=== PATIENT | female | born 1965 | race Caucasian/White ===

== ENCOUNTER → 2020-03-11 09:30 | Outpatient (BNVA) | payer OTHER, SELFPAY | PROVIDERS: PCP Physician Assistant; Visit Provider Urology | DX: N30.10 Interstitial cystitis (chronic) without hematuria (principal); R39.15 Urgency of urination | CPT/HCPCS: 51798; 99213 ==

== ENCOUNTER 2020-03-20 22:02 | Emergency (ER) | payer OTHER, SELFPAY ==
--- NOTE | 2020-03-20 22:08 | ED_ITS ---
HPI - Abdominal Pain General Chief Complaint: Upper Respiratory Symptoms Stated Complaint: ABD PAIN Time Seen by Provider: 03/20/20 22:07 Source: patient and EMS Mode of arrival: EMS Limitations: no limitations History of Present Illness MD elicited complaint: flank pain Pertinent past history: other (hx of interstitial cystitis) Onset (ago): day(s) (yesterday but worse since 4pm) Pain Consistency: constant Location: L flank and suprapubic Severity: moderate Quality: aching Radiation: none Migration to: no migration Exacerbating factors: nothing Relieving factors: nothing Context: history of similar episodes Associated symptoms: nausea and dysuria Related Data Previous Rx's Medication Instructions Recorded loperamide 2 mg capsule 2 mg PO QID PRN #40 cap 03/09/20 meloxicam 15 mg tablet 15 mg PO DAILY #30 tab 03/09/20 nicotine 21 mg/24 hr daily 1 patch TRANSDERMAL DAILY 28 Days 03/09/20 transdermal patch #28 ea sennosides 8.6 mg tablet 17.2 mg PO BEDTIME PRN #60 tab 03/09/20 ipratropium 0.5 mg-albuterol 3 mg 3 ml INHALATION Q4H PRN 30 Days 03/18/20 (2.5 mg base)/3 mL nebulization #180 ml soln metronidazole [Flagyl] 500 mg PO BID 7 Days #14 tab 03/21/20 nitrofurantoin monohyd/m-cryst 100 mg PO BID 7 Days #14 cap 03/21/20 [Macrobid] ondansetron 4 mg PO Q8H PRN #20 tab 03/21/20 Allergies Allergy/AdvReac Type Severity Reaction Status Date / Time ciprofloxacin [From CIPRO] Allergy Intermediate ANXIOUS/STOMACH Verified 03/20/20 23:14 PAINS sulfamethoxazole Allergy Intermediate RASH Verified 03/20/20 23:14 [From Bactrim] trimethoprim [From Bactrim] Allergy Intermediate RASH Verified 03/20/20 23:14 amoxicillin [AMOXICILLIN] Allergy Mild STOMACH Verified 03/20/20 23:14 UPSET, yeast, gentamicin [GENTAMICIN] Allergy Unknown RASH Verified 03/20/20 23:14 ibuprofen [IBUPROFEN] Allergy Unknown IRRITATION Verified 03/20/20 23:14 OF STOMACH Sulfa (Sulfonamide Allergy Unknown hives Verified 03/20/20 23:14 Antibiotics) ANXIETY MED ENDING WITH Allergy Unknown CYSTITIS Uncoded 02/12/20 15:33 PRAM anxiety meds ending in pram Allergy Unknown cystitis Uncoded 01/19/20 00:00 Review of Systems Review of Systems Constitutional : No Fever, No Chills ENT/Mouth : No sore throat Eyes: No Eye Pain, No Swelling, No Redness Cardiovascular : No Chest Pain, No SOB Respiratory : No Cough, No Sputum, No Wheezing Gastrointestinal : positive Nausea, no Vomiting, No Diarrhea, positive abdominal pain Genitourinary : positive Dysuria, positive urinary frequency, noHematuria, positive Flank Pain, no hesitancy Musculoskeletal : No joint pain, No Myalgias Skin : No Skin Lesions, No rash Neuro : No Weakness, No Numbness, No Headache Psych : No Anxiety/Panic, No Depression Heme/Lymph: No Bruising, No Lymphadenopathy Endocrine : No Polyuria, No Polydipsia All other systems reviewed and are negative Physical Exam Vital Signs: Vital Signs: Vital Signs Temp Pulse Resp BP Pulse Ox 03/20/20 22:14 98 F 80 18 130/65 97 Body Mass Index 34.0 Appearance: Alert. Oriented X3. No acute distress. Eyes: Pupils equal, round and reactive to light. ENT: Pharynx normal. Neck: Normal inspection. Neck supple. CVS: Normal heart rate and rhythm. Pulses normal. Respiratory: No respiratory distress. Breath sounds normal. Abdomen: Soft and mild suprapubic ttp and mild L CVA ttp Skin: Skin warm and dry. Normal skin color. Normal skin turgor. Extremities: No lower extremity edema. No calf ttp Neuro: Oriented X 3. No motor deficit. No sensory deficit. Course Course Course Narrative: prior urine cultures susceptible to levofloxacin and macrobid - colitis seems unusual given lack of diarrhea will treat with macrobid and flagyl - anticipate DC home MDM - Abdominal Pain MDM Narrative Medical decision making narrative: 54 yo female with hx of interstitial cystitis here with L flank pain and mild CVA ttp at this time will need labs, CT scan for renal colic, UA, IV morphine for pain, dispo per results and findings. Differential Diagnosis Differential diagnosis: Likely diverticulitis and renal colic Lab Data Result diagrams: 03/20/20 02:41 03/21/20 00:42 Labs: Lab Results 03/20/20 03/20/20 03/20/20 Range/Units 02:41 22:48 22:54 WBC 5.8 (4.8-10.8) X10*3/uL RBC 4.79 (4.20-5.50) X10*6/uL Hgb 14.9 (12.0-16.0) g/dl Hct 44.0 (37-47) % MCV 91.9 (80-98) fL MCH 31.1 (27.0-33.0) pg MCHC 33.9 (31.0-35.0) g/dl RDW 12.1 (11.0-16.0) % Plt Count 138 L (160-400) X10*3/uL MPV 12.0 (9.4-12.3) fL Immature Gran % (Auto) 0.2 (0.0-0.4) % Neut % (Auto) 31.4 L (45-73) % Lymph % (Auto) 58.3 H (20-40) % Chase % (Auto) 8.2 (2-11) % Eos % (Auto) 1.6 (0-4) % Baso % (Auto) 0.3 (0-2) % Lymph # (Auto) 3.4 (1.2-4.9) X10*3/uL Chase # (Auto) 0.5 (0.1-1.2) X10*3/uL Eos # (Auto) 0.1 (0.0-0.4) X10*3/uL Baso # (Auto) 0.0 (0.0-0.2) X10*3/uL Abs Immat Gran (auto) 0.01 (0.00-0.03) X10*3/uL Absolute Neuts (auto) 1.8 L (2.0-8.3) X10*3/uL Absolute Nucleated RBC 0.000 (0.0-0.012) X10*3/uL Nucleated RBC % (auto) 0.0 (0.0-0.2) /100WBC Hold Blue Top SEE NOTE Sodium Potassium Chloride Carbon Dioxide Anion Gap BUN Creatinine Estim Creat Clear Calc Estimated GFR Random Glucose Lactic Acid (0.5-2.0) mmol/L Calcium Magnesium Total Bilirubin Direct Bilirubin AST ALT Alkaline Phosphatase Total Protein Albumin Lipase Urine Color YELLOW Urine Appearance CLEAR Urine pH 6.5 (5.0-8.0) Ur Specific [place] 1.025 (1.005-1.025) Urine Protein NEG (NEG-TRACE) MG/DL Urine Glucose (UA) NEG (NEG) MG/DL Urine Ketones NEG (NEG) MG/DL Urine Blood NEG (NEG) Urine Nitrite NEG (NEG) Ur Leukocyte Esterase NEG (NEG) Urine RBC 1-4 (0) /HPF Urine WBC 1-4 (0-4) /HPF Ur Squamous Epith Cells 1+ /LPF Urine Bacteria 1+ /LPF 03/20/20 03/20/20 Range/Units 22:54 22:54 WBC (4.8-10.8) X10*3/uL RBC (4.20-5.50) X10*6/uL Hgb (12.0-16.0) g/dl Hct (37-47) % MCV (80-98) fL MCH (27.0-33.0) pg MCHC (31.0-35.0) g/dl RDW (11.0-16.0) % Plt Count (160-400) X10*3/uL MPV (9.4-12.3) fL Immature Gran % (Auto) (0.0-0.4) % Neut % (Auto) (45-73) % Lymph % (Auto) (20-40) % Chase % (Auto) (2-11) % Eos % (Auto) (0-4) % Baso % (Auto) (0-2) % Lymph # (Auto) (1.2-4.9) X10*3/uL Chase # (Auto) (0.1-1.2) X10*3/uL Eos # (Auto) (0.0-0.4) X10*3/uL Baso # (Auto) (0.0-0.2) X10*3/uL Abs Immat Gran (auto) (0.00-0.03) X10*3/uL Absolute Neuts (auto) (2.0-8.3) X10*3/uL Absolute Nucleated RBC (0.0-0.012) X10*3/uL Nucleated RBC % (auto) (0.0-0.2) /100WBC Hold Blue Top Sodium Cancelled Potassium Cancelled Chloride Cancelled Carbon Dioxide Cancelled Anion Gap Cancelled BUN Cancelled Creatinine Cancelled Estim Creat Clear Calc Cancelled Estimated GFR Cancelled Random Glucose Cancelled Lactic Acid 2.0 (0.5-2.0) mmol/L Calcium Cancelled Magnesium Cancelled Total Bilirubin Cancelled Direct Bilirubin Cancelled AST Cancelled ALT Cancelled Alkaline Phosphatase Cancelled Total Protein Cancelled Albumin Cancelled Lipase Cancelled Urine Color Urine Appearance Urine pH (5.0-8.0) Ur Specific [place] (1.005-1.025) Urine Protein (NEG-TRACE) MG/DL Urine Glucose (UA) (NEG) MG/DL Urine Ketones (NEG) MG/DL Urine Blood (NEG) Urine Nitrite (NEG) Ur Leukocyte Esterase (NEG) Urine RBC (0) /HPF Urine WBC (0-4) /HPF Ur Squamous Epith Cells /LPF Urine Bacteria /LPF Discharge Plan Discharge Clinical Impression: Acute left flank pain, Cystitis, Colitis Patient Disposition: Home, Self-Care Instructions: Colitis (ED), Interstitial Cystitis (ED) Prescriptions: New ondansetron 4 mg tablet,disintegrating 4 mg PO Q8H PRN (Reason: nausea and vomiting) Qty: 20 RF: 0 nitrofurantoin monohyd/m-cryst [Macrobid] 100 mg capsule 100 mg PO BID 7 Days Qty: 14 RF: 0 metronidazole [Flagyl] 500 mg tablet 500 mg PO BID 7 Days Qty: 14 RF: 0 No Action nicotine 21 mg/24 hr patch 24 hour 1 patch transdermal DAILY 28 Days Qty: 28 RF: 0 loperamide 2 mg capsule 2 mg PO QID PRN (Reason: loose stool) Qty: 40 RF: 3 meloxicam 15 mg tablet 15 mg PO DAILY Qty: 30 RF: 3 sennosides [senna] 8.6 mg tablet 17.2 mg PO BEDTIME PRN (Reason: constipation) Qty: 60 RF: 3 ipratropium-albuterol 0.5 mg-3 mg(2.5 mg base)/3 mL solution for nebulization 3 ml inhalation Q4H PRN (Reason: shortness of breath or wheezing) 30 Days Qty: 180 RF: 5 Referrals: Physician,Unknown [Primary Care Provider] - 2 days (primary care if not better 2 days) Stand Alone Forms: Work/School Release FOR[facility]LY [facility], [facility] Past Medical History Medical History (Updated 03/21/20 @ 01:02 by Josie Almanzar DO) High cholesterol Smoker Thyroid activity decreased Urinary retention Surgical History History of cystoscopy History of neck surgery Social History Social History (Updated 03/20/20 @ 22:14 by Josie Almanzar DO) Alcohol intake: never Smoking Status: Light tobacco smoker Use of substances other than those prescribed or required for medical reasons: No Advance Directives: No Advance Directives Information Provided: Yes
--- NOTE | 2020-03-20 22:09 | CT_ITS ---
EXAMINATION: CT abdomen pelvis wo con CLINICAL INFORMATION: Reason for Exam L flank pain COMPARISON: No prior CT available for comparison. TECHNIQUE: Multidetector volumetric imaging was performed from the superior aspect of the liver through the pubic symphysis , noncontrasted study. Sagittal and coronal reformatted images were obtained on the technologist's workstation. This CT examination was performed using dose optimization techniques as appropriate, variously including the following: *Automated exposure control *Adjustment of mA and/or kV according to patient size (this includes techniques or standardized protocols for targeted exams where dose is matched to indication/reason for exam; i.e. extremities or head) *Use of iterative reconstruction technique DLP: 655 mGy-cm FINDINGS: LOWER THORAX: Included lung bases are clear. HEPATOBILIARY: Liver diffusely hypodense suggesting hepatic steatosis. Hypodense area in the liver adjacent to the gallbladder likely focal fat sparing. GALLBLADDER: There are small gallstones. SPLEEN: Spleen is normal in size. PANCREAS: No focal mass or ductal dilatation. STOMACH AND GASTROINTESTINAL TRACT: Stomach is grossly unremarkable. There is no bowel distention or thickening. There is circumferential wall thickening of the entire colon which is also hypodense concerning for edema, this is nonspecific CT finding however can be seen in patient with colitis including C. Difficile colitis. ADRENALS: No adrenal nodules. KIDNEYS/URETERS: There is no hydronephrosis. Perinephric fat are clear. The left ureter is not dilated. There are multiple calcific densities found along the course of the left ureter however felt to be more vascular, difficult to visualize the ureter due to its very small size nondilated. URINARY BLADDER: Urinary bladder is decompressed, the wall of which is thickened, this is probably due to its decompression, also has been described in patient with cystitis. PELVIC VISCERA: Unremarkable PERITONEUM: No free air or fluid. LYMPH NODES: No lymphadenopathy. VASCULAR:Abdominal aorta normal in size, no aneurysm found. BONES, ABDOMINAL WALL AND SOFT TISSUES: Age-appropriate changes of the spine and skeletal system, no destructive osteolytic or osteosclerotic bone lesion found CT/CT abdomen pelvis wo IV con IMPRESSION: 1. There is a mild circumferential wall thickening of the colon along with low attenuation concerning for edema, although nonspecific, this CT finding has been described in patient with colitis including C. Difficile colitis among other infection or inflammatory processes. Please correlate clinically. 2. Liver is diffusely hypodense suggesting hepatic steatosis. 3. Multiple tiny calcific densities found along the course of the left ureter which does not seem to be dilated suggesting probably vascular rather than ureteric stones. 4. Urinary bladder is decompressed the wall of which is thickened, probably due to its nondistention, cannot rule out underlying bladder disease including cystitis. 5. Gallstone.
[2020-03-20 22:14] VITALS: BP 130/65; PULSE 80; RESP 18; TEMP 36.6; O2SAT 97; BMI 34.0
[2020-03-20 23:03] LABS: MANUAL DIFF FLAG NO
[2020-03-20 23:05] LABS: Basophils Percent Auto 0.3 % (0-2); Eosinophils Absolute Auto 0.1 X10*3/uL (0.0-0.4); Eosinophils Percent Auto 1.6 % (0-4); Hemoglobin 14.9 g/dl (12.0-16.0); Imm Gran Abs Auto 0.01 X10*3/uL (0.00-0.03); Imm Gran Pct Auto 0.2 % (0.0-0.4); Lymphocytes Absolute Auto 3.4 X10*3/uL (1.2-4.9); Lymphocytes Percent Auto 58.3 % (20-40); Mean Corpuscular HGB Conc 33.9 g/dl (31.0-35.0); Mean Corpuscular Hemoglobin 31.1 pg (27.0-33.0); Mean Corpuscular Volume 91.9 fL (80-98); Monocytes Absolute Auto 0.5 X10*3/uL (0.1-1.2); Monocytes Percent Auto 8.2 % (2-11); Neutrophils Absolute Auto 1.8 X10*3/uL (2.0-8.3); Neutrophils Percent Auto 31.4 % (45-73); Platelet Count 138 X10*3/uL (160-400); Red Blood Count 4.79 X10*6/uL (4.20-5.50); Red Cell Distribution Width 12.1 % (11.0-16.0); White Blood Count 5.8 X10*3/uL (4.8-10.8)
[2020-03-20] MEDS: Morphine Sulfate 4 MG/ML CARTRIDGE IVPUSH (23:14)
[2020-03-20] MEDS: ondansetron HCL 4 MG/2 ML VIAL IVPUSH (23:14)
[2020-03-20 23:16] LABS: Glucose Urine UA NEG (NEG); Leukocyte Esterase Urine NEG (NEG); Nitrite Urine NEG (NEG); PH 6.5 (5.0-8.0); Specific Gravity - Urine 1.025 (1.005-1.025); Urine Blood NEG (NEG); Urine Ketones NEG (NEG); Urine Protein NEG (NEG-TRACE)
[2020-03-20] MEDS: 0.9 % Sodium Chloride 1,000 ML 999 ML IVCONT (23:17)
[2020-03-20 23:19] LABS: Appearance Urine CLEAR; Color Urine YELLOW
[2020-03-20 23:33] LABS: Bacteria Urine 1+ /LPF; Squamous Epithelial Cell Urine 1+ /LPF
[2020-03-21 01:15] LABS: Alanine Aminotransferase 67 U/L (0-31); Albumin Level 3.7 g/dL (3.5-5.0); Alkaline Phosphatase 68 U/L (39-117); Anion Gap 12 (12-20); Aspartate Amino Transferase 34 U/L (5-31); Bilirubin Direct 0.2 mg/dL (0.0-0.5); Bilirubin Total 0.4 mg/dL (0.0-1.0); Blood Urea Nitrogen 11 mg/dL (9-16); Calcium 8.2 mg/dL (8.4-10.2); Carbon Dioxide 25 mmol/L (22-29); Chloride 109 mmol/L (96-108); Creatinine Clr Calc Pharmacy 80.8; Estimated Glomerular Filt Rate > 60; Glucose Random 110 mg/dL (60-115); Lipase 29 U/L (8-78); Magnesium 1.8 mg/dL (1.6-2.6); Potassium 4.1 mmol/l (3.3-5.1); Sodium 142 mmol/L (135-145); Total Protein 5.8 g/dL (6.5-8.0)
== END 2020-03-21 01:57 | disposition home or self-care (01) ==
PROVIDERS: Emergency Provider Emergency Medicine
DX: K52.9 Noninfective gastroenteritis and colitis, unspecified (principal); N30.10 Interstitial cystitis (chronic) without hematuria; F17.200 Nicotine dependence, unspecified, uncomplicated; Z71.6 Tobacco abuse counseling; Z79.899 Other long term (current) drug therapy
CPT/HCPCS: 36415; 74176; 80048; 80076; 81001; 83605; 83690; 83735; 85025; 96361; 96374; 96375; 99284; J2270; J2405

== ENCOUNTER → 2020-03-22 13:57 | Outpatient (BNVA) | payer OTHER, SELFPAY | PROVIDERS: Visit Provider Urology | DX: N30.10 Interstitial cystitis (chronic) without hematuria (principal) | CPT/HCPCS: 99213 ==

== ENCOUNTER → 2020-05-19 09:47 | Outpatient (BNVA) | payer OTHER, SELFPAY | PROVIDERS: PCP Physician Assistant; Visit Provider Urology | DX: Z76.89 Persons encountering health services in other specified circumstances (principal) ==

== ENCOUNTER → 2020-06-02 13:14 | Outpatient (BNVA) | payer OTHER, SELFPAY | PROVIDERS: PCP Physician Assistant; Visit Provider Physician Assistant | DX: Z76.89 Persons encountering health services in other specified circumstances (principal) ==

== ENCOUNTER 2020-07-30 02:26 | Emergency (ER) | payer OTHER, SELFPAY ==
--- NOTE | ~2020-07-30 | XR_ITS ---
EXAMINATION: XR CHEST CLINICAL INFORMATION: Chest pain, shortness of breath COMPARISON: 09/04/2019 TECHNIQUE: Frontal view of the chest was obtained. FINDINGS: Lung volumes are symmetric. Slight haziness at the lung bases is suspected to be due to overlying soft tissue shadow. No focal consolidation is seen. No evidence of pneumothorax, pleural effusion, or pulmonary edema. The cardiomediastinal contour is unremarkable. No acute osseous findings are seen. XR/XR chest 1V IMPRESSION: No acute cardiopulmonary findings.
[2020-07-30 02:33] VITALS: BP 124/53; PULSE 78; PULSE 80; RESP 18; TEMP 37.1; O2SAT 96; O2SAT 97; BMI 33.3
--- NOTE | 2020-07-30 03:03 | ECG_ITS ---
Test Reason : SOB Blood Pressure : / mmHG Vent. Rate : 078 BPM Atrial Rate : 078 BPM P-R Int : 150 ms QRS Dur : 086 ms QT Int : 394 ms P-R-T Axes : 051 045 024 degrees QTc Int : 449 ms Normal sinus rhythm Normal ECG When compared with ECG of 04-SEP-2019 20:32, No significant change was found Referred By: Grupo Newsome Electronically Signed By:WILLIE KING
--- NOTE | 2020-07-30 03:09 | ED_ITS ---
HPI - General Adult General Chief complaint: Dyspnea Stated complaint: SHORTNESS OF BREATH/COUGH Time Seen by Provider: 07/30/20 02:41 Source: patient Mode of arrival: EMS Limitations: no limitations History of Present Illness HPI narrative: 54-year-old female who presents emergency department for evaluation of shortness of breath, cough and chest pain. Patient states that her symptoms started yesterday morning. She states that when she was walking around she felt short of breath. She states that her shortness of breath that is gotten progressively worse. She states that this morning she woke up with a cough which is nonproductive and tightness in her chest. She points to her mid sternum when asked to localize the pain she describes the pain as a tightness which is worse with breathing and with movement. She also states that the area of her chest is tender to palpation. She states the pain is 6/10 at its worst. She states that she also had nasal congestion. She used her inhaler and nebulized without any relief of her shortness of breath. She states that she has also been feeling hot and diaphoretic this morning which is unusual for her. Related Data Previous Rx's Medication Instructions Recorded meloxicam 15 mg tablet 15 mg PO DAILY #30 tab 03/09/20 nitrofurantoin monohyd/m-cryst 100 mg PO BID 7 Days #14 cap 03/21/20 [Macrobid] naproxen sodium 550 mg tablet 550 mg PO Q12H PRN 20 Days #40 cap 03/25/20 nicotine 21 mg/24 hr daily 1 patch TRANSDERMAL DAILY #28 cap 04/05/20 transdermal patch albuterol sulfate 90 mcg/actuation 2 puff INHALATION Q4H PRN 30 Days 04/06/20 aerosol inhaler #8.5 g fluticasone 250 mcg-salmeterol 50 1 ea INHALATION BID #60 cap 05/12/20 mcg/dose blistr powdr for inhalation fluticasone propionate 50 1 spray INTRANASAL BID 30 Days 05/12/20 mcg/actuation nasal #9.9 ml spray,suspension ipratropium 0.5 mg-albuterol 3 mg 3 ml INHALATION Q4H PRN 30 Days 05/12/20 (2.5 mg base)/3 mL nebulization #180 ml soln metronidazole 500 mg tablet 500 mg PO BID 7 Days #14 tab 05/12/20 trazodone 100 mg tablet 100 mg PO BEDTIME #30 cap 05/24/20 montelukast 10 mg tablet 10 mg PO DAILY #30 cap 05/29/20 methylcellulose (laxative) 500 mg 500 mg PO BID #60 tab 06/02/20 tablet sertraline 50 mg tablet 50 mg PO DAILY 30 Days #30 tab 06/09/20 cholecalciferol (vitamin D3) 25 25 mcg PO DAILY #30 cap 07/05/20 mcg (1,000 unit) tablet clotrimazole 1 % vaginal cream 1 appful VAGINAL BEDTIME 15 Days 07/05/20 #45 cap loperamide 2 mg capsule 2 mg PO QID PRN #40 cap 07/05/20 sennosides 8.6 mg tablet 17.2 mg PO BEDTIME PRN #60 cap 07/05/20 buspirone 10 mg tablet 10 mg PO BID 30 Days #60 tab 07/07/20 levothyroxine 125 mcg tablet 125 mcg PO QAM #30 cap 07/28/20 omeprazole 20 mg capsule,delayed 20 mg PO DAILY #30 cap 07/28/20 release simvastatin 40 mg tablet 40 mg PO BEDTIME #90 cap 07/28/20 prednisone 60 mg PO DAILY 5 Days #15 tab 07/30/20 Allergies Allergy/AdvReac Type Severity Reaction Status Date / Time ciprofloxacin [From CIPRO] Allergy Intermediate ANXIOUS/STOMACH Verified 07/30/20 02:38 PAINS sulfamethoxazole Allergy Intermediate RASH Verified 07/30/20 02:38 [From Bactrim] trimethoprim [From Bactrim] Allergy Intermediate RASH Verified 07/30/20 02:38 amoxicillin [AMOXICILLIN] Allergy Mild STOMACH Verified 07/30/20 02:38 UPSET, yeast, gentamicin [GENTAMICIN] Allergy Unknown RASH Verified 07/30/20 02:38 ibuprofen [IBUPROFEN] Allergy Unknown IRRITATION Verified 07/30/20 02:38 OF STOMACH Sulfa (Sulfonamide Allergy Unknown hives Verified 07/30/20 02:38 Antibiotics) sertraline [From Zoloft] AdvReac Mild Urinary Verified 07/30/20 02:38 frequency ANXIETY MED ENDING WITH Allergy Unknown CYSTITIS Uncoded 07/30/20 02:38 PRAM anxiety meds ending in pram Allergy Unknown cystitis Uncoded 07/30/20 02:38 Review of Systems Review of Systems: Yes all other systems are reviewed and are negative Neurologic: Denies Abnormal speech present [facility] Past Medical History [facility] Narrative: Past medical history significant for asthma, COPD, as well as conditions noted below. She smokes 1/2 pack of cigarettes per day times 35 years, she denies alcohol and drug use. Medical History High cholesterol Smoker Thyroid activity decreased Urge incontinence Urinary retention Surgical History H/O LEEP History of bladder surgery History of cystoscopy History of neck surgery Family History Family History Father COPD (chronic obstructive pulmonary disease) Lung cancer Mother Breast cancer Cardiac pacemaker Son Hyperthyroidism Maternal Grandmother Depression Son Depression Social History Social History Alcohol intake: never Smoking Status: Light tobacco smoker Advance Directives: No Current occupational status: disabled Physical Exam Vital Signs: Vital Signs: Last Vital Signs Temp 98.7 F 07/30/20 02:33 Pulse 70 07/30/20 05:45 Resp 16 07/30/20 05:45 BP 115/58 L 07/30/20 05:45 Pulse Ox 92 07/30/20 05:45 Body Mass Index 33.3 Const: General: cooperative Orientation/consciousness: oriented to person and oriented to place Limitations: no limitations HENMT: Head: Yes normal to inspection, Yes normocephalic and Yes atraumatic Ears: external ears normal General nose exam: Normal external nose present Face and sinus: Yes normal facial exam Mouth: Normal oral and palatal mucosa present Throat: Yes posterior oropharynx normal Eyes: Periorbital: periorbital findings normal Eyelids: Yes eyelids normal Conjunctivae: conjunctivae normal Sclerae: sclerae normal Corneas: corneas normal Pupils: Equal, round and reactive pupils present Direct Ophthalmoscopy: normal light reflex Neck: Neck: Yes full ROM, Yes no lymphadenopathy, Yes no meningeal signs, Yes trachea midline and Yes supple Chest: Chest palpation & inspection: normal inspection of the chest and tenderness (Mid sternum, [id number]) Resp: Effort & Inspection: normal respiratory effort and able to speak in complete sentences Auscultation: rales diffuse, rhonchi throughout and wheezes throughout Cardio: Rate: regular rate Rhythm: regular rhythm Heart sounds: S1 normal heart sound present, S2 normal heart sound present and no murmurs GI: Inspection: Yes normal to inspection Palpation (GI): Soft to palpation, nontender, no guarding, not rigid and No hepatosplenomegaly present : General: Yes no CVA tenderness Back/Spine/Pelvis: Back: no CVA tenderness Cervical Spine: normal cervical lordosis Thoracic/Lumbar Spine: thoracic and lumbar spine normal to inspection Skin: Lesions: no lesions Rashes: no rashes Wounds: no wounds Neuro: General: oriented to person, oriented to place and no meningeal signs Cranial nerves: Yes CN's II-XII intact bilaterally and Yes Equal, round and reactive pupils present Cognition (Neuro): normal cognition Speech: No Abnormal speech present Motor exam (neuro): 5/5 motor strength present throughout Extrem: General: Yes normal to inspection and Yes full ROM Psych: Appearance: well kempt Mental Status: mental status grossly normal Speech and movement: Normal speech and movement present Affect: normal affect Attitude: cooperative Thought process: Normal thought process present Thought content: Normal thought content present Course Course Course Narrative: 54-year-old female with a history of COPD who continues to smoke cigarettes who presents emergency department for evaluation of chest pain shortness of breath, subjective fever and diaphoresis. Physical examination did reveal anterior chest wall tenderness, abnormal lung exam with diffuse wheezing, rhonchi and rales. The patient's vital sign reveal that she was afebrile and her O2 saturation was 96% on room air suggests as I have significant hypoxia. I did do a pneumonia/sepsis workup on this patient, chest x-ray, EKG, troponin and COVID-19 test. Patient was ordered to get an albuterol nebulizer x1 and Solu- Medrol 125 mg IV. 0438: The patient is feeling better after the above treatment. The patient's laboratory evaluation revealed a slightly low platelet count a [id number], elevated glucose at 166, elevated ALT at 66. The patient's COVID-19 test was negative. Chest x-ray revealed no evidence of pneumonia. I suspect that the patient's sy mptoms are most likely secondary to COPD exacerbation. The patient's initial high sensitivity troponin was detectable but not elevated at 4.0. Given her chest pain and normal EKG, the patient will need a 3 hour troponin at 6:30 a.m. and I did discuss this with the patient. 0721: The patient's repeat 3 hour troponin was 4.5 which was not significant elevated suggesting the patient did not have myocardial injury. The patient's repeat lactic acid improved to 1.8. Patient does not have any evidence for sepsis or an infectious process. I did discuss this with the patient. The patient will be treated with prednisone 60 mg once a day for 5 days for a COPD exacerbation. Medical Decision Making Lab Data Result diagrams: 07/30/20 03:31 07/30/20 03:31 Labs: Lab Results 07/30/20 07/30/20 07/30/20 Range/Units 03: 03: 03:31 WBC 8.2 (4.8-10.8) X10*3/uL RBC 4.49 (4.20-5.50) X10*6/uL Hgb 13.9 (12.0-16.0) g/dl Hct 40.6 (37-47) % MCV 90.4 (80-98) fL MCH 31.0 (27.0-33.0) pg MCHC 34.2 (31.0-35.0) g/dl RDW 11.9 (11.0-16.0) % Plt Count 144 L (160-400) X10*3/uL MPV 11.7 (9.4-12.3) fL Immature Gran % (Auto) 0.2 (0.0-0.4) % Neut % (Auto) 35.2 L (45-73) % Lymph % (Auto) 56.2 H (20-40) % Overton % (Auto) 7.3 (2-11) % Eos % (Auto) 1.0 (0-4) % Baso % (Auto) 0.1 (0-2) % Lymph # (Auto) 4.6 (1.2-4.9) X10*3/uL Overton # (Auto) 0.6 (0.1-1.2) X10*3/uL Eos # (Auto) 0.1 (0.0-0.4) X10*3/uL Baso # (Auto) 0.0 (0.0-0.2) X10*3/uL Abs Immat Gran (auto) 0.02 (0.00-0.03) X10*3/uL Absolute Neuts (auto) 2.9 (2.0-8.3) X10*3/uL Absolute Nucleated RBC 0.000 (0.0-0.012) X10*3/uL Nucleated RBC % (auto) 0.0 (0.0-0.2) /100WBC Sodium 139 (135-145) mmol/L Potassium 3.7 (3.3-5.1) mmol/L Chloride 107 (96-108) mmol/L Carbon Dioxide 20 L (22-29) mmol/L Anion Gap 16 (12-20) BUN 15 (9-16) mg/dL Creatinine 0.92 (0.5-1.4) mg/dL Estim Creat Clear Calc 70.4 Estimated GFR > 60 Random Glucose 166 H D (60-115) mg/dL Lactic Acid (0.5-2.0) mmol/L Lactic Acid Fup @ 2Hr (0.5-2.0) mmol/L Calcium 8.8 D (8.4-10.2) mg/dL Total Bilirubin 0.5 (0.0-1.0) mg/dL AST 29 (5-31) U/L ALT 66 H (0-31) U/L Alkaline Phosphatase 73 (39-117) U/L Troponin I High Sens (<3.5-17.0) ng/L Total Protein 6.3 L (6.5-8.0) g/dL Albumin 3.8 (3.5-5.0) g/dL Lipase (8-78) U/L COVID-19 ([facility]AR[facility]) Negative (Negative) COVID-19 Clin Com See Note 07/30/20 07/30/20 07/30/20 Range/Units 03:31 03:31 03:31 WBC (4.8-10.8) X10*3/uL RBC (4.20-5.50) X10*6/uL Hgb (12.0-16.0) g/dl Hct (37-47) % MCV (80-98) fL MCH (27.0-33.0) pg MCHC (31.0-35.0) g/dl RDW (11.0-16.0) % Plt Count (160-400) X10*3/uL MPV (9.4-12.3) fL Immature Gran % (Auto) (0.0-0.4) % Neut % (Auto) (45-73) % Lymph % (Auto) (20-40) % Overton % (Auto) (2-11) % Eos % (Auto) (0-4) % Baso % (Auto) (0-2) % Lymph # (Auto) (1.2-4.9) X10*3/uL Overton # (Auto) (0.1-1.2) X10*3/uL Eos # (Auto) (0.0-0.4) X10*3/uL Baso # (Auto) (0.0-0.2) X10*3/uL Abs Immat Gran (auto) (0.00-0.03) X10*3/uL Absolute Neuts (auto) (2.0-8.3) X10*3/uL Absolute Nucleated RBC (0.0-0.012) X10*3/uL Nucleated RBC % (auto) (0.0-0.2) /100WBC Sodium (135-145) mmol/L Potassium (3.3-5.1) mmol/L Chloride (96-108) mmol/L Carbon Dioxide (22-29) mmol/L Anion Gap (12-20) BUN (9-16) mg/dL Creatinine (0.5-1.4) mg/dL Estim Creat Clear Calc Estimated GFR Random Glucose (60-115) mg/dL Lactic Acid 2.1 H* (0.5-2.0) mmol/L Lactic Acid Fup @ 2Hr (0.5-2.0) mmol/L Calcium (8.4-10.2) mg/dL Total Bilirubin (0.0-1.0) mg/dL AST (5-31) U/L ALT (0-31) U/L Alkaline Phosphatase (39-117) U/L Troponin I High Sens 4.4 (<3.5-17.0) ng/L Total Protein (6.5-8.0) g/dL Albumin (3.5-5.0) g/dL Lipase 23 (8-78) U/L COVID-19 ([facility]) (Negative) COVID-19 Clin Com 07/30/20 07/30/20 Range/Units 06:22 06:22 WBC (4.8-10.8) X10*3/uL RBC (4.20-5.50) X10*6/uL Hgb (12.0-16.0) g/dl Hct (37-47) % MCV (80-98) fL MCH (27.0-33.0) pg MCHC (31.0-35.0) g/dl RDW (11.0-16.0) % Plt Count (160-400) X10*3/uL MPV (9.4-12.3) fL Immature Gran % (Auto) (0.0-0.4) % Neut % (Auto) (45-73) % Lymph % (Auto) (20-40) % Overton % (Auto) (2-11) % Eos % (Auto) (0-4) % Baso % (Auto) (0-2) % Lymph # (Auto) (1.2-4.9) X10*3/uL Overton # (Auto) (0.1-1.2) X10*3/uL Eos # (Auto) (0.0-0.4) X10*3/uL Baso # (Auto) (0.0-0.2) X10*3/uL Abs Immat Gran (auto) (0.00-0.03) X10*3/uL Absolute Neuts (auto) (2.0-8.3) X10*3/uL Absolute Nucleated RBC (0.0-0.012) X10*3/uL Nucleated RBC % (auto) (0.0-0.2) /100WBC Sodium (135-145) mmol/L Potassium (3.3-5.1) mmol/L Chloride (96-108) mmol/L Carbon Dioxide (22-29) mmol/L Anion Gap (12-20) BUN (9-16) mg/dL Creatinine (0.5-1.4) mg/dL Estim Creat Clear Calc Estimated GFR Random Glucose (60-115) mg/dL Lactic Acid (0.5-2.0) mmol/L Lactic Acid Fup @ 2Hr 1.8 (0.5-2.0) mmol/L Calcium (8.4-10.2) mg/dL Total Bilirubin (0.0-1.0) mg/dL AST (5-31) U/L ALT (0-31) U/L Alkaline Phosphatase (39-117) U/L Troponin I High Sens 4.5 (<3.5-17.0) ng/L Total Protein (6.5-8.0) g/dL Albumin (3.5-5.0) g/dL Lipase (8-78) U/L COVID-19 ([facility]) (Negative) COVID-19 Clin Com ECG Data Interpretation: 0324: Normal sinus rhythm with a rate of 78, normal CT, QRS and QTC intervals, inverted T-wave in V1, no ST segment elevation, no ST segment depression, this is a normal EKG. Discharge Plan Discharge Clinical Impression: Acute exacerbation of chronic obstructive pulmonary disease Chest pain Qualifiers: Chest pain type: unspecified Qualified Code(s): R07.9 - Chest pain, unspecified Patient Disposition: Home, Self-Care Instructions: Chronic Bronchitis (ED) Additional Instructions: Your chest x-ray was normal with no evidence of pneumonia. Your EKG was normal. You had a detectable troponin but this was not elevated and your repeat troponin is unchanged. This is encouraging in in suggest that she did not have a heart attack as the cause of your chest pain. Your chest pain is most likely related to a flare up of your COPD. Take prednisone 20 mg pills, 3 pills once a day for 5 days, this is a strong anti-inflammatory medication and should help improve your breathing. Continue to use your albuterol inhaler and your albuterol nebulizer as prescribed by your doctor Follow-up with your doctor in 2 days. Please return to the emergency department if your symptoms get worse or if you develop any symptoms that are concerning to you. Prescriptions: New prednisone 20 mg tablet 60 mg PO DAILY 5 Days Qty: 15 RF: 0 No Action meloxicam 15 mg tablet 15 mg PO DAILY Qty: 30 RF: 3 naproxen sodium 550 mg tablet 550 mg PO Q12H PRN (Reason: pain) 20 Days Qty: 40 RF: 1 nicotine 21 mg/24 hr patch 24 hour 1 patch transdermal DAILY Qty: 28 RF: 1 albuterol sulfate 90 mcg/actuation HFA aerosol inhaler 2 puff inhalation Q4H PRN (Reason: shortness of breath or wheezing) 30 Days Qty: 8.5 RF: 3 trazodone 100 mg tablet 100 mg PO BEDTIME Qty: 30 RF: 4 montelukast 10 mg tablet 10 mg PO DAILY Qty: 30 RF: 3 cholecalciferol (vitamin D3) 25 mcg (1,000 unit) tablet 25 mcg PO DAILY Qty: 30 RF: 4 sennosides [Christiane-aguila] 8.6 mg tablet 17.2 mg PO BEDTIME PRN (Reason: for constipation) Qty: 60 RF: 3 clotrimazole 1 % cream 1 appful vaginal BEDTIME 15 Days Qty: 45 RF: 3 loperamide 2 mg capsule 2 mg PO QID PRN (Reason: for diarrhea) Qty: 40 RF: 3 simvastatin 40 mg tablet 40 mg PO BEDTIME Qty: 90 RF: 2 levothyroxine 125 mcg tablet 125 mcg PO QAM Qty: 30 RF: 5 omeprazole 20 mg capsule,delayed release(DR/EC) 20 mg PO DAILY Qty: 30 RF: 6 nitrofurantoin monohyd/m-cryst [Macrobid] 100 mg capsule 100 mg PO BID 7 Days Qty: 14 RF: 0 sertraline 50 mg tablet 50 mg PO DAILY 30 Days Qty: 30 RF: 3 buspirone 10 mg tablet 10 mg PO BID 30 Days Qty: 60 RF: 1 ipratropium-albuterol 0.5 mg-3 mg(2.5 mg base)/3 mL solution for nebulization 3 ml inhalation Q4H PRN (Reason: shortness of breath or wheezing) 30 Days Qty: 180 RF: 5 fluticasone propion-salmeterol [Wixela Inhub] 250-50 mcg/dose blister with device 1 ea inhalation BID Qty: 60 RF: 5 metronidazole 500 mg tablet 500 mg PO BID 7 Days Qty: 14 RF: 0 fluticasone propionate [Flonase Allergy Relief] 50 mcg/actuation spray,suspension 1 spray intranasal BID 30 Days Qty: 9.9 RF: 5 Citrucel 500 mg tablet 500 mg PO BID Qty: 60 RF: 5
[2020-07-30] MEDS: Albuterol Sulfate (0.083%) 2.5 MG/3 ML VIAL.NEB INHALE (03:14)
[2020-07-30 03:15] VITALS: PULSE 75; O2SAT 97
[2020-07-30 03:39] LABS: MANUAL DIFF FLAG NO
[2020-07-30] MEDS: methylPREDNISolone Sod Succ/PF 125 MG/2 ML VIAL IVPUSH (03:39)
[2020-07-30 03:41] LABS: Basophils Percent Auto 0.1 % (0-2); Eosinophils Absolute Auto 0.1 X10*3/uL (0.0-0.4); Hematocrit 40.6 % (37-47); Hemoglobin 13.9 g/dl (12.0-16.0); Imm Gran Abs Auto 0.02 X10*3/uL (0.00-0.03); Imm Gran Pct Auto 0.2 % (0.0-0.4); Lymphocytes Absolute Auto 4.6 X10*3/uL (1.2-4.9); Lymphocytes Percent Auto 56.2 % (20-40); Mean Corpuscular HGB Conc 34.2 g/dl (31.0-35.0); Mean Corpuscular Volume 90.4 fL (80-98); Mean Platelet Volume 11.7 fL (9.4-12.3); Monocytes Absolute Auto 0.6 X10*3/uL (0.1-1.2); Monocytes Percent Auto 7.3 % (2-11); Neutrophils Absolute Auto 2.9 X10*3/uL (2.0-8.3); Neutrophils Percent Auto 35.2 % (45-73); Platelet Count 144 X10*3/uL (160-400); Red Blood Count 4.49 X10*6/uL (4.20-5.50); Red Cell Distribution Width 11.9 % (11.0-16.0); White Blood Count 8.2 X10*3/uL (4.8-10.8)
[2020-07-30 03:57] LABS: COVID-19 Test Negative (Negative)
[2020-07-30 04:06] LABS: Alanine Aminotransferase 66 U/L (0-31); Albumin Level 3.8 g/dL (3.5-5.0); Alkaline Phosphatase 73 U/L (39-117); Anion Gap 16 (12-20); Aspartate Amino Transferase 29 U/L (5-31); Bilirubin Total 0.5 mg/dL (0.0-1.0); Blood Urea Nitrogen 15 mg/dL (9-16); Calcium 8.8 mg/dL (8.4-10.2); Carbon Dioxide 20 mmol/L (22-29); Chloride 107 mmol/L (96-108); Creatinine Clr Calc Pharmacy 70.4; Estimated Glomerular Filt Rate > 60; Glucose Random 166 mg/dL (60-115); Potassium 3.7 mmol/L (3.3-5.1); Sodium 139 mmol/L (135-145); Total Protein 6.3 g/dL (6.5-8.0)
[2020-07-30 04:10] LABS: Lactic Acid 2.1 mmol/L (0.5-2.0)
[2020-07-30 04:11] LABS: Troponin-I High Sensitivity 4.4 ng/L (<3.5-17.0)
[2020-07-30 04:24] LABS: Lipase 23 U/L (8-78)
[2020-07-30 05:36] LABS: Reflex Lactate? Lactic Acid Added
[2020-07-30 05:45] VITALS: BP 115/58; PULSE 70; RESP 16; O2SAT 92
[2020-07-30 06:46] LABS: ~Lactic Acid-LAB USE ONLY 1.8 mmol/L (0.5-2.0)
[2020-07-30 06:56] LABS: Troponin-I High Sensitivity 4.5 ng/L (<3.5-17.0)
[2020-07-30 07:51] VITALS: PULSE 88; RESP 17; O2SAT 98
== END 2020-07-30 07:53 | disposition home or self-care (01) ==
PROVIDERS: Emergency Provider Emergency Medicine Emergency Medical Services; PCP Internal Medicine
DX: J44.1 Chronic obstructive pulmonary disease with (acute) exacerbation (principal); R07.9 Chest pain, unspecified; Z20.822 Contact with and (suspected) exposure to COVID-19; F17.210 Nicotine dependence, cigarettes, uncomplicated
CPT/HCPCS: 36415; 71045; 80053; 83605; 83690; 84484; 85025; 87040; 87635; 93005; 94640; 96374; 99284; J2930

== ENCOUNTER 2020-10-29 22:45 | Emergency (ER) | payer OTHER, SELFPAY ==
--- NOTE | ~2020-10-29 | CT_ITS ---
EXAMINATION: CT ABDOMEN AND PELVIS WITH CONTRAST CLINICAL INFORMATION: Abdominal pain and diarrhea COMPARISON: CT abdomen pelvis 03/20/2020 TECHNIQUE: Multidetector volumetric images were obtained from the superior aspect of the liver through the pubic symphysis following administration 85 mL of Omnipaque 350 intravenous contrast. Sagittal and coronal reformatted images were obtained on the technologist's workstation. Oral contrast: No This CT examination was performed using dose optimization techniques as appropriate, variously including the following: *Automated exposure control *Adjustment of mA and/or kV according to patient size (this includes techniques or standardized protocols for targeted exams where dose is matched to indication/reason for exam; i.e. extremities or head) *Use of iterative reconstruction technique DLP: 710 mGy-cm FINDINGS: LUNG BASES: The visualized lung bases are unremarkable. LIVER, GALLBLADDER, AND BILIARY TREE: The liver is enlarged measuring 19 cm in greatest cephalocaudad dimension and demonstrates decreased attenuation consistent with hepatic steatosis. There are areas of focal fatty sparing present around the gallbladder. No worrisome focal mass is seen. No bile duct dilatation is present. The gallbladder contains a single gallstone but is otherwise unremarkable with no evidence of radiopaque wall thickening, or obvious pericholecystic inflammatory changes. PANCREAS: Unremarkable. SPLEEN: Unremarkable. ADRENAL GLANDS: Unremarkable. KIDNEYS AND URETERS: The kidneys are normal in size, shape, and attenuation. No hydronephrosis, hydroureter, or calculi seen. No perinephric stranding. BLADDER: Unremarkable. GASTROINTESTINAL TRACT: The small and large bowel are unremarkable. The previously noted colonic wall thickening has resolved. The appendix is not seen but there is no evidence of appendicitis. ABDOMINAL WALL: No significant hernia is appreciated. LYMPH NODES: No retroperitoneal lymphadenopathy seen VASCULAR: Minimal calcific plaque present PELVIC VISCERA: There is an anteverted uterus present. There is some mild bulge on the superior surface of the uterus which may represent a small subserosal fibroid. OSSEOUS STRUCTURES: Unremarkable. CT/CT abdomen pelvis w IV con IMPRESSION: 1. Enlarged fatty liver and cholelithiasis without cholecystitis. 2. A cause for the patient's abdominal pain and diarrhea has not been found.
[2020-10-29 22:50] VITALS: BP 178/86; PULSE 86; RESP 20; TEMP 37.3; O2SAT 98; BMI 34.4
[2020-10-29 23:14] LABS: MANUAL DIFF FLAG NO
[2020-10-29 23:18] LABS: Basophils Percent Auto 0.2 % (0-2); Eosinophils Absolute Auto 0.1 X10*3/uL (0.0-0.4); Eosinophils Percent Auto 1.7 % (0-4); Hematocrit 42.9 % (37-47); Hemoglobin 14.6 g/dl (12.0-16.0); Imm Gran Abs Auto 0.02 X10*3/uL (0.00-0.03); Imm Gran Pct Auto 0.3 % (0.0-0.4); Lymphocytes Absolute Auto 3.6 X10*3/uL (1.2-4.9); Lymphocytes Percent Auto 54.6 % (20-40); Mean Corpuscular Hemoglobin 31.3 pg (27.0-33.0); Mean Corpuscular Volume 92.1 fL (80-98); Monocytes Absolute Auto 0.5 X10*3/uL (0.1-1.2); Monocytes Percent Auto 7.6 % (2-11); Neutrophils Absolute Auto 2.3 X10*3/uL (2.0-8.3); Neutrophils Percent Auto 35.6 % (45-73); Platelet Count 159 X10*3/uL (160-400); Red Blood Count 4.66 X10*6/uL (4.20-5.50); Red Cell Distribution Width 12.3 % (11.0-16.0); White Blood Count 6.5 X10*3/uL (4.8-10.8)
[2020-10-29 23:22] LABS: Glucose Urine UA NEG (NEG); Leukocyte Esterase Urine TRACE (NEG); Nitrite Urine NEG (NEG); UACC Culture Trigger YES; Urine Blood NEG (NEG); Urine Ketones 5 MG/DL (NEG); Urine Protein TRACE MG/DL (NEG-TRACE)
[2020-10-29 23:24] LABS: Appearance Urine HAZY; Color Urine DARK YELLOW
--- NOTE | 2020-10-29 23:29 | PC.NURSE ---
IV established, labs and UA obtained. Awaiting primary MD eval.
--- NOTE | 2020-10-29 23:32 | ED_ITS ---
HPI - Abdominal Pain General Chief Complaint: Abdominal Pain Stated Complaint: abd pain Time Seen by Provider: 10/29/20 23:32 Source: patient, RN notes reviewed and old records reviewed Mode of arrival: ambulatory Limitations: no limitations History of Present Illness HPI narrative: 54-year-old female with past medical history of asthma, COPD, history of bladder surgery and cystoscopy, diverticulosis, interstitial cystitis is here today complaining of urinary frequency and diarrhea since Sunday. Patient reports that she feels the same way as she did when she was here back in February. Patient denies any fever or chills. Denies any blood in her urine or in her stools. Denies any other symptoms patient reports that she had both of the COVID vaccines. No exposure to COVID Related Data Previous Rx's Medication Instructions Recorded nicotine 21 mg/24 hr daily 1 patch TRANSDERMAL DAILY #28 cap 04/05/20 transdermal patch albuterol sulfate 90 mcg/actuation 2 puff INHALATION Q4H PRN 30 Days 04/06/20 aerosol inhaler #8.5 g fluticasone 250 mcg-salmeterol 50 1 ea INHALATION BID #60 cap 05/12/20 mcg/dose blistr powdr for inhalation ipratropium 0.5 mg-albuterol 3 mg 3 ml INHALATION Q4H PRN 30 Days 05/12/20 (2.5 mg base)/3 mL nebulization #180 ml soln methylcellulose (laxative) 500 mg 500 mg PO BID #60 tab 06/02/20 tablet clotrimazole 1 % vaginal cream 1 appful VAGINAL BEDTIME 15 Days 07/05/20 #45 cap omeprazole 20 mg capsule,delayed 20 mg PO DAILY #30 cap 07/28/20 release prednisone 60 mg PO DAILY 5 Days #15 tab 07/30/20 azithromycin 250 mg tablet See Rx Instructions PO .COMPLEX 5 08/01/20 Days #6 tab albuterol sulfate 90 mcg/actuation 1 inh INHALATION QID 30 Days #8.5 g 08/04/20 aerosol inhaler cholecalciferol (vitamin D3) 25 25 mcg PO DAILY #30 cap 08/04/20 mcg (1,000 unit) tablet fexofenadine 180 mg tablet 180 mg PO DAILY 90 Days #90 tab 08/04/20 fluoxetine 10 mg capsule 10 mg PO DAILY 30 Days #30 cap 08/04/20 fluticasone propionate 50 1 spray INTRANASAL BID 30 Days 08/04/20 mcg/actuation nasal #9.9 ml spray,suspension levothyroxine 125 mcg tablet 125 mcg PO QAM #30 cap 08/04/20 loperamide 2 mg capsule 2 mg PO QID PRN #40 cap 08/04/20 meloxicam 15 mg tablet 15 mg PO DAILY #30 tab 08/04/20 sennosides 8.6 mg tablet 17.2 mg PO BEDTIME PRN #60 cap 08/04/20 simvastatin 40 mg tablet 40 mg PO BEDTIME #90 cap 08/04/20 pentosan polysulfate sodium 100 mg 200 mg PO BID 90 Days #360 cap 08/16/20 capsule naproxen sodium 550 mg tablet 550 mg PO Q12H PRN 20 Days #40 cap 08/30/20 tolterodine 4 mg capsule,extended 4 mg PO DAILY 90 Days #90 cap 09/14/20 release 24 hr Symbicort 160 mcg-4.5 2 puff INHALATION BID 30 Days 09/30/20 mcg/actuation HFA aerosol inhaler #10.2 g NS lidocaine 5 % topical patch 1 patch TOPICAL DAILY PRN 30 Days 10/10/20 #30 ea montelukast 10 mg tablet 10 mg PO DAILY 90 Days #90 tab 10/27/20 polyethylene glycol 3350 [Miralax] 17 g PO DAILY #238 g 10/30/20 Allergies Allergy/AdvReac Type Severity Reaction Status Date / Time ciprofloxacin [From CIPRO] Allergy Intermediate ANXIOUS/STOMACH Verified 10/29/20 22:55 PAINS sulfamethoxazole Allergy Intermediate RASH Verified 10/29/20 22:55 [From Bactrim] trimethoprim [From Bactrim] Allergy Intermediate RASH Verified 10/29/20 22:55 amoxicillin [AMOXICILLIN] Allergy Mild STOMACH Verified 10/29/20 22:55 UPSET, yeast, gentamicin [GENTAMICIN] Allergy Unknown RASH Verified 10/29/20 22:55 ibuprofen [IBUPROFEN] Allergy Unknown IRRITATION Verified 10/29/20 22:55 OF STOMACH Sulfa (Sulfonamide Allergy Unknown hives Verified 10/29/20 22:55 Antibiotics) sertraline [From Zoloft] AdvReac Mild Urinary Verified 10/29/20 22:55 frequency ANXIETY MED ENDING WITH Allergy Unknown CYSTITIS Uncoded 10/29/20 22:55 PRAM anxiety meds ending in pram Allergy Unknown cystitis Uncoded 10/29/20 22:55 Review of Systems Review of Systems Constitutional : No Weight loss, No Fever, No Chills, No Night Sweats, No Fatigue, No Malaise ENT/Mouth : No Hearing loss, No Ear Pain, No Nasal Congestion, No Sinus Pain, No Hoarseness, No sore throat, No Rhinorrhea, No Swallowing Difficulty Eyes: No Eye Pain, No Swelling, No Redness, No Foreign Body, No Discharge, No Vision Changes Cardiovascular : No Chest Pain, No SOB, No Dyspnea on Exertion, No Orthopnea, No Edema, No Palpitations Respiratory : No Cough, No Sputum, No Wheezing, No Smoke Exposure, No Dyspnea Gastrointestinal : No Nausea, No Vomiting, Diarrhea, No Constipation,abdominal Pain, No Hematochezia, No Melena Genitourinary : no irregular bleeding, No Dysuria, Urinary Frequency, No Hematuria, No Urinary Incontinence, Urgency, No Flank Pain, No Urinary Flow Changes, No Hesitancy Musculoskeletal : No joint pain, No Myalgias, No Joint Swelling Skin : No Skin Lesions, No rash Neuro : No Weakness, No Numbness, No Paresthesias, No Loss of Consciousness, No Dizziness, No Headache Psych : No Anxiety/Panic, No Depression, No SI/HI/AH/VH, No Social Issues, Heme/Lymph: No Bruising, No Bleeding,No Lymphadenopathy Endocrine : No Polyuria, No Polydipsia, No Temperature Intolerance Yes all other systems are reviewed and are negative Physical Exam Vital Signs: Vital Signs: Last Vital Signs Temp 99.2 F 10/29/20 22:50 Pulse 61 10/30/20 02:04 Resp 16 10/30/20 02:04 BP 153/71 H 10/30/20 02:04 Pulse Ox 96 10/30/20 02:04 Body Mass Index 34.4 Const: General: healthy appearing, no acute distress and well developed Nutritional Appearance: well nourished Orientation/consciousness: patient oriented x3 Neck: Neck: Yes normal visual inspection, Yes full ROM and Yes trachea midline Thyroid: Thyroid normal Resp: Auscultation: clear to auscultation bilaterally Cardio: Rate: regular rate Rhythm: regular rhythm GI: Inspection: Yes normal to inspection and No distended Palpation (GI): No hepatosplenomegaly present Skin: General skin exam: elasticity normal, turgor normal and dry skin Neuro: General: patient oriented x3 Course Course Course Narrative: 54-year-old female here today with abdominal pain the, pelvic pain, urinary frequency and diarrhea. Will do some lab work and will send her for CT scan to rule out interstitial cystitis and diverticulitis, colitis Reevaluation(s) Reevaluation #1: Patient's lab work negative for leukocytosis or anemia. Her liver enzymes are mildly elevated AST 47, ALT 74, lipase 24. Patient has a history of IBS. She reports to be feeling better now. Patient received 1 L of fluid. Urine negative for leukocytosis or nitrates. Spoke with patient and we will refer her back to her senior product engineer. Patient was instructed to follow a FODMAP diet for her IBS and use fiber. I will order MiraLax for her as her insurance does not cover Citrucel. MDM - Abdominal Pain Lab Data Result diagrams: 10/29/20 23:09 10/29/20 23:09 Labs: Lab Results 10/29/20 10/29/20 10/29/20 Range/Units 23:09 23:09 23:09 WBC 6.5 (4.8-10.8) X10*3/uL RBC 4.66 (4.20-5.50) X10*6/uL Hgb 14.6 (12.0-16.0) g/dl Hct 42.9 (37-47) % MCV 92.1 (80-98) fL MCH 31.3 (27.0-33.0) pg MCHC 34.0 (31.0-35.0) g/dl RDW 12.3 (11.0-16.0) % Plt Count 159 L (160-400) X10*3/uL MPV 12.0 (9.4-12.3) fL Immature Gran % (Auto) 0.3 (0.0-0.4) % Neut % (Auto) 35.6 L (45-73) % Lymph % (Auto) 54.6 H (20-40) % [place] % (Auto) 7.6 (2-11) % Eos % (Auto) 1.7 (0-4) % Baso % (Auto) 0.2 (0-2) % Lymph # (Auto) 3.6 (1.2-4.9) X10*3/uL [place] # (Auto) 0.5 (0.1-1.2) X10*3/uL Eos # (Auto) 0.1 (0.0-0.4) X10*3/uL Baso # (Auto) 0.0 (0.0-0.2) X10*3/uL Abs Immat Gran (auto) 0.02 (0.00-0.03) X10*3/uL Absolute Neuts (auto) 2.3 (2.0-8.3) X10*3/uL Absolute Nucleated RBC 0.000 (0.0-0.012) X10*3/uL Nucleated RBC % (auto) 0.0 (0.0-0.2) /100WBC Hold Blue Top SEE NOTE Sodium 141 (135-145) mmol/L Potassium 4.0 (3.3-5.1) mmol/L Chloride 109 H (96-108) mmol/L Carbon Dioxide 22 (22-29) mmol/L Anion Gap 14 (12-20) BUN 11 (9-16) mg/dL Creatinine 0.85 (0.5-1.4) mg/dL Estim Creat Clear Calc 77.5 Estimated GFR > 60 Random Glucose 111 (60-115) mg/dL Calcium 9.1 (8.4-10.2) mg/dL Total Bilirubin 0.5 (0.0-1.0) mg/dL AST 47 H D (5-31) U/L ALT 74 H (0-31) U/L Alkaline Phosphatase 77 (39-117) U/L Total Protein 6.5 (6.5-8.0) g/dL Albumin 4.0 (3.5-5.0) g/dL Lipase 24 (8-78) U/L Urine Color Urine Appearance Urine pH (5.0-8.0) Ur Specific [place] (1.005-1.025) Urine Protein (NEG-TRACE) MG/DL Urine Glucose (UA) (NEG) MG/DL Urine Ketones (NEG) MG/DL Urine Blood (NEG) Urine Nitrite (NEG) Ur Leukocyte Esterase (NEG) Urine RBC (0) /HPF Urine WBC (0-4) /HPF Ur Squamous Epith Cells /LPF Urine Bacteria /LPF Urine Mucus /LPF Urine Yeast /HPF 10/29/20 Range/Units 23:09 WBC (4.8-10.8) X10*3/uL RBC (4.20-5.50) X10*6/uL Hgb (12.0-16.0) g/dl Hct (37-47) % MCV (80-98) fL MCH (27.0-33.0) pg MCHC (31.0-35.0) g/dl RDW (11.0-16.0) % Plt Count (160-400) X10*3/uL MPV (9.4-12.3) fL Immature Gran % (Auto) (0.0-0.4) % Neut % (Auto) (45-73) % Lymph % (Auto) (20-40) % [place] % (Auto) (2-11) % Eos % (Auto) (0-4) % Baso % (Auto) (0-2) % Lymph # (Auto) (1.2-4.9) X10*3/uL [place] # (Auto) (0.1-1.2) X10*3/uL Eos # (Auto) (0.0-0.4) X10*3/uL Baso # (Auto) (0.0-0.2) X10*3/uL Abs Immat Gran (auto) (0.00-0.03) X10*3/uL Absolute Neuts (auto) (2.0-8.3) X10*3/uL Absolute Nucleated RBC (0.0-0.012) X10*3/uL Nucleated RBC % (auto) (0.0-0.2) /100WBC Hold Blue Top Sodium (135-145) mmol/L Potassium (3.3-5.1) mmol/L Chloride (96-108) mmol/L Carbon Dioxide (22-29) mmol/L Anion Gap (12-20) BUN (9-16) mg/dL Creatinine (0.5-1.4) mg/dL Estim Creat Clear Calc Estimated GFR Random Glucose (60-115) mg/dL Calcium (8.4-10.2) mg/dL Total Bilirubin (0.0-1.0) mg/dL AST (5-31) U/L ALT (0-31) U/L Alkaline Phosphatase (39-117) U/L Total Protein (6.5-8.0) g/dL Albumin (3.5-5.0) g/dL Lipase (8-78) U/L Urine Color DARK YELLOW Urine Appearance HAZY Urine pH 6.0 (5.0-8.0) Ur Specific [place] 1.020 (1.005-1.025) Urine Protein TRACE (NEG-TRACE) MG/DL Urine Glucose (UA) NEG (NEG) MG/DL Urine Ketones 5 (NEG) MG/DL Urine Blood NEG (NEG) Urine Nitrite NEG (NEG) Ur Leukocyte Esterase TRACE H (NEG) Urine RBC 0-2 (0) /HPF Urine WBC 1-4 (0-4) /HPF Ur Squamous Epith Cells 3+ /LPF Urine Bacteria 1+ /LPF Urine Mucus 3+ /LPF Urine Yeast TRACE /HPF Imaging Data CT scan - abdomen: Radiologist's impression: FINDINGS: LUNG BASES: The visualized lung bases are unremarkable. LIVER, GALLBLADDER, AND BILIARY TREE: The liver is enlarged measuring 19 cm in greatest cephalocaudad dimension and demonstrates decreased attenuation consistent with hepatic steatosis. There are areas of focal fatty sparing present around the gallbladder. No worrisome focal mass is seen. No bile duct dilatation is present. The gallbladder contains a single gallstone but is otherwise unremarkable with no evidence of radiopaque wall thickening, or obvious pericholecystic inflammatory changes. PANCREAS: Unremarkable. SPLEEN: Unremarkable. ADRENAL GLANDS: Unremarkable. KIDNEYS AND URETERS: The kidneys are normal in size, shape, and attenuation. No hydronephrosis, hydroureter, or calculi seen. No perinephric stranding. BLADDER: Unremarkable. GASTROINTESTINAL TRACT: The small and large bowel are unremarkable. The previously noted colonic wall thickening has resolved. The appendix is not seen but there is no evidence of appendicitis. ABDOMINAL WALL: No significant hernia is appreciated. LYMPH NODES: No retroperitoneal lymphadenopathy seen VASCULAR: Minimal calcific plaque present PELVIC VISCERA: There is an anteverted uterus present. There is some mild bulge on the superior surface of the uterus which may represent a small subserosal fibroid. OSSEOUS STRUCTURES: Unremarkable. CT/CT abdomen pelvis w con IMPRESSION: 1. Enlarged fatty liver and cholelithiasis without cholecystitis. 2. A cause for the patient's abdominal pain and diarrhea has not been found. Discharge Plan Discharge Clinical Impression: Diarrhea Qualifiers: Diarrhea type: unspecified type Qualified Code(s): R19.7 - Diarrhea, unspecified Constipation Qualifiers: Constipation type: chronic idiopathic constipation Qualified Code(s): K59.04 - Chronic idiopathic constipation Patient Disposition: Home, Self-Care Instructions: Irritable Bowel Syndrome (ED), Abdominal Pain (ED) Additional Instructions: You were seen here today for symptoms of abdominal discomfort, urinary frequency and diarrhea. Your symptoms might be viral however you have history of IBS any must increase fiber in you diet as well as fluids. Your CT scan showed no active disease. I will be giving you a script for fiber. Please follow-up with your senior product engineer on Sunday as well as with your urologist. You may return to emergency department if your symptoms get worse or if you experience any other concerning symptoms Prescriptions: New polyethylene glycol 3350 [Miralax] 17 gram/dose powder 17 g PO DAILY Qty: 238 RF: 0 No Action nicotine 21 mg/24 hr patch 24 hour 1 patch transdermal DAILY Qty: 28 RF: 1 albuterol sulfate 90 mcg/actuation HFA aerosol inhaler 2 puff inhalation Q4H PRN (Reason: shortness of breath or wheezing) 30 Days Qty: 8.5 RF: 3 clotrimazole 1 % cream 1 appful vaginal BEDTIME 15 Days Qty: 45 RF: 3 omeprazole 20 mg capsule,delayed release(DR/EC) 20 mg PO DAILY Qty: 30 RF: 6 azithromycin [Zithromax Z-Ronnie] 250 mg tablet See Rx Instructions PO .COMPLEX 5 Days Qty: 6 RF: 0 Elmiron 100 mg capsule 200 mg PO BID 90 Days Qty: 360 RF: 2 naproxen sodium 550 mg tablet 550 mg PO Q12H PRN (Reason: pain) 20 Days Qty: 40 RF: 1 tolterodine 4 mg capsule,extended release 24hr 4 mg PO DAILY 90 Days Qty: 90 RF: 2 budesonide-formoterol [Symbicort] 160-4.5 mcg/actuation HFA aerosol inhaler 2 puff inhalation BID 30 Days Qty: 10.2 RF: 3 lidocaine 5 % adhesive patch,medicated 1 patch topical DAILY PRN (Reason: pain) 30 Days Qty: 30 RF: 1 montelukast [Singulair] 10 mg tablet 10 mg PO DAILY 90 Days Qty: 90 RF: 1 prednisone 20 mg tablet 60 mg PO DAILY 5 Days Qty: 15 RF: 0 albuterol sulfate [ProAir HFA] 90 mcg/actuation HFA aerosol inhaler 1 inh inhalation QID 30 Days Qty: 8.5 RF: 3 fluoxetine 10 mg capsule 10 mg PO DAILY 30 Days Qty: 30 RF: 3 cholecalciferol (vitamin D3) 25 mcg (1,000 unit) tablet 25 mcg PO DAILY Qty: 30 RF: 4 levothyroxine 125 mcg tablet 125 mcg PO QAM Qty: 30 RF: 5 loperamide 2 mg capsule 2 mg PO QID PRN (Reason: for diarrhea) Qty: 40 RF: 3 meloxicam 15 mg tablet 15 mg PO DAILY Qty: 30 RF: 3 fexofenadine [Yesenia Allergy] 180 mg tablet 180 mg PO DAILY 90 Days Qty: 90 RF: 1 sennosides [Christiane-aguila] 8.6 mg tablet 17.2 mg PO BEDTIME PRN (Reason: for constipation) Qty: 60 RF: 3 simvastatin 40 mg tablet 40 mg PO BEDTIME Qty: 90 RF: 2 fluticasone propionate [Flonase Allergy Relief] 50 mcg/actuation spray,suspension 1 spray intranasal BID 30 Days Qty: 9.9 RF: 5 ipratropium-albuterol 0.5 mg-3 mg(2.5 mg base)/3 mL solution for nebulization 3 ml inhalation Q4H PRN (Reason: shortness of breath or wheezing) 30 Days Qty: 180 RF: 5 fluticasone propion-salmeterol [Wixela Inhub] 250-50 mcg/dose blister with device 1 ea inhalation BID Qty: 60 RF: 5 Hold Instructions: Doctor's Order Citrucel 500 mg tablet 500 mg PO BID Qty: 60 RF: 5 Interventions: ED Discharge Assessment Last Done: 10/30/20 02:26 Discharge Date/Time: 10/30/20 02:27 ON LICENSE OF [facility] Past Medical History Medical History High cholesterol Smoker Thyroid activity decreased Urge incontinence Urinary retention Surgical History H/O LEEP History of bladder surgery History of cystoscopy History of neck surgery Family History Family History Father COPD (chronic obstructive pulmonary disease) Lung cancer Mother Breast cancer Cardiac pacemaker Son Hyperthyroidism Maternal Grandmother Depression Son Depression Social History Social History Household Members Other:: Elderly mother lives with her Alcohol intake: never Advance Directives: No Advance Directives Information Provided: No Patient : No Current occupational status: disabled
[2020-10-29 23:36] LABS: Bacteria Urine 1+ /LPF; Mucus Urine 3+ /LPF; RBC Urine 0-2 /HPF (0); Squamous Epithelial Cell Urine 3+ /LPF
[2020-10-29 23:46] LABS: Alanine Aminotransferase 74 U/L (0-31); Alkaline Phosphatase 77 U/L (39-117); Anion Gap 14 (12-20); Aspartate Amino Transferase 47 U/L (5-31); Bilirubin Total 0.5 mg/dL (0.0-1.0); Blood Urea Nitrogen 11 mg/dL (9-16); Calcium 9.1 mg/dL (8.4-10.2); Carbon Dioxide 22 mmol/L (22-29); Chloride 109 mmol/L (96-108); Creatinine Clr Calc Pharmacy 77.5; Estimated Glomerular Filt Rate > 60; Glucose Random 111 mg/dL (60-115); Lipase 24 U/L (8-78); Sodium 141 mmol/L (135-145); Total Protein 6.5 g/dL (6.5-8.0)
--- NOTE | 2020-10-30 00:23 | PC.NURSE ---
Pt off to CT on hospital bed.
[2020-10-30] MEDS: iohexoL 350 MG/ML 100 ML INFUS..BTL 85 ML IV (00:27)
[2020-10-30] MEDS: 0.9 % Sodium Chloride 1,000 ML 999 ML IV (00:34)
[2020-10-30 02:04] VITALS: BP 153/71; PULSE 61; RESP 16; O2SAT 96
== END 2020-10-30 02:27 | disposition home or self-care (01) ==
PROVIDERS: Emergency Provider Emergency Medicine
DX: R19.7 Diarrhea, unspecified (principal); K59.04 Chronic idiopathic constipation; F17.210 Nicotine dependence, cigarettes, uncomplicated; J44.9 Chronic obstructive pulmonary disease, unspecified
CPT/HCPCS: 36415; 74177; 80053; 81001; 81003; 83690; 85025; 87086; 96360; 99284; Q9967

== ENCOUNTER 2021-01-27 09:48 | Outpatient (REF) | payer OTHER, SELFPAY ==
[2021-01-27 14:21] LABS: Glucose Urine UA NEG (NEG); Leukocyte Esterase Urine NEG (NEG); Nitrite Urine NEG (NEG); Specific Gravity - Urine >= 1.030 (1.005-1.025); Urine Blood NEG (NEG); Urine Ketones NEG (NEG); Urine Protein TRACE MG/DL (NEG-TRACE)
[2021-01-27 14:23] LABS: Appearance Urine TURBID; Color Urine YELLOW
== END 2021-01-27 09:49 | disposition home or self-care (01) ==
LOC: HO.10HDL 09:48
PROVIDERS: Visit Provider Physician Assistant
DX: N39.41 Urge incontinence (principal); R30.0 Dysuria
CPT/HCPCS: 81003

== ENCOUNTER 2021-04-06 08:27 | Outpatient (REF) | payer OTHER, SELFPAY ==
[2021-04-06 10:31] LABS: Hematocrit 44.8 % (37.0-47.0); Hemoglobin 15.2 g/dl (12.0-16.0); Mean Corpuscular HGB Conc 33.9 g/dl (31.0-35.0); Mean Corpuscular Hemoglobin 30.9 pg (27.0-33.0); Mean Corpuscular Volume 91.1 fL (80.0-98.0); Mean Platelet Volume 12.2 fL (9.4-12.3); Platelet Count 185 X10*3/uL (160-400); Red Blood Count 4.92 X10*6/uL (4.20-5.50); Red Cell Distribution Width 12.6 % (11.0-16.0); White Blood Count 5.8 X10*3/uL (4.8-10.8)
[2021-04-06 10:47] LABS: Estimated Average Glucose 114 mg/dL; Hemoglobin A1c % 5.6 %
[2021-04-06 10:51] LABS: Alanine Aminotransferase 90 U/L (0-31); Albumin Level 4.2 g/dL (3.5-5.0); Alkaline Phosphatase 93 U/L (39-117); Anion Gap 12 (12-20); Aspartate Amino Transferase 51 U/L (5-31); Bilirubin Total 0.6 mg/dL (0.0-1.0); Blood Urea Nitrogen 8 mg/dL (9-16); Calcium 9.4 mg/dL (8.4-10.2); Carbon Dioxide 23 mmol/L (22-29); Chloride 107 mmol/L (96-108); Cholesterol 155 mg/dL; Estimated Glomerular Filt Rate > 60; Glucose Fasting 128 mg/dL (60-99); HDL Cholesterol 49 mg/dL; LDL Cholesterol Calculated 91 mg/dl; Potassium 4.4 mmol/L (3.3-5.1); Sodium 138 mmol/L (135-145); Total Protein 6.9 g/dL (6.5-8.0); Triglycerides 79 mg/dL
[2021-04-06 11:04] LABS: TSH reflex Free T4 0.31 uIU/mL (0.32-4.0)
[2021-04-07 10:42] LABS: Immunoglobulin E 145 kU/L (<OR=114)
== END 2021-04-06 08:28 | disposition home or self-care (01) ==
LOC: HO.10HDL 08:27
PROVIDERS: Visit Provider Physician Assistant
DX: Z13.220 Encounter for screening for lipoid disorders (principal); Z13.29 Encounter for screening for other suspected endocrine disorder; N32.89 Other specified disorders of bladder; N30.10 Interstitial cystitis (chronic) without hematuria; J45.909 Unspecified asthma, uncomplicated; E03.9 Hypothyroidism, unspecified
CPT/HCPCS: 36415; 51798; 80053; 80061; 82785; 83036; 84439; 84443; 85027; 99212

== ENCOUNTER → 2021-04-27 11:35 | Outpatient (BNVA) | payer OTHER, SELFPAY | PROVIDERS: PCP Physician Assistant ==

== ENCOUNTER 2021-05-09 08:35 | Outpatient (REF) | payer OTHER, SELFPAY ==
[2021-05-09 10:09] LABS: Hematocrit 40.9 % (37.0-47.0); Hemoglobin 14.1 g/dl (12.0-16.0); Mean Corpuscular HGB Conc 34.5 g/dl (31.0-35.0); Mean Corpuscular Hemoglobin 31.3 pg (27.0-33.0); Mean Corpuscular Volume 90.7 fL (80.0-98.0); Mean Platelet Volume 11.7 fL (9.4-12.3); Platelet Count 180 X10*3/uL (160-400); Red Blood Count 4.51 X10*6/uL (4.20-5.50); Red Cell Distribution Width 12.9 % (11.0-16.0); White Blood Count 5.7 X10*3/uL (4.8-10.8)
[2021-05-09 10:29] LABS: Alanine Aminotransferase 99 U/L (0-31); Aspartate Amino Transferase 49 U/L (5-31); Cholesterol 149 mg/dL; HDL Cholesterol 43 mg/dL
[2021-05-09 10:51] LABS: TSH reflex Free T4 1.41 uIU/mL (0.32-4.0)
[2021-05-09 11:18] LABS: Albumin Level 3.9 g/dL (3.5-5.0); Alkaline Phosphatase 83 U/L (39-117); Anion Gap 13 (12-20); Bilirubin Total 0.7 mg/dL (0.0-1.0); Blood Urea Nitrogen 11 mg/dL (9-16); Calcium 9.4 mg/dL (8.4-10.2); Carbon Dioxide 23 mmol/L (22-29); Chloride 109 mmol/L (96-108); Estimated Glomerular Filt Rate > 60; Glucose Fasting 117 mg/dL (60-99); LDL Cholesterol Calculated 91 mg/dl; Potassium 3.8 mmol/L (3.3-5.1); Sodium 141 mmol/L (135-145); Total Protein 6.4 g/dL (6.5-8.0); Triglycerides 76 mg/dL
[2021-05-12 02:51] LABS: Immunoglobulin E 164 kU/L (<OR=114)
== END 2021-05-09 08:36 | disposition home or self-care (01) ==
LOC: HO.10HDL 08:35
PROVIDERS: Visit Provider Physician Assistant
DX: Z13.220 Encounter for screening for lipoid disorders (principal); Z13.29 Encounter for screening for other suspected endocrine disorder; I10 Essential (primary) hypertension; J44.9 Chronic obstructive pulmonary disease, unspecified; E03.9 Hypothyroidism, unspecified; J45.909 Unspecified asthma, uncomplicated
CPT/HCPCS: 36415; 80053; 80061; 82785; 84443; 85027

== ENCOUNTER → 2021-06-21 12:01 | Outpatient (BNVA) | payer OTHER, SELFPAY | PROVIDERS: PCP Physician Assistant; Visit Provider Urology ==

== ENCOUNTER 2021-08-18 08:27 | Outpatient (REF) | payer OTHER, SELFPAY | END 2021-08-18 08:28 | disposition home or self-care (01) | LOC: HO.LAB 08:27 | PROVIDERS: PCP Physician Assistant; Visit Provider Urology | DX: N30.10 Interstitial cystitis (chronic) without hematuria (principal); N32.81 Overactive bladder; R39.15 Urgency of urination; Z79.899 Other long term (current) drug therapy | CPT/HCPCS: 52000; 87086; 99212 ==

== ENCOUNTER 2021-08-25 20:54 | Emergency (ER) | payer OTHER, SELFPAY ==
--- NOTE | ~2021-08-25 | CT_ITS ---
EXAMINATION: CT ABDOMEN AND PELVIS WITHOUT CONTRAST CLINICAL INFORMATION: Right flank pain COMPARISON: 10/30/2020 TECHNIQUE: Multidetector volumetric imaging was performed from the superior aspect of the liver through the pubic symphysis. Sagittal and coronal reformatted images were obtained on the technologist's workstation. This CT examination was performed using dose optimization techniques as appropriate, variously including the following: *Automated exposure control *Adjustment of mA and/or kV according to patient size (this includes techniques or standardized protocols for targeted exams where dose is matched to indication/reason for exam; i.e. extremities or head) *Use of iterative reconstruction technique DLP: 658 mGy-cm FINDINGS: LUNG BASES: The visualized lung bases are unremarkable. LIVER, GALLBLADDER, AND BILIARY TREE: Mild hepatomegaly. Diffuse hepatic steatosis. Focal sparing adjacent to the gallbladder. No focal liver lesions. No intra or extrahepatic biliary dilatation. Subcentimeter stone present within the gallbladder neck as was present previously. PANCREAS: Unremarkable. SPLEEN: Unremarkable. ADRENAL GLANDS: Unremarkable. KIDNEYS AND URETERS: The kidneys are normal in size, shape, and attenuation. No hydronephrosis, hydroureter, or calculi seen. No perinephric stranding. BLADDER: Unremarkable. GASTROINTESTINAL TRACT: No intestinal obstruction or inflammation. Appendix not seen, however there is no evidence of appendicitis. ABDOMINAL WALL: No significant hernia is appreciated. LYMPH NODES: Normal. VASCULAR: Aorta mildly atherosclerotic but normal caliber. PELVIC VISCERA: Uterus and ovaries unremarkable. OSSEOUS STRUCTURES: No acute or suspicious osseous abnormalities. CT/CT abdomen pelvis wo IV con IMPRESSION: * No acute findings within the abdomen or pelvis. * Mild hepatomegaly and hepatic steatosis. * Cholelithiasis. If there is concern for cholecystitis, recommend right upper quadrant ultrasound.
[2021-08-25 21:35] VITALS: BP 00/00; BP 151/82; PULSE 0; PULSE 84; RESP 16; TEMP 36.8; O2SAT 0; O2SAT 98; BMI 34.4
[2021-08-25 22:03] LABS: Appearance Urine CLOUDY; Color Urine YELLOW; Glucose Urine UA NEG (NEG); Leukocyte Esterase Urine TRACE (NEG); Nitrite Urine NEG (NEG); Specific Gravity - Urine >= 1.030 (1.005-1.025); UACC Culture Trigger YES; Urine Blood NEG (NEG); Urine Ketones NEG (NEG); Urine Protein NEG (NEG-TRACE)
[2021-08-25 22:06] LABS: MANUAL DIFF FLAG NO
[2021-08-25 22:07] LABS: Basophils Percent Auto 0.3 % (0-2); Eosinophils Absolute Auto 0.1 X10*3/uL (0.0-0.4); Eosinophils Percent Auto 1.8 % (0-4); Hematocrit 41.2 % (37.0-47.0); Hemoglobin 14.2 g/dl (12.0-16.0); Imm Gran Abs Auto 0.01 X10*3/uL (0.00-0.03); Imm Gran Pct Auto 0.2 % (0.0-0.4); Lymphocytes Absolute Auto 3.6 X10*3/uL (1.2-4.9); Lymphocytes Percent Auto 58.5 % (20-40); Mean Corpuscular HGB Conc 34.5 g/dl (31.0-35.0); Mean Corpuscular Hemoglobin 31.3 pg (27.0-33.0); Mean Corpuscular Volume 90.7 fL (80.0-98.0); Monocytes Absolute Auto 0.4 X10*3/uL (0.1-1.2); Monocytes Percent Auto 6.5 % (2-11); Neutrophils Percent Auto 32.7 % (45-73); Platelet Count 159 X10*3/uL (160-400); Red Blood Count 4.54 X10*6/uL (4.20-5.50); Red Cell Distribution Width 12.2 % (11.0-16.0); White Blood Count 6.2 X10*3/uL (4.8-10.8)
[2021-08-25 22:15] LABS: Bacteria Urine 1+ /LPF; RBC Urine 0 /HPF (0); Squamous Epithelial Cell Urine 1+ /LPF; WBC Urine 0-2 /HPF (0-4)
[2021-08-25 22:20] LABS: Alanine Aminotransferase 74 U/L (0-31); Albumin Level 4.1 g/dL (3.5-5.0); Alkaline Phosphatase 92 U/L (39-117); Anion Gap 10 (12-20); Aspartate Amino Transferase 45 U/L (5-31); Bilirubin Total 0.5 mg/dL (0.0-1.0); Blood Urea Nitrogen 9 mg/dL (9-16); Calcium 9.1 mg/dL (8.4-10.2); Carbon Dioxide 27 mmol/L (22-29); Chloride 106 mmol/L (96-108); Creatinine Clr Calc Pharmacy 71.6; Estimated Glomerular Filt Rate > 60; Glucose Random 129 mg/dL (60-115); Potassium 3.4 mmol/L (3.3-5.1); Sodium 140 mmol/L (135-145); Total Protein 6.6 g/dL (6.5-8.0)
[2021-08-25 23:39] VITALS: BP 137/79; PULSE 68; RESP 16; TEMP 37.1; O2SAT 95
[2021-08-26] MEDS: oxyCODONE HCl Immed Release 5 MG TABLET 10 MG PO (00:43)
--- NOTE | 2021-08-26 00:56 | ED.BACK ---
HPI - Back Pain/Injury General Chief Complaint: Urogenital-Female Stated Complaint: Chronic UTI VSS Time Seen by Provider: 08/26/21 00:12 Source: patient Mode of arrival: ambulatory Limitations: no limitations History of Present Illness HPI Narrative: patient history of recurrent UTI already taking Cipro for last few days 2 more days left denies any dysuria complaining of pain in right flank area. Pain is going on for last few weeks getting worse now also she has history of gallstones. No nausea no vomiting no fever no chills patient seen the urologist been followed by him Related Data Home Medications Medication Instructions Recorded Confirmed pentosan polysulfate sodium 100 mg 200 mg PO BID 04/06/21 06/30/21 capsule (Elmiron) oxybutynin chloride 15 mg 15 mg PO DAILY 04/27/21 06/30/21 tablet,extended release 24 hr Previous Rx's Medication Instructions Recorded nicotine 21 mg/24 hr daily 1 patch TRANSDERMAL DAILY #28 cap 04/05/20 transdermal patch albuterol sulfate 90 mcg/actuation 2 puff INHALATION Q4H PRN 30 Days 04/06/20 aerosol inhaler #8.5 g fluticasone 250 mcg-salmeterol 50 1 ea INHALATION BID #60 cap 05/12/20 mcg/dose blistr powdr for inhalation (Wixela Inhub) fluticasone propionate 50 1 spray INTRANASAL BID 30 Days 08/04/20 mcg/actuation nasal #9.9 ml spray,suspension (Flonase Allergy Relief) simvastatin 40 mg tablet 40 mg PO BEDTIME #90 cap 08/04/20 lidocaine 5 % topical patch 1 patch TOPICAL DAILY PRN 30 Days 10/10/20 #30 ea sennosides 8.6 mg tablet (senna) 17.2 mg PO BEDTIME PRN #60 cap 10/30/20 varicella-zoster glycoE [id number] 50 mcg IM ONCE #1 ea 11/18/20 adj(PF) 50 mcg/0.5 mL IM susp, kit (Shingrix (PF)) naproxen sodium 550 mg tablet 550 mg PO Q12H PRN 20 Days #40 cap 12/27/20 loperamide 2 mg capsule 2 mg PO QID PRN #40 cap 12/28/20 omeprazole 20 mg capsule,delayed 20 mg PO DAILY #30 cap 02/23/21 release bupropion HCl 150 mg tablet,12 hr 150 mg PO BID 30 Days #60 tab 03/07/21 sustained-release nystatin 100,000 unit/gram topical 1 appl TOPICAL BID 15 Days #60 g 03/07/21 powder dicyclomine 20 mg tablet 20 mg PO TID 30 Days #90 tab 04/07/21 famotidine 20 mg tablet (Acid 20 mg PO BEDTIME #30 tab 04/07/21 Child Welfare Assistant (famotidine)) fluoxetine 10 mg capsule 10 mg PO DAILY #30 cap 04/25/21 montelukast 10 mg tablet 10 mg PO DAILY #90 tab 04/25/21 pentosan polysulfate sodium 100 mg 200 mg PO BID 90 Days #360 cap 04/25/21 capsule ipratropium 0.5 mg-albuterol 3 mg 3 ml INHALATION Q4H PRN #180 ml 05/01/21 (2.5 mg base)/3 mL nebulization soln Symbicort 160 mcg-4.5 2 puff INHALATION BID 90 Days #3 05/25/21 mcg/actuation HFA aerosol inhaler inhaler NS (budesonide-formoterol) cholecalciferol (vitamin D3) 25 25 mcg PO DAILY #30 cap 05/25/21 mcg (1,000 unit) tablet guaifenesin 200 mg tablet 200 - 400 mg PO Q4H PRN #30 tab 06/09/21 metronidazole 500 mg tablet 500 mg PO BID 7 Days #14 tab 06/10/21 estradiol See Rx Instructions .ROUTE 3XW 30 06/21/21 Days #42.5 g albuterol sulfate 90 mcg/actuation 1 inh INHALATION QID 30 Days #8.5 g 06/28/21 aerosol inhaler (ProAir HFA) azithromycin 250 mg tablet See Rx Instructions PO .COMPLEX #6 06/30/21 tab ciprofloxacin HCl 0.3 % eye drops 2 drp OPHTHALMIC-RIGHT .every 8 07/18/21 hours 10 Days #5 ml fexofenadine 180 mg tablet 180 mg PO DAILY 90 Days #90 tab 08/02/21 (Yesenia Allergy) levothyroxine 125 mcg tablet 125 mcg PO QAM #30 cap 08/02/21 tamsulosin 0.4 mg capsule 0.4 mg PO BID 90 Days #180 cap 08/18/21 ciprofloxacin HCl 500 mg tablet 500 mg PO BID 4 Days #8 tab 08/22/21 fluconazole 150 mg tablet 150 mg PO Q3D #2 tab 08/25/21 fluconazole 150 mg tablet 150 mg PO DAILY #1 tab 08/25/21 (Diflucan) tramadol 50 mg tablet 50 mg PO Q6H PRN #20 tab 08/26/21 Allergies Allergy/AdvReac Type Severity Reaction Status Date / Time ciprofloxacin [From CIPRO] Allergy Intermediate ANXIOUS/STOMACH Verified 08/18/21 09:03 PAINS sulfamethoxazole Allergy Intermediate RASH Verified 08/18/21 09:03 [From Bactrim] trimethoprim [From Bactrim] Allergy Intermediate RASH Verified 08/18/21 09:03 amoxicillin [AMOXICILLIN] Allergy Mild STOMACH Verified 08/18/21 09:03 UPSET, yeast, gentamicin [GENTAMICIN] Allergy Unknown RASH Verified 08/18/21 09:03 ibuprofen [IBUPROFEN] Allergy Unknown IRRITATION Verified 08/18/21 09:03 OF STOMACH Sulfa (Sulfonamide Allergy Unknown hives Verified 08/18/21 09:03 Antibiotics) sertraline [From Zoloft] AdvReac Mild Urinary Verified 08/18/21 09:03 frequency ANXIETY MED ENDING WITH Allergy Unknown CYSTITIS Uncoded 08/18/21 09:03 PRAM anxiety meds ending in pram Allergy Unknown cystitis Uncoded 08/18/21 09:03 Review of Systems Review of Systems: Yes all other systems are reviewed and are negative [facility] Past Medical History Medical History Dysuria High cholesterol Smoker Thyroid activity decreased Urge incontinence Urinary retention Surgical History H/O LEEP History of bladder surgery History of cystoscopy History of neck surgery Family History Family History Father COPD (chronic obstructive pulmonary disease) Lung cancer Mother Breast cancer Cardiac pacemaker Son Hyperthyroidism Mental health disorder Maternal Grandmother Depression Mental health disorder Son Depression Social History Social History Household Members Other:: Elderly mother lives with her Housing: House Alcohol intake: never Patient Tobacco Use Status: Current everyday Tobacco user Tobacco use type: Cigarette Cigarettes Per Day: 10 Second Hand Smoke Exposure: Yes Advance Directives: No Advance Directives Information Provided: Yes Patient : No Current occupational status: disabled Physical Exam Vital Signs: Vital Signs: Last Vital Signs Temp 98.8 F 08/25/21 23:39 Pulse 68 08/25/21 23:39 Resp 16 08/25/21 23:39 BP 137/79 08/25/21 23:39 Pulse Ox 95 08/25/21 23:39 BMI result Body Mass Index 34.4 Appearance: Alert. Oriented X3. No acute distress. ENT: Pharynx normal. Oral Mucosa moist Neck: Normal inspection. Neck supple. CVS: Normal heart rate and rhythm. Pulses normal. Respiratory: No respiratory distress. Equal air entry bilateral, no wheezing/rales/rhonchi Abdomen: Soft and nontender. Bowel sounds are present, no mass palpable,R CVA tenderness Skin: Skin warm and dry. Normal skin color. Normal skin turgor. Extremities: No lower extremity edema. No calf tenderness Neuro: Oriented X 3. MDM - Back Pain/Injury MDM Narrative Medical decision making narrative: patient with chronic back pain getting worse lately CT scan negative for kidney stone patient does have a gallstone without any cholecystitis with discharge patient home on pain management Lab Data Attestation: I reviewed the patient's lab results. Result diagrams: 08/25/21 21:55 08/25/21 21:55 Labs: Lab Results 08/25/21 08/25/21 08/25/21 Range/Units 21:46 21:55 21:55 WBC 6.2 (4.8-10.8) X10*3/uL RBC 4.54 (4.20-5.50) X10*6/uL Hgb 14.2 (12.0-16.0) g/dl Hct 41.2 (37.0-47.0) % MCV 90.7 (80.0-98.0) fL MCH 31.3 (27.0-33.0) pg MCHC 34.5 (31.0-35.0) g/dl RDW 12.2 (11.0-16.0) % Plt Count 159 L (160-400) X10*3/uL MPV 12.0 (9.4-12.3) fL Immature Gran % (Auto) 0.2 (0.0-0.4) % Neut % (Auto) 32.7 L (45-73) % Lymph % (Auto) 58.5 H (20-40) % [place] % (Auto) 6.5 (2-11) % Eos % (Auto) 1.8 (0-4) % Baso % (Auto) 0.3 (0-2) % Lymph # (Auto) 3.6 (1.2-4.9) X10*3/uL [place] # (Auto) 0.4 (0.1-1.2) X10*3/uL Eos # (Auto) 0.1 (0.0-0.4) X10*3/uL Baso # (Auto) 0.0 (0.0-0.2) X10*3/uL Abs Immat Gran (auto) 0.01 (0.00-0.03) X10*3/uL Absolute Neuts (auto) 2.0 (2.0-8.3) x10*3/uL Absolute Nucleated RBC 0.000 (0.0-0.012) X10*3/uL Nucleated RBC % (auto) 0.0 (0.0-0.2) /100WBC Sodium 140 (135-145) mmol/L Potassium 3.4 (3.3-5.1) mmol/L Chloride 106 (96-108) mmol/L Carbon Dioxide 27 (22-29) mmol/L Anion Gap 10 L (12-20) BUN 9 (9-16) mg/dL Creatinine 0.91 (0.5-1.4) mg/dL Estim Creat Clear Calc 71.6 Estimated GFR > 60 Random Glucose 129 H (60-115) mg/dL Calcium 9.1 (8.4-10.2) mg/dL Total Bilirubin 0.5 (0.0-1.0) mg/dL AST 45 H (5-31) U/L ALT 74 H (0-31) U/L Alkaline Phosphatase 92 (39-117) U/L Total Protein 6.6 (6.5-8.0) g/dL Albumin 4.1 (3.5-5.0) g/dL Urine Color YELLOW Urine Appearance CLOUDY Urine pH 7.0 (5.0-8.0) Ur Specific [place] >= 1.030 H (1.005-1.025) Urine Protein NEG (NEG-TRACE) MG/DL Urine Glucose (UA) NEG (NEG) MG/DL Urine Ketones NEG (NEG) MG/DL Urine Blood NEG (NEG) Urine Nitrite NEG (NEG) Ur Leukocyte Esterase TRACE H (NEG) Urine RBC 0 (0) /HPF Urine WBC 0-2 (0-4) /HPF Ur Squamous Epith Cells 1+ /LPF Urine Bacteria 1+ /LPF Urine Yeast 1+ /HPF Discharge Plan Discharge Clinical Impression: Back pain Patient Disposition: Home, Self-Care Instructions: Chronic Back Pain (DC) Additional Instructions: drink plenty of fluids CT scan is negative for kidney stones showed gallstones which are not causing a problem your pain is likely muscular take pain medication as prescribed and follow-up with your urologist Prescriptions: New tramadol 50 mg tablet 50 mg PO Q6H PRN (Reason: pain) Qty: 20 0RF No Action nicotine 21 mg/24 hr patch 24 hour 1 patch transdermal DAILY Qty: 28 1RF albuterol sulfate 90 mcg/actuation HFA aerosol inhaler 2 puff inhalation Q4H PRN (Reason: shortness of breath or wheezing) 30 Days Qty: 8.5 3RF lidocaine 5 % adhesive patch,medicated 1 patch topical DAILY PRN (Reason: pain) 30 Days Qty: 30 1RF sennosides [senna] 8.6 mg tablet 17.2 mg PO BEDTIME PRN (Reason: for constipation) Qty: 60 3RF Shingrix (PF) 50 mcg/0.5 mL suspension for reconstitution 50 mcg IM ONCE Qty: 1 0RF naproxen sodium 550 mg tablet 550 mg PO Q12H PRN (Reason: pain) 20 Days Qty: 40 1RF loperamide 2 mg capsule 2 mg PO QID PRN (Reason: for diarrhea) Qty: 40 3RF omeprazole 20 mg capsule,delayed release(DR/EC) 20 mg PO DAILY Qty: 30 6RF famotidine [Acid Child Welfare Assistant (famotidine)] 20 mg tablet 20 mg PO BEDTIME Qty: 30 3RF dicyclomine 20 mg tablet 20 mg PO TID 30 Days Qty: 90 1RF pentosan polysulfate sodium 100 mg capsule 200 mg PO BID 90 Days Qty: 360 3RF montelukast 10 mg tablet 10 mg PO DAILY Qty: 90 1RF fluoxetine 10 mg capsule 10 mg PO DAILY Qty: 30 4RF ipratropium-albuterol 0.5 mg-3 mg(2.5 mg base)/3 mL solution for nebulization 3 ml inhalation Q4H PRN (Reason: for wheezing) Qty: 180 5RF budesonide-formoterol [Symbicort] 160-4.5 mcg/actuation HFA aerosol inhaler 2 puff inhalation BID 90 Days Qty: 3 2RF cholecalciferol (vitamin D3) 25 mcg (1,000 unit) tablet 25 mcg PO DAILY Qty: 30 4RF metronidazole 500 mg tablet 500 mg PO BID 7 Days Qty: 14 0RF albuterol sulfate [ProAir HFA] 90 mcg/actuation HFA aerosol inhaler 1 inh inhalation QID 30 Days Qty: 8.5 3RF ciprofloxacin HCl 0.3 % drops 2 drp ophthalmic-Right .every 8 hours 10 Days Qty: 5 0RF fexofenadine [Yesenia Allergy] 180 mg tablet 180 mg PO DAILY 90 Days Qty: 90 2RF levothyroxine 125 mcg tablet 125 mcg PO QAM Qty: 30 4RF ciprofloxacin HCl 500 mg tablet 500 mg PO BID 4 Days Qty: 8 0RF fluconazole [Diflucan] 150 mg tablet 150 mg PO DAILY Qty: 1 0RF fluconazole 150 mg tablet 150 mg PO Q3D Qty: 2 0RF simvastatin 40 mg tablet 40 mg PO BEDTIME Qty: 90 2RF fluticasone propionate [Flonase Allergy Relief] 50 mcg/actuation spray,suspension 1 spray intranasal BID 30 Days Qty: 9.9 5RF Rx Instructions: administer into each nostril nystatin 100,000 unit/gram powder 1 appl topical BID 15 Days Qty: 60 0RF bupropion HCl 150 mg tablet sustained-release 12 hr 150 mg PO BID 30 Days Qty: 60 2RF fluticasone propion-salmeterol [Wixela Inhub] 250-50 mcg/dose blister with device 1 ea inhalation BID Qty: 60 5RF Hold Instructions: Doctor's Order azithromycin 250 mg tablet See Rx Instructions PO .COMPLEX Qty: 6 1RF Rx Instructions: For 250 mg dose pack: take 500 mg today (day 1), then 250 mg for 4 days (days 2-5) PO guaifenesin 200 mg tablet 200 - 400 mg PO Q4H PRN (Reason: cough) Qty: 30 0RF Elmiron 100 mg capsule 200 mg PO BID 0RF tamsulosin 0.4 mg capsule 0.4 mg PO BID 90 Days Qty: 180 1RF oxybutynin chloride 15 mg tablet extended release 24hr 15 mg PO DAILY 0RF estradiol 0.01 % (0.1 mg/gram) cream See Rx Instructions .Route 3XW 30 Days Qty: 42.5 2RF Rx Instructions: pea-sized to urethra 3 times a week
== END 2021-08-26 01:10 | disposition home or self-care (01) ==
PROVIDERS: Emergency Provider Internal Medicine; PCP Physician Assistant
DX: R10.9 Unspecified abdominal pain (principal)
CPT/HCPCS: 36415; 74176; 80053; 81001; 85025; 87086; 99284

== ENCOUNTER 2021-09-07 08:39 | Outpatient (REF) | payer OTHER, SELFPAY ==
[2021-09-07 10:55] LABS: Hemoglobin 14.9 g/dl (12.0-16.0); Mean Corpuscular HGB Conc 33.9 g/dl (31.0-35.0); Mean Corpuscular Hemoglobin 31.4 pg (27.0-33.0); Mean Corpuscular Volume 92.6 fL (80.0-98.0); Mean Platelet Volume 12.9 fL (9.4-12.3); Platelet Count 169 X10*3/uL (160-400); Red Blood Count 4.75 X10*6/uL (4.20-5.50); Red Cell Distribution Width 12.3 % (11.0-16.0); White Blood Count 5.6 X10*3/uL (4.8-10.8)
[2021-09-07 11:06] LABS: Alanine Aminotransferase 63 U/L (0-31); Alkaline Phosphatase 94 U/L (39-117); Anion Gap 11 (12-20); Aspartate Amino Transferase 40 U/L (5-31); Bilirubin Total 0.9 mg/dL (0.0-1.0); Blood Urea Nitrogen 11 mg/dL (9-16); Calcium 9.4 mg/dL (8.4-10.2); Carbon Dioxide 27 mmol/L (22-29); Chloride 107 mmol/L (96-108); Cholesterol 147 mg/dL; Estimated Glomerular Filt Rate > 60; Glucose Fasting 140 mg/dL (60-99); HDL Cholesterol 42 mg/dL; LDL Cholesterol Calculated 90 mg/dl; Potassium 4.2 mmol/L (3.3-5.1); Sodium 141 mmol/L (135-145); Total Protein 6.8 g/dL (6.5-8.0); Triglycerides 79 mg/dL
[2021-09-07 11:30] LABS: TSH reflex Free T4 6.61 uIU/mL (0.32-4.0)
[2021-09-07 12:11] LABS: Estimated Average Glucose 117 mg/dL; Hemoglobin A1C 152.5545 umol/L; Hemoglobin A1c % 5.7 %
[2021-09-07 12:13] LABS: Free T4 (Free Thyroxine) 1.43 ng/dL (0.71-1.85)
== END 2021-09-07 08:40 | disposition home or self-care (01) ==
LOC: HO.10HDL 08:39
PROVIDERS: Visit Provider Physician Assistant
DX: Z13.220 Encounter for screening for lipoid disorders (principal); Z13.29 Encounter for screening for other suspected endocrine disorder; J44.9 Chronic obstructive pulmonary disease, unspecified
CPT/HCPCS: 36415; 80053; 80061; 83036; 84439; 84443; 85027

== ENCOUNTER 2021-09-20 09:30 | Outpatient (REF) | payer OTHER, SELFPAY ==
[2021-09-20 14:55] LABS: CT PCR NOT DETECTED (Not Detect.); NG PCR NOT DETECTED (Not Detect.)
[2021-09-21 10:51] LABS: BV Int Neg Control Negative (Negative); BV Int Pos Control Positive (Positive)
[2021-09-23 09:16] LABS: HPV mRNA E6/E7 rflx Not Detected (Not Detected)
== END 2021-09-20 09:31 | disposition home or self-care (01) ==
LOC: HO.LAB 09:30
PROVIDERS: PCP Physician Assistant; Visit Provider Obstetrics & Gynecology
DX: Z01.419 Encounter for gynecological examination (general) (routine) without abnormal findings (principal); N89.8 Other specified noninflammatory disorders of vagina; F17.210 Nicotine dependence, cigarettes, uncomplicated
CPT/HCPCS: 87480; 87491; 87510; 87591; 87624; 87660; 88142

== ENCOUNTER → 2021-10-11 13:16 | Outpatient (BNVA) | payer OTHER, SELFPAY | PROVIDERS: PCP Physician Assistant; Visit Provider Urology | DX: Z13.89 Encounter for screening for other disorder (principal) ==

== ENCOUNTER 2021-10-17 09:29 | Day surgery (SDC) | payer OTHER, SELFPAY ==
--- NOTE | 2021-10-14 12:20 | HO.ANESPROP2 ---
Documented by User: Nel Yoon NP 10/14/21 12:22 HPI - Anesthesia Eval Consult details Narrative: 55yo F for Cystoscopy with botox *Mult Med Allergies* PMFSH Active Problems Active Problems: All Active Problems (Updated 10/11/21 @ 15:04 by Kassy Ortiz, JOANN) Moderate asthma (Acute) Diarrhea (Acute) Constipation (Acute) Urgency of urination (Acute) Interstitial cystitis (Acute) Insomnia (Acute) Vaginitis (Acute) Allergic rhinitis (Acute) Screening for diabetes mellitus (DM) (Acute) Screening for hypercholesterolemia (Acute) Screening for hypothyroidism (Acute) Encounter for screening colonoscopy (Acute) MDD (major depressive disorder) (Acute) ADORE (generalized anxiety disorder) (Acute) Near sighted (Acute) Vitamin deficiency (Acute) COPD (chronic obstructive pulmonary disease) (Acute) Smoker (Acute) Acute cystitis (Acute) Bladder spasm (Acute) Allergic conjunctivitis (Acute) Tinea unguium (Acute) Hypothyroid (Acute) Dyspnea on exertion (Acute) Productive cough (Acute) Weak urinary stream (Acute) Conjunctivitis (Acute) Overactive bladder (Acute) Well woman exam (Acute) Vaginal discharge (Acute) Thyroid activity decreased (Acute) Dysuria (Acute) Urge incontinence (Acute) Past Medical History Medical History Anxiety and depression Arthritis Asthma Bipolar disorder Dysplasia of cervix, low grade (KELLIE 1) Dysuria GERD (gastroesophageal reflux disease) High cholesterol Interstitial cystitis Smoker Thyroid activity decreased Urge incontinence Urinary retention Vitamin D deficiency Family History Family History Father COPD (chronic obstructive pulmonary disease) Lung cancer Mother Breast cancer Cardiac pacemaker Son Hyperthyroidism Mental health disorder Maternal Grandmother Depression Mental health disorder Son Depression Surgical History Surgical History H/O LEEP History of cystoscopy History of neck surgery Social History Social History Household Members Other:: Elderly mother lives with her Housing: House Alcohol intake: never Patient Tobacco Use Status: Current everyday Tobacco user Tobacco use type: Cigarette Cigarette Packs Per Day: 1 Cigarettes Per Day: 20.0 Years Smoked: 20 Smoked in Last 30 Days: Yes Patient Interested in Nicotine Replacement: No Patient Given Instructions on How to Stop Smoking: Yes Date Education Initiated: 10/17/21 Second Hand Smoke Exposure: Yes Use of substances other than those prescribed or required for medical reasons: No Are you DNR?: No Advance Directives: No Advance Directives Information Provided: Yes Advance Directives on File: No Current occupational status: disabled Meds Allergies Allergy/AdvReac Type Severity Reaction Status Date / Time ciprofloxacin [From CIPRO] Allergy Intermediate ANXIOUS/STOMACH Verified 10/11/21 15:06 PAINS sulfamethoxazole Allergy Intermediate RASH Verified 10/11/21 15:06 [From Bactrim] trimethoprim [From Bactrim] Allergy Intermediate RASH Verified 10/11/21 15:06 amoxicillin [AMOXICILLIN] Allergy Mild STOMACH Verified 10/11/21 15:06 UPSET, yeast, gentamicin [GENTAMICIN] Allergy Unknown RASH Verified 10/11/21 15:06 ibuprofen [IBUPROFEN] Allergy Unknown IRRITATION Verified 10/11/21 15:06 OF STOMACH Sulfa (Sulfonamide Allergy Unknown hives Verified 10/11/21 15:06 Antibiotics) sertraline [From Zoloft] AdvReac Mild Urinary Verified 10/11/21 15:06 frequency anxiety meds ending in pram Allergy Unknown cystitis Uncoded 10/11/21 15:06 Home Medications Medication Instructions Recorded Confirmed Last Taken Type oxybutynin chloride 15 mg 15 mg PO DAILY 04/27/21 10/17/21 Unknown History tablet,extended release 24 hr albuterol sulfate 90 mcg/actuation 1 inh INHALATION QID PRN 10/11/21 10/11/21 Unknown History aerosol inhaler (ProAir HFA) Exam Exam Date and Time: October 14, 2021 1220 Pertinent Lab Results Pertinent Lab Results: Laboratory Tests 09/07/21 09/07/21 08:40 08:40 WBC 5.6 Hgb 14.9 Hct 44.0 Plt Count 169 Sodium 141 Potassium 4.2 D Chloride 107 Carbon Dioxide 27 BUN 11 Creatinine 0.93 Narrative Narrative: EKG 07/2020 Vent. Rate : 078 BPM ? ? Atrial Rate : 078 BPM ?? P-R Int : 150 ms? QRS Dur : 086 ms ? ? QT Int : 394 ms ? ? ? P-R-T Axes : 051 045 024 degrees ?? QTc Int : 449 ms ? Normal sinus rhythm Normal ECG When compared with ECG of 04-SEP-2019 20:32, No significant change was found Assessment and Plan Assessment Anesthesia Assessment: Chart Reviewed Documented by User: Tammie Martínez MD 10/17/21 11:13 [facility] Past Medical History Medical History Anxiety and depression Arthritis Asthma Bipolar disorder Dysplasia of cervix, low grade (KELLIE 1) Dysuria GERD (gastroesophageal reflux disease) High cholesterol Interstitial cystitis Smoker Thyroid activity decreased Urge incontinence Urinary retention Vitamin D deficiency Family History Family History Father COPD (chronic obstructive pulmonary disease) Lung cancer Mother Breast cancer Cardiac pacemaker Son Hyperthyroidism Mental health disorder Maternal Grandmother Depression Mental health disorder Son Depression Surgical History Surgical History H/O LEEP History of cystoscopy History of neck surgery History of Problems with Anesthesia: No Social History Social History Household Members Other:: Elderly mother lives with her Housing: House Alcohol intake: never Patient Tobacco Use Status: Current everyday Tobacco user Tobacco use type: Cigarette Cigarette Packs Per Day: 1 Cigarettes Per Day: 20.0 Years Smoked: 20 Smoked in Last 30 Days: Yes Patient Interested in Nicotine Replacement: No Patient Given Instructions on How to Stop Smoking: Yes Date Education Initiated: 10/17/21 Second Hand Smoke Exposure: Yes Use of substances other than those prescribed or required for medical reasons: No Are you DNR?: No Advance Directives: No Advance Directives Information Provided: Yes Advance Directives on File: No Current occupational status: disabled Meds Allergies Allergy/AdvReac Type Severity Reaction Status Date / Time ciprofloxacin [From CIPRO] Allergy Intermediate ANXIOUS/STOMACH Verified 10/11/21 15:06 PAINS sulfamethoxazole Allergy Intermediate RASH Verified 10/11/21 15:06 [From Bactrim] trimethoprim [From Bactrim] Allergy Intermediate RASH Verified 10/11/21 15:06 amoxicillin [AMOXICILLIN] Allergy Mild STOMACH Verified 10/11/21 15:06 UPSET, yeast, gentamicin [GENTAMICIN] Allergy Unknown RASH Verified 10/11/21 15:06 ibuprofen [IBUPROFEN] Allergy Unknown IRRITATION Verified 10/11/21 15:06 OF STOMACH Sulfa (Sulfonamide Allergy Unknown hives Verified 10/11/21 15:06 Antibiotics) sertraline [From Zoloft] AdvReac Mild Urinary Verified 10/11/21 15:06 frequency anxiety meds ending in pram Allergy Unknown cystitis Uncoded 10/11/21 15:06 Home Medications Medication Instructions Recorded Confirmed Last Taken Type oxybutynin chloride 15 mg 15 mg PO DAILY 04/27/21 10/17/21 Unknown History tablet,extended release 24 hr albuterol sulfate 90 mcg/actuation 1 inh INHALATION QID PRN 10/11/21 10/11/21 Unknown History aerosol inhaler (ProAir HFA) Exam Airway Mallampati Class: III TM Dist: >3cm Neck ROM: Full Loose/Missing/Broken Teeth: No Heart: RRR Lungs: CTA Assessment and Plan Assessment Anesthesia Assessment: Anesthesia Plan Discussed Final Anesthetic Review History of Problems with Anesthesia: No NPO: Yes ASA Class: III Final Preanesthetic Review: Meds/Allgs Chart Reviewed, Consent Obtained/Reviewed and Anes Risks/Benef Reviewed Patient Risk: Intermediate Procedure Risk: Low Anesthetic Plan Anesthetic Plan: GA Disposition: Standard PACU
[2021-10-17] VITALS (8 sets, daily range): BP systolic 91–130; BP diastolic 44–67; PULSE 62–82; RESP 16–20; TEMP 36.3–36.6; O2SAT 95–99; BMI 33.8
[2021-10-17] MEDS: Albuterol Sulfate (0.083%) 2.5 MG/3 ML VIAL.NEB INHALE (10:19)
[2021-10-17] MEDS: Lactated Ringers 1,000 ML 100 ML IVCONT (10:41)
[2021-10-17] MEDS: Acetaminophen 325 MG TABLET 650 MG PO (10:57)
--- NOTE | 2021-10-17 11:17 | MHC.SHP ---
Pre-Procedural Eval Section A Date of Service: 10/17/21 The patient is an INPATIENT: No Changes since office visit: No Cold of Flu in the past 2 weeks, No New Medical Problems, No Changes in Medication and No Patient answered all questions The History & Physical has been completed within 30 days and I have reviewed it.: Yes Section B Chief Complaint: cystitis Allergies: Allergies Allergy/AdvReac Type Severity Reaction Status Date / Time ciprofloxacin [From CIPRO] Allergy Intermediate ANXIOUS/STOMACH Verified 10/11/21 15:06 PAINS sulfamethoxazole Allergy Intermediate RASH Verified 10/11/21 15:06 [From Bactrim] trimethoprim [From Bactrim] Allergy Intermediate RASH Verified 10/11/21 15:06 amoxicillin [AMOXICILLIN] Allergy Mild STOMACH Verified 10/11/21 15:06 UPSET, yeast, gentamicin [GENTAMICIN] Allergy Unknown RASH Verified 10/11/21 15:06 ibuprofen [IBUPROFEN] Allergy Unknown IRRITATION Verified 10/11/21 15:06 OF STOMACH Sulfa (Sulfonamide Allergy Unknown hives Verified 10/11/21 15:06 Antibiotics) sertraline [From Zoloft] AdvReac Mild Urinary Verified 10/11/21 15:06 frequency anxiety meds ending in pram Allergy Unknown cystitis Uncoded 10/11/21 15:06 Review of Systems Sugical H&P ROS: Negative: Constitution, Cardiovascular, Respiratory, Neurological, Psychiatric, Hem-Onc, Allergic/Immunologic, Gastrointestinal, Genitourinary, Musculoskeletal, Integumentary, Endocrine and Eyes/Ears/Nose/Throat Exam Surgical H&P Exam: Normal: HEENT, Normal: Heart, Normal: Lungs, Normal: Extremities, Normal: Abdomen, Normal: Skin and Normal: Neurological Plan Diagnosis/Plan: Unchanged (cystoscopy botox injection) I have reviewed the history and physical and performed a pertinent physical examination on my patient. No changes have occurred unless specified.
--- NOTE | 2021-10-17 11:55 | W.PM.OPN ---
Operative Note Operative Note Date of Service: 10/17/21 Narrative: PreOperative Diagnosis: Overactive bladder with failure of medications Post Operative Diagnosis: Overactive bladder with failure of medications Procedure: Cystoscopy with injection 100 units Botox intra detrusor muscle Surgeon: Dr Rock Linton Anesthesia: Sedation Indications for procedure: Is a very pleasant Fifty 5-year-old female. Has persistent urgency and frequency. Has failed oral medications. At office cystoscopy has effective emptying with minimal urethral rotation on cough. For cystoscopy and Botox injection. Is aware of the risks and benefits particularly related to urinary retention and possible infection. Procedure: After informed consent was verified the patient was brought to the operating room and placed in a supine position. Anesthesia was administered per protocol. Cystoscopy performed with 22 Romansh cystoscope. Bladder was emptied of urine. Bladder was refilled. Using 100 units of Botox mixed in 10 cc of normal saline injections were placed at the back wall of the bladder. 0.5cc placed at each injection site. Injections were placed in a grid 5 across and for high. Injections were placed from the inferior to superior position. Trabeculations on the bladder wall with targeted for each injection site. she had a relatively small volume bladder consistent with some degree of IC or collagen deposition in bladder watson Procedure was tolerated well. Patient was extubated and transferred in stable condition to the recovery area. Pathology: None Drains: None
[2021-10-17] MEDS: Phenazopyridine HCL 100 MG TABLET PO (13:04)
== END 2021-10-17 13:37 | disposition home or self-care (01) ==
PROVIDERS: PCP Physician Assistant; Visit Provider Urology
PROC: 0TJB8ZZ Inspection of Bladder, Via Natural or Artificial Opening Endoscopic (ICD-10-PCS; CPT 52000; principal; 2021-10-17 13:00)
DX: N30.10 Interstitial cystitis (chronic) without hematuria (principal); N32.89 Other specified disorders of bladder; N32.81 Overactive bladder; R39.15 Urgency of urination; R35.0 Frequency of micturition; F31.9 Bipolar disorder, unspecified; F41.8 Other specified anxiety disorders; J45.909 Unspecified asthma, uncomplicated; Z88.1 Allergy status to other antibiotic agents; Z88.2 Allergy status to sulfonamides; Z88.8 Allergy status to other drugs, medicaments and biological substances; F17.210 Nicotine dependence, cigarettes, uncomplicated
CPT/HCPCS: 52287; 94640; J0585; J0690; J1100; J2405; J3010

== ENCOUNTER 2022-01-06 08:21 | Outpatient (REF) | payer OTHER, SELFPAY ==
[2022-01-06 08:49] LABS: Appearance Urine CLOUDY; Color Urine YELLOW; Glucose Urine UA NEG (NEG); Leukocyte Esterase Urine NEG (NEG); Nitrite Urine NEG (NEG); Specific Gravity - Urine >= 1.030 (1.005-1.025); Urine Blood NEG (NEG); Urine Ketones NEG (NEG); Urine Protein NEG (NEG-TRACE)
[2022-01-06 09:33] LABS: TSH reflex Free T4 2.05 uIU/mL (0.32-4.0)
== END 2022-01-06 08:22 | disposition home or self-care (01) ==
LOC: HO.LAB 08:21
PROVIDERS: PCP Physician Assistant; Visit Provider Physician Assistant
DX: Z13.29 Encounter for screening for other suspected endocrine disorder (principal); R30.0 Dysuria
CPT/HCPCS: 36415; 81003; 84443

== ENCOUNTER 2022-02-08 10:38 | Outpatient (REF) | payer OTHER, SELFPAY ==
[2022-02-08 13:59] LABS: Appearance Urine Cloudy; Color Urine Yellow; Glucose Urine UA Negative (Negative); Leukocyte Esterase Urine Moderate (2+) (Negative); Nitrite Urine Negative (Negative); UMIC TRIGGER UACC YES; Urine Blood Negative (Negative); Urine Ketones Negative (Negative); Urine Protein Negative (Neg-Trace)
[2022-02-08 14:05] LABS: Bacteria Urine 1+ (None Seen); Hyaline Casts Urine 0-2 /LPF (0-2); RBC Urine 0-2 /HPF (0-2); Squamous Epithelial Cell Urine >20 /HPF (0-2); UACC Culture Trigger YES; WBC Urine 21-50 /HPF (0-5)
== END 2022-02-08 10:39 | disposition home or self-care (01) ==
LOC: HO.10HDL 10:38
PROVIDERS: Visit Provider Physician Assistant
DX: N30.10 Interstitial cystitis (chronic) without hematuria (principal); R30.0 Dysuria
CPT/HCPCS: 81001; 81003; 87086

== ENCOUNTER 2022-06-07 08:29 | Outpatient (REF) | payer OTHER, SELFPAY | END 2022-06-07 08:30 | disposition home or self-care (01) | LOC: HO.LAB 08:29 | PROVIDERS: PCP Physician Assistant; Visit Provider Urology | DX: N30.10 Interstitial cystitis (chronic) without hematuria (principal); R39.15 Urgency of urination | CPT/HCPCS: 52287; 87086; J0585 ==

== ENCOUNTER 2022-08-12 20:11 | Emergency (ER) | payer OTHER, SELFPAY ==
--- NOTE | ~2022-08-12 | CT_ITS ---
EXAMINATION: CT ABDOMEN AND PELVIS WITHOUT CONTRAST CLINICAL INFORMATION: Right flank pain COMPARISON: CT scan abdomen pelvis 08/26/2021 TECHNIQUE: Multidetector volumetric imaging was performed from the superior aspect of the liver through the pubic symphysis. Sagittal and coronal reformatted images were obtained on the technologist's workstation. This CT examination was performed using dose optimization techniques as appropriate, variously including the following: *Automated exposure control *Adjustment of mA and/or kV according to patient size (this includes techniques or standardized protocols for targeted exams where dose is matched to indication/reason for exam; i.e. extremities or head) *Use of iterative reconstruction technique DLP: 551 mGy-cm FINDINGS: LUNG BASES: The visualized lung bases are unremarkable. LIVER, GALLBLADDER, AND BILIARY TREE: The liver is normal in size, shape, and attenuation. Right lobe of liver measures 19 cm superior-inferior. No focal hepatic lesion or biliary ductal dilatation is present. Small calcified gallstone at the neck of the gallbladder. No gallbladder wall thickening or edema. No bile duct dilatation. PANCREAS: Unremarkable. SPLEEN: Spleen is normal. ADRENAL GLANDS: Unremarkable. KIDNEYS AND URETERS: The kidneys are normal in size, shape, and attenuation. No hydronephrosis, hydroureter, or calculi seen. No perinephric stranding. BLADDER: Unremarkable. GASTROINTESTINAL TRACT: There is no acute abnormality of the bowel. There is no bowel wall thickening /edema. There is no bowel obstruction. There is a moderate to large volume of stool in the colon. The appendix is nonvisualized . There is no inflammation the mesentery. There is no free air or free fluid. The small bowel loops are unremarkable. The stomach is normal. There is no hiatal hernia. ABDOMINAL WALL: No significant hernia is appreciated. LYMPH NODES: Normal. VASCULAR: Unremarkable. PELVIC VISCERA: Unremarkable. OSSEOUS STRUCTURES: Unremarkable. CT/CT abdomen pelvis wo IV con IMPRESSION: No acute abnormality CT scan abdomen pelvis. Cholelithiasis. Fleischner guidelines were followed.
[2022-08-12 20:15] VITALS: BP 142/71; BP 160/110; PULSE 71; PULSE 80; RESP 20; TEMP 36.8; O2SAT 100; O2SAT 96; BMI 33.0
[2022-08-12 20:49] LABS: MANUAL DIFF FLAG NO
[2022-08-12 20:51] LABS: Basophils Percent Auto 0.2 % (0-2); Eosinophils Absolute Auto 0.1 X10*3/uL (0.0-0.4); Eosinophils Percent Auto 1.3 % (0-4); Hematocrit 43.8 % (37.0-47.0); Hemoglobin 15.1 g/dl (12.0-16.0); Imm Gran Abs Auto 0.03 X10*3/uL (0.00-0.03); Imm Gran Pct Auto 0.6 % (0.0-0.4); Lymphocytes Absolute Auto 2.9 X10*3/uL (1.2-4.9); Lymphocytes Percent Auto 54.3 % (20-40); Mean Corpuscular HGB Conc 34.5 g/dl (31.0-35.0); Mean Corpuscular Hemoglobin 30.7 pg (27.0-33.0); Mean Platelet Volume 11.8 fL (9.4-12.3); Monocytes Absolute Auto 0.5 X10*3/uL (0.1-1.2); Monocytes Percent Auto 8.6 % (2-11); Neutrophils Absolute Auto 1.9 x10*3/uL (2.0-8.3); Platelet Count 130 X10*3/uL (160-400); Red Blood Count 4.92 X10*6/uL (4.20-5.50); Red Cell Distribution Width 12.7 % (11.0-16.0); White Blood Count 5.3 X10*3/uL (4.8-10.8)
[2022-08-12 20:52] LABS: Appearance Urine Clear; Color Urine Yellow; Glucose Urine UA Negative (Negative); Leukocyte Esterase Urine Small (1+) (Negative); Nitrite Urine Negative (Negative); Specific Gravity - Urine 1.015 (1.005-1.025); UMIC TRIGGER UACC YES; Urine Blood Negative (Negative); Urine Ketones Negative (Negative); Urine Protein Negative (Neg-Trace)
[2022-08-12 21:01] LABS: Bacteria Urine None Seen (None Seen); Hyaline Casts Urine 0-2 /LPF (0-2); UACC Culture Trigger YES; WBC Urine 0-5 /HPF (0-5)
[2022-08-12 21:08] LABS: Alanine Aminotransferase 80 U/L (0-31); Albumin Level 3.8 g/dL (3.5-5.0); Alkaline Phosphatase 98 U/L (39-117); Anion Gap 15 (12-20); Aspartate Amino Transferase 58 U/L (5-31); Bilirubin Total 0.9 mg/dL (0.0-1.0); Blood Urea Nitrogen 6 mg/dL (9-16); Calcium 8.9 mg/dL (8.4-10.2); Carbon Dioxide 18 mmol/L (22-29); Chloride 110 mmol/L (96-108); Creatinine Clr Calc Pharmacy 74.2; Estimated Glomerular Filt Rate > 60; Glucose Random 97 mg/dL (60-115); Potassium 4.8 mmol/L (3.3-5.1); Sodium 138 mmol/L (135-145); Total Protein 6.9 g/dL (6.5-8.0)
[2022-08-12 21:45] LABS: Lipase 14 U/L (8-78)
--- NOTE | 2022-08-12 22:03 | ED.GENADULT ---
HPI - General Adult General Chief complaint: Abdominal Pain Stated complaint: ABDOMINAL PAIN X3DAYS Time Seen by Provider: 08/12/22 21:51 Source: patient, RN notes reviewed and old records reviewed Mode of arrival: ambulatory Limitations: no limitations History of Present Illness HPI narrative: 56-year-old female past medical history significant for ?interstitial cystitis, ?asthma, constipation, hypothyroidism presents for evaluation of right lower abdominal pain. Patient reports that her pain started 4 days ago. She had some urinary frequency and burning with urination as well. Therefore she asked her PCP to call in the prescription and she was given a prescription for ciprofloxacin which she has been taking for 4 days She states that she has had no improvement in her symptoms. She denies any fevers, chills. The pain radiates to her right flank Her pain right now is described as 10, stabbing Related Data Home Medications Medication Instructions Recorded Confirmed oxybutynin chloride 15 mg 15 mg PO DAILY 04/27/21 06/07/22 tablet,extended release 24 hr Previous Rx's Medication Instructions Recorded nicotine 21 mg/24 hr daily 1 patch transdermal DAILY #28 caps 04/05/20 transdermal patch fluticasone 250 mcg-salmeterol 50 1 ea inhalation BID #60 caps 05/12/20 mcg/dose blistr powdr for inhalation (Palomo Lee) lidocaine 5 % topical patch 1 patch topical DAILY PRN pain 30 10/10/20 days #30 ea naproxen sodium 550 mg tablet 550 mg PO Q12H PRN pain 20 days 12/27/20 #40 caps nystatin 100,000 unit/gram topical 1 appl topical BID 15 days #60 03/07/21 powder grams dicyclomine 20 mg tablet 20 mg PO TID 30 days #90 tabs 04/07/21 guaifenesin 200 mg tablet 200 - 400 mg PO Q4H PRN cough #30 06/09/21 tabs metronidazole 500 mg tablet 500 mg PO BID 7 days #14 tabs 06/10/21 estradiol 0.01% (0.1 mg/gram) See Rx Instructions .Route 3XW 30 06/21/21 vaginal cream days #42.5 grams ciprofloxacin HCl 0.3 % eye drops 2 drp ophthalmic-Right .every 8 07/18/21 hours 10 days #5 mL tramadol 50 mg tablet 50 mg PO Q6H PRN pain #20 tabs 08/26/21 metronidazole 0.75 % (37.5 mg/5 1 appful vaginal BEDTIME 5 days 09/11/21 gram) vaginal gel #37.5 grams penicillin V potassium 500 mg 500 mg PO Q12H 7 days #14 tabs 09/20/21 tablet nitrofurantoin 100 mg PO Q12H 5 days #10 caps 01/12/22 monohydrate/macrocrystals 100 mg capsule (Macrobid) tamsulosin 0.4 mg capsule 0.4 mg PO BID 90 days #180 caps 02/16/22 phenylephrine 0.25 %-cocoa butter 1 supp [place] BEDTIME 12 days #12 ea 02/21/22 88.44 % rectal suppository (Preparation H(phenyleph,cocoa buttr)) Symbicort 160 mcg-4.5 2 puff inhalation BID 90 days #3 02/22/22 mcg/actuation HFA aerosol inhaler inhalers (budesonide-formoterol) cholecalciferol (vitamin D3) 25 25 mcg PO DAILY #30 caps 03/22/22 mcg (1,000 unit) tablet fluoxetine 10 mg capsule 10 mg PO DAILY #30 caps 03/22/22 cetirizine 10 mg tablet 10 mg PO DAILY #90 tabs 04/17/22 fluticasone propionate 50 1 spray intranasal BID 30 days 04/25/22 mcg/actuation nasal #9.9 mL spray,suspension (Flonase Allergy Relief) nitrofurantoin 100 mg PO Q12H 10 days #20 caps 04/27/22 monohydrate/macrocrystals 100 mg capsule (Macrobid) sennosides 8.6 mg tablet (senna) 17.2 mg PO BEDTIME PRN for 05/11/22 constipation #60 caps levothyroxine 125 mcg tablet 125 mcg PO QAM #30 caps 05/20/22 pentosan polysulfate sodium 100 mg 200 mg PO BID 90 days #360 caps 05/23/22 capsule loperamide 2 mg capsule 2 mg PO QID PRN for diarrhea #40 05/26/22 caps ipratropium 0.5 mg-albuterol 3 mg 3 ml inhalation Q4H PRN for 05/27/22 (2.5 mg base)/3 mL nebulization wheezing #180 mL soln nitrofurantoin 100 mg PO BID 5 days #10 caps 06/02/22 monohydrate/macrocrystals 100 mg capsule (Macrobid) famotidine 40 mg tablet 40 mg PO BEDTIME 90 days #90 tabs 06/07/22 omeprazole 20 mg capsule,delayed 20 mg PO DAILY #30 caps 06/15/22 release montelukast 10 mg tablet 10 mg PO DAILY #90 tabs 06/21/22 diphenhydramine HCl 25 mg capsule 25 mg PO BEDTIME PRN sleep #30 caps 06/26/22 (Benadryl) simvastatin 40 mg tablet 40 mg PO BEDTIME #90 caps 07/21/22 albuterol sulfate 90 mcg/actuation 2 puff inhalation Q6H PRN 07/27/22 aerosol inhaler shortness of breath or wheezing 30 days #8.5 grams ciprofloxacin HCl 500 mg tablet 500 mg PO BID #14 tabs 08/08/22 miconazole nitrate 2 % vaginal 1 appful vaginal BEDTIME 7 days 08/08/22 cream (Monistat 7) #45 grams magnesium citrate 300 ml PO DAILY PRN constipation 08/12/22 #296 mL phenazopyridine 200 mg tablet 200 mg PO TID PRN dysuria 6 doses 08/12/22 (Pyridium) #6 tabs polyethylene glycol 3350 17 gram 17 g PO DAILY PRN constipation #14 08/12/22 oral powder packet (Miralax) ea Allergies Allergy/AdvReac Type Severity Reaction Status Date / Time sulfamethoxazole Allergy Intermediate RASH Verified 08/12/22 20:26 [From Bactrim] trimethoprim [From Bactrim] Allergy Intermediate RASH Verified 08/12/22 20:26 amoxicillin [AMOXICILLIN] Allergy Mild STOMACH Verified 08/12/22 20:26 UPSET, yeast, gentamicin [GENTAMICIN] Allergy Unknown RASH Verified 08/12/22 20:26 ibuprofen [IBUPROFEN] Allergy Unknown IRRITATION Verified 08/12/22 20:26 OF STOMACH Sulfa (Sulfonamide Allergy Unknown hives Verified 08/12/22 20:26 Antibiotics) sertraline [From Zoloft] AdvReac Mild Urinary Verified 08/12/22 20:26 frequency anxiety meds ending in pram Allergy Unknown cystitis Uncoded 06/07/22 08:51 Review of Systems Constitutional: Constitutional: Reports as per HPI, Denies chills, Denies fatigue, Denies fever(s) and Denies headache(s) ENT: Denies headache(s) Cardiovascular: Cardiovascular: Denies chest pain and Denies dyspnea Respiratory: Respiratory: Denies cough and Denies dyspnea Gastrointestinal: Gastrointestinal: Reports abdominal pain, Denies constipation, Reports nausea and Denies vomiting Genitourinary: Genitourinary: Reports dysuria, Reports pelvic pain, Reports flank pain and Reports urinary urgency Neurologic: Denies headache(s) and Denies focal weakness Endocrine: Endocrine: Denies fatigue [facility] Past Medical History Medical History Anxiety and depression Arthritis Asthma Bipolar disorder Dysplasia of cervix, low grade (KELLIE 1) Dysuria GERD (gastroesophageal reflux disease) High cholesterol Interstitial cystitis Smoker Thyroid activity decreased Urge incontinence Urinary retention Vitamin D deficiency Surgical History H/O LEEP History of cystoscopy History of neck surgery Family History Family History Father COPD (chronic obstructive pulmonary disease) Lung cancer Mother Breast cancer Cardiac pacemaker Son Hyperthyroidism Mental health disorder Maternal Grandmother Depression Mental health disorder Son Depression Social History Social History Household Members Other:: Elderly mother lives with her Housing: House Alcohol intake: former Patient Tobacco Use Status: Current everyday Tobacco user Tobacco use type: Cigarette Cigarette Packs Per Day: 1 Cigarettes Per Day: 20.0 Years Smoked: 20 Smoked in Last 30 Days: Yes Second Hand Smoke Exposure: Yes Use of substances other than those prescribed or required for medical reasons: No Advance Directives: No Advance Directives Information Provided: Yes Patient : No Current occupational status: disabled Physical Exam ED Vital Signs: Vital Signs - 24 hr 08/12/22 20:15 08/12/22 22:23 08/12/22 22:53 Temperature 98.3 F 97.8 F Pulse Rate 71 57 Respiratory Rate 20 18 16 Blood Pressure 142/71 H 113/58 L Pulse Oximetry 96 Oxygen Delivery Method Room Air 08/12/22 23:10 Temperature Pulse Rate Respiratory Rate Blood Pressure Pulse Oximetry 97 Oxygen Delivery Method Room Air BMI result Body Mass Index 33.0 Const General: healthy appearing, comfortable, no acute distress, alert and awake Nutritional Appearance: well nourished Orientation/consciousness: patient oriented x3 HENMT Head: Yes normocephalic and Yes atraumatic Throat: Yes posterior oropharynx normal Eyes Eyelids: Yes eyelids normal Conjunctivae: conjunctivae normal Sclerae: sclerae normal Corneas: corneas normal Pupils: Equal, round and reactive pupils present EOM: EOMs intact bilaterally Neck Neck: Yes full ROM Resp Effort & Inspection: normal respiratory effort, able to speak in complete sentences, no audible wheezes and not labored Auscultation: clear to auscultation bilaterally Cardio Rate: regular rate Rhythm: regular rhythm GI Inspection: No distended Palpation (GI): Soft to palpation, not firm, Tenderness to palpation present (GI) in the RLQ and suprapubicly; not in the LLQ, not in the LUQ, not in the RUQ and Selby's sign negative, no guarding and not rigid Auscultation: normoactive bowel sounds General: Yes CVA tenderness (on right) Back/Spine/Pelvis Back: CVA tenderness (on right) Skin General skin exam: no rashes or lesions noted and elasticity normal Neuro General: patient oriented x3 Cranial nerves: Yes CN's II-XII intact bilaterally, Yes Equal, round and reactive pupils present and Yes Bilaterally intact EOM present Cognition (Neuro): normal cognition Extrem Other: Moving all extremities well without any obvious deformities Course Reevaluation(s) Reevaluation #1: Patient re-evaluated, her symptoms improved with treatment. Her CT scan showed moderate to large constipation which was discussed with her. She will be put on a bowel regimen Time: 23:35 Medications Administered Discontinued Medications Generic Name Dose Route Start Last Admin Trade Name Freq PRN Reason Stop Dose Admin Sodium Chloride 1,000 mls @ 999 mls/hr 08/12/22 22:00 08/12/22 22:25 Ns IV 08/12/22 23:00 999 mls/hr .Q1H1M VALERIANO Administration Morphine Sulfate 4 mg 08/12/22 21:58 08/12/22 22:23 Morphine Sulfate 4 Mg/Ml Cartridge IVPUSH 08/12/22 21:59 4 mg ONCE ONE Administration Protocol Ondansetron HCl 4 mg 08/12/22 21:58 08/12/22 22:21 Ondansetron Hcl 4 Mg/2 Ml Vial IVPUSH 08/12/22 21:59 4 mg ONCE ONE Administration Medical Decision Making Medical Decision Making [facility] [place] Narrative: As patient has a longstanding history of interstitial cystitis. She follows closely with her urologist, Dr. Linton and her PCP. She reports that she has been on ciprofloxacin for last 4 days without improvement in her symptoms. She has hematuria on urinalysis but no evidence of infection. This raises suspicion for obstructive uropathy. Noticed CT scan to better evaluate. Also with differential is sinusitis given the area of discomfort but patient has no GI symptoms. Differential Diagnosis Obstructive uropathy Pyelonephritis Cystitis Interstitial cystitis Flank pain Muscle strain Constipation Acute appendicitis Lab Data 08/12/22 20:43 08/12/22 20:43 Labs: Lab Results 08/12/22 08/12/22 08/12/22 Range/Units 20:43 20:43 20:43 WBC 5.3 (4.8-10.8) X10*3/uL RBC 4.92 (4.20-5.50) X10*6/uL Hgb 15.1 (12.0-16.0) g/dl Hct 43.8 (37.0-47.0) % MCV 89.0 (80.0-98.0) fL MCH 30.7 (27.0-33.0) pg MCHC 34.5 (31.0-35.0) g/dl RDW 12.7 (11.0-16.0) % Plt Count 130 L (160-400) X10*3/uL MPV 11.8 (9.4-12.3) fL Immature Gran % (Auto) 0.6 H (0.0-0.4) % Neut % (Auto) 35.0 L (45-73) % Lymph % (Auto) 54.3 H (20-40) % [place] % (Auto) 8.6 (2-11) % Eos % (Auto) 1.3 (0-4) % Baso % (Auto) 0.2 (0-2) % Lymph # (Auto) 2.9 (1.2-4.9) X10*3/uL [place] # (Auto) 0.5 (0.1-1.2) X10*3/uL Eos # (Auto) 0.1 (0.0-0.4) X10*3/uL Baso # (Auto) 0.0 (0.0-0.2) X10*3/uL Abs Immat Gran (auto) 0.03 (0.00-0.03) X10*3/uL Absolute Neuts (auto) 1.9 L (2.0-8.3) x10*3/uL Absolute Nucleated RBC 0.000 (0.0-0.012) X10*3/uL Nucleated RBC % (auto) 0.0 (0.0-0.2) /100WBC Sodium 138 (135-145) mmol/L Potassium 4.8 (3.3-5.1) mmol/L Chloride 110 H (96-108) mmol/L Carbon Dioxide 18 L (22-29) mmol/L Anion Gap 15 (12-20) BUN 6 L (9-16) mg/dL Creatinine 0.85 (0.5-1.4) mg/dL Estim Creat Clear Calc 74.2 Estimated GFR > 60 Random Glucose 97 (60-115) mg/dL Calcium 8.9 (8.4-10.2) mg/dL Total Bilirubin 0.9 (0.0-1.0) mg/dL AST 58 H (5-31) U/L ALT 80 H (0-31) U/L Alkaline Phosphatase 98 (39-117) U/L Total Protein 6.9 (6.5-8.0) g/dL Albumin 3.8 (3.5-5.0) g/dL Lipase 14 (8-78) U/L Urine Color Yellow Urine Appearance Clear Urine pH 6.0 (5.0-9.0) Ur Specific [place] 1.015 (1.005-1.025) Urine Protein Negative (Neg-Trace) mg/dL Urine Glucose (UA) Negative (Negative) mg/dL Urine Ketones Negative (Negative) mg/dL Urine Blood Negative (Negative) Urine Nitrite Negative (Negative) Ur Leukocyte Esterase Small (1+) H (Negative) Urine RBC 11-20 H (0-2) /HPF Urine WBC 0-5 (0-5) /HPF Ur Squamous Epith Cells 6-10 (0-2) /HPF Urine Bacteria None Seen (None Seen) Hyaline Casts 0-2 (0-2) /LPF Discharge Plan Discharge Clinical Impression: Constipation Patient Disposition: Home, Self-Care Instructions: Constipation (ED) Additional Instructions: your blood tests and urine sample were reassuring Your CT scan shows a large amount of constipation Increase fluid intake. Continue taking fiber daily Take magnesium citrate, drinking entire bottle Take MiraLax daily for the next 2 weeks Follow-up with your primary doctor Prescriptions: New magnesium citrate Solution 300 ml PO DAILY PRN (Reason: constipation) Qty: 296 0RF polyethylene glycol 3350 [Miralax] 17 gram powder in packet 17 g PO DAILY PRN (Reason: constipation) Qty: 14 0RF phenazopyridine [Pyridium] 200 mg tablet 200 mg PO TID PRN (Reason: dysuria) Qty: 6 0RF No Action nicotine 21 mg/24 hr patch 24 hour 1 patch transdermal DAILY Qty: 28 1RF lidocaine 5 % adhesive patch,medicated 1 patch topical DAILY PRN (Reason: pain) 30 Days Qty: 30 1RF naproxen sodium 550 mg tablet 550 mg PO Q12H PRN (Reason: pain) 20 Days Qty: 40 1RF dicyclomine 20 mg tablet 20 mg PO TID 30 Days Qty: 90 1RF metronidazole 500 mg tablet 500 mg PO BID 7 Days Qty: 14 0RF ciprofloxacin HCl 0.3 % drops 2 drp ophthalmic-Right .every 8 hours 10 Days Qty: 5 0RF metronidazole 0.75 % gel 1 appful vaginal BEDTIME 5 Days Qty: 37.5 0RF penicillin V potassium 500 mg tablet 500 mg PO Q12H 7 Days Qty: 14 0RF nitrofurantoin monohyd/m-cryst [Macrobid] 100 mg capsule 100 mg PO Q12H 5 Days Qty: 10 0RF Rx Instructions: must administer with a meal/food tamsulosin 0.4 mg capsule 0.4 mg PO BID 90 Days Qty: 180 1RF Preparation H(pe,cb) 0.25-88.44 % suppository 1 supp [place] BEDTIME 12 Days Qty: 12 0RF budesonide-formoterol [Symbicort] 160-4.5 mcg/actuation HFA aerosol inhaler 2 puff inhalation BID 90 Days Qty: 3 3RF fluoxetine 10 mg capsule 10 mg PO DAILY Qty: 30 6RF cholecalciferol (vitamin D3) 25 mcg (1,000 unit) tablet 25 mcg PO DAILY Qty: 30 6RF cetirizine 10 mg tablet 10 mg PO DAILY Qty: 90 2RF fluticasone propionate [Flonase Allergy Relief] 50 mcg/actuation spray,suspension 1 spray intranasal BID 30 Days Qty: 9.9 5RF Rx Instructions: administer into each nostril sennosides [senna] 8.6 mg tablet 17.2 mg PO BEDTIME PRN (Reason: for constipation) Qty: 60 3RF levothyroxine 125 mcg tablet 125 mcg PO QAM Qty: 30 4RF pentosan polysulfate sodium 100 mg capsule 200 mg PO BID 90 Days Qty: 360 3RF loperamide 2 mg capsule 2 mg PO QID PRN (Reason: for diarrhea) Qty: 40 3RF ipratropium-albuterol 0.5 mg-3 mg(2.5 mg base)/3 mL solution for nebulization 3 ml inhalation Q4H PRN (Reason: for wheezing) Qty: 180 5RF nitrofurantoin monohyd/m-cryst [Macrobid] 100 mg capsule 100 mg PO BID 5 Days Qty: 10 0RF Rx Instructions: begin 2 days prior to procedure omeprazole 20 mg capsule,delayed release(DR/EC) 20 mg PO DAILY Qty: 30 6RF montelukast 10 mg tablet 10 mg PO DAILY Qty: 90 1RF diphenhydramine HCl [Benadryl] 25 mg capsule 25 mg PO BEDTIME PRN (Reason: sleep) Qty: 30 1RF simvastatin 40 mg tablet 40 mg PO BEDTIME Qty: 90 1RF albuterol sulfate 90 mcg/actuation HFA aerosol inhaler 2 puff inhalation Q6H PRN (Reason: shortness of breath or wheezing) 30 Days Qty: 8.5 6RF ciprofloxacin HCl 500 mg tablet 500 mg PO BID Qty: 14 0RF miconazole nitrate [Monistat 7] 2 % cream 1 appful vaginal BEDTIME 7 Days Qty: 45 0RF tramadol 50 mg tablet 50 mg PO Q6H PRN (Reason: pain) Qty: 20 0RF nystatin 100,000 unit/gram powder 1 appl topical BID 15 Days Qty: 60 0RF fluticasone propion-salmeterol [Wixela Inhub] 250-50 mcg/dose blister with device 1 ea inhalation BID Qty: 60 5RF Hold Instructions: Doctor's Order guaifenesin 200 mg tablet 200 - 400 mg PO Q4H PRN (Reason: cough) Qty: 30 0RF onabotulinumtoxinA 100 unit recon soln 100 unit transurethral ONCE Qty: 1 0RF famotidine 40 mg tablet 40 mg PO BEDTIME 90 Days Qty: 90 1RF oxybutynin chloride 15 mg tablet extended release 24hr 15 mg PO DAILY estradiol 0.01 % (0.1 mg/gram) cream See Rx Instructions .Route 3XW 30 Days Qty: 42.5 2RF Rx Instructions: pea-sized to urethra 3 times a week nitrofurantoin monohyd/m-cryst [Macrobid] 100 mg capsule 100 mg PO Q12H 10 Days Qty: 20 0RF Rx Instructions: must administer with a meal/food
[2022-08-12] MEDS: ondansetron HCL 4 MG/2 ML VIAL IVPUSH (22:21)
[2022-08-12 22:23] VITALS: RESP 18
[2022-08-12] MEDS: Morphine Sulfate 4 MG/ML CARTRIDGE IVPUSH (22:23)
[2022-08-12] MEDS: 0.9 % Sodium Chloride 1,000 ML 999 ML IV (22:25)
[2022-08-12 22:53] VITALS: BP 113/58; PULSE 57; RESP 16; TEMP 36.6
[2022-08-12 23:10] VITALS: O2SAT 97
--- NOTE | 2022-08-12 23:56 | PC.NURSE ---
Pt A&Ox4, reports 12/04 constant RLQ pain x 3 days, worsen with movement, Pt reports last BM was today weird soft stool . Pt states R flank pain with few days of pain/burning with urination. Pt RLQ tender to touch, + bowel sounds x 4. Pt ambulated independently to . IV line placed, meds given as documented.
[2022-08-13 00:06] VITALS: BP 111/53; PULSE 58; RESP 18; O2SAT 96
== END 2022-08-13 00:07 | disposition home or self-care (01) ==
PROVIDERS: Emergency Provider Emergency Medicine Emergency Medical Services
DX: K59.00 Constipation, unspecified (principal); E78.5 Hyperlipidemia, unspecified; F17.210 Nicotine dependence, cigarettes, uncomplicated; Z79.899 Other long term (current) drug therapy; Z79.02 Long term (current) use of antithrombotics/antiplatelets
CPT/HCPCS: 36415; 74176; 80053; 81001; 83690; 85025; 87086; 96361; 96374; 96375; 99284; 99285; J2270; J2405

== ENCOUNTER 2022-08-17 08:53 | Outpatient (REF) | payer OTHER, SELFPAY ==
[2022-08-17 11:22] LABS: TSH reflex Free T4 1.39 uIU/mL (0.32-4.0)
== END 2022-08-17 08:54 | disposition home or self-care (01) ==
LOC: HO.10HDL 08:53
PROVIDERS: Visit Provider Physician Assistant
DX: E03.9 Hypothyroidism, unspecified (principal); K59.04 Chronic idiopathic constipation; K64.9 Unspecified hemorrhoids; R74.8 Abnormal levels of other serum enzymes; N30.10 Interstitial cystitis (chronic) without hematuria; Z78.9 Other specified health status
CPT/HCPCS: 36415; 84443; 99212

== ENCOUNTER 2022-09-25 08:30 | Outpatient (REF) | payer OTHER, SELFPAY ==
[2022-09-25 11:53] LABS: HBc Num1 0.06 S/CO (0.00-0.79); HBsAGNum1 0.34 S/CO (0.00-0.99); Hepatitis A Antibody IgM 0.12 Index (0-0.79); Hepatitis B Core Antibody Nonreactive (Nonreactive); Hepatitis B Surface Antigen Negative (Negative); ~HepC Num1 0.11 S/CO (0.00-0.79); ~Hepatitis A Antibody IgM Nonreactive (Nonreactive); ~Hepatitis B Surface Antibody NONREACTIVE (Nonreactive); ~Hepatitis C Antibody Nonreactive (Nonreactive)
[2022-09-29 11:39] LABS: Mitochondrial Antibodies NEGATIVE (NEGATIVE)
[2022-09-30 16:23] LABS: Smooth Muscle Antibody <20 U (<20)
[2022-10-04 12:54] LABS: Anti Nuclear Antibody Pattern Nuclear, Homogeneous; Anti Nuclear Antibody Screen POSITIVE (NEGATIVE)
== END 2022-09-25 08:31 | disposition home or self-care (01) ==
LOC: HO.10HDL 08:30
PROVIDERS: Visit Provider Physician Assistant
DX: R74.01 Elevation of levels of liver transaminase levels (principal); R79.89 Other specified abnormal findings of blood chemistry; R74.8 Abnormal levels of other serum enzymes
CPT/HCPCS: 36415; 86015; 86038; 86039; 86255; 86256; 86704; 86706; 86709; 86803; 87340

== ENCOUNTER → 2022-09-28 08:28 | Outpatient (BNVA) | payer OTHER, SELFPAY | PROVIDERS: PCP Physician Assistant; Visit Provider Physician Assistant | DX: K59.04 Chronic idiopathic constipation (principal); K21.9 Gastro-esophageal reflux disease without esophagitis | CPT/HCPCS: 99212 ==

== ENCOUNTER 2023-03-15 08:26 | Outpatient (REF) | payer OTHER, SELFPAY ==
[2023-03-15 11:06] LABS: Appearance Urine Cloudy; Color Urine Yellow; Glucose Urine UA Negative (Negative); Leukocyte Esterase Urine Small (1+) (Negative); Nitrite Urine Negative (Negative); PH 5.5 (5.0-9.0); UMIC TRIGGER UA YES; Urine Blood Negative (Negative); Urine Ketones Negative (Negative); Urine Protein Negative (Neg-Trace)
[2023-03-15 11:21] LABS: Bacteria Urine 1+ (None Seen); Hyaline Casts Urine 0-2 /LPF (0-2); RBC Urine 0-2 /HPF (0-2); Squamous Epithelial Cell Urine >20 /HPF (0-2); WBC Urine 0-5 /HPF (0-5)
== END 2023-03-15 08:27 | disposition home or self-care (01) ==
LOC: HO.10HDL 08:26
PROVIDERS: Visit Provider Urology
DX: R39.15 Urgency of urination (principal)
CPT/HCPCS: 81001; 87086

== ENCOUNTER 2023-03-20 09:26 | Outpatient (AMB) | payer OTHER, SELFPAY ==
--- NOTE | 2023-03-20 09:48 | A.OFFVIS_ITS ---
Intake Intake Visit Reasons: ? IC flare Intake Note: Patient is Present for IC Flare up ? Urology Medication: Estradiol, Tamsulosin Antibiotic Allergies: Sulfa, Trimethroprim, Amoxicillin, Gentamicin Blood Thinners: None Pharmacy: [facility] PVR:36 Patient states that her IC Flare up is causing discomfort, foul smelling urine and burning when urinating. Patient went to bathroom prior of coming to office today. States Estradiol is not working. Allergies sulfamethoxazole [From Bactrim] Allergy (Intermediate, Verified 03/20/23 10:00) RASH trimethoprim [From Bactrim] Allergy (Intermediate, Verified 03/20/23 10:00) RASH amoxicillin [AMOXICILLIN] Allergy (Mild, Verified 03/20/23 10:00) STOMACH UPSET, yeast, gentamicin [GENTAMICIN] Allergy (Unknown, Verified 03/20/23 10:00) RASH ibuprofen [IBUPROFEN] Allergy (Unknown, Verified 03/20/23 10:00) IRRITATION OF STOMACH Sulfa (Sulfonamide Antibiotics) Allergy (Unknown, Verified 03/20/23 10:00) hives sertraline [From Zoloft] Adverse Reaction (Mild, Verified 03/20/23 10:00) Urinary frequency anxiety meds ending in pram Allergy (Unknown, Uncoded 03/20/23 10:00) cystitis Medication List - Last Reconciled 03/20/23 by Rock Linton MD albuterol sulfate 90 mcg/actuation 2 puffs inhalation Q6H PRN 30 days amitriptyline 50 mg PO BEDTIME 30 days bisacodyl (Dulcolax (bisacodyl)) 10 mg rectally prn PRN; cefuroxime axetil 250 mg PO BID 5 days cholecalciferol (vitamin D3) 25 mcg PO DAILY ciprofloxacin HCl (Cipro) 500 mg PO BID 5 days dicyclomine 20 mg PO TID 30 days diphenhydramine HCl (Benadryl) 25 mg PO BEDTIME PRN docusate sodium (Colace) 200 mg (2 x 100 mg) PO BEDTIME estradiol 0.01%(0.1mg/gram) pea-sized to urethra 3 times a week 30 days fluticasone propion-salmeterol 250-50 mcg/dose (Wixela Inhub) 1 ea inhalation BID fluticasone propionate 50 mcg/actuation (Flonase Allergy Relief) 1 spray intranasal BID 30 days gabapentin 300 mg PO BEDTIME 30 days guaifenesin 200 - 400 mg (1 - 2 x 200 mg) PO Q4H PRN hydrocortisone 2.5% (Proctozone-HC) 1 appl OR BID PRN ibuprofen 600 mg PO BEDTIME 30 days ipratropium-albuterol 0.5 mg-3 mg(2.5 mg base)/3 mL 3 mL inhalation Q4H PRN levothyroxine 125 mcg PO QAM loperamide 2 mg PO Q8H PRN 30 days methylcellulose (laxative) (Citrucel) 500 mg PO TID metronidazole 0.75%(37.5mg/5gram) 1 appful vaginal BEDTIME 5 days metronidazole 0.75%(37.5mg/5gram) 1 appful vaginal BEDTIME 5 days miconazole nitrate 2% (Monistat 7) 1 appful vaginal BEDTIME 7 days naproxen sodium 550 mg PO Q12H PRN 20 days nicotine 1 patch transdermal DAILY nystatin 1 appl topical BID 15 days ofloxacin 0.3% 2 drps ophthalmic (eye) QID 5 days pentosan polysulfate sodium 200 mg (2 x 100 mg) PO BID 90 days phenylephrine-cocoa butter 0.25-88.44 % (Preparation H(phenyleph,cocoa buttr)) 1 supp OR BEDTIME 12 days polyethylene glycol 3350 (Miralax) 17 grams PO DAILY PRN polyethylene glycol 3350 (Miralax) 17 grams PO DAILY sennosides (senna) 17.2 mg (2 x 8.6 mg) PO BEDTIME PRN simvastatin 40 mg PO BEDTIME Symbicort 160-4.5 mcg/actuation (budesonide-formoterol) 2 puffs inhalation BID 90 days NS tamsulosin 0.4 mg PO BID 90 days HPI HPI Comments History of Present Illness Details She will is a pleasant female. She is a patient of Dr. Miller. She is seen for the following urologic conditions - urinary urgency and frequency - possible interstitial cystitis Flare for interstitial cystitis - waking 5 times at night, urgency and frequency during day Unsure of trigger Offered rescue solution She will call office to let us know results Refill for moderate Damian At 1 month of combination ibuprofen, gabapentin and amitriptyline to assist with sleep Overactive bladder Previously managed with a number of medications Current medications Elmiron Failed Ditropan XL 15 mg b.i.d., Myrbetriq, tolterodine 4 mg Persistent urinary urgency with urge incontinence despite medications Prior hydrodistention for possible investigation of interstitial cystitis - Exacerbating factors smoking Botox - 10/16, 06/19 Interstitial cystitis Multiple prior hydro distentions last 02/14 Had terminal hematuria with diffuse glomerulations volume 300 PFSH Medical History Interstitial cystitis Arthritis Vitamin D deficiency Bipolar disorder Anxiety and depression GERD (gastroesophageal reflux disease) Asthma Dysplasia of cervix, low grade (KELLIE 1) Dysuria Urge incontinence High cholesterol Thyroid activity decreased Urinary retention Smoker Surgical History H/O LEEP History of cystoscopy History of neck surgery Family History Father COPD (chronic obstructive pulmonary disease) Lung cancer Mother Breast cancer Cardiac pacemaker Son Hyperthyroidism Mental health disorder Maternal Grandmother Depression Mental health disorder Son Depression Social History Household Members Other:: Elderly mother lives with her Housing: House Alcohol intake: former Patient Tobacco Use Status: Current everyday Tobacco user Tobacco use type: Cigarette Cigarette Packs Per Day: 1 Cigarettes Per Day: 20.0 Years Smoked: 20 Second Hand Smoke Exposure: Yes Current occupational status: disabled Review of Systems Const Denies chills and Denies fever(s) Card Reports no additional complaints and Denies syncope Resp Denies cough GI Denies abdominal pain and Denies heartburn Reports as per HPI and Denies change in libido Neuro Denies syncope Psych Denies change in libido Endo Denies change in libido Physical Exam Const General: cooperative, healthy appearing, comfortable and no acute distress Orientation/consciousness: patient oriented x3 HEENT Face and sinus: Yes normal facial exam Mouth: moist mucous membranes Neck Neck: Yes normal visual inspection, Yes full ROM and Yes trachea midline Chest Chest palpation & inspection: normal inspection of the chest Resp Effort & Inspection: normal respiratory effort, able to speak in complete sentences and no respiratory distress GI Inspection: Yes normal to inspection Back/Spine/Pelvis Cervical Spine: normal cervical lordosis Thoracic/Lumbar Spine: thoracic and lumbar spine normal to inspection Skin General skin exam: no rashes or lesions noted Neuro General: patient oriented x3, gait normal, tone normal and moves all extremities Extrem General: Yes normal to inspection and Yes capillary refill normal Office Procedures Post Void Residual Post Residual Void Post Void Residual (PVR): 36 79698-Frib Void Residual by ultrasound Bladder/Catheter Procedure Details: IC instillation per Dr June, pt to call if successful to be set up for 5 dailys and 5 weeklys 14 fr straight cath used to drain bladder and instill: 10 mls lidocaine 2% 10 mls bupivicaine 10 mls lidocaine urojet 10,000 units (2 mls) heparin 1 ml (40 mgs) solumedrol 09324-Jwdvrdxyne of Bladder 30076-Rneamd Bladder Catheter Procedure code (CPT) selection complete Assessment & Plan Assessment & Plan (1) Overactive bladder: Code(s): N32.81 - Overactive bladder (2) Interstitial cystitis: Comment: Persistent urge frequency with strength urea following hydrodistention Code(s): N30.10 - Interstitial cystitis (chronic) without hematuria Plan Trial rescue solution Orders: Orders AMB Post Void Residual by ultrasound Today R39.15 - Urgency of urination Medications: New ibuprofen 600 mg PO BEDTIME 30 days 30 tabs 0RF pain N30.10 - Interstitial cystitis (chronic) without hematuria famotidine 40 mg PO BEDTIME 30 days 30 tabs 1RF N30.10 - Interstitial cystitis (chronic) without hematuria, R39.15 - Urgency of urination amitriptyline 50 mg PO BEDTIME 30 days 30 tabs 0RF N30.10 - Interstitial cystitis (chronic) without hematuria gabapentin 300 mg PO BEDTIME 30 days 30 caps 0RF N30.10 - Interstitial cystitis (chronic) without hematuria, R23.2 - Flushing, T50.905A - Adverse effect of unspecified drugs, medicaments and biological substances, initial encounter Refilled estradiol 0.01%(0.1mg/gram) pea-sized to urethra 3 times a week 30 days 42.5 grams 2RF N95.2 - Postmenopausal atrophic vaginitis, R30.0 - Dysuria Patient Instructions: Imaging studies, laboratory and physical exam results were discussed and reviewed in detail. No major barriers to patient understanding were identified. An opportunity to ask questions regarding the treatment plan was provided. All questions were answered. The patient expressed understanding and agreement with the above treatment plan. The patient is aware they should contact our office by phone for worsening of their current condition or the appearance of new urologic symptoms. Compliance is encouraged with any medications and followup testing that is ordered. It is a privilege to participate in the urologic care of your patient. If you have any questions or concerns regarding treatment for the above conditions, or other urologic issues, please do not hesitate to contact me. The office telephone contact is [phone]. This note is constructed using voice recognition software. While every effort has been made to ensure accuracy environmental issues instructor errors may have been included. Yours sincerely, Dr Rock Linton MD, [facility] - Urology Providers of Expert, Compassionate Care for the Genitourinary System Coding Level of Care Code Est Pt Level 4 (08240) Diagnoses Overactive bladder N32.81 Interstitial cystitis N30.10 CPT Codes Post Residual Void - PVR CPT Code: 79960-Nosl Void Residual by ultrasound ([id number]) Bladder/Catheter Procedure - CPT: 51843-Cgbjaxbzdk of Bladder ([id number]) Bladder/Catheter Procedure - CPT: 63228-Yojvmw Bladder Catheter ([id number])
== END 2023-03-20 12:16 | disposition home or self-care (01) ==
PROVIDERS: PCP Physician Assistant; Visit Provider Urology
DX: N32.81 Overactive bladder (principal); N30.10 Interstitial cystitis (chronic) without hematuria
CPT/HCPCS: 51700; 99214

== ENCOUNTER → 2023-03-20 09:26 | Outpatient (BNVA) | payer OTHER, SELFPAY | PROVIDERS: PCP Physician Assistant; Visit Provider Urology | DX: N32.81 Overactive bladder (principal); N30.10 Interstitial cystitis (chronic) without hematuria | CPT/HCPCS: 51700; 51798; 99212 ==

== ENCOUNTER → 2023-03-21 09:26 | Outpatient (BNVA) | payer OTHER, SELFPAY | PROVIDERS: PCP Physician Assistant; Visit Provider Urology | DX: N30.10 Interstitial cystitis (chronic) without hematuria (principal) | CPT/HCPCS: 51700; 51701 ==

== ENCOUNTER → 2023-03-22 09:52 | Outpatient (BNVA) | payer OTHER, SELFPAY | PROVIDERS: PCP Physician Assistant; Visit Provider Urology | DX: N30.10 Interstitial cystitis (chronic) without hematuria (principal) | CPT/HCPCS: 51700; 51701 ==

== ENCOUNTER → 2023-03-23 09:28 | Outpatient (BNVA) | payer OTHER, SELFPAY | PROVIDERS: PCP Physician Assistant; Visit Provider Urology | DX: N30.10 Interstitial cystitis (chronic) without hematuria (principal) | CPT/HCPCS: 51700; 51701 ==

== ENCOUNTER → 2023-03-26 09:27 | Outpatient (BNVA) | payer OTHER, SELFPAY | PROVIDERS: PCP Physician Assistant; Visit Provider Urology | DX: N30.10 Interstitial cystitis (chronic) without hematuria (principal) | CPT/HCPCS: 51700; 51701 ==

== ENCOUNTER 2023-04-02 08:25 | Outpatient (AMB) | payer OTHER, SELFPAY ==
--- NOTE | 2023-04-02 08:37 | AM.OFFVISNUR ---
Intake Intake Visit Reasons: IC instillation week #1 Allergies sulfamethoxazole [From Bactrim] Allergy (Intermediate, Verified 03/20/23 10:00) RASH trimethoprim [From Bactrim] Allergy (Intermediate, Verified 03/20/23 10:00) RASH amoxicillin [AMOXICILLIN] Allergy (Mild, Verified 03/20/23 10:00) STOMACH UPSET, yeast, gentamicin [GENTAMICIN] Allergy (Unknown, Verified 03/20/23 10:00) RASH ibuprofen [IBUPROFEN] Allergy (Unknown, Verified 03/20/23 10:00) IRRITATION OF STOMACH Sulfa (Sulfonamide Antibiotics) Allergy (Unknown, Verified 03/20/23 10:00) hives sertraline [From Zoloft] Adverse Reaction (Mild, Verified 03/20/23 10:00) Urinary frequency anxiety meds ending in pram Allergy (Unknown, Uncoded 03/20/23 10:00) cystitis Office Procedures Bladder/Catheter Procedure Details: pt presents to office for weekly IC instillation #1, pt continues to report improvement in symptoms, although states has been having some burning with urination the last few days- UA done, negative. 14 fr straight cath used to drain bladder and instill: 10 mls lidocaine 2% 10 mls bupivicaine 10 mls lidocaine urojet 10,000 units (2 mls) heparin 1 ml (40 mgs) solumedrol 83328-Lfjlnxtsjk of Bladder 44199-Tmzfur Bladder Catheter Procedure code (CPT) selection complete Results AMB Urinalysis, Automated UA Leukoctes 0 Ricardo/uL Last Edit by Brigitte Lopes RN on 04/02/23 08:57 UA Nitrite Negative Last Edit by Brigitte Lopes RN on 04/02/23 08:57 UA Urobilinogen 0 mg/dL Last Edit by Brigitte Lopes RN on 04/02/23 08:57 UA Protein 0 mg/dL Last Edit by Brigitte Lopes RN on 04/02/23 08:57 UA pH 6.0 Last Edit by Brigitte Lopes RN on 04/02/23 08:57 UA Blood 0 Guru/uL Last Edit by Brigitte Lopes RN on 04/02/23 08:57 UA Specific [place] 1.005 Last Edit by Brigitte Lopes RN on 04/02/23 08:57 UA Ketone Negative Last Edit by Brigitte Lopes RN on 04/02/23 08:57 UA Bilirubin 0 mg/dL Last Edit by Brigitte Lopes RN on 04/02/23 08:57 UA Glucose 0 mg/dL Last Edit by Brigitte Lopes RN on 04/02/23 08:57 Coding CPT Codes Bladder/Catheter Procedure - CPT: 62395-Qvlgjsseny of Bladder ([id number]) Bladder/Catheter Procedure - CPT: 33676-Qccejv Bladder Catheter ([id number]) Assessment & Plan Assessment & Plan Orders: Orders AMB Bladder/Catheter Procedure Today N30.10 - Interstitial cystitis (chronic) without hematuria AMB Urinalysis Automated Today N30.10 - Interstitial cystitis (chronic) without hematuria
== END 2023-04-02 09:02 | disposition home or self-care (01) ==
PROVIDERS: PCP Physician Assistant; Visit Provider Urology
DX: N30.10 Interstitial cystitis (chronic) without hematuria (principal)

== ENCOUNTER → 2023-04-02 08:25 | Outpatient (BNVA) | payer OTHER, SELFPAY | PROVIDERS: PCP Physician Assistant; Visit Provider Urology | DX: N30.10 Interstitial cystitis (chronic) without hematuria (principal) | CPT/HCPCS: 51700; 51701; 81003 ==

== ENCOUNTER 2023-04-04 20:52 | Emergency (ER) | payer OTHER, SELFPAY ==
--- NOTE | ~2023-04-04 | XR_ITS ---
EXAMINATION: XR CHEST CLINICAL INFORMATION: Pneumonia COMPARISON: None available. TECHNIQUE: 2 views of the chest were obtained. FINDINGS: No significant abnormality is noted involving the heart, lungs, mediastinum, bony thorax or soft tissues. XR/XR chest 2V IMPRESSION: Unremarkable examination.
[2023-04-04 20:55] VITALS: BP 126/80; BP 148/84; PULSE 91; PULSE 95; RESP 20; TEMP 36.8; O2SAT 100; O2SAT 97; BMI 34.7
[2023-04-04 21:41] LABS: IDNOW Serial# 08D9AD1C; Strep A Nucleic Acid Negative (Negative)
[2023-04-04 22:05] LABS: Influenza A PCR NEGATIVE (Negative); Influenza B PCR NEGATIVE (Negative); Resp Syncy Virus RNA Qual PCR NEGATIVE (Negative); SARS COV2 PCR INHOUSE NEGATIVE (Negative)
--- NOTE | 2023-04-04 22:55 | ED.ASTHMA ---
HPI - Asthma General Chief Complaint: Asthma Stated Complaint: chest pain, diff breathing Time Seen by Provider: 04/04/23 22:35 Source: patient, RN notes reviewed and old records reviewed Mode of arrival: EMS Limitations: no limitations History of Present Illness HPI Narrative: A 57-year-old female with past medical history significant for asthma, COPD, interstitial cystitis presents for evaluation of cough, shortness of breath and chest tightness. She reports her symptoms started 2 days ago on Sunday She reports facial congestion, shortness of breath, increased cough. She states that she has been wheezing that is worse when she is lying down Denies any fevers or chills Patient states that she has similar symptoms approximately this time of year every year She also states that her mother had similar symptoms last week Patient is a smoker Related Data Previous Rx's Medication Instructions Recorded azithromycin 250 mg tablet See Rx Instructions PO .COMPLEX #6 04/04/23 tabs prednisone 20 mg tablet 40 mg (2 x 20 mg) PO DAILY #10 tabs 04/04/23 Allergies Allergy/AdvReac Type Severity Reaction Status Date / Time amoxicillin Allergy Gastrointestinal Verified 04/04/23 21:02 Upset sulfamethoxazole Allergy Rash Verified 04/04/23 21:02 [From Bactrim] trimethoprim [From Bactrim] Allergy Rash Verified 04/04/23 21:02 Review of Systems Constitutional: Constitutional: Denies chills and Denies fever(s) Cardiovascular: Cardiovascular: Reports chest pain and Reports dyspnea Respiratory: Respiratory: Reports cough, Reports dyspnea and Reports wheezing Gastrointestinal: Gastrointestinal: Denies abdominal pain, Denies nausea and Denies vomiting Musculoskeletal: Musculoskeletal: Denies back pain Integumentary/Breasts: Skin/Breast: Denies rash Allergic/Immunologic: Allergic/Immunologic: Reports wheezing PMFSH Social History Social History Advance Directives: No Advance Directives Information Provided: Yes Physical Exam Vital Signs: Vital Signs: Last Vital Signs Temp 98.2 F 04/04/23 20:55 Pulse 91 04/04/23 20:55 Resp 20 04/04/23 20:55 BP 148/84 H 04/04/23 20:55 Pulse Ox 97 04/04/23 20:55 O2 Del Method Room Air 04/04/23 20:55 BMI result Body Mass Index 34.7 Const: General: healthy appearing, comfortable, no acute distress, alert and awake Nutritional Appearance: well nourished Orientation/consciousness: patient oriented x3 HEENT: Head: Yes normocephalic and Yes atraumatic Eyes: Eyelids: Yes eyelids normal Conjunctivae: conjunctivae normal Sclerae: sclerae normal Corneas: corneas normal Pupils: Equal, round and reactive pupils present EOM: EOMs intact bilaterally Neck: Neck: Yes full ROM Resp: Effort & Inspection: normal respiratory effort, able to speak in complete sentences and not labored Auscultation: wheezes (Faint expiratory wheezing throughout) GI: Palpation (GI): Soft to palpation, not firm, nontender, no guarding and not rigid Auscultation: normoactive bowel sounds Skin: General skin exam: elasticity normal Neuro: General: patient oriented x3 Cranial nerves: Yes Equal, round and reactive pupils present and Yes Bilaterally intact EOM present Cognition (Neuro): normal cognition Medical Decision Making Medical Decision Making MDM Narrative: 57-year-old female presents for evaluation of upper respiratory symptoms with cough, congestion, wheezing, shortness of breath. Her vital signs within normal limits, her chest x-ray was without infiltrates, viral swab was negative. Patient will be treated with Z-Ronnie and prednisone. Differential Diagnosis Differential Diagnoses: The differential diagnosis associated with the presentation includes Upper respiratory infection Pneumonia Bronchitis Viral syndrome Sinusitis Lab Data Labs: Lab Results 04/04/23 Range/Units 21:10 Influenza Type A (PCR) NEGATIVE (Negative) Influenza Type B (PCR) NEGATIVE (Negative) RSV RNA Qual (PCR) NEGATIVE (Negative) SARS-CoV-2 RNA (RT-PCR) NEGATIVE (Negative) S. pyogenes GrpA JEANETTE Negative (Negative) Independent Interpretation I performed an independent interpretation of an: Plain X-Ray (No infiltrates) Radiology Impression Discussion of test interpretation with radiology: I have reviewed the radiologist's reading. Radiologist Impression: Unremarkable examination Discharge Plan Discharge Clinical Impression: Upper respiratory infection Patient Disposition: Home, Self-Care Instructions: Upper Respiratory Infection (ED) Additional Instructions: Take azithromycin and prednisone as directed. Use your inhalers as prescribed Follow-up with your primary doctor Return for new or worsening symptoms Prescriptions: New azithromycin 250 mg tablet See Rx Instructions .ROUTE .COMPLEX Qty: 6 0RF Rx Instructions: For 250 mg dose pack: take 500 mg today (day 1), then 250 mg for 4 days (days 2-5) prednisone 20 mg tablet 40 mg PO DAILY Qty: 10 0RF
== END 2023-04-04 23:10 | disposition home or self-care (01) ==
PROVIDERS: Emergency Provider Internal Medicine; PCP Physician Assistant
DX: J06.9 Acute upper respiratory infection, unspecified (principal); J45.909 Unspecified asthma, uncomplicated; R07.89 Other chest pain; R06.02 Shortness of breath; Z20.822 Contact with and (suspected) exposure to COVID-19; Z20.828 Contact with and (suspected) exposure to other viral communicable diseases
CPT/HCPCS: 0241U; 71046; 87651; 99283

== ENCOUNTER → 2023-04-09 08:26 | Outpatient (BNVA) | payer OTHER, SELFPAY | PROVIDERS: PCP Physician Assistant; Visit Provider Urology | DX: N30.00 Acute cystitis without hematuria (principal) | CPT/HCPCS: 51700; 51701 ==

== ENCOUNTER 2023-04-13 07:19 | Outpatient (AMB) | payer OTHER, SELFPAY ==
--- NOTE | 2023-04-13 07:20 | A.OFFPC_ITS ---
Intake Visit Reasons: cough with SOB Allergies gentamicin [GENTAMICIN] Allergy (Unknown, Verified 04/13/23 07:20) RASH ibuprofen [IBUPROFEN] Allergy (Unknown, Verified 04/13/23 07:20) IRRITATION OF STOMACH Sulfa (Sulfonamide Antibiotics) Allergy (Unknown, Verified 04/13/23 07:20) hives amoxicillin Allergy (Verified 04/13/23 07:20) Gastrointestinal Upset sulfamethoxazole [From Bactrim] Allergy (Verified 04/13/23 07:20) Rash trimethoprim [From Bactrim] Allergy (Verified 04/13/23 07:20) Rash sertraline [From Zoloft] Adverse Reaction (Mild, Verified 04/13/23 07:20) Urinary frequency anxiety meds ending in pram Allergy (Unknown, Uncoded 04/13/23 07:20) cystitis Tobacco use date assessed: 04/13/23 Dental Screening Dental Screen Date: 04/13/23 Did you have a dental visit in the last 12 months?: No Did you have a dental problem in the last 6 months where you did not have access to dental care?: No Was dental information given to patient?: No HPI HPI Comments History of Present Illness Details 57-year-old female past medical history significant for water asthma, urge incontinence, depression, generalized anxiety disorder, COPD, GERD. Patient of Santiago Garciaon last seen June 2021, patient presents today for a telehealth appointment for cough and shortness of breath. Review of the notes patient was seen in the emergency room on 04/04/2023 for this chest x-ray unremarkable. Patient was discharged home on azithromycin and prednisone x5 days. This is my 1st time speaking with this patient however she does have a noted history of being poor historian. Patient reports using her albuterol inhaler more frequently than usual since her upper respiratory infection states has ongoing wheezing and shortness of breath. Denies fever, chills, cough. Offered refills on her inhalers. Patient declined states she has plenty of medication. Patient reports she does get relief from prednisone. Will send prednisone 40 mg daily x5 days. Patient states she previously used to follow with Dr. Puga pulmonology however she has not followed up recently. Patient advised to call pulmonology office to schedule an appointment. PFSH Medical History Interstitial cystitis Arthritis Vitamin D deficiency Bipolar disorder Anxiety and depression GERD (gastroesophageal reflux disease) Asthma Dysplasia of cervix, low grade (KELLIE 1) Dysuria Urge incontinence High cholesterol Thyroid activity decreased Urinary retention Smoker Surgical History (Updated 04/05/23 @ 07:40 by Yoko Evans) H/O LEEP History of cystoscopy History of neck surgery Family History (System 04/05/23 @ 07:40 by Yoko Evans) Father COPD (chronic obstructive pulmonary disease) Lung cancer Mother Breast cancer Cardiac pacemaker Son Hyperthyroidism Mental health disorder Maternal Grandmother Depression Mental health disorder Son Depression Social History (System 04/05/23 @ 07:40 by Yoko Evans) Household Members Other:: Elderly mother lives with her Housing: House Alcohol intake: former Patient Tobacco Use Status: Current everyday Tobacco user Tobacco use type: Cigarette Cigarette Packs Per Day: 1 Cigarettes Per Day: 20.0 Years Smoked: 20 e-Cigarette/Vaping Use: Never Used Second Hand Smoke Exposure: Yes Current occupational status: disabled Cognitive needs: No Hearing needs: No Vision needs: No Questionnaire PHQ-9 Over the last 2 weeks, how often have you been bothered by any of the following problems? 1. Little interest or pleasure in doing things: not at all 2. Feeling down, depressed, or hopeless: not at all 3. Trouble falling or staying asleep, or sleeping too much: not at all 4. Feeling tired or having little energy: not at all 5. Poor appetite or overeating: not at all 6. Feeling bad about yourself - or that you are a failure or have let yourself or your family down: not at all 7. Trouble concentrating on things, such as reading the newspaper or watching television: not at all 8. Moving or speaking so slowly that other people could have noticed. Or the opposite - being so fidgety or restless that you have been moving around a lot more than usual: not at all 9. Thoughts that you would be better off or of hurting yourself in some way: not at all Total score: 0 Source: Developed by Drs. Mina Haas, Maria Luisa Felix, Paco Vasques and colleagues, with an educational erin from [employer]. Thrive Questionnaire Date Thrive assessed: 04/13/23 I am a: Patient What is your living situation today?: I have a steady place to live Within the past 12 months, did the food you bought not last and you didn't have the money to get more?: Never true Within the past 12 months, did you worry whether your food would run out before you got money to buy more?: Never true Do you have trouble paying for medicines?: No Do you have trouble getting transportation to medical appointments?: No Do you have trouble paying your heating and electricity bill?: No Do you have trouble taking care of your child, family member or friend?: No Do you have trouble with day-to-day activities such as bathing, preparing meals, shopping, managing finances, etc.?: No Are you currently unemployed and looking for a job?: No Are you interested in more education?: No Currently or been in a relationship where the following occur: no concerns reported AUDIT C Alcohol Use Questionnaire (AUDIT-C) 1. How often do you have a drink containing alcohol?: Never 3. How often do you have six or more drinks on one occasion?: Never Total Score: 0 ADORE-7 AMB Questionnaire ADORE-7 Date ADORE - 7 assessed: 04/13/23 Feeling nervous, anxious, or on edge: 0 = Not at all Not being able to stop or control worryin = Not at all Worrying too much about different things: 0 = Not at all Trouble relaxin = Not at all Being so restless that it is hard to sit still: 0 = Not at all Becoming easily annoyed or irritable: 0 = Not at all Feeling afraid as if something awful might happen: 0 = Not at all Total ADORE-7 score (0-4 normal; 5-9 mild; 10-14 moderate; 15-21 severe): 0 Source: Developed by Drs. Mina Haas, Maria Luisa Felix, Paco Vasques and colleagues, with an educational erin from [employer]. Review of Systems Card Denies chest pain, Denies rapid heart rate and Reports dyspnea Resp Reports dyspnea and Reports wheezing Aller/Immun Reports wheezing Physical exam (Primary Care) Vital Signs: unable to complete, telehealth appointment Tobacco/Smoking Status: Tobacco use Status Tobacco use date assessed 04/13/23 04/13/23 07:22 Patient Tobacco Use Status Current everyday Tobacco 04/13/23 07:22 Tobacco use type Cigarette 04/13/23 07:22 e-Cigarette/Vaping Use Never Used 04/13/23 07:22 PHQ-9: PHQ-9 Score PHQ-9: Total score 0 04/13/23 08:34 Thrive Assessment: Date of Thrive Assessment Date Thrive assessed 04/13/23 04/13/23 07:22 Currently or been in a relationship where the following occur: no concerns reported Telehealth Telehealth Location of provider rendering services: practice address Location of patient: address on file Patient Identification confirmed using: Name, : Yes Telehealth method: voice only Patient verbally consented to treatment: Yes Patient verbally consented to billing insurance company: Yes Patient informed of any privacy concerns related to visit: Yes Minutes spent on Phone/Video with Pt.: 8 Assessment and Plan Assessment & Plan (1) Poor historian: Comment: Limited details Code(s): Z78.9 - Other specified health status (2) Dyspnea on exertion: Code(s): R06.00 - Dyspnea, unspecified (3) COPD (chronic obstructive pulmonary disease): Code(s): J44.9 - Chronic obstructive pulmonary disease, unspecified Qualifiers: COPD type: unspecified COPD Qualified Code(s): J44.9 - Chronic obstructive pulmonary disease, unspecified Plan: Continue on current inhalers. Patient advised to call pulmonology office to follow-up. (4) Moderate asthma: Code(s): J45.909 - Unspecified asthma, uncomplicated Plan: Will send prednisone 40 mg daily x5 days for asthma exacerbation likely related to recent upper respiratory infection. Patient advised if she develops new or worsening symptoms to please schedule appointment to follow up in office for further evaluation and treatment. Plan Keep scheduled physical exam with PCP or follow-up sooner needed. Medications: Refilled prednisone 40 mg (2 x 20 mg) PO DAILY 10 tabs 0RF Coding Level of Care Code Tele Est Pt Level 3 (61343) Diagnoses Poor historian Z78.9 Dyspnea on exertion R06.00 Chronic obstructive pulmonary disease, unspecified COPD type J44.9 COPD type: unspecified COPD Moderate asthma J45.909
== END 2023-04-13 09:17 | disposition home or self-care (01) ==
LOC: HO.HMGH 07:19
PROVIDERS: PCP Physician Assistant; Visit Provider Nurse Practitioner Family
DX: Z78.9 Other specified health status (principal); R06.00 Dyspnea, unspecified; J44.9 Chronic obstructive pulmonary disease, unspecified; J45.909 Unspecified asthma, uncomplicated
CPT/HCPCS: 99213

== ENCOUNTER 2023-04-13 11:24 | Outpatient (REF) | payer OTHER, SELFPAY ==
[2023-04-13 13:21] LABS: Appearance Urine Clear; Color Urine Yellow; Glucose Urine UA Negative (Negative); Leukocyte Esterase Urine Negative (Negative); Nitrite Urine Negative (Negative); Specific Gravity - Urine <= 1.005 (1.005-1.025); Urine Blood Negative (Negative); Urine Ketones Negative (Negative); Urine Protein Negative (Neg-Trace)
[2023-04-13 13:24] LABS: Bacteria Urine None Seen (None Seen); Hyaline Casts Urine 0-2 /LPF (0-2); RBC Urine 0-2 /HPF (0-2); WBC Urine 0-5 /HPF (0-5)
== END 2023-04-13 11:25 | disposition home or self-care (01) ==
LOC: HO.10HDLNP 11:24
PROVIDERS: Visit Provider Urology
DX: R30.0 Dysuria (principal)
CPT/HCPCS: 81001; 87086

== ENCOUNTER 2023-04-15 20:30 | Emergency (ER) | payer OTHER, SELFPAY ==
--- NOTE | ~2023-04-15 | CT_ITS ---
EXAMINATION: CT ABDOMEN AND PELVIS WITHOUT CONTRAST CLINICAL INFORMATION: R flank pain. COMPARISON: 08/12/2022. TECHNIQUE: Multidetector volumetric imaging was performed from the superior aspect of the liver through the pubic symphysis without contrast per renal stone protocol. Sagittal and coronal reformatted images were obtained on the technologist workstation. This CT examination was performed using dose optimization techniques as appropriate, variously including the following: *Automated exposure control *Adjustment of mA and/or kV according to patient size (this includes techniques or standardized protocols for targeted exams where dose is matched to indication/reason for exam; i.e. extremities or head) *Use of iterative reconstruction technique DLP: 642 mGy-cm. FINDINGS: LUNG BASES: The visualized lung bases are unremarkable. LIVER, GALLBLADDER, BILIARY TREE: The non-contrast liver is normal in size, shape, and attenuation. No focal hepatic lesion or biliary ductal dilatation is present. Gallstones in the dependent portion of the otherwise unremarkable gallbladder. PANCREAS: Unremarkable. SPLEEN: Unremarkable. ADRENAL GLANDS: Unremarkable. KIDNEYS AND URETERS: The kidneys are normal in size, shape, and attenuation. No hydronephrosis, hydroureter, or calculi seen. No perinephric stranding. BLADDER: Decompressed but otherwise unremarkable GASTROINTESTINAL TRACT: No colonic wall thickening or pericolonic inflammatory change. Hepatic flexure of colon is decompressed likely due to focal peristaltic wave when compared to the recent prior CT scan. Visualized small bowel unremarkable ABDOMINAL WALL: No significant hernia is appreciated. LYMPHOVASCULAR STRUCTURES: Minimal vascular calcification within the aorta iliac system. Scattered phleboliths in the pelvis. PELVIC VISCERA: Unremarkable. OSSEUS STRUCTURES: Degenerative changes in the hips CT/CT abdomen pelvis wo IV con IMPRESSION: No acute intra-abdominal process seen. No renal or ureteric calculi. No obstructive changes to the kidneys. Chronic appearing changes as described above.
[2023-04-15 20:35] VITALS: BP 150/98; PULSE 108; O2SAT 98
[2023-04-15 20:39] VITALS: BMI 35.8
[2023-04-15 20:44] VITALS: BP 188/80; PULSE 85; RESP 16; TEMP 36.7; O2SAT 98
[2023-04-15 21:11] LABS: MANUAL DIFF FLAG NO
[2023-04-15 21:13] LABS: Appearance Urine Clear; Color Urine Yellow; Glucose Urine UA Negative (Negative); Leukocyte Esterase Urine Trace (Negative); Nitrite Urine Negative (Negative); Specific Gravity - Urine 1.015 (1.005-1.025); UMIC TRIGGER UACC YES; Urine Blood Negative (Negative); Urine Ketones Negative (Negative); Urine Protein Negative (Neg-Trace)
[2023-04-15 21:18] LABS: Bacteria Urine Trace (None Seen); Hyaline Casts Urine 0-2 /LPF (0-2); RBC Urine 0-2 /HPF (0-2); UACC Culture Trigger YES
[2023-04-15 21:20] LABS: Basophils Percent Auto 0.3 % (0-2); Eosinophils Absolute Auto 0.1 X10*3/uL (0.0-0.4); Eosinophils Percent Auto 1.3 % (0-4); Hematocrit 42.8 % (37.0-47.0); Hemoglobin 14.7 g/dl (12.0-16.0); Imm Gran Abs Auto 0.02 X10*3/uL (0.00-0.03); Imm Gran Pct Auto 0.3 % (0.0-0.4); Lymphocytes Absolute Auto 3.1 X10*3/uL (1.2-4.9); Lymphocytes Percent Auto 49.6 % (20-40); Mean Corpuscular HGB Conc 34.3 g/dl (31.0-35.0); Mean Corpuscular Hemoglobin 31.5 pg (27.0-33.0); Mean Corpuscular Volume 91.6 fL (80.0-98.0); Mean Platelet Volume 11.1 fL (9.4-12.3); Monocytes Absolute Auto 0.4 X10*3/uL (0.1-1.2); Neutrophils Absolute Auto 2.6 x10*3/uL (2.0-8.3); Neutrophils Percent Auto 41.5 % (45-73); Platelet Count 134 X10*3/uL (160-400); Red Blood Count 4.67 X10*6/uL (4.20-5.50); Red Cell Distribution Width 12.7 % (11.0-16.0); White Blood Count 6.3 X10*3/uL (4.8-10.8)
[2023-04-15 21:36] LABS: Alanine Aminotransferase 41 U/L (0-31); Albumin Level 3.8 g/dL (3.5-5.0); Alkaline Phosphatase 90 U/L (39-117); Anion Gap 13 (12-20); Aspartate Amino Transferase 31 U/L (5-31); Bilirubin Total 0.3 mg/dL (0.0-1.0); Blood Urea Nitrogen 10 mg/dL (9-16); Calcium 9.6 mg/dL (8.4-10.2); Carbon Dioxide 25 mmol/L (22-29); Chloride 107 mmol/L (96-108); Creatinine Clr Calc Pharmacy 74.7; Estimated Glomerular Filt Rate > 60; Glucose Random 145 mg/dL (60-115); Lipase 20 U/L (8-78); Potassium 3.7 mmol/L (3.3-5.1); Sodium 141 mmol/L (135-145); Total Protein 6.8 g/dL (6.5-8.0)
--- NOTE | 2023-04-15 22:07 | ED_ITS ---
HPI - Abdominal Pain General Chief Complaint: Abdominal Pain Stated Complaint: Pelvic Pain with Dark Urine Time Seen by Provider: 04/15/23 21:58 Source: patient Mode of arrival: EMS Limitations: no limitations History of Present Illness HPI narrative: patient comes to the emergency room complaining of right-sided flank pain that started earlier today. Patient denies nausea vomiting or diarrhea. Patient reporting dysuria for 5 days. Patient states she called Dr. Linton from urology early today, patient was instructed to come to the emergency room. According to the patient, patient has frequent episodes of dysuria without growing any bacteria. Related Data Previous Rx's Medication Instructions Recorded fluticasone 250 mcg-salmeterol 50 1 ea inhalation BID #60 caps 05/12/ mcg/dose blistr powdr for inhalation (Wixela Inhub) naproxen sodium 550 mg tablet 550 mg PO Q12H PRN pain 20 days 12/27/20 #40 caps nystatin 100,000 unit/gram topical 1 appl topical BID 15 days #60 03/07/21 powder grams guaifenesin 200 mg tablet 200 - 400 mg (1 - 2 x 200 mg) PO 06/09/21 Q4H PRN cough #30 tabs metronidazole 0.75 % (37.5 mg/5 1 appful vaginal BEDTIME 5 days 09/11/21 gram) vaginal gel #37.5 grams phenylephrine 0.25 %-cocoa butter 1 supp MO BEDTIME 12 days #12 ea 02/21/22 88.44 % rectal suppository (Preparation H(phenyleph,cocoa buttr)) ipratropium 0.5 mg-albuterol 3 mg 3 ml inhalation Q4H PRN for 05/27/22 (2.5 mg base)/3 mL nebulization wheezing #180 mL soln diphenhydramine HCl 25 mg capsule 25 mg PO BEDTIME PRN sleep #30 caps 06/26/22 (Benadryl) albuterol sulfate 90 mcg/actuation 2 puff inhalation Q6H PRN 07/27/22 aerosol inhaler shortness of breath or wheezing 30 days #8.5 grams polyethylene glycol 3350 17 gram 17 g PO DAILY PRN constipation #14 08/12/22 oral powder packet (Miralax) ea bisacodyl 10 mg rectal suppository 10 mg MO .COMPLEX PRN constipation 08/17/22 (Dulcolax (bisacodyl)) #20 ea hydrocortisone 2.5 % topical cream 1 appl MO BID PRN hemorrhoids #30 08/17/22 with perineal applicator grams (Proctozone-HC) methylcellulose (laxative) 500 mg 500 mg PO TID #90 tabs 08/17/22 tablet (Citrucel) pentosan polysulfate sodium 100 mg 200 mg (2 x 100 mg) PO BID 90 days 08/23/22 capsule #360 caps miconazole nitrate 2 % vaginal 1 appful vaginal BEDTIME 7 days 09/12/22 cream (Monistat 7) #45 grams metronidazole 0.75 % (37.5 mg/5 1 appful vaginal BEDTIME 5 days 10/16/22 gram) vaginal gel #37.5 grams nicotine 21 mg/24 hr daily 1 patch transdermal DAILY #28 caps 10/18/22 transdermal patch docusate sodium 100 mg capsule 200 mg (2 x 100 mg) PO BEDTIME #60 01/01/23 (Colace) caps polyethylene glycol 3350 17 17 g PO DAILY #510 grams 01/01/23 gram/dose oral powder (Miralax) ofloxacin 0.3 % eye drops 2 drp ophthalmic (eye) QID 5 days 01/08/23 #5 mL levothyroxine 125 mcg tablet 125 mcg PO QAM #30 caps 01/13/23 simvastatin 40 mg tablet 40 mg PO BEDTIME #90 caps 01/18/23 dicyclomine 20 mg tablet 20 mg PO TID 30 days #90 tabs 02/01/23 loperamide 2 mg capsule 2 mg PO Q8H PRN loose stool 30 02/01/23 days #90 caps tamsulosin 0.4 mg capsule 0.4 mg PO BID 90 days #180 caps 02/13/23 Symbicort 160 mcg-4.5 2 puff inhalation BID 90 days #3 03/15/23 mcg/actuation HFA aerosol inhaler inhalers (budesonide-formoterol) amitriptyline 50 mg tablet 50 mg PO BEDTIME 30 days #30 tabs 03/20/23 estradiol 0.01% (0.1 mg/gram) See Rx Instructions .Route 3XW 30 03/20/23 vaginal cream days #42.5 grams famotidine 40 mg tablet 40 mg PO BEDTIME 30 days #30 tabs 03/20/23 gabapentin 300 mg capsule 300 mg PO BEDTIME 30 days #30 caps 03/20/23 ibuprofen 600 mg tablet 600 mg PO BEDTIME pain 30 days #30 03/20/23 tabs sennosides 8.6 mg tablet (senna) 17.2 mg (2 x 8.6 mg) PO BEDTIME 04/04/23 PRN for constipation #60 caps cholecalciferol (vitamin D3) 25 25 mcg PO DAILY #30 caps 04/13/23 mcg (1,000 unit) tablet fluticasone propionate 50 1 spray intranasal BID 30 days 04/13/23 mcg/actuation nasal #9.9 mL spray,suspension (Flonase Allergy Relief) prednisone 20 mg tablet 40 mg (2 x 20 mg) PO DAILY #10 tabs 04/13/23 phenazopyridine 100 mg tablet 100 mg PO TID PRN pain 6 doses #6 04/15/23 tabs Allergies Allergy/AdvReac Type Severity Reaction Status Date / Time gentamicin [GENTAMICIN] Allergy Unknown RASH Verified 04/13/23 07:20 ibuprofen [IBUPROFEN] Allergy Unknown IRRITATION Verified 04/13/23 07:20 OF STOMACH Sulfa (Sulfonamide Allergy Unknown hives Verified 04/13/23 07:20 Antibiotics) amoxicillin Allergy Gastrointestinal Verified 04/13/23 07:20 Upset sulfamethoxazole Allergy Rash Verified 04/13/23 07:20 [From Bactrim] trimethoprim [From Bactrim] Allergy Rash Verified 04/13/23 07:20 sertraline [From Zoloft] AdvReac Mild Urinary Verified 04/13/23 07:20 frequency anxiety meds ending in pram Allergy Unknown cystitis Uncoded 04/13/23 07:20 Review of Systems Review of Systems Constitutional : No Weight loss, No Fever, No Chills, No Night Sweats, No Fatigue, No Malaise ENT/Mouth : No Hearing loss, No Ear Pain, No Nasal Congestion, No Sinus Pain, No Hoarseness, No sore throat, No Rhinorrhea, No Swallowing Difficulty Eyes: No Eye Pain, No Swelling, No Redness, No Foreign Body, No Discharge, No Vision Changes Cardiovascular : No Chest Pain, No SOB, No Dyspnea on Exertion, No Orthopnea, No Edema, No Palpitations Respiratory : No Cough, No Sputum, No Wheezing, No Smoke Exposure, No Dyspnea Gastrointestinal : No Nausea, No Vomiting, No Diarrhea, No Constipation, No abdominal Pain, No Hematochezia, No Melena Genitourinary : no irregular bleeding, Complaining of intermittent Dysuria, No Urinary Frequency, No Hematuria, No Urinary Incontinence, No Urgency, complaining of right-sided Flank Pain, No Urinary Flow Changes, No Hesitancy Musculoskeletal : No joint pain, No Myalgias, No Joint Swelling Skin : No Skin Lesions, No rash Neuro : No Weakness, No Numbness, No Paresthesias, No Loss of Consciousness, No Dizziness, No Headache Psych : No Anxiety/Panic, No Depression, No SI/HI/AH/VH, No Social Issues, Heme/Lymph: No Bruising, No Bleeding,No Lymphadenopathy Endocrine : No Polyuria, No Polydipsia, No Temperature Intolerance [facility] Past Medical History Medical History Interstitial cystitis Arthritis Vitamin D deficiency Bipolar disorder Anxiety and depression GERD (gastroesophageal reflux disease) Asthma Dysplasia of cervix, low grade (KELLIE 1) Dysuria Urge incontinence High cholesterol Thyroid activity decreased Urinary retention Smoker Surgical History H/O LEEP History of cystoscopy History of neck surgery Family History Family History (System 04/05/23 @ 07:40 by Yoko Evans) Father COPD (chronic obstructive pulmonary disease) Lung cancer Mother Breast cancer Cardiac pacemaker Son Hyperthyroidism Mental health disorder Maternal Grandmother Depression Mental health disorder Son Depression Social History Social History (System 04/05/23 @ 07:40 by Yoko Evans) Household Members Other:: Elderly mother lives with her Housing: House Alcohol intake: former Patient Tobacco Use Status: Current everyday Tobacco user Tobacco use type: Cigarette Cigarette Packs Per Day: 1 Cigarettes Per Day: 20.0 Years Smoked: 20 e-Cigarette/Vaping Use: Never Used Second Hand Smoke Exposure: Yes Advance Directives: No Advance Directives Information Provided: No Current occupational status: disabled Cognitive needs: No Hearing needs: No Vision needs: No Physical Exam ED Vital Signs: Vital Signs - 24 hr 04/15/23 20:44 04/15/23 22:30 Temperature 98.0 F 98.0 F Pulse Rate 85 68 Respiratory Rate 16 18 Blood Pressure 188/80 H 135/48 L Pulse Oximetry 98 98 Oxygen Delivery Method Room Air Room Air BMI result Body Mass Index 35.8 Const Other: Appearance: Alert. Oriented X3. No acute distress. well-appearing Eyes: Pupils equal, round and reactive to light. ENT: Pharynx normal. Neck: Normal inspection. Neck supple. No lymph nodes noted. No crepitus CVS: Normal heart rate and rhythm. Pulses normal. Normal S1 and S2 Respiratory: No respiratory distress. Breath sounds normal. No Wheezing. No rales Abdomen: Soft and nontender. No rigidity. No distention. no flank pain Skin: Skin warm and dry. Normal skin color. Normal skin turgor. Extremities: No lower extremity edema. No Lacerations. No Rash Neuro: Oriented X 3. No motor deficit. No sensory deficit. Moving all extremities. No slurred speech. CN 2 through 12 grossly intact Psych: calm, cooperative, normal affect Medical Decision Making Medical Decision Making [facility] Narrative: - my interpretation of labs: Normal hematology, normal chemistry, urinalysis shows a small amount of leukocyte esterase, small amount of urine white blood cells and a large amount of squamous epithelial cells, likely a contaminant. Reviewing patient's previous microbiology reports, patient has had similar urinalysis reports, but no growth in the cultures. - I reviewed patient's medical chart, patient has already been diagnosed with interstitial cystitis without hematuria. Patient was seen by Dr. Linton less than a month ago, patient has tried estradiol in the past which did not work. Patient currently undergoing a combination treatment of ibuprofen, famotidine, amitriptyline and gabapentin - my interpretation of CT scan, no kidney stones. - Discussed with the patient that she needs to follow up with Urology. Source of pain, could be musculoskeletal and chronic interstitial cystitis Differential Diagnosis Differential Diagnoses: The differential diagnosis associated with the presentation includes ( interstitial cystitis, UTI, pyelonephritis, kidney stone) Admission/Observation Consideration of admission/observation: Escalation of care including admission/observation considered ( given patient's initial set of complaints on presentation, admission was considered on admission.) Lab Data [facility] Lab Attestation statement: I reviewed the patient's lab results. 04/15/23 21:07 04/15/23 21:07 Labs: Lab Results 04/15/23 Range/Units 21:07 WBC 6.3 (4.8-10.8) X10*3/uL RBC 4.67 (4.20-5.50) X10*6/uL Hgb 14.7 (12.0-16.0) g/dl Hct 42.8 (37.0-47.0) % MCV 91.6 (80.0-98.0) fL MCH 31.5 (27.0-33.0) pg MCHC 34.3 (31.0-35.0) g/dl RDW 12.7 (11.0-16.0) % Plt Count 134 L (160-400) X10*3/uL MPV 11.1 (9.4-12.3) fL Immature Gran % (Auto) 0.3 (0.0-0.4) % Neut % (Auto) 41.5 L (45-73) % Lymph % (Auto) 49.6 H (20-40) % [place] % (Auto) 7.0 (2-11) % Eos % (Auto) 1.3 (0-4) % Baso % (Auto) 0.3 (0-2) % Lymph # (Auto) 3.1 (1.2-4.9) X10*3/uL [place] # (Auto) 0.4 (0.1-1.2) X10*3/uL Eos # (Auto) 0.1 (0.0-0.4) X10*3/uL Baso # (Auto) 0.0 (0.0-0.2) X10*3/uL Abs Immat Gran (auto) 0.02 (0.00-0.03) X10*3/uL Absolute Neuts (auto) 2.6 (2.0-8.3) x10*3/uL Absolute Nucleated RBC 0.000 (0.0-0.012) X10*3/uL Nucleated RBC % (auto) 0.0 (0.0-0.2) /100WBC Sodium 141 (135-145) mmol/L Potassium 3.7 D (3.3-5.1) mmol/L Chloride 107 (96-108) mmol/L Carbon Dioxide 25 (22-29) mmol/L Anion Gap 13 (12-20) BUN 10 (9-16) mg/dL Creatinine 0.87 (0.5-1.4) mg/dL Estim Creat Clear Calc 74.7 Estimated GFR > 60 Random Glucose 145 H (60-115) mg/dL Calcium 9.6 D (8.4-10.2) mg/dL Total Bilirubin 0.3 (0.0-1.0) mg/dL AST 31 (5-31) U/L ALT 41 H (0-31) U/L Alkaline Phosphatase 90 (39-117) U/L Total Protein 6.8 (6.5-8.0) g/dL Albumin 3.8 (3.5-5.0) g/dL Lipase 20 (8-78) U/L Urine Color Yellow Urine Appearance Clear Urine pH 6.0 (5.0-9.0) Ur Specific [place] [employer] 1.015 (1.005-1.025) Urine Protein Negative (Neg-Trace) mg/dL Urine Glucose (UA) Negative (Negative) mg/dL Urine Ketones Negative (Negative) mg/dL Urine Blood Negative (Negative) Urine Nitrite Negative (Negative) Ur Leukocyte Esterase Trace H (Negative) Urine RBC 0-2 (0-2) /HPF Urine WBC 6-10 H (0-5) /HPF Ur Squamous Epith Cells 11-20 (0-2) /HPF Urine Bacteria Trace (None Seen) Hyaline Casts 0-2 (0-2) /LPF Independent Interpretation I performed an independent interpretation of an: CT Scan Radiology Impression Discussion of test interpretation with radiology: I have reviewed the radiologist's reading. Radiologist Impression: FINDINGS: LUNG BASES: The visualized lung bases are unremarkable. LIVER, GALLBLADDER, BILIARY TREE: The non-contrast liver is normal in size, shape, and attenuation. No focal hepatic lesion or biliary ductal dilatation is present. Gallstones in the dependent portion of the otherwise unremarkable gallbladder. PANCREAS: Unremarkable. SPLEEN: Unremarkable. ADRENAL GLANDS: Unremarkable. KIDNEYS AND URETERS: The kidneys are normal in size, shape, and attenuation. No hydronephrosis, hydroureter, or calculi seen. No perinephric stranding. BLADDER: Decompressed but otherwise unremarkable GASTROINTESTINAL TRACT: No colonic wall thickening or pericolonic inflammatory change. Hepatic flexure of colon is decompressed likely due to focal peristaltic wave when compared to the recent prior CT scan. Visualized small bowel unremarkable ABDOMINAL WALL: No significant hernia is appreciated. LYMPHOVASCULAR STRUCTURES: Minimal vascular calcification within the aorta iliac system. Scattered phleboliths in the pelvis. PELVIC VISCERA: Unremarkable. OSSEUS STRUCTURES: Degenerative changes in the hips CT/CT abdomen pelvis wo IV con IMPRESSION: No acute intra-abdominal process seen. No renal or ureteric calculi. No obstructive changes to the kidneys. Chronic appearing changes as described above. Critical Care Time Critical Care Time Critical Care Time: Yes Total Critical Care Time: 45 Attestation: I have personally provided critical care time. Time includes review of lab data, radiology results, discussion with consultants, and monitoring for potential decompensation. Intervention performed as documented. Discharge Plan Discharge Clinical Impression: Chronic interstitial cystitis Patient Disposition: Home, Self-Care Instructions: Interstitial Cystitis (ED) Additional Instructions: Please follow-up with your primary care physician tomorrow. If you have any worsening or new symptoms, please return to the emergency room or call 911 Prescriptions: New phenazopyridine 100 mg tablet 100 mg PO TID PRN (Reason: pain) Qty: 6 0RF No Action naproxen sodium 550 mg tablet 550 mg PO Q12H PRN (Reason: pain) 20 Days Qty: 40 1RF metronidazole 0.75 % gel 1 appful vaginal BEDTIME 5 Days Qty: 37.5 0RF Preparation H(pe,cb) 0.25-88.44 % suppository 1 supp MO BEDTIME 12 Days Qty: 12 0RF ipratropium-albuterol 0.5 mg-3 mg(2.5 mg base)/3 mL solution for nebulization 3 ml inhalation Q4H PRN (Reason: for wheezing) Qty: 180 5RF diphenhydramine HCl [Benadryl] 25 mg capsule 25 mg PO BEDTIME PRN (Reason: sleep) Qty: 30 1RF albuterol sulfate 90 mcg/actuation HFA aerosol inhaler 2 puff inhalation Q6H PRN (Reason: shortness of breath or wheezing) 30 Days Qty: 8.5 6RF pentosan polysulfate sodium 100 mg capsule 200 mg PO BID 90 Days Qty: 360 0RF miconazole nitrate [Monistat 7] 2 % cream 1 appful vaginal BEDTIME 7 Days Qty: 45 0RF metronidazole 0.75 % (37.5mg/5 gram) gel 1 appful vaginal BEDTIME 5 Days Qty: 37.5 0RF nicotine 21 mg/24 hr patch 24 hour 1 patch transdermal DAILY Qty: 28 1RF docusate sodium [Colace] 100 mg capsule 200 mg PO BEDTIME Qty: 60 5RF polyethylene glycol 3350 [Miralax] 17 gram/dose powder 17 g PO DAILY Qty: 510 6RF ofloxacin 0.3 % drops 2 drp ophthalmic (eye) QID 5 Days Qty: 5 0RF levothyroxine 125 mcg tablet 125 mcg PO QAM Qty: 30 4RF simvastatin 40 mg tablet 40 mg PO BEDTIME Qty: 90 2RF dicyclomine 20 mg tablet 20 mg PO TID 30 Days Qty: 90 2RF loperamide 2 mg capsule 2 mg PO Q8H PRN (Reason: loose stool) 30 Days Qty: 90 2RF tamsulosin 0.4 mg capsule 0.4 mg PO BID 90 Days Qty: 180 1RF budesonide-formoterol [Symbicort] 160-4.5 mcg/actuation HFA aerosol inhaler 2 puff inhalation BID 90 Days Qty: 3 3RF sennosides [senna] 8.6 mg tablet 17.2 mg PO BEDTIME PRN (Reason: for constipation) Qty: 60 3RF fluticasone propionate [Flonase Allergy Relief] 50 mcg/actuation spray,suspension 1 spray intranasal BID 30 Days Qty: 9.9 5RF Rx Instructions: administer into each nostril cholecalciferol (vitamin D3) 25 mcg (1,000 unit) tablet 25 mcg PO DAILY Qty: 30 6RF polyethylene glycol 3350 [Miralax] 17 gram powder in packet 17 g PO DAILY PRN (Reason: constipation) Qty: 14 0RF nystatin 100,000 unit/gram powder 1 appl topical BID 15 Days Qty: 60 0RF fluticasone propion-salmeterol [Wixela Inhub] 250-50 mcg/dose blister with device 1 ea inhalation BID Qty: 60 5RF Hold Instructions: Doctor's Order guaifenesin 200 mg tablet 200 - 400 mg PO Q4H PRN (Reason: cough) Qty: 30 0RF prednisone 20 mg tablet 40 mg PO DAILY Qty: 10 0RF onabotulinumtoxinA 100 unit recon soln 100 unit transurethral ONCE Qty: 1 0RF Citrucel 500 mg tablet 500 mg PO TID Qty: 90 5RF bisacodyl [Dulcolax (bisacodyl)] 10 mg suppository 10 mg MO .COMPLEX PRN (Reason: constipation) Qty: 20 0RF Rx Instructions: 10 mg rectally prn PRN; hydrocortisone [Proctozone-HC] 2.5 % cream with perineal applicator 1 appl MO BID PRN (Reason: hemorrhoids) Qty: 30 3RF Rx Instructions: apply MO BID prn amitriptyline 50 mg tablet 50 mg PO BEDTIME 30 Days Qty: 30 0RF gabapentin 300 mg capsule 300 mg PO BEDTIME 30 Days Qty: 30 0RF ibuprofen 600 mg tablet 600 mg PO BEDTIME 30 Days Qty: 30 0RF famotidine 40 mg tablet 40 mg PO BEDTIME 30 Days Qty: 30 1RF estradiol 0.01 % (0.1 mg/gram) cream See Rx Instructions .Route 3XW 30 Days Qty: 42.5 2RF Rx Instructions: pea-sized to urethra 3 times a week
[2023-04-15 22:30] VITALS: BP 135/48; PULSE 68; RESP 18; TEMP 36.7; O2SAT 98
== END 2023-04-15 22:59 | disposition home or self-care (01) ==
PROVIDERS: Emergency Provider Emergency Medicine; PCP Physician Assistant
DX: N30.10 Interstitial cystitis (chronic) without hematuria (principal); R30.0 Dysuria; F17.210 Nicotine dependence, cigarettes, uncomplicated; Z71.6 Tobacco abuse counseling; Z79.899 Other long term (current) drug therapy
CPT/HCPCS: 36415; 74176; 80053; 81001; 83690; 85025; 87086; 99284

== ENCOUNTER 2023-05-02 08:30 | Outpatient (REF) | payer OTHER, SELFPAY ==
[2023-05-02 17:17] LABS: CT PCR NOT DETECTED (Not Detect.); NG PCR NOT DETECTED (Not Detect.)
[2023-05-03 13:07] LABS: BV Int Neg Control Negative (Negative); BV Int Pos Control Positive (Positive)
== END 2023-05-02 08:31 | disposition home or self-care (01) ==
LOC: HO.LNP 08:30
PROVIDERS: PCP Physician Assistant; Visit Provider Obstetrics & Gynecology
DX: Z01.419 Encounter for gynecological examination (general) (routine) without abnormal findings (principal); N76.0 Acute vaginitis
CPT/HCPCS: 0353U; 87480; 87510; 87660

== ENCOUNTER 2023-05-02 08:30 | Outpatient (AMB) | payer OTHER, SELFPAY ==
[2023-05-02 09:11] VITALS: BP 122/82; BMI 35.5
--- NOTE | 2023-05-02 09:11 | MHC.OFFVIS ---
Intake Vital Signs 05/02/23 09:11 Height 5 ft 2 in Weight 194 lb 0.108 oz BMI 35.5 BP 122/82 Intake Visit Reasons: Annual/do not david Chief Pharmacist Required: No Information Interpreted: non-clinical & clinical Electronics Computer Mechanic: Electronics Computer Mechanic Present (Rose Sosa ELPIDIO) Accompanied by: Self / Same As Patient Allergies gentamicin [GENTAMICIN] Allergy (Unknown, Verified 05/02/23 09:12) RASH ibuprofen [IBUPROFEN] Allergy (Unknown, Verified 05/02/23 09:12) IRRITATION OF STOMACH Sulfa (Sulfonamide Antibiotics) Allergy (Unknown, Verified 05/02/23 09:12) hives amoxicillin Allergy (Verified 05/02/23 09:12) Gastrointestinal Upset sulfamethoxazole [From Bactrim] Allergy (Verified 05/02/23 09:12) Rash trimethoprim [From Bactrim] Allergy (Verified 05/02/23 09:12) Rash sertraline [From Zoloft] Adverse Reaction (Mild, Verified 05/02/23 09:12) Urinary frequency anxiety meds ending in pram Allergy (Unknown, Uncoded 05/02/23 09:12) cystitis Post menopausal: Yes HPI HPI Comments History of Present Illness Details Presenting for annual exam. Complaining of vulvovaginal burning/irritation/itching no associated vaginal foul odor Last Pap/HPV in 09/16 Last Mammogram was more than 2 years ago No previous screening Colonoscopy PFSH Medical History Interstitial cystitis Arthritis Vitamin D deficiency Bipolar disorder Anxiety and depression GERD (gastroesophageal reflux disease) Asthma Dysplasia of cervix, low grade (KELLIE 1) Dysuria Urge incontinence High cholesterol Thyroid activity decreased Urinary retention Smoker Surgical History H/O LEEP History of cystoscopy History of neck surgery Family History Father COPD (chronic obstructive pulmonary disease) Lung cancer Mother Breast cancer Cardiac pacemaker Son Hyperthyroidism Mental health disorder Maternal Grandmother Depression Mental health disorder Son Depression Social History Household Members Other:: Elderly mother lives with her Housing: House Alcohol intake: former Patient Tobacco Use Status: Current everyday Tobacco user Tobacco use type: Cigarette Cigarette Packs Per Day: 1 Cigarettes Per Day: 20.0 Years Smoked: 20 e-Cigarette/Vaping Use: Never Used Second Hand Smoke Exposure: Yes Current occupational status: disabled Cognitive needs: No Hearing needs: No Vision needs: No Female Reproductive History Menstrual Date of last pap smear: 09/21/21 Review of Systems Const All systems reviewed & are unremarkable except as noted in HPI and below Card Reports as per HPI Resp Reports as per HPI GI Reports as per HPI and Reports no additional complaints Reports as per HPI Physical Exam Vital Signs: Last Vital Signs BP 122/82 05/02/23 09:11 BMI result Body Mass Index 35.5 Const General: cooperative, healthy appearing and comfortable Chest Chest palpation & inspection: normal inspection of the chest and normal palpation of entire chest wall Breast/axilla inspection: normal inspection of the breasts and normal inspection of the axillae Breast/axilla palpation: normal palpation of the breasts, normal palpation of the axillae and no axillary lymphadenopathy Resp Effort & Inspection: normal respiratory effort Auscultation: clear to auscultation bilaterally Percussion: percussion normal Cardio Palpation: normal PMI Rate: regular rate Rhythm: regular rhythm Heart sounds: no murmurs and no rubs Peripheral pulses: Peripheral pulses 2+ throughout GI Inspection: Yes normal to inspection Palpation (GI): Soft to palpation, nontender, no guarding, not rigid and No hepatosplenomegaly present Percussion: Yes normal to percussion Auscultation: normal bowel sounds Rectal Exam - Female: deferred General: Yes bladder normal to palpation External Female Exam: No lesion Speculum Exam - Vagina: normal appearance of the vagina, normal palpation, normal vaginal discharge and not erythematous Speculum Exam - Cervix: normal appearance of the cervix and normal palpation Bimanual exam- vagina & uterus: normal bimanual exam, normal palpation, uterine size normal, bladder normal to palpation, consistency normal and normal palpation Bimanual Exam- Adnexa, other: normal adnexae, no masses and no tenderness Assessment & Plan Assessment & Plan (1) Well woman exam: Code(s): Z01.419 - Encounter for gynecological examination (general) (routine) without abnormal findings Plan: Co testing not indicated this year Counseled the patient about the recommended dietary allowance of 1200 mg of Calcium & 600 IU of vitamin D. Mammogram ordered. The patient was referred to GI for screening colonoscopy . The patient was instructed to perform monthly self-breast exams and schedule annual exam in a year. All questions answered and the patient verbalized understanding. (2) Vaginitis: Code(s): N76.0 - Acute vaginitis Qualifiers: Chronicity: acute Qualified Code(s): N76.0 - Acute vaginitis Plan: GC/CT, Bacterial Vaginosis panel taken, Terazol 0.8% q.h.s. for 3 days was sent to the patient's pharmacy. The patient was instructed to call if symptoms don't improve in 48 hours and schedule a 2 week reinspection follow-up appointment. Orders: Orders MM screening mammo BI Today Z12.31 - Encounter for screening mammogram for malignant neoplasm of breast Referrals Gastroenterology Referral Z12.11 - Encounter for screening for malignant neoplasm of colon Medications: New clotrimazole-betamethasone 1-0.05 % 1 appl topical BID 5 days 45 grams 0RF terconazole 0.8% 1 appful vaginal BEDTIME 3 days 20 grams 0RF Coding Level of Care Code Est Pt Prev Care 40-64y(55934) Diagnoses Well woman exam Z01.419 Acute vaginitis N76.0 Chronicity: acute
== END 2023-05-02 09:30 | disposition home or self-care (01) ==
LOC: HO.HWS 08:30
PROVIDERS: PCP Physician Assistant; Visit Provider Obstetrics & Gynecology
DX: Z01.419 Encounter for gynecological examination (general) (routine) without abnormal findings (principal); N76.0 Acute vaginitis
CPT/HCPCS: 99396

== ENCOUNTER 2023-07-01 12:46 | Inpatient (IN) | payer OTHER, SELFPAY ==
[2023-07-01] VITALS (8 sets, daily range): BP systolic 121–180; BP diastolic 56–78; PULSE 72–88; RESP 17–22; TEMP 37.2; O2SAT 89–94; BMI 35.8
--- NOTE | ~2023-07-01 | XR_ITS ---
EXAMINATION: XR CHEST CLINICAL INFORMATION: Cough. Chest pain. Pneumonia. COMPARISON: Previous chest x-ray March 2023 TECHNIQUE: Frontal view of the chest was obtained. FINDINGS: The cardiac and mediastinal contours are normal. Atelectasis or small infiltrate at the right lung base. Lungs are otherwise clear. No pleural effusion or pneumothorax. Normal bony structures. XR/XR chest 1V IMPRESSION: Atelectasis or small infiltrate at the right lung base.
--- NOTE | 2023-07-01 13:19 | ED_ITS ---
HPI - General Adult General Chief complaint: Upper Respiratory Symptoms Stated complaint: COUGH COVID + Time Seen by Provider: 07/01/23 13:24 Source: patient and EMS Mode of arrival: EMS Limitations: no limitations History of Present Illness HPI narrative: 57 year old female with pmhx significant for mild intermittent asthma, COPD presents to the ED today via EMS for evaluation of persistent shortness of breath and chest tightness x3 days. Admits to testing positive for COVID via home test on 06/21/23 after being exposed to COVID via her son. She endorses shortness of breath, cough productive of white sputum, and yellow nasal discharge. She has been using OTC cough syrups, albuterol inhaler and nasal sprays without relief.?She is not dependant on O2 at home and notes that her baseline O2 on room air is around 95%. Denies fever, chills, sore throat, chest pain, nausea vomiting, lower extremity pain or swelling. Denies recent travel or long car rides. Related Data Home Medications Medication Instructions Recorded Confirmed budesonide-formoterol HFA 160 2 puff inhalation BID 07/01/23 07/03/23 mcg-4.5 mcg/actuation aerosol inhaler (Symbicort) Previous Rx's Medication Instructions Recorded albuterol sulfate 90 mcg/actuation 2 puff inhalation Q6H PRN 07/27/22 aerosol inhaler shortness of breath or wheezing 30 days #8.5 grams polyethylene glycol 3350 17 17 g PO DAILY #510 grams 01/01/23 gram/dose oral powder (Miralax) simvastatin 40 mg tablet 40 mg PO BEDTIME #90 caps 01/18/23 tamsulosin 0.4 mg capsule 0.4 mg PO BID 90 days #180 caps 02/13/23 estradiol 0.01% (0.1 mg/gram) See Rx Instructions .Route 3XW 30 03/20/23 vaginal cream days #42.5 grams sennosides 8.6 mg tablet (senna) 17.2 mg (2 x 8.6 mg) PO BEDTIME 04/04/23 PRN for constipation #60 caps fluticasone propionate 50 1 spray intranasal BID 30 days 04/13/23 mcg/actuation nasal #9.9 mL spray,suspension (Flonase Allergy Relief) famotidine 40 mg tablet 40 mg PO BEDTIME 90 days #90 tabs 04/24/23 gabapentin 300 mg capsule 300 mg PO BEDTIME 90 days #90 caps 04/24/23 calcium carbonate 500 mg calcium 500 mg PO DAILY 30 days #30 tabs 05/23/23 (1,250 mg) chewable tablet (Calcium 500) cholecalciferol (vitamin D3) 25 25 mcg PO DAILY #30 caps 05/23/23 mcg (1,000 unit) tablet docusate sodium 100 mg capsule 200 mg (2 x 100 mg) PO BEDTIME #60 06/13/23 caps ascorbic acid (vitamin C) 500 mg 500 mg PO DAILY #30 tabs 07/02/23 tablet (Vitamin C) dextromethorphan-guaifenesin 10 10 ml PO TID #237 mL 07/02/23 mg-100 mg/5 mL oral syrup dicyclomine 20 mg tablet 20 mg PO TID 30 days #90 tabs 07/02/23 doxycycline hyclate 100 mg tablet 100 mg PO BID #10 tabs 07/02/23 loperamide 2 mg capsule 2 mg PO Q8H PRN loose stool 30 07/02/23 days #90 caps nicotine 21 mg/24 hr daily 21 mg transdermal DAILY #28 ea 07/02/23 transdermal patch prednisone 20 mg tablet 20 mg PO DAILY #5 tabs 07/02/23 levothyroxine 150 mcg tablet 150 mcg PO DAILY 30 days #30 tabs 07/03/23 Allergies Allergy/AdvReac Type Severity Reaction Status Date / Time gentamicin [GENTAMICIN] Allergy Unknown RASH Verified 07/03/23 13:17 ibuprofen [IBUPROFEN] Allergy Unknown IRRITATION Verified 07/03/23 13:17 OF STOMACH Sulfa (Sulfonamide Allergy Unknown hives Verified 07/03/23 13:17 Antibiotics) amoxicillin Allergy Gastrointestinal Verified 07/03/23 13:17 Upset sulfamethoxazole Allergy Rash Verified 07/03/23 13:17 [From Bactrim] trimethoprim [From Bactrim] Allergy Rash Verified 07/03/23 13:17 sertraline [From Zoloft] AdvReac Mild Urinary Verified 07/03/23 13:17 frequency anxiety meds ending in pram Allergy Unknown cystitis Uncoded 07/03/23 13:06 Review of Systems 2 Review of Systems: Constitutional: No fever, chills, fatigue, night sweats, weight changes ENT/Mouth: No ear pain, hearing loss, nasal congestion, sinus pain, rhinorrhea, sore throat Eyes: No eye pain, swelling, redness, vision changes, discharge Cardio: No chest pain, palpitations, HERNANDEZ, orthopnea, peripheral edema Pulm: +SOB, +cough, +sputum, No wheezing, +dyspnea, hemoptysis GI: No nausea, vomiting, hematemesis, abdominal pain, diarrhea, constipation, hematochezia, melena : No irregular bleeding, dysuria, frequency, urgency, hesitancy, hematuria, flank pain, urinary flow changes, urinary incontinence or retention MSK: No back pain, neck pain, joint pain, myalgias Skin: No lesions, rashes Neuro: No weakness, numbness, paresthesias, LOC, dizziness, headache All other systems reviewed and are negative. [facility] Past Medical History Attestation statement: The following information was validated with the patient. Source: old records reviewed and nursing notes reviewed Medical History Interstitial cystitis Arthritis Vitamin D deficiency Bipolar disorder Anxiety and depression GERD (gastroesophageal reflux disease) Asthma Dysplasia of cervix, low grade (KELLIE 1) Dysuria Urge incontinence High cholesterol Thyroid activity decreased Urinary retention Smoker Surgical History H/O LEEP History of cystoscopy History of neck surgery Family History Family History Father COPD (chronic obstructive pulmonary disease) Lung cancer Mother Breast cancer Cardiac pacemaker Son Hyperthyroidism Mental health disorder Maternal Grandmother Depression Mental health disorder Son Depression Social History Social History Household Members: Family, Children and Other Household Members Other:: son, mother Housing: Apartment Do you presently have visiting nurse or other home services: No Alcohol intake: former Patient Tobacco Use Status: Current everyday Tobacco user Tobacco use type: Cigarette Cigarette Packs Per Day: 1 Cigarettes Per Day: 20.0 Years Smoked: 40 Packs Per Year: 40 Packs per year/per ci.00 e-Cigarette/Vaping Use: Never Used Second Hand Smoke Exposure: Yes Current occupational status: disabled Cognitive needs: No Hearing needs: No Vision needs: No Physical Exam ED Vital Signs: Vital Signs - 24 hr 07/01/23 16:45 07/01/23 17:14 Pulse Rate 72 Respiratory Rate 22 H Blood Pressure 122/56 L Pulse Oximetry 91 L 90 L Oxygen Delivery Method Nasal Cannula Nasal Cannula Oxygen Flow Rate 1 BMI result Body Mass Index 35.8 Hypertensive and hypoxic to 89% on RA, vitals otherwise wnl. Const General: cooperative, comfortable and no acute distress Nutritional Appearance: obese Orientation/consciousness: patient oriented x3 Limitations: no limitations HENMT Head: Yes normal to inspection Eyes General: appearance normal, both eyes and all related structures Conjunctivae: conjunctivae normal Sclerae: sclerae normal Pupils: Equal, round and reactive pupils present Neck Neck: Yes normal visual inspection, Yes full ROM, Yes no lymphadenopathy and Yes no JVD Chest Chest palpation & inspection: normal inspection of the chest Resp Other: + bilateral rhonchi. No rales. No respiratory distress. Normal effort of breathing. Actively coughing. Cardio Other: + 2+ radial and dp/pt pulses Jugular venous distension: no JVD Rate: regular rate Rhythm: regular rhythm GI Inspection: Yes normal to inspection Palpation (GI): Soft to palpation and nontender Skin General skin exam: no rashes or lesions noted Neuro General: patient oriented x3 and gait normal Cranial nerves: Yes Equal, round and reactive pupils present Course Course Course Narrative: RME: 57-year-old female history of asthma COPD was presently COVID positive since the 21 of June presents ED for continuous cough with yellow phlegm and shortness of breath. On triage O2 saturation 89%. Patient states baseline 95% and it has not oxygen dependent. EKG labs albuterol and dexamethasone ordered. Patient going to [facility] 3 Reevaluation(s) Reevaluation #1: 1434-- CBC without leukocytosis or anemia. No left shift. Coags WNL. Chemistry without acute electrolyte abnormality requiring intervention. AST and ALT chronically elevated when compared to priors. CXR shows right base infiltrate vs atelectasis. 1630-- Ambulatory O2 on RA dropped to 89%. Patient complaining of feeling SOB while ambulating. She has received 2 albuterol treatments, dexamethasone and mag sulfate in ED with continued shortness of breath and bilateral rhonchi. She is also requiring 2L O2 nasal cannula, sating 89%. will present for admission for acute covid hypoxia with suspected pneumonia. > Dr. Galicia has accepted for admission and Dr. Petty will place admission orders. Medications Administered Discontinued Medications Generic Name Dose Route Start Last Admin Trade Name Saray PRN Reason Stop Dose Admin Acetaminophen 650 mg 07/01/23 17:34 07/02/23 06:47 Acetaminophen 325 Mg Tablet PO 650 mg Q6H PRN Administration Pain, Mild (Pain Scale 1-3) Albuterol Sulfate 8 puff 07/01/23 13:25 07/01/23 13:29 Albuterol Sulfate 90 Mcg 8 Gm Inhaler INHALE 07/01/23 13:26 8 puff ONCE ONE Administration Albuterol Sulfate 8 puff 07/01/23 15:44 07/01/23 15:46 Albuterol Sulfate 90 Mcg 8 Gm Inhaler INHALE 07/01/23 15:45 8 puff ONCE ONE Administration Albuterol/Ipratropium 3 ml 07/01/23 20:00 07/02/23 15:52 Albuterol/Iprat 2.5/0.5mg 3 Ml Ampul.Neb INHALE Not Given RQ4H WHILE AWAKE VALERIANO Ascorbic Acid 500 mg 07/02/23 09:00 07/02/23 10:26 Ascorbic Acid 500 Mg Tablet PO Not Given DAILY VALERIANO Atorvastatin Calcium 20 mg 07/02/23 09:00 07/02/23 10:13 Atorvastatin Calcium 20 Mg Tablet PO 20 mg DAILY VALERIANO Administration Dexamethasone Sodium Phosphate 6 mg 07/01/23 13:16 07/01/23 13:56 Dexamethasone Sod Phosphate 4 Mg/Ml Vial IVPUSH 07/01/23 13:17 6 mg ONCE ONE Administration Dicyclomine HCl 20 mg 07/01/23 21:00 07/02/23 15:27 Dicyclomine Hcl 10 Mg Capsule PO 20 mg TID VALERIANO Administration Docusate Sodium 200 mg 07/01/23 21:00 07/01/23 20:40 Docusate Sodium 100 Mg Capsule PO 200 mg BEDTIME VALERIANO Administration Enoxaparin Sodium 40 mg 07/01/23 17:45 07/01/23 18:02 Enoxaparin Sodium 40 Mg/0.4 Ml Syringe SUBCUT 40 mg Q24H VALERIANO Administration Famotidine 40 mg 07/01/23 21:00 07/01/23 20:41 Famotidine 20 Mg Tablet PO Not Given BEDTIME VALERIANO Fluticasone Propionate 1 spray 07/01/23 21:00 07/02/23 10:26 Fluticasone Propionate Nasal 16 Gm [place] NOSTRIL-B 1 spray BID VALERIANO Administration Gabapentin 300 mg 07/01/23 21:00 07/01/23 20:41 Gabapentin 300 Mg Capsule PO 300 mg BEDTIME VALERIANO Administration Guaifenesin/Dextromethorphan 10 ml 07/01/23 21:00 07/02/23 15:27 Guaifenesin Dm 100/10/5 Ml 5 Ml Syrup PO 10 ml TID VALERIANO Administration Magnesium Sulfate 2 gm in 50 mls @ 25 mls/hr 07/01/23 14:50 07/02/23 02:39 Magnesium Sulfate/H2o IV 07/01/23 16:49 Infused ONCE ONE Infusion Doxycycline Hyclate 100 mg/ 250 mls @ 166.67 mls/hr 07/01/23 18:00 07/02/23 08:48 Sodium Chloride IV Infused Q12H VALERIANO Infusion Levothyroxine Sodium 125 mcg 07/02/23 06:00 07/02/23 06:47 Levothyroxine Sodium 125 Mcg Tablet PO 125 mcg DAILY@0600 VALERIANO Administration Methylprednisolone Sodium Succinate 60 mg 07/01/23 17:45 07/02/23 06:40 Methylprednisolone Sod Succ 125 Mg/2 Ml Vial IVPUSH 60 mg Q12H VALERIANO Administration Nicotine 21 mg 07/01/23 17:45 07/02/23 10:26 Nicotine 21 Mg Patch.Td24 TRANSDERMA 21 mg DAILY VALERIANO Administration Sodium Chloride 3 ml 07/02/23 00:00 07/02/23 10:26 0.9 % Sodium Chloride Flush 3 Ml Syringe IVFLUSH 3 ml QSHIFT VALERIANO Administration Tamsulosin HCl 0.4 mg 07/01/23 21:00 07/02/23 10:14 Tamsulosin Hcl 0.4 Mg Capsule PO 0.4 mg BID VALERIANO Administration Vitamin D 25 mcg 07/02/23 09:00 07/02/23 10:14 Cholecalciferol (Vitamin D3) 25 Mcg Tablet PO 25 mcg DAILY VALERIANO Administration Medical Decision Making Medical Decision Making MDM Narrative: 57 year old female with pmhx significant for mild intermittent asthma, COPD presents to the ED today via EMS for evaluation of persistent shortness of breath and chest tightness x3 days. Hypertensive and hypoxic to 89% on RA, vitals otherwise wnl. Nontoxic appearing and in NAD. There are bilateral rhonchi. No rales. No respiratory distress. Normal effort of breathing. Actively coughing. No JVD. No calf tenderness. No peripheral edema. Clinical concern for covid, acute asthma exacerbation, COPD exacerbation, viral syndrome, pneumonia, hypoxia. Lower suspicion for ACS, arrhythmia, pulmonary embolism. Unlikely pleural effusion, ARDS. Labs, chest x-ray, breathing treatments ordered in triage. Differential Diagnosis Differential Diagnoses: The differential diagnosis associated with the presentation includes As above. Admission/Observation Consideration of admission/observation: Escalation of care including admission/observation considered This patient with acute COVID hypoxia and pneumonia will be admitted. Consult Healthcare Provider Management of the patient was discussed with: Hospitalist (Dr. Jay Galicia, Dr. Petty) Lab Data MDM Lab Attestation statement: I reviewed the patient's lab results. As above. 07/01/23 13:55 07/01/23 13:55 Labs: Lab Results 07/01/23 Range/Units 13:55 WBC 8.0 (4.8-10.8) X10*3/uL RBC 4.32 (4.20-5.50) X10*6/uL Hgb 13.7 (12.0-16.0) g/dl Hct 39.6 (37.0-47.0) % MCV 91.7 (80.0-98.0) fL MCH 31.7 (27.0-33.0) pg MCHC 34.6 (31.0-35.0) g/dl RDW 13.1 (11.0-16.0) % Plt Count 124 L (160-400) X10*3/uL MPV 11.2 (9.4-12.3) fL Immature Gran % (Auto) 0.9 H (0.0-0.4) % Neut % (Auto) 37.9 L (45-73) % Lymph % (Auto) 55.2 H (20-40) % Glascock % (Auto) 4.6 (2-11) % Eos % (Auto) 1.2 (0-4) % Baso % (Auto) 0.2 (0-2) % Lymph # (Auto) 4.4 (1.2-4.9) X10*3/uL Glascock # (Auto) 0.4 (0.1-1.2) X10*3/uL Eos # (Auto) 0.1 (0.0-0.4) X10*3/uL Baso # (Auto) 0.0 (0.0-0.2) X10*3/uL Abs Immat Gran (auto) 0.07 H (0.00-0.03) X10*3/uL Absolute Neuts (auto) 3.0 (2.0-8.3) x10*3/uL Absolute Nucleated RBC 0.000 (0.0-0.012) X10*3/uL Nucleated RBC % (auto) 0.0 (0.0-0.2) /100WBC PT 12.3 (11.1-13.3) SEC INR 1.0 (0.9-1.1) APTT 31.4 (26.0-36.8) SEC Sodium 140 (135-145) mmol/L Potassium 3.5 (3.3-5.1) mmol/L Chloride 107 (96-108) mmol/L Carbon Dioxide 22 (22-29) mmol/L Anion Gap 15 (12-20) BUN 11 (9-16) mg/dL Creatinine 0.97 (0.5-1.4) mg/dL Estim Creat Clear Calc 67.0 Estimated GFR 59 Random Glucose 131 H (60-115) mg/dL Calcium 9.6 (8.4-10.2) mg/dL Total Bilirubin 1.0 (0.0-1.0) mg/dL AST 34 H (5-31) U/L ALT 42 H (0-31) U/L Alkaline Phosphatase 99 (39-117) U/L Troponin I High Sens 7.0 (<3.5-17.0) ng/L B-Natriuretic Peptide 34 (<100) pg/mL Total Protein 7.3 (6.5-8.0) g/dL Albumin 3.8 (3.5-5.0) g/dL Procalcitonin 0.13 ng/mL TSH 38.03 H (0.32-4.0) uIU/mL Independent Interpretation I performed an independent interpretation of an: Plain X-Ray Interpretation: I personally reviewed patient's chest x-ray and agree with radiologist's interpretation. Radiology Impression Discussion of test interpretation with radiology: I have reviewed the radiologist's reading. Radiologist Impression: XR chest 1V IMPRESSION: Atelectasis or small infiltrate at the right lung base. Independent Historian Clinical information obtained from an independent historian. History obtained from or confirmed by: EMS External Record Review External record reviewed: Inpatient record, Office record, Outpatient record, Prior outpatient labs, Prior outpatient radiology, Primary care record and Outside ED record Prescription Management I considered prescription management with: Antibiotic and Other (decadron, mag sulfate) Chronic Conditions Patient?s care impacted by: Other (asthma, COPD) Social Determinants Patient?s care significantly limited by Social Determinants of Health including: Other Social Determinant of Health Critical Care Time Critical Care Time Critical Care Time: Yes Total Critical Care Time: 60 Attestation: Critical care time in the amount of 60 minutes has been provided to the patient in terms of direct patient care, frequent reevaluation, consultation with hospitalist, review and interpretation of medical data and results, and management of potentially life-threatening conditions. This is all outside of any medical procedures. Discharge Plan Discharge Clinical Impression: COVID-19, Hypoxia, COPD with asthma Pneumonia Qualifiers: Pneumonia type: due to unspecified organism Laterality: bilateral Lung location: lower lobe of lung Qualified Code(s): J18.9 - Pneumonia, unspecified organism Patient Disposition: Admitted As Inpatient Interventions: Admission Worksheet (ED) Last Done: 07/02/23 01:13 Discharge Date/Time: 07/02/23 02:20
[2023-07-01] MEDS: Albuterol Sulfate 90 MCG 8 GM INHALER 8 PUFF INHALE ×2 (13:29→15:46)
[2023-07-01] MEDS: dexAMETHasone sod phosphate 4 MG/ML VIAL 6 MG IVPUSH (13:56)
[2023-07-01 14:01] LABS: MANUAL DIFF FLAG NO
[2023-07-01 14:03] LABS: Basophils Percent Auto 0.2 % (0-2); Hemoglobin 13.7 g/dl (12.0-16.0); Lymphocytes Absolute Auto 4.4 X10*3/uL (1.2-4.9); Mean Corpuscular Hemoglobin 31.7 pg (27.0-33.0); PLT CLUMP 1; Red Blood Count 4.32 X10*6/uL (4.20-5.50); Red Cell Distribution Width 13.1 % (11.0-16.0); SCAN SMEAR FLAG 1
[2023-07-01 14:05] LABS: Eosinophils Absolute Auto 0.1 X10*3/uL (0.0-0.4); Eosinophils Percent Auto 1.2 % (0-4); Hematocrit 39.6 % (37.0-47.0); Imm Gran Abs Auto 0.07 X10*3/uL (0.00-0.03); Imm Gran Pct Auto 0.9 % (0.0-0.4); Lymphocytes Percent Auto 55.2 % (20-40); Mean Corpuscular HGB Conc 34.6 g/dl (31.0-35.0); Mean Corpuscular Volume 91.7 fL (80.0-98.0); Mean Platelet Volume 11.2 fL (9.4-12.3); Monocytes Absolute Auto 0.4 X10*3/uL (0.1-1.2); Monocytes Percent Auto 4.6 % (2-11); Neutrophils Percent Auto 37.9 % (45-73); Platelet Count 124 X10*3/uL (160-400)
[2023-07-01 14:08] LABS: Prothrombin Time 12.3 SEC (11.1-13.3)
[2023-07-01 14:11] LABS: Partial Thromboplastin Time 31.4 SEC (26.0-36.8)
[2023-07-01 14:19] LABS: Alanine Aminotransferase 42 U/L (0-31); Albumin Level 3.8 g/dL (3.5-5.0); Alkaline Phosphatase 99 U/L (39-117); Anion Gap 15 (12-20); Aspartate Amino Transferase 34 U/L (5-31); Blood Urea Nitrogen 11 mg/dL (9-16); Calcium 9.6 mg/dL (8.4-10.2); Carbon Dioxide 22 mmol/L (22-29); Chloride 107 mmol/L (96-108); Estimated Glomerular Filt Rate 59; Glucose Random 131 mg/dL (60-115); Potassium 3.5 mmol/L (3.3-5.1); Sodium 140 mmol/L (135-145); Total Protein 7.3 g/dL (6.5-8.0)
[2023-07-01 14:23] LABS: B Type Natriuretic Peptide 34 pg/mL (<100)
[2023-07-01] MEDS: Magnesium Sulfate/H2O 2 GM/50 ML PIGGYBACK IV (15:05)
--- NOTE | 2023-07-01 17:09 | PHA.MEDREC ---
Pharmacy Consult ? Medication Reconciliation Pharmacy has completed the medication reconciliation.
--- NOTE | 2023-07-01 17:42 | P.HPHOSP_ITS ---
History of Present Illness Date of Service: 07/01/23 Chief Complaint: Shortness of breath 57-year-old female with past medical history significant mild intermittent asthma, COPD presented to today via EMS for symptoms of persistent shortness of breath, chest tightness of several days duration patient's son was diagnosed to have COVID on June 20, mother is also in the hospital for COVID infection, she tested positive on 21 June for COVID infection patient was using cough syrup, inhalers, nasal spray but since her symptoms of shortness of breath, cough productive of white phlegm, yellow nasal secretion persisted she came to emergency room she denies associated symptoms of fevers, no chills, no headache, no dizziness or lightheadedness, in the emergency room patient was noted to be hypoxic with finger oximetry 89% on room air, chest x-ray showed right base infiltrate/or atelectasis, noted to have normal WBC count, normal chemistries, AST and ALT chronically elevated Patient treated in the emergency room with oxygen, albuterol sulfate and IV Decadron patient is now being admitted for acute hypoxic respiratory failure due to COVID infection. Review of Systems 2 Review of Systems: General no headache no dizziness no fever chills. CVS no chest pain, no palpitation. Respiratory shortness of breath, productive cough with clear phlegm Gastrointestinal no nausea no vomiting, no abdominal pain Skin no rash no urgency, no frequency Musculoskeletal no pain PMFSH Medical History Interstitial cystitis Arthritis Vitamin D deficiency Bipolar disorder Anxiety and depression GERD (gastroesophageal reflux disease) Asthma Dysplasia of cervix, low grade (KELLIE 1) Dysuria Urge incontinence High cholesterol Thyroid activity decreased Urinary retention Smoker Family History Father COPD (chronic obstructive pulmonary disease) Lung cancer Mother Breast cancer Cardiac pacemaker Son Hyperthyroidism Mental health disorder Maternal Grandmother Depression Mental health disorder Son Depression Surgical History H/O LEEP History of cystoscopy History of neck surgery Social History Household Members Other:: Elderly mother lives with her Housing: House Alcohol intake: former Patient Tobacco Use Status: Current everyday Tobacco user Tobacco use type: Cigarette Cigarette Packs Per Day: 1 Cigarettes Per Day: 20.0 Years Smoked: 20 Smoked in Last 30 Days: Yes e-Cigarette/Vaping Use: Never Used Second Hand Smoke Exposure: Yes Use of substances other than those prescribed or required for medical reasons: No Advance Directives: No Advance Directives Information Provided: Yes Patient : No Current occupational status: disabled Cognitive needs: No Hearing needs: No Vision needs: No Meds Allergies Allergy/AdvReac Type Severity Reaction Status Date / Time gentamicin [GENTAMICIN] Allergy Unknown RASH Verified 05/02/23 09:12 ibuprofen [IBUPROFEN] Allergy Unknown IRRITATION Verified 05/02/23 09:12 OF STOMACH Sulfa (Sulfonamide Allergy Unknown hives Verified 05/02/23 09:12 Antibiotics) amoxicillin Allergy Gastrointestinal Verified 05/02/23 09:12 Upset sulfamethoxazole Allergy Rash Verified 05/02/23 09:12 [From Bactrim] trimethoprim [From Bactrim] Allergy Rash Verified 05/02/23 09:12 sertraline [From Zoloft] AdvReac Mild Urinary Verified 05/02/23 09:12 frequency anxiety meds ending in pram Allergy Unknown cystitis Uncoded 05/02/23 09:12 Active Medications: Current Medications Acetaminophen (Acetaminophen 325 Mg Tablet) 650 mg PO Q6H PRN PRN Reason: Pain, Mild (Pain Scale 1-3) Al Hydroxide/Mg Hydroxide (Magnesium Hydrox/Alum Hydrox 30 Ml Oral.Susp) 30 ml PO Q4H PRN PRN Reason: Heartburn/Nausea Albuterol/Ipratropium (Albuterol/Iprat 2.5/0.5mg 3 Ml Ampul.Neb) 3 ml INHALE RQ4H WHILE AWAKE [facility] Atorvastatin Calcium (Atorvastatin Calcium 20 Mg Tablet) 20 mg PO DAILY VALERIANO Benzonatate (Benzonatate 100 Mg Capsule) 100 mg PO TID PRN PRN Reason: Cough Docusate Sodium (Docusate Sodium 100 Mg Capsule) 100 mg PO DAILY PRN PRN Reason: Constipation Enoxaparin Sodium (Enoxaparin Sodium 40 Mg/0.4 Ml Syringe) 40 mg SUBCUT Q24H [facility] Guaifenesin/Dextromethorphan (Guaifenesin Dm 100/10/5 Ml 5 Ml Syrup) 10 ml PO TID [facility] Melatonin (Melatonin 3 Mg Tablet) 6 mg PO BEDTIME PRN PRN Reason: Insomnia Methylprednisolone Sodium Succinate (Methylprednisolone Sod Succ 125 Mg/2 Ml Vial) 60 mg IVPUSH Q12H VALERIANO Ondansetron HCl (Ondansetron Hcl 4 Mg/2 Ml Vial) 4 mg IVPUSH Q8H PRN PRN Reason: Nausea and Vomiting Sodium Chloride (0.9 % Sodium Chloride Flush 3 Ml Syringe) 3 ml IVFLUSH QSHIFT VALERIANO Home Medications Medication Instructions Recorded Confirmed Last Taken Type budesonide-formoterol HFA 160 2 puff inhalation BID 07/01/23 07/01/23 Unknown History mcg-4.5 mcg/actuation aerosol inhaler (Symbicort) Physical Exam 2 Vital Signs and Narrative: Vital Signs: Last Vital Signs Temp 99.0 F 07/01/23 13:08 Pulse 72 07/01/23 16:45 Resp 22 H 07/01/23 16:45 BP 122/56 L 07/01/23 16:45 Pulse Ox 90 L 07/01/23 17:14 O2 Del Method Nasal Cannula 07/01/23 17:14 O2 Flow Rate 1 07/01/23 16:45 Oxygen Flow Rate 1 07/01/23 17:14 BMI result Body Mass Index 35.8 Const: Other: General resting comfortably in no acute distress. Anicteric sclera Neck supple no JVD. CVS regular rate rhythm, Respiratory lungs bilateral rhonchi, no respiratory distress, no rales Gastrointestinal abdomen soft, non tender, bowel sounds audible, no guarding , no rigidity. Extremities no edema. Neuro nonfocal , alert oriented x3 . Skin no rash Psych appropriate affect Results Labs 07/01/23 13:55 07/01/23 13:55 Labs: Laboratory Results - last 24 hr 07/01/23 13:55 MCV 91.7 MCH 31.7 MCHC 34.6 RDW 13.1 Plt Count 124 L MPV 11.2 Immature Gran % (Auto) 0.9 H Neut % (Auto) 37.9 L Lymph % (Auto) 55.2 H [place] % (Auto) 4.6 Eos % (Auto) 1.2 Baso % (Auto) 0.2 Lymph # (Auto) 4.4 [place] # (Auto) 0.4 Eos # (Auto) 0.1 Baso # (Auto) 0.0 Abs Immat Gran (auto) 0.07 H Absolute Neuts (auto) 3.0 Absolute Nucleated RBC 0.000 Nucleated RBC % (auto) 0.0 PT 12.3 INR 1.0 APTT 31.4 Anion Gap 15 Estim Creat Clear Calc 67.0 Estimated GFR 59 Random Glucose 131 H Calcium 9.6 Total Bilirubin 1.0 AST 34 H ALT 42 H Alkaline Phosphatase 99 B-Natriuretic Peptide 34 Total Protein 7.3 Albumin 3.8 Imaging Radiologist's Impressions: Impressions Chest X-Ray 07/01/23 13:54 IMPRESSION: Atelectasis or small infiltrate at the right lung base. Assessment and Plan (1) Hypoxia: Status: Acute (2) COVID-19: Status: Acute Plan 57-year-old female with COPD/asthma overlap syndrome presented with persistent symptoms of shortness of breath and cough recently diagnosed to have COVID-19 infection found to be hypoxic in the emergency room being admitted for acute hypoxic respiratory failure due to COVID-19 infection. Acute hypoxic respiratory failure due to COVID-19 infection Out of window for remdesivir Place on IV steroid, supportive care, wean oxygen as tolerated not on home O2 Acute COPD/mild intermittent asthma exacerbation Placed on IV steroids, DuoNeb scheduled and as needed Cough medication, supportive care Question pneumonia Chest x-ray showed atelectasis or small infiltrate right lung base, no fevers, normal WBC Will check procalcitonin, placed on IV doxycycline No evidence of sepsis Tobacco use disorder counseling done placed on nicotine patch Hypothyroidism continue Synthroid check TSH Hyperlipidemia continue steroids Interstitial cystitis continue Flomax Obesity recommend low-calorie diet and exercise. Code status full code DVT prophylaxis with Lovenox In my clinical judgment patient need to night inpatient stay for management of hypoxia and COPD exacerbation on oxygen and IV steroids. Quality Stroke Does the patient have a stroke diagnosis?: No VTE Prior VTE?: No VTE Risk Level:: Medical - moderate - high VTE Device Contraindication: Treatment Not Indicated VTE Drug Contraindication: N/A - Med Ordered
[2023-07-01] MEDS: Enoxaparin Sodium 40 MG/0.4 ML SYRINGE SUBCUT (18:02)
[2023-07-01] MEDS: Nicotine 21 MG PATCH.TD24 TRANSDERMA (18:02)
[2023-07-01] MEDS: methylPREDNISolone Sod Succ 125 MG/2 ML VIAL 60 MG IVPUSH (18:02)
[2023-07-01] MEDS: Doxycycline Hyclate 100 MG in 0.9 % Sodium Chloride 250 ML 166.67 MG IV (18:27)
[2023-07-01 18:46] LABS: Thyroid Stimulating Hormone 38.03 uIU/mL (0.32-4.0)
[2023-07-01 18:49] LABS: Procalcitonin 0.13 ng/mL
[2023-07-01] MEDS: Albuterol/Iprat 2.5/0.5MG 3 ML AMPUL.NEB INHALE (19:20)
--- NOTE | 2023-07-01 20:16 | PC.NURSE ---
pt provided with meal tray by edt. she reports looking on the portal and saw her thyroid level was way up there . She began to inquire about who will manage oversight of her thyroid dosing and whether or not we will contatct her pcp regarding findings and potential need for adjustment of medication. RN sent tiger text to Dr Simon to make him aware of pt's concerns. Per Dr. Alfred LAWRENCE dr to oversee/manage dose adjustment, reports pt may need an increase in her thyroid dosing but no order changes as of yet.
[2023-07-01] MEDS: guaiFENesin DM 100/10/5 ML 5 ML SYRUP 10 ML PO (20:40)
[2023-07-01] MEDS: Docusate Sodium 100 MG CAPSULE 200 MG PO (20:40)
[2023-07-01] MEDS: Tamsulosin HCL 0.4 MG CAPSULE PO (20:41)
[2023-07-01] MEDS: Dicyclomine HCl 10 MG CAPSULE 20 MG PO (20:41)
[2023-07-01] MEDS: Gabapentin 300 MG CAPSULE PO (20:41)
--- NOTE | 2023-07-01 21:28 | PC.NURSE ---
pharmacy contacted regarding flonase that is not in stock in the ed
[2023-07-02 02:39] VITALS: BMI 36.3
[2023-07-02] MEDS: 0.9 % Sodium Chloride Flush 3 ML SYRINGE IVFLUSH ×2 (03:01→10:26)
[2023-07-02 03:33] VITALS: BP 143/67; PULSE 73; RESP 20; TEMP 36.8; O2SAT 91
[2023-07-02] MEDS: methylPREDNISolone Sod Succ 125 MG/2 ML VIAL 60 MG IVPUSH (06:40)
[2023-07-02] MEDS: Doxycycline Hyclate 100 MG in 0.9 % Sodium Chloride 250 ML 166.67 MG IV (06:40)
[2023-07-02] MEDS: Levothyroxine Sodium 125 MCG TABLET PO (06:47)
[2023-07-02] MEDS: Acetaminophen 325 MG TABLET 650 MG PO (06:47)
[2023-07-02 07:03] VITALS: BP 140/67; PULSE 76; RESP 18; TEMP 37.1; O2SAT 93
[2023-07-02] MEDS: Albuterol/Iprat 2.5/0.5MG 3 ML AMPUL.NEB INHALE ×2 (08:00→11:30)
[2023-07-02 08:01] VITALS: PULSE 72; RESP 16; O2SAT 961
[2023-07-02] MEDS: Atorvastatin Calcium 20 MG TABLET PO (10:13)
[2023-07-02] MEDS: guaiFENesin DM 100/10/5 ML 5 ML SYRUP 10 ML PO ×2 (10:14→15:27)
[2023-07-02] MEDS: Cholecalciferol (Vitamin D3) 25 MCG TABLET PO (10:14)
[2023-07-02] MEDS: Dicyclomine HCl 10 MG CAPSULE 20 MG PO ×2 (10:14→15:27)
[2023-07-02] MEDS: Tamsulosin HCL 0.4 MG CAPSULE PO (10:14)
[2023-07-02] MEDS: Nicotine 21 MG PATCH.TD24 TRANSDERMA (10:26)
[2023-07-02] MEDS: Fluticasone Propionate Nasal 16 GM SPRAY 1 SPRAY NOSTRIL-B (10:26)
[2023-07-02 11:26] VITALS: BP 147/64; PULSE 79; RESP 18; TEMP 37.2; O2SAT 93
[2023-07-02 11:31] VITALS: PULSE 78; RESP 20; O2SAT 91
[2023-07-02 11:54] LABS: COVID-19 Test Positive (Negative); IDNOW Serial# 6674DD1D
--- NOTE | 2023-07-02 12:24 | MHC.CM.PN ---
Pt is independent with ADL's, her son helps her as needed, she has a wheelchair to use if she needs it. She said she cannot have O2 at home due to the home is old, is a multi-family, with smokers in the building. She will need shuttle to get home. CM to follow and assist with DC plan.
--- NOTE | 2023-07-02 15:02 | PM.DS ---
DS: Providers Provider Date of Service: 07/02/23 Date of admission: 07/01/23 17:34 Primary care physician: Flavio Miller PA-C DS: Diagnosis Discharge Diagnosis (1) Hypoxia: Status: Acute (2) COVID-19: Status: Acute DS: Summary Hospital Course Hospital Course: History of presenting illness: Date of Service: 07/01/23 Chief Complaint: Shortness of breath 57-year-old female with past medical history significant mild intermittent asthma, COPD presented to today via EMS for symptoms of persistent shortness of breath, chest tightness of several days duration patient's son was diagnosed to have COVID on June 20, mother is also in the hospital for COVID infection, she tested positive on 21 June for COVID infection patient was using cough syrup, inhalers, nasal spray but since her symptoms of shortness of breath, cough productive of white phlegm, yellow nasal secretion persisted she came to emergency room she denies associated symptoms of fevers, no chills, no headache, no dizziness or lightheadedness, in the emergency room patient was noted to be hypoxic with finger oximetry 89% on room air, chest x-ray showed right base infiltrate/or atelectasis, noted to have normal WBC count, normal chemistries, AST and ALT chronically elevated Patient treated in the emergency room with oxygen, albuterol sulfate and IV Decadron patient is now being admitted for acute hypoxic respiratory failure due to COVID infection. Hospital course: 57-year-old female with COPD/asthma overlap syndrome presented with persistent symptoms of shortness of breath and cough recently diagnosed to have COVID-19 infection found to be hypoxic in the emergency room and admitted for acute hypoxic respiratory failure due to COVID-19 infection global and acute COPD and mild intermittent asthma exacerbation patient admitted to isolation unit she was out of window for remdesivir therefore treated with IV steroids, updraft treatment, and cough medication ,chest x-ray showed atelectasis versus small infiltrate right lung base, therefore treated with IV doxycycline for concern for small pneumonia, patient responded rapidly to above treatment, at present she is doing significantly better oxygenation remains stable at rest, and with activity , therefore will discharge home on doxycycline 100 mg twice daily for total 5 days, prednisone 20 mg daily for 5 days she has been strongly advised to abstain from smoking and placed on nicotine patch. Tobacco use disorder counseling done continue nicotine patch. Hypothyroidism noted to have elevated TSH 38.03 therefore dose of Synthroid increased and recommend to check TSH in 6 weeks Hyperlipidemia continue steroids Interstitial cystitis continue Flomax Obesity recommend low-calorie diet and exercise. Time Attestation Discharge coordination time: Greater than 30 minutes Quality: Safe Use of Opioids Does Pt have an Active Cancer Diagnosis on the Problem List?: No Quality: Stroke Does the patient have a stroke diagnosis?: No Physical Exam Vital Signs: Vital Signs: Last Vital Signs Temp 98.9 F 07/02/23 11:26 Pulse 78 07/02/23 11:31 Resp 20 07/02/23 11:31 BP 147/64 H 07/02/23 11:26 Pulse Ox 93 07/02/23 11:26 O2 Del Method Room Air 07/02/23 11:26 O2 Flow Rate 1 07/02/23 07:03 Oxygen Flow Rate 1 07/01/23 17:14 BMI result Body Mass Index 36.3 Const: Other: General resting comfortably in no acute distress. Anicteric sclera Neck supple no JVD. CVS regular rate rhythm, Respiratory lungs coarse breath sounds, no rhonchi , no respiratory distress, no rales Gastrointestinal abdomen soft, non tender, bowel sounds audible, no guarding , no rigidity. Extremities no edema. Neuro nonfocal , alert oriented x3 . Skin no rash Psych appropriate affect DS: Data Data Completed and Pending Labs on day of discharge: Laboratory Results - last 24 hr 07/01/23 07/02/23 07/02/23 13:55 08:00 11:25 Hold Purple Top SEE NOTE Procalcitonin 0.13 TSH 38.03 H Free T4 0.70 L COVID-19 (SARAH) Positive A COVID-19 Clin Com See Note Discharge Plan Discharge Anticipated Discharge Date/Time: 07/02/23 14:16 Patient Disposition: Home, Self-Care Discharge Diagnosis: Acute hypoxic respiratory failure due to COVID-19 infection Acute COPD/mild intermittent asthma exacerbation Tobacco use disorder Pneumonia Referrals: Flavio Miller PA-C [Primary Care Provider] - 1 Week Discharge Medications: New nicotine 21 mg/24 hr Patch 24 Hour 21 mg transdermal DAILY Qty: 28 0RF levothyroxine 150 mcg Tablet 150 mcg PO DAILY@0600 Qty: 30 0RF Rx Instructions: Take empty stomach 1 hour before meal dextromethorphan-guaifenesin 10-100 mg/5 mL Syrup 10 ml PO TID Qty: 237 0RF Rx Instructions: Use scheduled for 5 days and then as needed ascorbic acid (vitamin C) [Vitamin C] 500 mg Tablet 500 mg PO DAILY Qty: 30 0RF doxycycline hyclate 100 mg tablet 100 mg PO BID Qty: 10 0RF prednisone 20 mg tablet 20 mg PO DAILY Qty: 5 0RF Continued albuterol sulfate 90 mcg/actuation HFA aerosol inhaler 2 puff inhalation Q6H PRN (Reason: shortness of breath or wheezing) 30 Days Qty: 8.5 6RF polyethylene glycol 3350 [Miralax] 17 gram/dose powder 17 g PO DAILY Qty: 510 6RF simvastatin 40 mg tablet 40 mg PO BEDTIME Qty: 90 2RF tamsulosin 0.4 mg capsule 0.4 mg PO BID 90 Days Qty: 180 1RF sennosides [senna] 8.6 mg tablet 17.2 mg PO BEDTIME PRN (Reason: for constipation) Qty: 60 3RF fluticasone propionate [Flonase Allergy Relief] 50 mcg/actuation spray,suspension 1 spray intranasal BID 30 Days Qty: 9.9 5RF Rx Instructions: administer into each nostril famotidine 40 mg tablet 40 mg PO BEDTIME 90 Days Qty: 90 1RF gabapentin 300 mg capsule 300 mg PO BEDTIME 90 Days Qty: 90 1RF calcium carbonate [Calcium 500] 500 mg calcium (1,250 mg) tablet,chewable 500 mg PO DAILY 30 Days Qty: 30 6RF cholecalciferol (vitamin D3) 25 mcg (1,000 unit) tablet 25 mcg PO DAILY Qty: 30 6RF docusate sodium 100 mg capsule 200 mg PO BEDTIME Qty: 60 5RF loperamide 2 mg capsule 2 mg PO Q8H PRN (Reason: loose stool) 30 Days Qty: 90 2RF dicyclomine 20 mg tablet 20 mg PO TID 30 Days Qty: 90 2RF budesonide-formoterol [Symbicort] 160-4.5 mcg/actuation HFA aerosol inhaler 2 puff INHALATION BID estradiol 0.01 % (0.1 mg/gram) cream See Rx Instructions .Route 3XW 30 Days Qty: 42.5 2RF Rx Instructions: pea-sized to urethra 3 times a week Discontinued levothyroxine 125 mcg tablet 125 mcg PO QAM Qty: 30 4RF ibuprofen 600 mg tablet 600 mg PO BEDTIME 30 Days Qty: 30 0RF Discharge Orders: Discharge Order (Routine); Ordered 07/02/23 Ordered By: Ashwini Petty Diet: Advance to usual diet Activity on Discharge: As tolerated Stand Alone Forms: Patient Portal Discharge page Care Plan Goals: Take prednisone 20 mg daily with food for 5 days Take doxycycline 1 tablet twice daily as directed Completely abstain from smoking use nicotine patch Take cough medications 3 times a day for sore to 5 days and then as needed for persistent cough Take vitamin-C 1 tablet daily Continue home inhalers Avoid crowded places Health Concerns: Continue all home medications, no smoking, avoid allergens Plan of Treatment: Follow-up with primary care physician call for appointment Assessment: As above
--- NOTE | 2023-07-02 15:46 | MHC.CM.PN ---
Pt has been medically cleared for DC, her plan is home, self care. Maria D strange was scheduled for transport home.
[2023-07-03 12:43] LABS: Triiodothyronine T3 Free 1.7 pg/mL (2.3-4.2)
== END 2023-07-02 16:07 | disposition home or self-care (01) | DRG 137 ==
LOC: HO.ED 16:52 → HO.EDOVER 17:45 → HO.IMC 07-02 01:47
PROVIDERS: Physician Assistant; Student in an Organized Health Care Education/Training Program; Admitting Provider Hospitalist; Emergency Provider Student in an Organized Health Care Education/Training Program; PCP Physician Assistant; Visit Provider Hospitalist
DX: U07.1 COVID-19 (principal); J96.01 Acute respiratory failure with hypoxia; J18.9 Pneumonia, unspecified organism; J45.21 Mild intermittent asthma with (acute) exacerbation; N30.10 Interstitial cystitis (chronic) without hematuria; J44.0 Chronic obstructive pulmonary disease with (acute) lower respiratory infection; J44.1 Chronic obstructive pulmonary disease with (acute) exacerbation; E03.9 Hypothyroidism, unspecified; E66.9 Obesity, unspecified; Z68.36 Body mass index [BMI] 36.0-36.9, adult; J98.11 Atelectasis; E78.5 Hyperlipidemia, unspecified; F17.210 Nicotine dependence, cigarettes, uncomplicated; Z71.6 Tobacco abuse counseling; Z79.51 Long term (current) use of inhaled steroids; Z79.890 Hormone replacement therapy; Z79.899 Other long term (current) drug therapy
CPT/HCPCS: 36415; 71045; 80053; 83880; 84145; 84439; 84443; 84481; 84484; 85025; 85610; 85730; 87635; 94640; 94664; 99285; J1100; J1650; J2930; J3475

== ENCOUNTER → 2023-07-01 17:34 | Outpatient (BNV) | payer OTHER, SELFPAY | PROVIDERS: Admitting Provider Hospitalist; Emergency Provider Student in an Organized Health Care Education/Training Program; PCP Physician Assistant; Visit Provider Hospitalist | DX: J96.01 Acute respiratory failure with hypoxia (principal); U07.1 COVID-19; J44.1 Chronic obstructive pulmonary disease with (acute) exacerbation; J45.21 Mild intermittent asthma with (acute) exacerbation | CPT/HCPCS: 99223; 99239 ==

== ENCOUNTER 2023-07-03 13:05 | Outpatient (AMB) | payer OTHER, SELFPAY ==
--- NOTE | 2023-07-03 13:06 | MHC.PC.OV ---
Intake Visit Reasons: +Covid/pneumonia & asthma Intake Note: [place]health call with [place] for [place] on 07/02/23 [place] [facility] [place], +Covid, Pneumonia and asthma exacerbation. 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 Accompanied by: Self / Same As Patient Allergies gentamicin [GENTAMICIN] Allergy (Unknown, Verified 07/03/23 13:17) RASH ibuprofen [IBUPROFEN] Allergy (Unknown, Verified 07/03/23 13:17) IRRITATION OF STOMACH Sulfa (Sulfonamide Antibiotics) Allergy (Unknown, Verified 07/03/23 13:17) hives amoxicillin Allergy (Verified 07/03/23 13:17) Gastrointestinal Upset sulfamethoxazole [From Bactrim] Allergy (Verified 07/03/23 13:17) Rash trimethoprim [From Bactrim] Allergy (Verified 07/03/23 13:17) Rash sertraline [From Zoloft] Adverse Reaction (Mild, Verified 07/03/23 13:17) Urinary frequency anxiety meds ending in pram Allergy (Unknown, Uncoded 07/03/23 13:06) cystitis Medication List - Last Reconciled 07/03/23 by Flavio Miller PA-C albuterol sulfate 90 mcg/actuation 2 puffs inhalation Q6H PRN 30 days ascorbic acid (vitamin C) (Vitamin C) 500 mg PO DAILY budesonide-formoterol 160-4.5 mcg/actuation (Symbicort) 2 puffs inhalation BID calcium carbonate (Calcium 500) 500 mg PO DAILY 30 days cholecalciferol (vitamin D3) 25 mcg PO DAILY dextromethorphan-guaifenesin 10-100 mg/5 mL 10 mL PO TID dicyclomine 20 mg PO TID 30 days docusate sodium 200 mg (2 x 100 mg) PO BEDTIME doxycycline hyclate 100 mg PO BID estradiol 0.01%(0.1mg/gram) pea-sized to urethra 3 times a week 30 days famotidine 40 mg PO BEDTIME 90 days fluticasone propionate 50 mcg/actuation (Flonase Allergy Relief) 1 spray intranasal BID 30 days gabapentin 300 mg PO BEDTIME 90 days levothyroxine 150 mcg PO DAILY@0600 loperamide 2 mg PO Q8H PRN 30 days nicotine 21 mg transdermal DAILY polyethylene glycol 3350 (Miralax) 17 grams PO DAILY prednisone 20 mg PO DAILY sennosides (senna) 17.2 mg (2 x 8.6 mg) PO BEDTIME PRN simvastatin 40 mg PO BEDTIME tamsulosin 0.4 mg PO BID 90 days Tobacco use date assessed: 07/03/23 Dental Screening Dental Screen Date: 07/03/23 Did you have a dental visit in the last 12 months?: Yes Did you have a dental problem in the last 6 months where you did not have access to dental care?: No Was dental information given to patient?: Patient has dentist HPI +Covid/pneumonia & asthma HPI Details Patient is a 57-year-old female being evaluated today via telephone. Patient has a past medical history significant for tobacco dependency, COPD, hypothyroidism, GERD, obesity. She was recently admitted to [facility] for acute respiratory hypoxic distress secondary to COVID infection. Chest x-ray did show infiltrate in the lower lobes. Patient was treated with IV steroids updraft treatments and cough medication. She was also treated with IV doxycycline for pneumonia and significantly got better without further need of oxygen supplementation. She was discharged home with doxycycline 100 mg twice a day for 5 days and prednisone. She was found to have elevated TSH thus her levothyroxine was increased PFSH Medical History Interstitial cystitis Arthritis Vitamin D deficiency Bipolar disorder Anxiety and depression GERD (gastroesophageal reflux disease) Asthma Dysplasia of cervix, low grade (KELLIE 1) Dysuria Urge incontinence High cholesterol Thyroid activity decreased Urinary retention Smoker Surgical History H/O LEEP History of cystoscopy History of neck surgery Family History Father COPD (chronic obstructive pulmonary disease) Lung cancer Mother Breast cancer Cardiac pacemaker Son Hyperthyroidism Mental health disorder Maternal Grandmother Depression Mental health disorder Son Depression Social History Household Members: Family, Children and Other Household Members Other:: son, mother Housing: Apartment Do you presently have visiting nurse or other home services: No Alcohol intake: former Patient Tobacco Use Status: Current everyday Tobacco user Tobacco use type: Cigarette Cigarette Packs Per Day: 1 Cigarettes Per Day: 20.0 Years Smoked: 40 Packs Per Year: 40 Packs per year/per ci.00 e-Cigarette/Vaping Use: Never Used Second Hand Smoke Exposure: Yes Current occupational status: disabled Cognitive needs: No Hearing needs: No Vision needs: No Questionnaire PHQ-9 Over the last 2 weeks, how often have you been bothered by any of the following problems? 1. Little interest or pleasure in doing things: not at all 2. Feeling down, depressed, or hopeless: not at all 3. Trouble falling or staying asleep, or sleeping too much: not at all 4. Feeling tired or having little energy: not at all 5. Poor appetite or overeating: not at all 6. Feeling bad about yourself - or that you are a failure or have let yourself or your family down: not at all 7. Trouble concentrating on things, such as reading the newspaper or watching television: not at all 8. Moving or speaking so slowly that other people could have noticed. Or the opposite - being so fidgety or restless that you have been moving around a lot more than usual: not at all 9. Thoughts that you would be better off or of hurting yourself in some way: not at all Total score: 0 Depression Screening Interpretation: Negative Depression Screening Done: Yes 68662 - PHQ-9 Billing: Yes Source: Developed by Drs. Mina Haas, Maria Luisa Felix, Paco Vasques and colleagues, with an educational erin from [employer]. Thrive Questionnaire Date Thrive assessed: 07/03/23 I am a: Patient What is your living situation today?: I have a steady place to live Within the past 12 months, did the food you bought not last and you didn't have the money to get more?: Never true Within the past 12 months, did you worry whether your food would run out before you got money to buy more?: Never true Do you have trouble paying for medicines?: No Do you have trouble getting transportation to medical appointments?: No Do you have trouble paying your heating and electricity bill?: No Do you have trouble taking care of your child, family member or friend?: No Do you have trouble with day-to-day activities such as bathing, preparing meals, shopping, managing finances, etc.?: No Are you currently unemployed and looking for a job?: No Are you interested in more education?: No Please select the resources that you would like help with: None Currently or been in a relationship where the following occur: no concerns reported THRIVE Score: 0 AUDIT C Alcohol Use Questionnaire (AUDIT-C) 1. How often do you have a drink containing alcohol?: Never 3. How often do you have six or more drinks on one occasion?: Never Total Score: 0 ADORE-7 AMB Questionnaire ADORE-7 Date ADORE - 7 assessed: 07/03/23 Feeling nervous, anxious, or on edge: 0 = Not at all Not being able to stop or control worryin = Not at all Worrying too much about different things: 0 = Not at all Trouble relaxin = Not at all Being so restless that it is hard to sit still: 0 = Not at all Becoming easily annoyed or irritable: 0 = Not at all Feeling afraid as if something awful might happen: 0 = Not at all Total ADORE-7 score (0-4 normal; 5-9 mild; 10-14 moderate; 15-21 severe): 0 Source: Developed by Drs. Mina Haas, Maria Luisa Felix, Paco Vasques and colleagues, with an educational erin from [employer]. Review of Systems Const Denies headache(s) Eyes Denies loss of vision ENT Denies vertigo, Denies dizziness, Denies headache(s) and Denies sore throat Card Denies chest pain, Denies leg edema and Denies lightheadedness Resp Reports cough, Denies hemoptysis and Reports wheezing GI Denies abdominal pain, Denies melena, Denies constipation, Denies diarrhea and Denies vomiting Denies urinary frequency, Denies dysuria and Denies urinary urgency Musc Denies arthralgias, Denies joint swelling, Denies numbness and Denies tingling Neuro Denies behavioral changes, Denies vertigo, Denies dizziness, Denies headache(s), Denies loss of vision, Denies memory loss, Denies numbness and Denies tingling Psych Denies anxiety, Denies behavioral changes, Denies depression, Denies memory loss and Denies panic attacks Mike/Lymph Denies easy bleeding and Denies easy bruising Aller/Immun Reports wheezing Physical exam (Primary Care) Tobacco/Smoking Status: Tobacco use Status Tobacco use date assessed 07/03/23 07/03/23 13:11 Patient Tobacco Use Status Current everyday Tobacco 07/03/23 13:06 Tobacco use type Cigarette 07/03/23 13:06 e-Cigarette/Vaping Use Never Used 07/03/23 13:06 Are you ready to quit: No Tobacco cessation counseling provided: Yes Items discussed: Nicotine replacement Relapse Prevention: discussed the importance of a supportive environment, discussed negative mood or depression after quitting, weight gain after smoking is common and discussed dietary, exercise and/or lifestyle changes Number of minutes spent counselin CPT code: 31563 - 4-10 Minutes PHQ-9: PHQ-9 Score PHQ-9: Total score 0 07/03/23 13:18 Depression Screening Interpretation: Negative Thrive Assessment: Date of Thrive Assessment Date Thrive assessed 07/03/23 07/03/23 13:11 Currently or been in a relationship where the following occur: no concerns reported Telehealth Telehealth Location of provider rendering services: practice address Location of patient: address on file Patient Identification confirmed using: Name, : Yes Telehealth method: voice only Patient verbally consented to treatment: Yes Patient verbally consented to billing insurance company: Yes Patient informed of any privacy concerns related to visit: Yes Minutes spent on Phone/Video with Pt.: 11 Assessment and Plan Assessment & Plan (1) Hospital discharge follow-up: Comment: admitted for COVID / PNA Code(s): Z09 - Encounter for follow-up examination after completed treatment for conditions other than malignant neoplasm Plan: As per HPI, patient diagnosed with pneumonia. Doing much better at this time now on antibiotics and prednisone. (2) COPD with asthma: Code(s): J44.89 - Other specified chronic obstructive pulmonary disease Plan: She does understand she needs to quit smoking. Have rescue inhalers and maintenance inhaler available to her. (3) COVID-19: Code(s): U07.1 - COVID-19 Plan: As per HPI recently admitted for hypoxic respiratory distress due to COVID pneumonia. (4) Pneumonia: Code(s): J18.9 - Pneumonia, unspecified organism Qualifiers: Laterality: bilateral Lung location: lower lobe of lung Pneumonia type: due to unspecified organism Qualified Code(s): J18.9 - Pneumonia, unspecified organism Plan: As above (5) Hypothyroid: Code(s): E03.9 - Hypothyroidism, unspecified Qualifiers: Hypothyroidism type: unspecified Qualified Code(s): E03.9 - Hypothyroidism, unspecified Plan: Was found to have TSH above 30. Her levothyroxine dose was increased to 150 mcg. Will recheck TSH on higher dose of levothyroxine and adjust accordingly. (6) Smoker: Code(s): F17.200 - Nicotine dependence, unspecified, uncomplicated Plan: She does understand she needs to quit. She has nicotine patches available to her. She has found it very difficult to quit. Orders: Orders TSH reflex Free T4 6 Weeks E03.9 - Hypothyroidism, unspecified Mumps Virus IgG Antibody Today Z23 - Encounter for immunization Comprehensive [place]. Panel Fast Today Z13.1 - Encounter for screening for diabetes mellitus Rubeola IgG (Measles) Today Z23 - Encounter for immunization Rubella IgG Antibody Today Z23 - Encounter for immunization Medications: New levothyroxine 150 mcg PO DAILY 30 days 30 tabs 1RF E03.9 - Hypothyroidism, unspecified Discontinued levothyroxine Take empty stomach 1 hour before meal Discontinued Reason: Doctor's Order 150 mcg PO DAILY@0600 30 tabs 0RF Coding Level of Care Code Tele Est Pt Level 4 (08219) Diagnoses Hospital discharge follow-up Z09 COPD with asthma J44.89 COVID-19 U07.1 Pneumonia of both lower lobes due to infectious organism J18.9 Laterality: bilateral Lung location: lower lobe of lung Pneumonia type: due to unspecified organism Hypothyroidism, unspecified type E03.9 Hypothyroidism type: unspecified Smoker F17.200 Additional Codes Vital Signs *Quality* - CPT code: 59071 - 4-10 Minutes ([id number])
== END 2023-07-03 15:23 | disposition home or self-care (01) ==
LOC: HO.HMGH 13:05
PROVIDERS: PCP Physician Assistant; Visit Provider Physician Assistant
DX: J44.89 Other specified chronic obstructive pulmonary disease (principal); U07.1 COVID-19; Z09 Encounter for follow-up examination after completed treatment for conditions other than malignant neoplasm; J18.9 Pneumonia, unspecified organism; F17.210 Nicotine dependence, cigarettes, uncomplicated; E03.9 Hypothyroidism, unspecified
CPT/HCPCS: 99214

== ENCOUNTER 2023-07-12 08:26 | Outpatient (AMB) | payer OTHER, SELFPAY ==
--- NOTE | 2023-07-12 08:46 | AM.OFFVISNUR ---
Intake Intake Visit Reasons: IC instillation/UA Allergies gentamicin [GENTAMICIN] Allergy (Unknown, Verified 07/03/23 13:17) RASH ibuprofen [IBUPROFEN] Allergy (Unknown, Verified 07/03/23 13:17) IRRITATION OF STOMACH Sulfa (Sulfonamide Antibiotics) Allergy (Unknown, Verified 07/03/23 13:17) hives amoxicillin Allergy (Verified 07/03/23 13:17) Gastrointestinal Upset sulfamethoxazole [From Bactrim] Allergy (Verified 07/03/23 13:17) Rash trimethoprim [From Bactrim] Allergy (Verified 07/03/23 13:17) Rash sertraline [From Zoloft] Adverse Reaction (Mild, Verified 07/03/23 13:17) Urinary frequency anxiety meds ending in pram Allergy (Unknown, Uncoded 07/03/23 13:06) cystitis Office Procedures Bladder/Catheter Procedure Details: pt presents to office for IC instillation #1, states has been having some burning with urination the last few days- UA done, negative. Advised patient that she must attend appts for IC instillations in order for treatment to work. Urethra very inflamed. 14 fr straight cath used to drain bladder and instill: 10 mls lidocaine 2% 10 mls bupivicaine 10 mls lidocaine urojet 10,000 units (2 mls) heparin 1 ml (40 mgs) solumedrol 93907-Dghupnbzpa of Bladder 48996-[place] Bladder Catheter Procedure code (CPT) selection complete Results AMB Urinalysis, Automated UA Leukoctes 15 Ricardo/uL Last Edit by Sha Boyle LPN on 07/12/23 09:04 UA Nitrite Negative Last Edit by Sha Boyle LPN on 07/12/23 09:04 UA Urobilinogen 0 mg/dL Last Edit by Sha Boyle LPN on 07/12/23 09:04 UA Protein 0 mg/dL Last Edit by Sha Boyle LPN on 07/12/23 09:04 UA pH 6.0 Last Edit by Sha Boyle LPN on 07/12/23 09:04 UA Blood 0 Guru/uL Last Edit by Sha Boyle LPN on 07/12/23 09:04 UA Specific [place] 1.015 Last Edit by Sha Boyle LPN on 07/12/23 09:04 UA Ketone Negative Last Edit by Sha Boyle LPN on 07/12/23 09:04 UA Bilirubin 0 mg/dL Last Edit by Sha Boyle LPN on 07/12/23 09:04 UA Glucose 0 mg/dL Last Edit by Sha Boyle LPN on 07/12/23 09:04 Coding CPT Codes Bladder/Catheter Procedure - CPT: 81855-Ibqpowsvks of Bladder ([id number]) Bladder/Catheter Procedure - CPT: 97226-Xgcqrn Bladder Catheter ([id number]) Assessment & Plan Assessment & Plan Orders: Orders AMB Urinalysis Automated Today N30.10 - Interstitial cystitis (chronic) without hematuria, R39.15 - Urgency of urination AMB Bladder/Catheter Procedure Today N30.10 - Interstitial cystitis (chronic) without hematuria, R39.15 - Urgency of urination
== END 2023-07-12 09:24 | disposition home or self-care (01) ==
PROVIDERS: PCP Physician Assistant; Visit Provider Urology
DX: N30.10 Interstitial cystitis (chronic) without hematuria (principal); R39.15 Urgency of urination

== ENCOUNTER → 2023-07-12 08:26 | Outpatient (BNVA) | payer OTHER, SELFPAY | PROVIDERS: PCP Physician Assistant; Visit Provider Urology | DX: N30.10 Interstitial cystitis (chronic) without hematuria (principal); R39.15 Urgency of urination | CPT/HCPCS: 51700; 51701; 81003 ==

== ENCOUNTER → 2023-07-13 08:27 | Outpatient (BNVA) | payer OTHER, SELFPAY | PROVIDERS: PCP Physician Assistant; Visit Provider Urology | DX: N30.10 Interstitial cystitis (chronic) without hematuria (principal) | CPT/HCPCS: 51700; 51701 ==

== ENCOUNTER 2023-07-18 08:23 | Outpatient (REF) | payer OTHER, SELFPAY ==
[2023-07-18 10:50] LABS: Alanine Aminotransferase 51 U/L (0-31); Albumin Level 4.3 g/dL (3.5-5.0); Alkaline Phosphatase 102 U/L (39-117); Anion Gap 13 (12-20); Aspartate Amino Transferase 39 U/L (5-31); Bilirubin Total 0.8 mg/dL (0.0-1.0); Blood Urea Nitrogen 18 mg/dL (9-16); Calcium 9.5 mg/dL (8.4-10.2); Carbon Dioxide 23 mmol/L (22-29); Chloride 110 mmol/L (96-108); Estimated Glomerular Filt Rate 50; Glucose Fasting 161 mg/dL (60-99); Potassium 3.9 mmol/L (3.3-5.1); Sodium 142 mmol/L (135-145); Total Protein 7.7 g/dL (6.5-8.0)
[2023-07-18 11:05] LABS: TSH reflex Free T4 1.36 uIU/mL (0.32-4.0)
== END 2023-07-18 08:24 | disposition home or self-care (01) ==
LOC: HO.10HDL 08:23
PROVIDERS: Visit Provider Physician Assistant
DX: Z01.84 Encounter for antibody response examination (principal); N30.10 Interstitial cystitis (chronic) without hematuria; Z13.1 Encounter for screening for diabetes mellitus; E03.9 Hypothyroidism, unspecified
CPT/HCPCS: 36415; 51700; 51701; 80053; 84443; 86735; 86762; 86765

== ENCOUNTER 2023-07-18 08:53 | Outpatient (REF) | payer OTHER, SELFPAY ==
--- NOTE | ~2023-07-18 | XR_ITS ---
EXAMINATION: XR CHEST CLINICAL INFORMATION: Pneumonia unspecified organism COMPARISON: 07/01/2023 TECHNIQUE: 2 views of the chest were obtained. FINDINGS: Improved aeration at the right lung base with minimal residual scarring. Lungs otherwise clear. New infiltrates are not seen. No pleural effusions. XR/XR chest 2V IMPRESSION: Interval improvement.
== END 2023-07-18 08:54 | disposition home or self-care (01) ==
LOC: HO.XRAY 08:53
PROVIDERS: PCP Physician Assistant; Visit Provider Physician Assistant
DX: J18.9 Pneumonia, unspecified organism (principal)
CPT/HCPCS: 71046

== ENCOUNTER → 2023-07-19 08:31 | Outpatient (BNVA) | payer OTHER, SELFPAY | PROVIDERS: PCP Physician Assistant; Visit Provider Urology | DX: N30.00 Acute cystitis without hematuria (principal); N30.10 Interstitial cystitis (chronic) without hematuria; N32.81 Overactive bladder | CPT/HCPCS: 51700; 51701 ==

== ENCOUNTER 2023-08-06 08:30 | Outpatient (AMB) | payer OTHER, SELFPAY ==
--- NOTE | 2023-08-06 08:31 | AM.OFFVISNUR ---
Intake Intake Visit Reasons: ? instillation Allergies gentamicin [GENTAMICIN] Allergy (Unknown, Verified 07/03/23 13:17) RASH ibuprofen [IBUPROFEN] Allergy (Unknown, Verified 07/03/23 13:17) IRRITATION OF STOMACH Sulfa (Sulfonamide Antibiotics) Allergy (Unknown, Verified 07/03/23 13:17) hives amoxicillin Allergy (Verified 07/03/23 13:17) Gastrointestinal Upset sulfamethoxazole [From Bactrim] Allergy (Verified 07/03/23 13:17) Rash trimethoprim [From Bactrim] Allergy (Verified 07/03/23 13:17) Rash sertraline [From Zoloft] Adverse Reaction (Mild, Verified 07/03/23 13:17) Urinary frequency anxiety meds ending in pram Allergy (Unknown, Uncoded 07/03/23 13:06) cystitis Nursing Note pt presents to office for RN visit. pt originally scheduled for IC instillation but due to last 2 cancellations of instillations we discussed alternative treatment options as weekly instillations does not seem accommodating for pt's schedule. pt agreeable to discuss with Dr Linton at follow up. pt requesting urine testing, reports burning, odor and discoloration. UA in office negative for infection, advised pt increasing fluids as SG high signifying dehydration, pt agreeable. Results AMB Urinalysis, Automated UA Leukoctes 0 Ricardo/uL Last Edit by Brigitte Lopes RN on 08/06/23 08:47 UA Nitrite Negative Last Edit by Brigitte Lopes RN on 08/06/23 08:47 UA Urobilinogen mg/dL Last Edit by Brigitte Lopes RN on 08/06/23 08:47 UA Protein 5 mg/dL Last Edit by Brigitte Lopes RN on 08/06/23 08:47 UA pH 5.0 Last Edit by Brigitte Lopes RN on 08/06/23 08:47 UA Blood 0 Guru/uL Last Edit by Brigitte Lopes RN on 08/06/23 08:47 UA Specific [place] 1.030 Last Edit by Brigitte Lopes RN on 08/06/23 08:47 UA Ketone Negative Last Edit by Brigitte Lopes RN on 08/06/23 08:47 UA Bilirubin 0 mg/dL Last Edit by Brigitte Lopes RN on 08/06/23 08:47 UA Glucose 0 mg/dL Last Edit by Brigitte Lopes RN on 08/06/23 08:47 Coding Assessment & Plan Assessment & Plan Orders: Orders AMB Urinalysis Automated Today N30.10 - Interstitial cystitis (chronic) without hematuria
== END 2023-08-06 08:52 | disposition home or self-care (01) ==
LOC: HO.HUSH 08:30
PROVIDERS: PCP Physician Assistant; Visit Provider Urology
DX: N30.10 Interstitial cystitis (chronic) without hematuria (principal)

== ENCOUNTER → 2023-08-06 08:30 | Outpatient (BNVA) | payer OTHER, SELFPAY | PROVIDERS: PCP Physician Assistant; Visit Provider Urology | DX: N30.10 Interstitial cystitis (chronic) without hematuria (principal) | CPT/HCPCS: 81003 ==

== ENCOUNTER 2023-08-30 19:12 | Emergency (ER) | payer OTHER, SELFPAY ==
--- NOTE | ~2023-08-30 | CT_ITS ---
EXAMINATION: CT ABDOMEN AND PELVIS WITH CONTRAST CLINICAL INFORMATION: Abdominal pain. COMPARISON: 04/15/2023 TECHNIQUE: Multidetector volumetric images were obtained from the superior aspect of the liver through the pubic symphysis following administration 85 mL of Omnipaque 350 intravenous contrast. Sagittal and coronal reformatted images were obtained on the technologist's workstation. Oral contrast: No This CT examination was performed using dose optimization techniques as appropriate, variously including the following: *Automated exposure control *Adjustment of mA and/or kV according to patient size (this includes techniques or standardized protocols for targeted exams where dose is matched to indication/reason for exam; i.e. extremities or head) *Use of iterative reconstruction technique DLP: 574 mGy-cm FINDINGS: LUNG BASES: The visualized lung bases are unremarkable. LIVER, GALLBLADDER, AND BILIARY TREE: The liver is slightly irregular in contour. No focal hepatic lesion or biliary ductal dilatation is present. A single gallstone is noted within a nondistended gallbladder. PANCREAS: Unremarkable. SPLEEN: Unremarkable. ADRENAL GLANDS: Unremarkable. KIDNEYS AND URETERS: The kidneys are normal in size, shape, and attenuation. No hydronephrosis, hydroureter, or calculi seen. No perinephric stranding. BLADDER: Unremarkable. GASTROINTESTINAL TRACT: The small and large bowel are unremarkable. The appendix is unremarkable. ABDOMINAL WALL: No significant hernia is appreciated. LYMPH NODES: Normal. VASCULAR: There is atherosclerotic plaque of the abdominal aorta and proximal branches. PELVIC VISCERA: Unremarkable. OSSEOUS STRUCTURES: Unremarkable. CT/CT abdomen pelvis w IV con IMPRESSION: 1. No acute abnormality. 2. Cholelithiasis without evidence of cholecystitis. 3. Slightly irregular contour of the liver, raising the possibility of hepatocellular disease/early cirrhosis. Fleischner guidelines were followed.
--- NOTE | 2023-08-30 19:21 | ED.ABDPAIN ---
HPI - Abdominal Pain General Chief Complaint: Abdominal Pain Stated Complaint: abd pain Time Seen by Provider: 08/30/23 22:03 Source: patient Mode of arrival: ambulatory Limitations: no limitations History of Present Illness HPI narrative: 57-year-old female with pmh of GERD, CPOD, Asthma presents to the ED for peribumblical/llq abdominal pain for one day with some loose stool. patient denies any recent antibiotics, recemt travel, fever, chills, or any blood in the stool. Related Data Home Medications ?Medication ?Instructions ?Recorded ?Confirmed budesonide-formoterol HFA 160 2 puff inhalation BID 07/01/23 07/03/23 mcg-4.5 mcg/actuation aerosol inhaler (Symbicort) Previous Rx's ?Medication ?Instructions ?Recorded simvastatin 40 mg tablet 40 mg PO BEDTIME #90 caps 01/18/23 estradiol 0.01% (0.1 mg/gram) See Rx Instructions .Route 3XW 30 03/20/23 vaginal cream days #42.5 grams gabapentin 300 mg capsule 300 mg PO BEDTIME 90 days #90 caps 04/24/23 calcium carbonate 500 mg calcium 500 mg PO DAILY 30 days #30 tabs 05/23/23 (1,250 mg) chewable tablet (Calcium 500) cholecalciferol (vitamin D3) 25 25 mcg PO DAILY #30 caps 05/23/23 mcg (1,000 unit) tablet docusate sodium 100 mg capsule 200 mg (2 x 100 mg) PO BEDTIME #60 06/13/23 caps dextromethorphan-guaifenesin 10 10 ml PO TID #237 mL 07/02/23 mg-100 mg/5 mL oral syrup dicyclomine 20 mg tablet 20 mg PO TID 30 days #90 tabs 07/02/23 doxycycline hyclate 100 mg tablet 100 mg PO BID #10 tabs 07/02/23 loperamide 2 mg capsule 2 mg PO Q8H PRN loose stool 30 07/02/23 days #90 caps nicotine 21 mg/24 hr daily 21 mg transdermal DAILY #28 ea 07/02/23 transdermal patch prednisone 20 mg tablet 20 mg PO DAILY #5 tabs 07/02/23 azithromycin 250 mg tablet See Rx Instructions PO .COMPLEX #6 07/23/23 tabs ipratropium 0.5 mg-albuterol 3 mg 3 ml inhalation Q6-8H PRN wheezing 07/24/23 (2.5 mg base)/3 mL nebulization 30 days #180 mL soln levothyroxine 150 mcg tablet 150 mcg PO DAILY 30 days #90 tabs 07/24/23 ascorbic acid (vitamin C) 500 mg 500 mg PO DAILY #90 tabs 07/26/23 tablet (Vitamin C) polyethylene glycol 3350 17 17 g PO DAILY #510 grams 07/30/23 gram/dose oral powder fluticasone propionate 50 1 spray intranasal BID 30 days 08/07/23 mcg/actuation nasal #9.9 mL spray,suspension (Flonase Allergy Relief) tamsulosin 0.4 mg capsule 0.4 mg PO BID 90 days #180 caps 08/13/23 albuterol sulfate 90 mcg/actuation 2 puff inhalation Q6H PRN 08/20/23 aerosol inhaler shortness of breath or wheezing 30 days #8.5 grams famotidine 40 mg tablet 40 mg PO BEDTIME 90 days #90 tabs 08/23/23 oxycodone 5 mg tablet 5 mg PO Q8H PRN pain 3 days #9 tabs 08/31/23 Allergies Allergy/AdvReac Type Severity Reaction Status Date / Time gentamicin [GENTAMICIN] Allergy Unknown RASH Verified 08/30/23 19:25 ibuprofen [IBUPROFEN] Allergy Unknown IRRITATION Verified 08/30/23 19:25 OF STOMACH Sulfa (Sulfonamide Allergy Unknown hives Verified 08/30/23 19:25 Antibiotics) amoxicillin Allergy Gastrointestinal Verified 08/30/23 19:25 Upset sulfamethoxazole Allergy Rash Verified 08/30/23 19:25 [From Bactrim] trimethoprim [From Bactrim] Allergy Rash Verified 08/30/23 19:25 sertraline [From Zoloft] AdvReac Mild Urinary Verified 08/30/23 19:25 frequency anxiety meds ending in pram Allergy Unknown cystitis Uncoded 08/30/23 19:22 Review of Systems Review of Systems periumbilical/LLQ abdominal pain Yes all other systems are reviewed and are negative [facility] Past Medical History Medical History Interstitial cystitis Arthritis Vitamin D deficiency Bipolar disorder Anxiety and depression GERD (gastroesophageal reflux disease) Asthma Dysplasia of cervix, low grade (KELLIE 1) Dysuria Urge incontinence High cholesterol Thyroid activity decreased Urinary retention Smoker Surgical History H/O LEEP History of cystoscopy History of neck surgery Family History Family History Father COPD (chronic obstructive pulmonary disease) Lung cancer Mother Breast cancer Cardiac pacemaker Son Hyperthyroidism Mental health disorder Maternal Grandmother Depression Mental health disorder Son Depression Social History Social History Household Members: Family, Children and Other Household Members Other:: son, mother Housing: Apartment Do you presently have visiting nurse or other home services: No Alcohol intake: former Patient Tobacco Use Status: Current everyday Tobacco user Tobacco use type: Cigarette Cigarette Packs Per Day: 1 Cigarettes Per Day: 20.0 Years Smoked: 40 e-Cigarette/Vaping Use: Never Used Second Hand Smoke Exposure: Yes Current occupational status: disabled Cognitive needs: No Hearing needs: No Vision needs: No Physical Exam ED Vital Signs: Vital Signs - 24 hr 08/30/23 19:23 Temperature 97.9 F Pulse Rate 87 Respiratory Rate 18 Blood Pressure 106/67 Pulse Oximetry 95 Oxygen Delivery Method Room Air BMI result Body Mass Index 33.7 Const General: cooperative, healthy appearing, comfortable, no acute distress, well developed, alert, awake and Physically active Orientation/consciousness: oriented to person, oriented to place, oriented to time and patient oriented x3 HENMT Head: Yes normal to inspection, Yes No palpable skull fracture present, Yes normocephalic, Yes atraumatic and No abrasion Eyes General: appearance normal, both eyes and all related structures Neck Neck: Yes normal visual inspection, Yes full ROM, Yes no lymphadenopathy, Yes no meningeal signs, Yes trachea midline, Yes supple, No anterior neck swelling and No tender Chest Chest palpation & inspection: normal inspection of the chest and normal palpation of entire chest wall Resp Effort & Inspection: normal respiratory effort and able to speak in complete sentences Auscultation: clear to auscultation bilaterally Cardio Jugular venous distension: no JVD Heart sounds: S1 normal heart sound present and S2 normal heart sound present GI Inspection: Yes normal to inspection Palpation (GI): Soft to palpation, not firm, Tenderness to palpation present (GI) in the LLQ, no guarding and not rigid General: No CVA tenderness and Yes no CVA tenderness Back/Spine/Pelvis Back: no CVA tenderness, No CVA tenderness and No back tenderness Skin General skin exam: no rashes or lesions noted and elasticity normal Neuro General: oriented to person, oriented to place, oriented to time, patient oriented x3, gait normal, tone normal, moves all extremities, Normal light touch and pain sensation, no meningeal signs, no focal motor deficits, CN's II-XI intact bilaterally and normal sensation to monofilament Extrem General: Yes normal to inspection, Yes full ROM and Yes capillary refill normal Psych Appearance: grossly normal, well kempt and not disheveled Course Course Course Narrative: RME:?57 yo female w/ hx of mild intermittent asthma, COPD, bipolar disorder, anxiety, depression, GERD here for eval of periumbilical/ LLQ abd pain x1 day. pain is worse with mvmt, ambulating, and eating. denies having this pain in the past. endorses and increase in bowel movements, now dark brown which is not baseline for her. last bm this morning. denies melena, hematochezia. no iron supplementation, no pepto bismol. no hx of abd surgeries. denies fevers, n/v, flank pain, dysuria, hematuria. no known sick contacts. no recent travel. labs, UA ordered. +/- imaging per primary provider Full HPI, ROS and PE to be performed by the primary ED provider. Medical Decision Making Medical Decision Making [facility] Narrative: 57-year-old female presents ED for periumbilical and lower quadrant abdominal. Labs were normal. Patient given morphine for pain. Patient is sent for abdominal CT scan per which shows cholelithiasis, possible hepatocellular disease cirrhotic liver. Urine dirty catch per not suspect a UTI. Patient explained worrisome signs and informed to return to the ED if she has them. Differential Diagnosis Differential Diagnoses: The differential diagnosis associated with the presentation includes (UTI, colitis, diverticulitis, appendicitis) Admission/Observation Consideration of admission/observation: Escalation of care including admission/observation considered Lab Data [facility] Lab Attestation statement: I reviewed the patient's lab results. 08/30/23 19:31 08/30/23 19:31 Labs: Lab Results 08/30/23 08/30/23 Range/Units 19:31 22:44 WBC 6.8 (4.8-10.8) X10*3/uL RBC 4.97 (4.20-5.50) X10*6/uL Hgb 15.7 (12.0-16.0) g/dl Hct 45.7 (37.0-47.0) % MCV 92.0 (80.0-98.0) fL MCH 31.6 (27.0-33.0) pg MCHC 34.4 (31.0-35.0) g/dl RDW 11.8 (11.0-16.0) % Plt Count 144 L (160-400) X10*3/uL MPV 11.3 (9.4-12.3) fL Immature Gran % (Auto) 0.3 (0.0-0.4) % Neut % (Auto) 39.4 L (45-73) % Lymph % (Auto) 53.2 H (20-40) % [place] % (Auto) 6.1 (2-11) % Eos % (Auto) 0.9 (0-4) % Baso % (Auto) 0.1 (0-2) % Lymph # (Auto) 3.6 (1.2-4.9) X10*3/uL [place] # (Auto) 0.4 (0.1-1.2) X10*3/uL Eos # (Auto) 0.1 (0.0-0.4) X10*3/uL Baso # (Auto) 0.0 (0.0-0.2) X10*3/uL Abs Immat Gran (auto) 0.02 (0.00-0.03) X10*3/uL Absolute Neuts (auto) 2.7 (2.0-8.3) x10*3/uL Absolute Nucleated RBC 0.000 (0.0-0.012) X10*3/uL Nucleated RBC % (auto) 0.0 (0.0-0.2) /100WBC Sodium 139 (135-145) mmol/L Potassium 3.8 (3.3-5.1) mmol/L Chloride 107 (96-108) mmol/L Carbon Dioxide 22 (22-29) mmol/L Anion Gap 14 (12-20) BUN 11 (9-16) mg/dL Creatinine 0.82 (0.5-1.4) mg/dL Estim Creat Clear Calc 79.6 Estimated GFR > 60 Random Glucose 146 H (60-115) mg/dL Calcium 9.7 (8.4-10.2) mg/dL Magnesium 1.7 (1.6-2.6) mg/dL Total Bilirubin 0.7 (0.0-1.0) mg/dL AST 27 (5-31) U/L ALT 38 H (0-31) U/L Alkaline Phosphatase 94 (39-117) U/L Total Protein 7.1 (6.5-8.0) g/dL Albumin 3.9 (3.5-5.0) g/dL Lipase 13 (8-78) U/L Urine Color Dark Yellow Urine Appearance Cloudy Urine pH 5.0 (5.0-9.0) Ur Specific [place] >= 1.030 H (1.005-1.025) Urine Protein Negative (Neg-Trace) mg/dL Urine Glucose (UA) Negative (Negative) mg/dL Urine Ketones Trace (Negative) mg/dL Urine Blood Negative (Negative) Urine Nitrite Negative (Negative) Ur Leukocyte Esterase Trace H (Negative) Urine RBC 0-2 (0-2) /HPF Urine WBC 11-20 H (0-5) /HPF Ur Squamous Epith Cells >20 (0-2) /HPF Urine Bacteria 3+ (None Seen) Hyaline Casts 3-5 (0-2) /LPF Influenza Type A (PCR) NEGATIVE (Negative) Influenza Type B (PCR) NEGATIVE (Negative) RSV RNA Qual (PCR) NEGATIVE (Negative) SARS-CoV-2 RNA (RT-PCR) NEGATIVE (Negative) Independent Interpretation I performed an independent interpretation of an: CT Scan Radiology Impression Discussion of test interpretation with radiology: I have reviewed the radiologist's reading. Independent Historian Clinical information obtained from an independent historian. History obtained from or confirmed by: Other ([place]) External Record Review External record reviewed: Other (Prior visits) Prescription Management I considered prescription management with: Pain Medication Medications Administered Discontinued Medications Generic Name Dose Route Start Last Admin Trade Name Freq PRN Reason Stop Dose Admin Iohexol 100 ml 08/30/23 22:52 08/30/23 22:53 Iohexol 350 Mg/Ml 100 Ml Infus..Btl IV 08/30/23 22:53 85 ml ONCE ONE Administration Morphine Sulfate 4 mg 08/31/23 00:14 08/31/23 00:17 Morphine Sulfate 4 Mg/Ml Cartridge IVPUSH 08/31/23 00:15 4 mg ONCE ONE Administration Protocol Discharge Plan Discharge Clinical Impression: Abdominal pain, Gallstones, Cirrhosis of liver Patient Disposition: Home, Self-Care Instructions: Gallstones (ED), Abdominal Pain (ED) Additional Instructions: Abdominal CT scan shows gallstones, and beginning of hepatocellular cirrhotic disease of liver. You need follow-up with gastroenterology. Return to the ED immediately for worsening abdominal the, dysuria, pyuria, flank pain, fever, chills, nausea, vomiting, swelling of the abdomen, swelling of legs, or any other concerning symptoms Prescriptions: New oxycodone 5 mg tablet 5 mg PO Q8H PRN (Reason: pain) 3 Days Qty: 9 0RF Rx Instructions: Partial Fill upon patient request. No Action simvastatin 40 mg tablet 40 mg PO BEDTIME Qty: 90 2RF gabapentin 300 mg capsule 300 mg PO BEDTIME 90 Days Qty: 90 1RF calcium carbonate [Calcium 500] 500 mg calcium (1,250 mg) tablet,chewable 500 mg PO DAILY 30 Days Qty: 30 6RF cholecalciferol (vitamin D3) 25 mcg (1,000 unit) tablet 25 mcg PO DAILY Qty: 30 6RF docusate sodium 100 mg capsule 200 mg PO BEDTIME Qty: 60 5RF loperamide 2 mg capsule 2 mg PO Q8H PRN (Reason: loose stool) 30 Days Qty: 90 2RF dicyclomine 20 mg tablet 20 mg PO TID 30 Days Qty: 90 2RF azithromycin 250 mg tablet See Rx Instructions PO .COMPLEX Qty: 6 0RF Rx Instructions: For 250 mg dose pack: take 500 mg today (day 1), then 250 mg for 4 days (days 2-5) PO levothyroxine 150 mcg tablet 150 mcg PO DAILY 30 Days Qty: 90 1RF ipratropium-albuterol 0.5 mg-3 mg(2.5 mg base)/3 mL solution for nebulization 3 ml inhalation Q6-8H PRN (Reason: wheezing) 30 Days Qty: 180 2RF ascorbic acid (vitamin C) [Vitamin C] 500 mg tablet 500 mg PO DAILY Qty: 90 0RF polyethylene glycol 3350 17 gram/dose powder 17 g PO DAILY Qty: 510 6RF fluticasone propionate [Flonase Allergy Relief] 50 mcg/actuation spray,suspension 1 spray intranasal BID 30 Days Qty: 9.9 5RF Rx Instructions: administer into each nostril tamsulosin 0.4 mg capsule 0.4 mg PO BID 90 Days Qty: 180 1RF albuterol sulfate 90 mcg/actuation HFA aerosol inhaler 2 puff inhalation Q6H PRN (Reason: shortness of breath or wheezing) 30 Days Qty: 8.5 6RF famotidine 40 mg tablet 40 mg PO BEDTIME 90 Days Qty: 90 1RF budesonide-formoterol [Symbicort] 160-4.5 mcg/actuation HFA aerosol inhaler 2 puff INHALATION BID nicotine 21 mg/24 hr Patch 24 Hour 21 mg transdermal DAILY Qty: 28 0RF dextromethorphan-guaifenesin 10-100 mg/5 mL Syrup 10 ml PO TID Qty: 237 0RF Rx Instructions: Use scheduled for 5 days and then as needed doxycycline hyclate 100 mg tablet 100 mg PO BID Qty: 10 0RF prednisone 20 mg tablet 20 mg PO DAILY Qty: 5 0RF estradiol 0.01 % (0.1 mg/gram) cream See Rx Instructions .Route 3XW 30 Days Qty: 42.5 2RF Rx Instructions: pea-sized to urethra 3 times a week [place] [facility] [place] (Beginning of hepatocellular cirrhotic liver disease) [facility] [place] [facility] ([place]) Stand Alone Forms: Work/School Release Interventions: ED Discharge Assessment Last Done: 08/31/23 01:49 Discharge Date/Time: 08/31/23 01:50 Print Language: [place]
[2023-08-30 19:23] VITALS: BP 106/67; BP 172/106; PULSE 87; PULSE 92; RESP 18; TEMP 36.6; O2SAT 95; O2SAT 96; BMI 33.7
[2023-08-30 19:41] LABS: MANUAL DIFF FLAG NO
[2023-08-30 19:43] LABS: Basophils Percent Auto 0.1 % (0-2); Eosinophils Absolute Auto 0.1 X10*3/uL (0.0-0.4); Eosinophils Percent Auto 0.9 % (0-4); Hematocrit 45.7 % (37.0-47.0); Hemoglobin 15.7 g/dl (12.0-16.0); Imm Gran Abs Auto 0.02 X10*3/uL (0.00-0.03); Imm Gran Pct Auto 0.3 % (0.0-0.4); Lymphocytes Absolute Auto 3.6 X10*3/uL (1.2-4.9); Lymphocytes Percent Auto 53.2 % (20-40); Mean Corpuscular HGB Conc 34.4 g/dl (31.0-35.0); Mean Corpuscular Hemoglobin 31.6 pg (27.0-33.0); Mean Platelet Volume 11.3 fL (9.4-12.3); Monocytes Absolute Auto 0.4 X10*3/uL (0.1-1.2); Monocytes Percent Auto 6.1 % (2-11); Neutrophils Absolute Auto 2.7 x10*3/uL (2.0-8.3); Neutrophils Percent Auto 39.4 % (45-73); Platelet Count 144 X10*3/uL (160-400); Red Blood Count 4.97 X10*6/uL (4.20-5.50); Red Cell Distribution Width 11.8 % (11.0-16.0); White Blood Count 6.8 X10*3/uL (4.8-10.8)
[2023-08-30 19:58] LABS: Alanine Aminotransferase 38 U/L (0-31); Albumin Level 3.9 g/dL (3.5-5.0); Alkaline Phosphatase 94 U/L (39-117); Anion Gap 14 (12-20); Aspartate Amino Transferase 27 U/L (5-31); Bilirubin Total 0.7 mg/dL (0.0-1.0); Blood Urea Nitrogen 11 mg/dL (9-16); Calcium 9.7 mg/dL (8.4-10.2); Carbon Dioxide 22 mmol/L (22-29); Chloride 107 mmol/L (96-108); Creatinine Clr Calc Pharmacy 79.6; Estimated Glomerular Filt Rate > 60; Glucose Random 146 mg/dL (60-115); Lipase 13 U/L (8-78); Magnesium 1.7 mg/dL (1.6-2.6); Potassium 3.8 mmol/L (3.3-5.1); Sodium 139 mmol/L (135-145); Total Protein 7.1 g/dL (6.5-8.0)
[2023-08-30 20:21] LABS: Influenza A PCR NEGATIVE (Negative); Influenza B PCR NEGATIVE (Negative); Resp Syncy Virus RNA Qual PCR NEGATIVE (Negative); SARS COV2 PCR INHOUSE NEGATIVE (Negative)
--- NOTE | 2023-08-30 22:47 | PC.NURSE ---
IV placed in the left AC, urine collected and sent to lab
[2023-08-30 22:50] LABS: Appearance Urine Cloudy; Color Urine Dark Yellow; Glucose Urine UA Negative (Negative); Leukocyte Esterase Urine Trace (Negative); Nitrite Urine Negative (Negative); Specific Gravity - Urine >= 1.030 (1.005-1.025); UMIC TRIGGER UACC YES; Urine Blood Negative (Negative); Urine Ketones Trace mg/dL (Negative); Urine Protein Negative (Neg-Trace)
[2023-08-30] MEDS: iohexoL 350 MG/ML 100 ML INFUS..BTL IV (22:53)
[2023-08-30 22:55] LABS: Bacteria Urine 3+ (None Seen); RBC Urine 0-2 /HPF (0-2); Squamous Epithelial Cell Urine >20 /HPF (0-2); UACC Culture Trigger YES
[2023-08-31] MEDS: Morphine Sulfate 4 MG/ML CARTRIDGE IVPUSH (00:17)
[2023-08-31 01:49] VITALS: BP 110/75; PULSE 82; RESP 14; TEMP 37; O2SAT 98
== END 2023-08-31 01:50 | disposition home or self-care (01) ==
PROVIDERS: Physician Assistant Medical; Emergency Provider Internal Medicine; PCP Physician Assistant
DX: K80.20 Calculus of gallbladder without cholecystitis without obstruction (principal); R10.33 Periumbilical pain; Z79.899 Other long term (current) drug therapy; Z11.52 Encounter for screening for COVID-19; Z20.822 Contact with and (suspected) exposure to COVID-19
CPT/HCPCS: 0241U; 36415; 74177; 80053; 81001; 83690; 83735; 85025; 87086; 96374; 99284; J2270; Q9967

== ENCOUNTER 2023-09-04 12:57 | Outpatient (AMB) | payer OTHER, SELFPAY ==
--- NOTE | 2023-09-04 12:58 | MHC.OFFVIS ---
Intake Intake Visit Reasons: IC issues/ plan going forward Intake Note: Patient is Present for Telephone Follow Up IC Issues Urology Med: Estradiol, Tamsulosin Antibiotic Allergy: Sulfa, Amoxicillin, Bactrim, Trimethroprim Blood Thinner: none Allergies gentamicin [GENTAMICIN] Allergy (Unknown, Verified 08/30/23 19:25) RASH ibuprofen [IBUPROFEN] Allergy (Unknown, Verified 08/30/23 19:25) IRRITATION OF STOMACH Sulfa (Sulfonamide Antibiotics) Allergy (Unknown, Verified 08/30/23 19:25) hives amoxicillin Allergy (Verified 08/30/23 19:25) Gastrointestinal Upset sulfamethoxazole [From Bactrim] Allergy (Verified 08/30/23 19:25) Rash trimethoprim [From Bactrim] Allergy (Verified 08/30/23 19:25) Rash sertraline [From Zoloft] Adverse Reaction (Mild, Verified 08/30/23 19:25) Urinary frequency anxiety meds ending in pram Allergy (Unknown, Uncoded 08/30/23 19:22) cystitis Medication List - Last Reconciled 09/04/23 by Rock Linton MD albuterol sulfate 90 mcg/actuation 2 puffs inhalation Q6H PRN 30 days ascorbic acid (vitamin C) (Vitamin C) 500 mg PO DAILY azithromycin For 250 mg dose pack: take 500 mg today (day 1), then 250 mg for 4 days (days 2-5) PO budesonide-formoterol 160-4.5 mcg/actuation (Symbicort) 2 puffs inhalation BID calcium carbonate (Calcium 500) 500 mg PO DAILY 30 days cholecalciferol (vitamin D3) 25 mcg PO DAILY dextromethorphan-guaifenesin 10-100 mg/5 mL 10 mL PO TID dicyclomine 20 mg PO TID 30 days docusate sodium 200 mg (2 x 100 mg) PO BEDTIME doxycycline hyclate 100 mg PO BID estradiol 0.01%(0.1mg/gram) pea-sized to urethra 3 times a week 30 days famotidine 40 mg PO BEDTIME 90 days fluticasone propionate 50 mcg/actuation (Flonase Allergy Relief) 1 spray intranasal BID 30 days gabapentin 300 mg PO BEDTIME 90 days ipratropium-albuterol 0.5 mg-3 mg(2.5 mg base)/3 mL 3 mL inhalation Q6-8H PRN 30 days levothyroxine 150 mcg PO DAILY 30 days loperamide 2 mg PO Q8H PRN 30 days nicotine 21 mg transdermal DAILY oxycodone 5 mg PO Q8H PRN 3 days polyethylene glycol 3350 17 grams PO DAILY prednisone 20 mg PO DAILY simvastatin 40 mg PO BEDTIME tamsulosin 0.4 mg PO BID 90 days HPI HPI Comments History of Present Illness Details She will is a pleasant female. She is a patient of Dr. Miller. She is seen for the following urologic conditions - urinary urgency and frequency - possible interstitial cystitis Telemedicine Evaluation 15 min Consultation ApoVax Gilberto Video attempted Nocturia manageable More urge during day Refill gabapentin Would like to undergo repeat hydrodistention Will organized with Dr. Zhong since can get on schedule quicker Overactive bladder Previously managed with a number of medications Current medications Elmiron Failed Ditropan XL 15 mg b.i.d., Myrbetriq, tolterodine 4 mg Persistent urinary urgency with urge incontinence despite medications Prior hydrodistention for possible investigation of interstitial cystitis Exacerbating factors smoking Botox - 10/16, 06/19 Interstitial cystitis Multiple prior hydro distentions last 02/14 Had terminal hematuria with diffuse glomerulations volume 300 PFSH Medical History Interstitial cystitis Arthritis Vitamin D deficiency Bipolar disorder Anxiety and depression GERD (gastroesophageal reflux disease) Asthma Dysplasia of cervix, low grade (KELLIE 1) Dysuria Urge incontinence High cholesterol Thyroid activity decreased Urinary retention Smoker Surgical History H/O LEEP History of cystoscopy History of neck surgery Family History Father COPD (chronic obstructive pulmonary disease) Lung cancer Mother Breast cancer Cardiac pacemaker Son Hyperthyroidism Mental health disorder Maternal Grandmother Depression Mental health disorder Son Depression Social History Household Members: Family, Children and Other Household Members Other:: son, mother Housing: Apartment Do you presently have visiting nurse or other home services: No Alcohol intake: former Patient Tobacco Use Status: Current everyday Tobacco user Tobacco use type: Cigarette Cigarette Packs Per Day: 1 Cigarettes Per Day: 20.0 Years Smoked: 40 e-Cigarette/Vaping Use: Never Used Second Hand Smoke Exposure: Yes Current occupational status: disabled Cognitive needs: No Hearing needs: No Vision needs: No Review of Systems Const All systems reviewed & are unremarkable except as noted in HPI and below Reports no additional complaints Resp Reports no additional complaints GI Reports no additional complaints Reports as per HPI Musc Reports no additional complaints Physical Exam Telemedicine evaluation Appropriate responses Regular breathing rate and rhythm HEENT Head: Yes normal to inspection Ears: hearing grossly normal bilaterally Eyes General: appearance normal, both eyes and all related structures Neck Neck: Yes normal visual inspection Chest Chest palpation & inspection: normal inspection of the chest Resp Effort & Inspection: normal respiratory effort and able to speak in complete sentences Assessment & Plan Assessment & Plan (1) Interstitial cystitis: Comment: Persistent urge frequency with strength urea following hydrodistention Code(s): N30.10 - Interstitial cystitis (chronic) without hematuria Plan Risks, benefits and alternatives to therapy were discussed. These include but are not limited to infection, bleeding, damage to local organs and tissues, need for further interventions. Anesthetic risks regarding cardiac arrhythmia, blood clots, and potential mortality were discussed. The patient understands the typical recovery time and the outpatient nature of the procedure. After consideration of these risks the patient gives full informed consent and they wish to move ahead with the procedure. Hydrodistention Medications: Refilled gabapentin 300 mg PO BEDTIME 90 days 90 caps 1RF N30.10 - Interstitial cystitis (chronic) without hematuria, R23.2 - [place], T50.905A - Adverse effect of unspecified drugs, medicaments and biological substances, initial encounter Patient Instructions: Imaging studies, laboratory and physical exam results were discussed and reviewed in detail. No major barriers to patient understanding were identified. An opportunity to ask questions regarding the treatment plan was provided. All questions were answered. The patient expressed understanding and agreement with the above treatment plan. The patient is aware they should contact our office by phone for worsening of their current condition or the appearance of new urologic symptoms. Compliance is encouraged with any medications and followup testing that is ordered. It is a privilege to participate in the urologic care of your patient. If you have any questions or concerns regarding treatment for the above conditions, or other urologic issues, please do not hesitate to contact me. The office telephone contact is [phone]. This note is constructed using voice recognition software. While every effort has been made to ensure accuracy payroll accounting specialist errors may have been included. Yours sincerely, Dr Rock Linton MD, [facility] - Urology Providers of Expert, Compassionate Care for the Genitourinary System Telehealth Telehealth Location of provider rendering services: practice address Location of patient: address on file Patient Identification confirmed using: Name, : Yes Telehealth method: video Patient verbally consented to treatment: Yes Patient verbally consented to billing insurance company: Yes Patient informed of any privacy concerns related to visit: Yes Coding Level of Care Code Tele Est Pt Level 4 (18795) Diagnoses Interstitial cystitis N30.10
== END 2023-09-04 13:31 | disposition home or self-care (01) ==
LOC: HO.HUSH 12:57
PROVIDERS: PCP Physician Assistant; Visit Provider Urology
DX: N30.10 Interstitial cystitis (chronic) without hematuria (principal)
CPT/HCPCS: 99214

== ENCOUNTER → 2023-09-04 12:57 | Outpatient (BNVA) | payer OTHER, SELFPAY | PROVIDERS: PCP Physician Assistant; Visit Provider Urology ==

== ENCOUNTER 2023-09-11 08:26 | Outpatient (AMB) | payer OTHER, SELFPAY ==
--- NOTE | 2023-09-11 09:03 | MHC.OFFVIS ---
Intake Vital Signs 09/11/23 09:07 Height 5 ft 2.5 in Weight 187 lb BMI 33.7 BP 143/80 H Blood Pressure Location Lt brachial Position Sitting Pulse 117 H Intake Visit Reasons: Cholecystitis Intake Note: Patient referred after ER visit on 08-30-23. Patient c/o: RLQ pain that spreads around to lower back. Denies nausea, vomiting. CT ABD: 08-30-23. Color Depositing Machine Tender Required: No Accompanied by: Self / Same As Patient Allergies gentamicin [GENTAMICIN] Allergy (Unknown, Verified 09/11/23 09:09) RASH ibuprofen [IBUPROFEN] Allergy (Unknown, Verified 09/11/23 09:09) IRRITATION OF STOMACH Sulfa (Sulfonamide Antibiotics) Allergy (Unknown, Verified 09/11/23 09:09) hives amoxicillin Allergy (Verified 09/11/23 09:09) Gastrointestinal Upset sulfamethoxazole [From Bactrim] Allergy (Verified 09/11/23 09:09) Rash trimethoprim [From Bactrim] Allergy (Verified 09/11/23 09:09) Rash sertraline [From Zoloft] Adverse Reaction (Mild, Verified 09/11/23 09:09) Urinary frequency anxiety meds ending in pram Allergy (Unknown, Uncoded 09/11/23 09:09) cystitis HPI HPI Comments History of Present Illness Details Patient presents for evaluation of recurrent biliary colic. She has had at least 2-0 ER visits where she is worked up for this. Sonogram demonstrates cholelithiasis. Patient's symptoms were epigastric/right upper quadrant pain radiating around to her back. Because of persistence and progression of symptoms, she wishes to have her gallbladder removed. She otherwise tolerates a diet. She is regular bowel habits. She has never been jaundiced before. Chart was reviewed and patient evaluated. No prior abdominal surgery PFSH Medical History Interstitial cystitis Arthritis Vitamin D deficiency Bipolar disorder Anxiety and depression GERD (gastroesophageal reflux disease) Asthma Dysplasia of cervix, low grade (KELLIE 1) Dysuria Urge incontinence High cholesterol Thyroid activity decreased Urinary retention Smoker Surgical History H/O LEEP History of cystoscopy History of neck surgery Family History Father COPD (chronic obstructive pulmonary disease) Lung cancer Mother Breast cancer Cardiac pacemaker Son Hyperthyroidism Mental health disorder Maternal Grandmother Depression Mental health disorder Son Depression Social History Household Members: Family, Children and Other Household Members Other:: son, mother Housing: Apartment Do you presently have visiting nurse or other home services: No Alcohol intake: former Patient Tobacco Use Status: Current everyday Tobacco user Tobacco use type: Cigarette Cigarette Packs Per Day: 1 Cigarettes Per Day: 20.0 Years Smoked: 40 e-Cigarette/Vaping Use: Never Used Second Hand Smoke Exposure: Yes Current occupational status: disabled Cognitive needs: No Hearing needs: No Vision needs: No Physical Exam Vital Signs: Last Vital Signs Pulse 117 H 09/11/23 09:07 BP 143/80 H 09/11/23 09:07 BMI result Body Mass Index 33.7 Eyes Other: Anicteric Cardio Other: Chest breath sounds bilaterally, HS 1 in 2 GI Other: Abdomen; corpulent abdomen. Mild right upper quadrant tenderness. No evidence of any guarding, rebound, or rigidity. Assessment & Plan Assessment & Plan (1) Recurrent biliary colic: Code(s): K80.50 - Calculus of bile duct without cholangitis or cholecystitis without obstruction Plan Risks, benefits, alternatives laparoscopic possible open cholecystectomy reviewed the patient and included but not limited to bleeding, infection, recurrence of symptoms, numbness, pain, scarring, bowel or bile duct injury or leak and the patient wished to proceed. All questions answered. Arrangements were made for this. Coding Level of Care Code New Pt Level 5 (10442) Diagnoses Recurrent biliary colic K80.50
[2023-09-11 09:07] VITALS: BP 143/80; PULSE 117; BMI 33.7
== END 2023-09-11 09:24 | disposition home or self-care (01) ==
PROVIDERS: PCP Physician Assistant; Visit Provider Surgery
DX: K80.50 Calculus of bile duct without cholangitis or cholecystitis without obstruction (principal)
CPT/HCPCS: 99204

== ENCOUNTER → 2023-09-11 08:26 | Outpatient (BNVA) | payer OTHER, SELFPAY | PROVIDERS: PCP Physician Assistant; Visit Provider Surgery | DX: K80.50 Calculus of bile duct without cholangitis or cholecystitis without obstruction (principal) | CPT/HCPCS: 99202 ==

== ENCOUNTER 2023-09-25 08:29 | Day surgery (SDC) | payer OTHER, SELFPAY ==
--- NOTE | 2023-09-24 10:27 | P.CONAN_ITS ---
Documented by User: Nel Yoon NP 09/24/23 10:28 HPI - Anesthesia Eval Consult details Narrative: 57yo F for Cystoscopy Hydrodistention of Bladder PMFSH Active Problems Active Problems: All Active Problems Recurrent biliary colic (Acute) Ear infection (Acute) Need for MMR vaccine (Acute) COPD with asthma (Acute) Pneumonia (Acute) COVID-19 (Acute) Post-menopausal (Acute) Hospital discharge follow-up (Acute) Elevated liver enzymes (Acute) Poor historian (Acute) Left shoulder pain (Acute) Cervical myopathy (Acute) Hemorrhoids (Acute) Low back pain (Acute) GERD (gastroesophageal reflux disease) (Acute) Vaginal discharge (Acute) Well woman exam (Acute) Overactive bladder (Acute) Conjunctivitis (Acute) Weak urinary stream (Acute) Productive cough (Acute) Dyspnea on exertion (Acute) Dysuria (Acute) Hypothyroid (Acute) Tinea unguium (Acute) Allergic conjunctivitis (Acute) Bladder spasm (Acute) Acute cystitis (Acute) Smoker (Acute) COPD (chronic obstructive pulmonary disease) (Acute) Vitamin deficiency (Acute) Near sighted (Acute) ADORE (generalized anxiety disorder) (Acute) MDD (major depressive disorder) (Acute) Encounter for screening colonoscopy (Acute) Urge incontinence (Acute) Screening for hypothyroidism (Acute) Screening for hypercholesterolemia (Acute) Screening for diabetes mellitus (DM) (Acute) Allergic rhinitis (Acute) Vaginitis (Acute) Insomnia (Acute) Thyroid activity decreased (Acute) Interstitial cystitis (Acute) Urgency of urination (Acute) Constipation (Acute) Diarrhea (Acute) Moderate asthma (Acute) Past Medical History Medical History Interstitial cystitis Arthritis Vitamin D deficiency Bipolar disorder Anxiety and depression GERD (gastroesophageal reflux disease) Asthma Dysplasia of cervix, low grade (KELLIE 1) Dysuria Urge incontinence High cholesterol Thyroid activity decreased Urinary retention Smoker Family History Family History Father COPD (chronic obstructive pulmonary disease) Lung cancer Mother Breast cancer Cardiac pacemaker Son Hyperthyroidism Mental health disorder Maternal Grandmother Depression Mental health disorder Son Depression Surgical History Surgical History H/O LEEP History of cystoscopy History of neck surgery History of Problems with Anesthesia: No Social History Social History (Reviewed 09/11/23 @ 09:12 by FRANCISCO Mckeon Household Members: Family, Children and Other Household Members Other:: son, mother Housing: Apartment Do you presently have visiting nurse or other home services: No Alcohol intake: former Patient Tobacco Use Status: Current everyday Tobacco user Tobacco use type: Cigarette Cigarette Packs Per Day: 1 Cigarettes Per Day: 10 Years Smoked: 40 e-Cigarette/Vaping Use: Never Used Second Hand Smoke Exposure: Yes Use of substances other than those prescribed or required for medical reasons: No Are you DNR?: No Advance Directives: No Advance Directives Information Provided: Yes Current occupational status: disabled Cognitive needs: No Hearing needs: No Vision needs: No Meds Allergies Allergy/AdvReac Type Severity Reaction Status Date / Time gentamicin [GENTAMICIN] Allergy Unknown RASH Verified 09/11/23 09:09 ibuprofen [IBUPROFEN] Allergy Unknown IRRITATION Verified 09/11/23 09:09 OF STOMACH Sulfa (Sulfonamide Allergy Unknown hives Verified 09/11/23 09:09 Antibiotics) amoxicillin Allergy Gastrointestinal Verified 09/11/23 09:09 Upset sulfamethoxazole Allergy Rash Verified 09/11/23 09:09 [From Bactrim] trimethoprim [From Bactrim] Allergy Rash Verified 09/11/23 09:09 sertraline [From Zoloft] AdvReac Mild Urinary Verified 09/11/23 09:09 frequency anxiety meds ending in pram Allergy Unknown cystitis Uncoded 09/11/23 09:09 Home Medications ?Medication ?Instructions ?Recorded ?Confirmed ?Last Taken ?Type budesonide-formoterol HFA 160 2 puff inhalation BID 07/01/23 09/04/23 Unknown History mcg-4.5 mcg/actuation aerosol inhaler (Symbicort) Exam Pertinent Lab Results Pertinent Lab Results: Laboratory Tests 08/30/23 19:31 WBC 6.8 Hgb 15.7 Hct 45.7 Plt Count 144 L Sodium 139 Potassium 3.8 Chloride 107 Carbon Dioxide 22 BUN 11 Creatinine 0.82 Assessment and Plan Assessment Anesthesia Assessment: Chart Reviewed Final Anesthetic Review History of Problems with Anesthesia: No Documented by User: Kameron Parada MD 09/25/23 10:05 [facility] Past Medical History Medical History Interstitial cystitis Arthritis Vitamin D deficiency Bipolar disorder Anxiety and depression GERD (gastroesophageal reflux disease) Asthma Dysplasia of cervix, low grade (KELLIE 1) Dysuria Urge incontinence High cholesterol Thyroid activity decreased Urinary retention Smoker Family History Family History Father COPD (chronic obstructive pulmonary disease) Lung cancer Mother Breast cancer Cardiac pacemaker Son Hyperthyroidism Mental health disorder Maternal Grandmother Depression Mental health disorder Son Depression Family history of problems with anesthesia: No Surgical History Surgical History H/O LEEP History of cystoscopy History of neck surgery History of Problems with Anesthesia: No Social History Social History Household Members: Family, Children and Other Household Members Other:: son, mother Housing: Apartment Do you presently have visiting nurse or other home services: No Alcohol intake: former Patient Tobacco Use Status: Current everyday Tobacco user Tobacco use type: Cigarette Cigarette Packs Per Day: 1 Cigarettes Per Day: 10 Years Smoked: 40 e-Cigarette/Vaping Use: Never Used Second Hand Smoke Exposure: Yes Use of substances other than those prescribed or required for medical reasons: No Are you DNR?: No Advance Directives: No Advance Directives Information Provided: Yes Current occupational status: disabled Cognitive needs: No Hearing needs: No Vision needs: No Meds Allergies Allergy/AdvReac Type Severity Reaction Status Date / Time gentamicin [GENTAMICIN] Allergy Unknown RASH Verified 09/11/23 09:09 ibuprofen [IBUPROFEN] Allergy Unknown IRRITATION Verified 09/11/23 09:09 OF STOMACH Sulfa (Sulfonamide Allergy Unknown hives Verified 09/11/23 09:09 Antibiotics) amoxicillin Allergy Gastrointestinal Verified 09/11/23 09:09 Upset sulfamethoxazole Allergy Rash Verified 09/11/23 09:09 [From Bactrim] trimethoprim [From Bactrim] Allergy Rash Verified 09/11/23 09:09 sertraline [From Zoloft] AdvReac Mild Urinary Verified 09/11/23 09:09 frequency anxiety meds ending in pram Allergy Unknown cystitis Uncoded 09/11/23 09:09 Home Medications ?Medication ?Instructions ?Recorded ?Confirmed ?Last Taken ?Type budesonide-formoterol HFA 160 2 puff inhalation BID 07/01/23 09/04/23 Unknown History mcg-4.5 mcg/actuation aerosol inhaler (Symbicort) Exam Airway Mallampati Class: II TM Dist: <=3cm Neck ROM: Full Heart: ok Lungs: ok Assessment and Plan Assessment Anesthesia Assessment: Anesthesia Plan Discussed Final Anesthetic Review Family History of Problems with Anesthesia: No History of Problems with Anesthesia: No NPO: Yes ASA Class: III Final Preanesthetic Review: No Changes in Pt Med Stat, Meds/Allgs Chart Reviewed, Consent Obtained/Reviewed and Anes Risks/Benef Reviewed Patient Risk: Intermediate Procedure Risk: Low Anesthetic Plan Anesthetic Plan: GA and Agree w/ Assess. and Plan Disposition: Standard PACU
[2023-09-25 09:38] VITALS: BMI 34.0
--- NOTE | 2023-09-25 09:41 | MHC.SHP ---
Pre-Procedural Eval Section A - 24 Hr Update-Section A only Date of Service: 09/25/23 The patient is an INPATIENT: No The patient has been examined within 24 hours of the surgical procedure. The History & Physical has been completed within 30 days and I have reviewed it.: Yes Section B - Complete if H&P > 30 days Chief Complaint: Interstitial cystitis (chronic) without hematuria Allergies: Allergies Allergy/AdvReac Type Severity Reaction Status Date / Time gentamicin [GENTAMICIN] Allergy Unknown RASH Verified 09/11/23 09:09 ibuprofen [IBUPROFEN] Allergy Unknown IRRITATION Verified 09/11/23 09:09 OF STOMACH Sulfa (Sulfonamide Allergy Unknown hives Verified 09/11/23 09:09 Antibiotics) amoxicillin Allergy Gastrointestinal Verified 09/11/23 09:09 Upset sulfamethoxazole Allergy Rash Verified 09/11/23 09:09 [From Bactrim] trimethoprim [From Bactrim] Allergy Rash Verified 09/11/23 09:09 sertraline [From Zoloft] AdvReac Mild Urinary Verified 09/11/23 09:09 frequency anxiety meds ending in pram Allergy Unknown cystitis Uncoded 09/11/23 09:09 Plan Diagnosis/Plan: Unchanged I have reviewed the history and physical and performed a pertinent physical examination on my patient. No changes have occurred unless specified. Cystoscopy hydrodistention. Discussed risks to include but not limited to, blood in the urine, burning with urination, urgency. Time Spent With Patient Time: Total time managing care of this patient today ____ minutes.
[2023-09-25 09:53] VITALS: BMI 34.0
[2023-09-25 09:57] VITALS: BP 128/77; PULSE 83; RESP 16; TEMP 37.1; O2SAT 95
[2023-09-25] MEDS: Lactated Ringers 1,000 ML 100 ML IVCONT (10:11)
[2023-09-25 10:51] VITALS: BP 87/51; PULSE 96; RESP 16; TEMP 36.4; O2SAT 91
[2023-09-25 10:55] VITALS: BP 94/55; PULSE 94; RESP 16; O2SAT 93
--- NOTE | 2023-09-25 10:58 | W.PM.OPN ---
Operative Note Operative Note Date of Service: 09/25/23 Narrative: PREOP DIAGNOSIS: Interstitial cystitis, pelvic pain POSTOP DIAGNOSIS: Interstitial cystitis, pelvic pain PROCEDURE: CYSTOSCOPY HYDRODISTENTION, BLADDER INSTALLATION Anethesia: General Surgeon: Dr. Irina Delgadillo Indications: The patient has chronic interstitial cystitis with symptoms of bladder pain and urinary frequency. She has had improvement in urinary and bladder symptoms in the past with prior hydrodistention. Details of procedure: The patient was brought into the operating room placed on the OR table in supine position. 2 g of Ancef IV. General anesthesia was administered. The patient was repositioned into lithotomy position, prepped and draped in the usual sterile fashion. Time-out was done per protocol. A 22 fr cystoscope was placed transurethrally into the bladder. Urine was drained from the bladder measuring 5 mL.The right and left ureteral orifices were visualized. The entire bladder was visualized. There were no suspicious bladder lesions seen. There were moderate trabeculations noted. The bladder was filled with sterile water at 80 cm of water pressure under gravity. The bladder was distended for 2 minutes. Bladder capacity measured 350 mL. Revisualization of the bladder, noted mild glomerulations on several quadrants of the bladder. No John ulcerations. The bladder was refilled with sterile water again at 80 cm of water pressure under gravity. The bladder was distended for 6 minutes. The fluid was drained from the bladder and measured 400 mL. The cystoscope was removed. 2% lidocaine urojet was passed transurethrally, Solution of (1% lidocaine plain, 15 mL, 0.5 % Marcaine 15 mL mixed with 30, 000 units of heparin concentration 5000 units per mL total of 6 mL hepaine) instilled transurethrally into the bladder. The patient was brought out of anesthesia and taken to recovery in stable condition. Complications: None Drains: none
[2023-09-25 11:00] VITALS: BP 113/73; PULSE 78; RESP 16; O2SAT 94
[2023-09-25 11:05] VITALS: BP 114/78; PULSE 76; RESP 16; O2SAT 94
[2023-09-25 11:20] VITALS: BP 129/79; PULSE 71; RESP 16; TEMP 36.1; O2SAT 96
[2023-09-25] MEDS: Phenazopyridine HCL 200 MG TABLET PO (11:34)
== END 2023-09-25 13:20 | disposition home or self-care (01) ==
PROVIDERS: PCP Physician Assistant; Visit Provider Urology
PROC: 0T7B7ZZ Dilation of Bladder, Via Natural or Artificial Opening (ICD-10-PCS; CPT 52260; principal; 2023-09-25 10:50)
DX: N30.10 Interstitial cystitis (chronic) without hematuria (principal); N32.89 Other specified disorders of bladder; R10.2 Pelvic and perineal pain; R35.0 Frequency of micturition
CPT/HCPCS: 52260; 87086; J1644; J1956; J2704; J2795; J3010

== ENCOUNTER → 2023-09-25 08:29 | Outpatient (BNV) | payer OTHER, SELFPAY | PROVIDERS: PCP Physician Assistant; Visit Provider Urology | DX: N30.10 Interstitial cystitis (chronic) without hematuria (principal) | CPT/HCPCS: 52260 ==

== ENCOUNTER 2023-09-28 11:27 | Outpatient (REF) | payer OTHER, SELFPAY ==
[2023-09-28 13:43] LABS: Appearance Urine Cloudy; Color Urine Orange; Leukocyte Esterase Urine Trace (Negative); Specific Gravity - Urine 1.025 (1.005-1.025); UMIC TRIGGER UA YES; Urine Blood Negative (Negative); Urine Ketones Trace mg/dL (Negative)
[2023-09-28 14:05] LABS: Calcium Oxalate Crystals Urine Present; RBC Urine 0-2 /HPF (0-2); Squamous Epithelial Cell Urine >20 /HPF (0-2)
[2023-09-28 14:06] LABS: Bacteria Urine 2+ (None Seen)
== END 2023-09-28 11:28 | disposition home or self-care (01) ==
LOC: HO.LNP 11:27
PROVIDERS: Visit Provider Urology
DX: R30.0 Dysuria (principal); N32.89 Other specified disorders of bladder; R39.15 Urgency of urination; N32.81 Overactive bladder; R39.12 Poor urinary stream
CPT/HCPCS: 81001; 87086

== ENCOUNTER → 2023-10-11 08:29 | Outpatient (BNVA) | payer OTHER, SELFPAY | PROVIDERS: PCP Physician Assistant; Visit Provider Urology | DX: N30.10 Interstitial cystitis (chronic) without hematuria (principal); N32.81 Overactive bladder; N39.41 Urge incontinence | CPT/HCPCS: 51798 ==

== ENCOUNTER 2023-10-12 06:31 | Day surgery (SDC) | payer OTHER, SELFPAY ==
[2023-10-10 10:45] VITALS: BMI 33.7
--- NOTE | 2023-10-11 08:33 | MHC.SHP ---
Pre-Procedural Eval Section A - 24 Hr Update-Section A only Date of Service: 10/11/23 The patient is an INPATIENT: No Changes since office visit: No Cold of Flu in the past 2 weeks, No New Medical Problems, No Changes in Medication and No Patient answered all questions Section B - Complete if H&P > 30 days Chief Complaint: Calculus of bile duct without cholangitis Allergies: Allergies Allergy/AdvReac Type Severity Reaction Status Date / Time amoxicillin Allergy Intermediate Gastrointestinal Verified 10/10/23 10:42 Upset gentamicin [GENTAMICIN] Allergy Intermediate RASH Verified 10/10/23 10:42 ibuprofen [IBUPROFEN] Allergy Intermediate IRRITATION Verified 10/10/23 10:42 OF STOMACH Sulfa (Sulfonamide Allergy Intermediate hives Verified 10/10/23 10:42 Antibiotics) sulfamethoxazole Allergy Intermediate Rash Verified 10/10/23 10:42 [From Bactrim] trimethoprim [From Bactrim] Allergy Intermediate Rash Verified 10/10/23 10:42 sertraline [From Zoloft] AdvReac Mild Urinary Verified 09/11/23 09:09 frequency anxiety meds ending in pram Allergy Mild cystitis Uncoded 10/10/23 10:42 Plan I have reviewed the history and physical and performed a pertinent physical examination on my patient. No changes have occurred unless specified. Time Spent With Patient Time: Total time managing care of this patient today ____ minutes.
--- NOTE | 2023-10-11 11:50 | HO.ANESPROP2 ---
Documented by User: Nel Yoon NP 10/11/23 11:52 HPI - Anesthesia Eval Consult details Narrative: 57yo F for Cholecystectomy Laparoscopic,possible open, PMFSH Active Problems Active Problems: All Active Problems Recurrent biliary colic (Acute) Ear infection (Acute) Need for MMR vaccine (Acute) COPD with asthma (Acute) Pneumonia (Acute) COVID-19 (Acute) Post-menopausal (Acute) Hospital discharge follow-up (Acute) Elevated liver enzymes (Acute) Poor historian (Acute) Left shoulder pain (Acute) Cervical myopathy (Acute) Hemorrhoids (Acute) Low back pain (Acute) Vaginal discharge (Acute) Well woman exam (Acute) Overactive bladder (Acute) Conjunctivitis (Acute) Weak urinary stream (Acute) Productive cough (Acute) Dyspnea on exertion (Acute) Hypothyroid (Acute) Tinea unguium (Acute) Allergic conjunctivitis (Acute) Bladder spasm (Acute) Acute cystitis (Acute) Smoker (Acute) COPD (chronic obstructive pulmonary disease) (Acute) Vitamin deficiency (Acute) Near sighted (Acute) ADORE (generalized anxiety disorder) (Acute) MDD (major depressive disorder) (Acute) Encounter for screening colonoscopy (Acute) Screening for hypothyroidism (Acute) Screening for hypercholesterolemia (Acute) Screening for diabetes mellitus (DM) (Acute) Allergic rhinitis (Acute) Vaginitis (Acute) Insomnia (Acute) Interstitial cystitis (Acute) Urgency of urination (Acute) Constipation (Acute) Diarrhea (Acute) Moderate asthma (Acute) GERD (gastroesophageal reflux disease) (Acute) Dysuria (Acute) Urge incontinence (Acute) Thyroid activity decreased (Acute) Past Medical History Medical History COVID-19 Interstitial cystitis Arthritis Vitamin D deficiency Bipolar disorder Anxiety and depression GERD (gastroesophageal reflux disease) Asthma Dysplasia of cervix, low grade (KELLIE 1) Dysuria Urge incontinence High cholesterol Thyroid activity decreased Urinary retention Smoker Family History Family History Father COPD (chronic obstructive pulmonary disease) Lung cancer Mother Breast cancer Cardiac pacemaker Son Hyperthyroidism Mental health disorder Maternal Grandmother Depression Mental health disorder Son Depression Family history of problems with anesthesia: No Surgical History Surgical History H/O LEEP History of cystoscopy History of neck surgery History of Problems with Anesthesia: No Social History Social History Household Members: Family, Children and Other Household Members Other:: son, mother Housing: Apartment Do you presently have visiting nurse or other home services: No Alcohol intake: former Patient Tobacco Use Status: Current everyday Tobacco user Tobacco use type: Cigarette Cigarette Packs Per Day: 0.5 Cigarettes Per Day: 10.0 Years Smoked: 40 e-Cigarette/Vaping Use: Never Used Second Hand Smoke Exposure: Yes Current occupational status: disabled Cognitive needs: No Hearing needs: No Vision needs: No Meds Allergies Allergy/AdvReac Type Severity Reaction Status Date / Time amoxicillin Allergy Intermediate Gastrointestinal Verified 10/10/23 10:42 Upset gentamicin [GENTAMICIN] Allergy Intermediate RASH Verified 10/10/23 10:42 ibuprofen [IBUPROFEN] Allergy Intermediate IRRITATION Verified 10/10/23 10:42 OF STOMACH Sulfa (Sulfonamide Allergy Intermediate hives Verified 10/10/23 10:42 Antibiotics) sulfamethoxazole Allergy Intermediate Rash Verified 10/10/23 10:42 [From Bactrim] trimethoprim [From Bactrim] Allergy Intermediate Rash Verified 10/10/23 10:42 sertraline [From Zoloft] AdvReac Mild Urinary Verified 09/11/23 09:09 frequency anxiety meds ending in pram Allergy Mild cystitis Uncoded 10/10/23 10:42 Home Medications ?Medication ?Instructions ?Recorded ?Confirmed ?Last Taken ?Type budesonide-formoterol HFA 160 2 puff inhalation BID 07/01/23 10/10/23 09/25/23 History mcg-4.5 mcg/actuation aerosol inhaler (Symbicort) Exam Height,Weight and Vital Signs: Height 5 ft 2.5 in Weight 84.822 kg Pertinent Lab Results Pertinent Lab Results: Laboratory Tests 08/30/23 19:31 WBC 6.8 Hgb 15.7 Hct 45.7 Plt Count 144 L Sodium 139 Potassium 3.8 Chloride 107 Carbon Dioxide 22 BUN 11 Creatinine 0.82 Assessment and Plan Assessment Anesthesia Assessment: Chart Reviewed Final Anesthetic Review Family History of Problems with Anesthesia: No History of Problems with Anesthesia: No Documented by User: Leann Walker MD 10/12/23 10:12 HPI - Anesthesia Eval Consult details Narrative: 57yo F for Laparoscopic Cholecystectomy,possible open PMFSH Past Medical History Medical History COVID-19 Interstitial cystitis Arthritis Vitamin D deficiency Bipolar disorder Anxiety and depression GERD (gastroesophageal reflux disease) Asthma Dysplasia of cervix, low grade (KELLIE 1) Dysuria Urge incontinence High cholesterol Thyroid activity decreased Urinary retention Smoker Family History Family History Father COPD (chronic obstructive pulmonary disease) Lung cancer Mother Breast cancer Cardiac pacemaker Son Hyperthyroidism Mental health disorder Maternal Grandmother Depression Mental health disorder Son Depression Family history of problems with anesthesia: No Surgical History Surgical History H/O LEEP History of cystoscopy History of neck surgery History of Problems with Anesthesia: No Social History Social History Household Members: Family, Children and Other Household Members Other:: son, mother Housing: Apartment Do you presently have visiting nurse or other home services: No Alcohol intake: former Patient Tobacco Use Status: Current everyday Tobacco user Tobacco use type: Cigarette Cigarette Packs Per Day: 0.5 Cigarettes Per Day: 10.0 Years Smoked: 40 e-Cigarette/Vaping Use: Never Used Second Hand Smoke Exposure: Yes Current occupational status: disabled Cognitive needs: No Hearing needs: No Vision needs: No Meds Allergies Allergy/AdvReac Type Severity Reaction Status Date / Time amoxicillin Allergy Intermediate Gastrointestinal Verified 10/10/23 10:42 Upset gentamicin [GENTAMICIN] Allergy Intermediate RASH Verified 10/10/23 10:42 ibuprofen [IBUPROFEN] Allergy Intermediate IRRITATION Verified 10/10/23 10:42 OF STOMACH Sulfa (Sulfonamide Allergy Intermediate hives Verified 10/10/23 10:42 Antibiotics) sulfamethoxazole Allergy Intermediate Rash Verified 10/10/23 10:42 [From Bactrim] trimethoprim [From Bactrim] Allergy Intermediate Rash Verified 10/10/23 10:42 sertraline [From Zoloft] AdvReac Mild Urinary Verified 09/11/23 09:09 frequency anxiety meds ending in pram Allergy Mild cystitis Uncoded 10/10/23 10:42 Home Medications ?Medication ?Instructions ?Recorded ?Confirmed ?Last Taken ?Type budesonide-formoterol HFA 160 2 puff inhalation BID 07/01/23 10/10/23 09/25/23 History mcg-4.5 mcg/actuation aerosol inhaler (Symbicort) Exam Height,Weight and Vital Signs: Height 5 ft 2.5 in Weight 84.822 kg Vital Signs Temp Pulse Resp BP Pulse Ox O2 Del Method 10/12/23 07:36 97.9 F 92 16 113/62 94 Room Air Airway Mallampati Class: III (Short chin. Small mouth. Overbite) TM Dist: <=3cm Neck ROM: Full Loose/Missing/Broken Teeth: No (Denies broken, loose, missing teeth.Cap top front) Heart: RRR Lungs: CTAB Assessment and Plan Assessment Anesthesia Assessment: Anesthesia Plan Discussed and Chart Reviewed Final Anesthetic Review Family History of Problems with Anesthesia: No History of Problems with Anesthesia: No NPO: Yes ASA Class: III Final Preanesthetic Review: No Changes in Pt Med Stat, Meds/Allgs Chart Reviewed, Consent Obtained/Reviewed and Anes Risks/Benef Reviewed Patient Risk: Intermediate Procedure Risk: Intermediate Assessment/Block/Sedation in SS: Assess/Block/Sedation- Anesthetic Plan Anesthetic Plan: GA Disposition: Standard PACU
[2023-10-12] VITALS (11 sets, daily range): BP systolic 110–122; BP diastolic 62–78; PULSE 69–92; RESP 16–18; TEMP 36.1–36.6; O2SAT 91–96; BMI 34.2
[2023-10-12] MEDS: Lactated Ringers 1,000 ML 100 ML IVCONT (07:58)
--- NOTE | 2023-10-12 10:00 | P.OP_ITS ---
Operative Note Operative Note Date of Service: 10/12/23 Narrative: Preoperative diagnosis: All ports removed under direct laparoscopic view. Wounds were closed in the following manner; Symptomatic gallbladder Postop diagnosis: Symptomatic gallbladder Procedure; Laparoscopic cholecystectomy Surgeon; Juan Surveyor Chain Helper: [] Pearl Type of Anesthesia: [] General Indication for surgery: [] Symptomatic gallbladder. Moderately corpulent abdomen. Omental adhesions to the gallbladder. Findings: [] Patient brought to the operating room, placed on operative table in supine position, after adequate level of general anesthesia was induced, the patient's abdomen was prepped and draped in usual sterile fashion. Using a supraumbilical curvilinear incision, Kevin technique was used to insufflate the abdominal cavity to 15 mm of CO2.N ext upper midline and right subcostal ports were placed under direct laparoscopic view, and the patient placed in reverse Trendelenburg position, and tilted to the left. Gallbladder was grasped using laparoscopic graspers, and retracted superiorly and laterally. Omental adhesions were swept off the gallbladder with the hilum was approached. Common bile duct was identified and preserved throughout the procedure. Cystic artery and cystic duct were each identified, circumferentially skeletonized each traced directly into the gallbladder, and critical view obtained. Each was clipped proximally x2, distally x1, and transected. Gallbladder which was moderately intrahepatic was then cauterized from the gallbladder fossa using Bovie. Specimen was placed in an Endo-Catch bag, a retrieved through the umbilical port. Abdominal cavity was copiously irrigated, secured hemostasis. All ports removed under direct laparoscopic view. Wounds were closed in the following manner; umbilical wound has fascia reapproximated using interrupted 0 Vicryl sutures. Skin wounds were closed using subcuticular 4-0 Vicryl sutures followed by Steri-Strips and sterile dressings. Wounds were infiltrated 0.5% Marcaine at completion. Sponge, needle, and instrument counts were reported correct. Patient tolerated the procedure well and emerged from anesthesia stable condition. EBL minimal
[2023-10-12] MEDS: Acetaminophen 1,000 MG/100 ML PIGGYBACK 400 MG IV (11:09)
== END 2023-10-12 12:50 | disposition home or self-care (01) ==
PROVIDERS: PCP Physician Assistant; Visit Provider Surgery
PROC: 0FT44ZZ Resection of Gallbladder, Percutaneous Endoscopic Approach (ICD-10-PCS; CPT 47562; principal; 2023-10-12 09:00)
DX: K80.10 Calculus of gallbladder with chronic cholecystitis without obstruction (principal); K82.8 Other specified diseases of gallbladder; Q44.1 Other congenital malformations of gallbladder; K21.9 Gastro-esophageal reflux disease without esophagitis; E78.00 Pure hypercholesterolemia, unspecified; F41.8 Other specified anxiety disorders; J45.909 Unspecified asthma, uncomplicated; Z88.1 Allergy status to other antibiotic agents; Z88.2 Allergy status to sulfonamides; Z88.8 Allergy status to other drugs, medicaments and biological substances; F17.210 Nicotine dependence, cigarettes, uncomplicated
CPT/HCPCS: 47562; 88304; J0131; J0736; J1100; J1596; J1885; J2250; J2405; J2704; J2795; J3010; Q9967

== ENCOUNTER → 2023-10-12 06:31 | Outpatient (BNV) | payer OTHER, SELFPAY | PROVIDERS: PCP Physician Assistant; Visit Provider Surgery | DX: K80.50 Calculus of bile duct without cholangitis or cholecystitis without obstruction (principal) | CPT/HCPCS: 47562 ==

== ENCOUNTER 2023-10-23 10:24 | Outpatient (AMB) | payer OTHER, SELFPAY ==
--- NOTE | 2023-10-23 10:37 | A.OFFVIS_ITS ---
Intake Visit Reasons: S/P lap flora Intake Note: Patient here s/p lap flora. Reports incisions healing well. Patient c/o: pain when taking a deep breath, tenderness. SX: 10-12-23. [employer] Required: No Accompanied by: Self / Same As Patient Allergies amoxicillin Allergy (Intermediate, Verified 10/23/23 10:38) Gastrointestinal Upset gentamicin [GENTAMICIN] Allergy (Intermediate, Verified 10/23/23 10:38) RASH ibuprofen [IBUPROFEN] Allergy (Intermediate, Verified 10/23/23 10:38) IRRITATION OF STOMACH Sulfa (Sulfonamide Antibiotics) Allergy (Intermediate, Verified 10/23/23 10:38) hives sulfamethoxazole [From Bactrim] Allergy (Intermediate, Verified 10/23/23 10:38) Rash trimethoprim [From Bactrim] Allergy (Intermediate, Verified 10/23/23 10:38) Rash sertraline [From Zoloft] Adverse Reaction (Mild, Verified 10/23/23 10:38) Urinary frequency anxiety meds ending in pram Allergy (Mild, Uncoded 10/23/23 10:38) cystitis HPI Comments Details: Patient status post laparoscopic cholecystectomy. She has had some constipation issues which are moderately improved with Dulcolax. She is also having issues with the thyroid which he has had in the past. She is contact her medical doctor regarding this and workup is still pending. PFSH Medical History COVID-19 Interstitial cystitis Arthritis Vitamin D deficiency Bipolar disorder Anxiety and depression GERD (gastroesophageal reflux disease) Asthma Dysplasia of cervix, low grade (KELLIE 1) Dysuria Urge incontinence High cholesterol Thyroid activity decreased Urinary retention Smoker Surgical History (Updated 10/23/23 @ 10:54 by Bernard Martinez MD) History of laparoscopic cholecystectomy (10/12/23) H/O LEEP History of cystoscopy History of neck surgery Family History Father COPD (chronic obstructive pulmonary disease) Lung cancer Mother Breast cancer Cardiac pacemaker Son Hyperthyroidism Mental health disorder Maternal Grandmother Depression Mental health disorder Son Depression Social History Household Members: Family, Children and Other Household Members Other:: son, mother Housing: Apartment Do you presently have visiting nurse or other home services: No Alcohol intake: former Patient Tobacco Use Status: Current everyday Tobacco user Tobacco use type: Cigarette Cigarette Packs Per Day: 0.5 Cigarettes Per Day: 10.0 Years Smoked: 40 e-Cigarette/Vaping Use: Never Used Second Hand Smoke Exposure: Yes Current occupational status: disabled Cognitive needs: No Hearing needs: No Vision needs: No Physical Exam Eyes Other: Anicteric GI Other: Abdomen is soft, benign. All wounds clean dry and intact Assessment & Plan Assessment & Plan (1) Status post laparoscopic cholecystectomy: Code(s): Z90.49 - Acquired absence of other specified parts of digestive tract Category: Surgical (2) Postop check: Code(s): Z09 - Encounter for follow-up examination after completed treatment for conditions other than malignant neoplasm Category: Surgical Plan From a surgical perspective, patient is doing well. Recommendations for her constipation were made including stool softeners in the form of Metamucil, Citrucel, eating more roughage, drinking more water, raised and brain etc.. All questions answered. Patient will otherwise follow-up with me p.r.n.. We will also make arrangements for the patient to be seen in the Endocrine Clinic regarding her hypothyroid issues Coding Level of Care Code Global (76482) Diagnoses Status post laparoscopic cholecystectomy Z90.49 Postop check Z09
== END 2023-10-23 10:54 | disposition home or self-care (01) ==
PROVIDERS: PCP Physician Assistant; Visit Provider Surgery
DX: Z90.49 Acquired absence of other specified parts of digestive tract (principal); Z09 Encounter for follow-up examination after completed treatment for conditions other than malignant neoplasm
CPT/HCPCS: 99024

== ENCOUNTER → 2023-10-23 10:24 | Outpatient (BNVA) | payer OTHER, SELFPAY | PROVIDERS: PCP Physician Assistant; Visit Provider Surgery | DX: Z09 Encounter for follow-up examination after completed treatment for conditions other than malignant neoplasm (principal); N32.81 Overactive bladder; N32.89 Other specified disorders of bladder; Z90.49 Acquired absence of other specified parts of digestive tract | CPT/HCPCS: 99212 ==

== ENCOUNTER 2023-10-23 10:41 | Outpatient (AMB) | payer OTHER, SELFPAY ==
--- NOTE | 2023-10-23 10:41 | MHC.OFFVIS ---
Intake Visit Reasons: Hydrodistention- follow up Intake Note: Patient is Present for Telephone Follow Up IC Issues Urology Med: Estradiol, Tamsulosin Antibiotic Allergy: Sulfa, Amoxicillin, Bactrim, Trimethroprim Blood Thinner: none Allergies amoxicillin Allergy (Intermediate, Verified 10/25/23 08:29) Gastrointestinal Upset gentamicin [GENTAMICIN] Allergy (Intermediate, Verified 10/25/23 08:29) RASH ibuprofen [IBUPROFEN] Allergy (Intermediate, Verified 10/25/23 08:29) IRRITATION OF STOMACH Sulfa (Sulfonamide Antibiotics) Allergy (Intermediate, Verified 10/25/23 08:29) hives sulfamethoxazole [From Bactrim] Allergy (Intermediate, Verified 10/25/23 08:29) Rash trimethoprim [From Bactrim] Allergy (Intermediate, Verified 10/25/23 08:29) Rash sertraline [From Zoloft] Adverse Reaction (Mild, Verified 10/25/23 08:29) Urinary frequency anxiety meds ending in pram Allergy (Mild, Uncoded 10/25/23 08:29) cystitis HPI Comments Details: She will is a pleasant female. She is a patient of Dr. Miller. She is seen for the following urologic conditions - urinary urgency and frequency - possible interstitial cystitis Telemedicine Evaluation 15 min Consultation Yik Yak Gilberto Video attempted Recently had gallbladder removed Still with urgency and frequency Discussed repeating Botox At this point did suggest trial of InterStim She would like to proceed Overactive bladder Previously managed with a number of medications Current medications Elmiron Failed Ditropan XL 15 mg b.i.d., Myrbetriq, tolterodine 4 mg Persistent urinary urgency with urge incontinence despite medications Prior hydrodistention for possible investigation of interstitial cystitis Exacerbating factors smoking Botox - 10/16, 06/19 Interstitial cystitis Multiple prior hydro distentions Had terminal hematuria with diffuse glomerulations volume 300 PFSH Medical History COVID-19 Interstitial cystitis Arthritis Vitamin D deficiency Bipolar disorder Anxiety and depression GERD (gastroesophageal reflux disease) Asthma Dysplasia of cervix, low grade (KELLIE 1) Dysuria Urge incontinence High cholesterol Thyroid activity decreased Urinary retention Smoker Surgical History History of laparoscopic cholecystectomy (10/12/23) H/O LEEP History of cystoscopy History of neck surgery Family History Father COPD (chronic obstructive pulmonary disease) Lung cancer Mother Breast cancer Cardiac pacemaker Son Hyperthyroidism Mental health disorder Maternal Grandmother Depression Mental health disorder Son Depression Social History Household Members: Family, Children and Other Household Members Other:: son, mother Housing: Apartment Do you presently have visiting nurse or other home services: No Alcohol intake: former Patient Tobacco Use Status: Current everyday Tobacco user Tobacco use type: Cigarette Cigarette Packs Per Day: 0.5 Cigarettes Per Day: 10.0 Years Smoked: 40 e-Cigarette/Vaping Use: Never Used Second Hand Smoke Exposure: Yes Current occupational status: disabled Cognitive needs: No Hearing needs: No Vision needs: No Review of Systems Const All systems reviewed & are unremarkable except as noted in HPI and below Reports no additional complaints Resp Reports no additional complaints GI Reports no additional complaints Reports as per HPI Musc Reports no additional complaints Physical Exam Telemedicine evaluation Appropriate responses Regular breathing rate and rhythm HEENT Head: Yes normal to inspection Ears: hearing grossly normal bilaterally Eyes General: appearance normal, both eyes and all related structures Neck Neck: Yes normal visual inspection Chest Chest palpation & inspection: normal inspection of the chest Resp Effort & Inspection: normal respiratory effort and able to speak in complete sentences Telehealth Telehealth Location of provider rendering services: practice address Location of patient: address on file Patient Identification confirmed using: Name, : Yes Telehealth method: voice only Patient verbally consented to treatment: Yes Patient verbally consented to billing insurance company: Yes Patient informed of any privacy concerns related to visit: Yes Assessment & Plan Assessment & Plan (1) Overactive bladder: Code(s): N32.81 - Overactive bladder Category: Medical (2) Bladder spasm: Code(s): N32.89 - Other specified disorders of bladder Category: Medical Plan Risks, benefits and alternatives to therapy were discussed. These include but are not limited to infection, bleeding, damage to local organs and tissues, need for further interventions. Anesthetic risks regarding cardiac arrhythmia, blood clots, and potential mortality were discussed. The patient understands the typical recovery time and the outpatient nature of the procedure. After consideration of these risks the patient gives full informed consent and they wish to move ahead with the procedure. Trial InterStim Medications: Discontinued levothyroxine Discontinued Reason: Doctor's Order 150 mcg PO DAILY 30 days 90 tabs 1RF E03.9 - Hypothyroidism, unspecified Patient Instructions: Imaging studies, laboratory and physical exam results were discussed and reviewed in detail. No major barriers to patient understanding were identified. An opportunity to ask questions regarding the treatment plan was provided. All questions were answered. The patient expressed understanding and agreement with the above treatment plan. The patient is aware they should contact our office by phone for worsening of their current condition or the appearance of new urologic symptoms. Compliance is encouraged with any medications and followup testing that is ordered. It is a privilege to participate in the urologic care of your patient. If you have any questions or concerns regarding treatment for the above conditions, or other urologic issues, please do not hesitate to contact me. The office telephone contact is [phone]. This note is constructed using voice recognition software. While every effort has been made to ensure accuracy bail bonding agent errors may have been included. Yours sincerely, Dr Rock Linton MD, [facility] - Urology Providers of Expert, Compassionate Care for the Genitourinary System Coding Level of Care Code Tele Est Pt Level 4 (72390) Diagnoses Overactive bladder N32.81 Bladder spasm N32.89
== END 2023-10-23 12:02 | disposition home or self-care (01) ==
LOC: HO.HUSH 10:41
PROVIDERS: PCP Physician Assistant; Visit Provider Urology
DX: N32.81 Overactive bladder (principal); N32.89 Other specified disorders of bladder
CPT/HCPCS: 99214

== ENCOUNTER 2023-10-25 08:07 | Emergency (ER) | payer OTHER, SELFPAY ==
--- NOTE | ~2023-10-25 | CT_ITS ---
EXAMINATION: CT ANGIOGRAM OF THE CHEST WITH AND WITHOUT CONTRAST (CT PULMONARY ANGIOGRAM FOR PE) CLINICAL INFORMATION: Reason for Exam dyspnea, recent surgery, elevated ddimer COMPARISON: Chest radiograph 10/25/2023 TECHNIQUE: Prior to contrast administration, noncontrast localization images were obtained. Subsequently, multidetector volumetric imaging was performed from the thoracic inlet to below the diaphragms following the administration of 65 mL Omnipaque 350 intravenous contrast. No contrast reaction reported Sagittal, coronal, and MIP oblique sagittal reformatted images were obtained on the CT workstation, uploaded to PACS, and reviewed. This CT examination was performed using dose optimization techniques as appropriate, variously including the following: *Automated exposure control *Adjustment of mA and/or kV according to patient size (this includes techniques or standardized protocols for targeted exams where dose is matched to indication/reason for exam; i.e. extremities or head) *Use of iterative reconstruction technique Total exam dose-length product 315 mGy-cm FINDINGS: QUALITY OF STUDY/CONTRAST BOLUS: Satisfactory. PULMONARY ARTERIES: No pulmonary emboli. THORACIC AORTA: No aneurysm. LUNG: No focal consolidation, nodules or masses. PLEURA: No pleural effusion or pneumothorax. MEDIASTINUM: Normal heart size. No pericardial effusion. No hilar or mediastinal lymphadenopathy. No evidence of septal bowing or right heart strain. CORONARY ARTERY CALCIFICATION: Minimal CHEST WALL/AXILLA: Unremarkable OSSEOUS STRUCTURES: Minor spondylitic change throughout the thoracic spine. Sternum intact. UPPER ABDOMEN: Unremarkable. Minor reflux of contrast into the hepatic veins likely due to the contrast injection rather than right ventricular dysfunction. CT/CT angio chest PE protocol IMPRESSION: Unremarkable exam. No evidence for acute PE. VTE: negative.
--- NOTE | ~2023-10-25 | XR_ITS ---
EXAMINATION: XR CHEST CLINICAL INFORMATION: Cough. Dyspnea. COMPARISON: None available. TECHNIQUE: Frontal view of the chest was obtained. FINDINGS: Lungs grossly clear. Heart and pulmonary vessels are normal. XR/XR chest 1V IMPRESSION: No active disease.
[2023-10-25 08:20] VITALS: BP 142/86; BP 200/104; PULSE 83; PULSE 92; RESP 16; TEMP 36.6; O2SAT 94; BMI 33.3
--- NOTE | 2023-10-25 08:37 | ECG_ITS ---
Test Reason : hypertensive Blood Pressure : / mmHG Vent. Rate : 060 BPM Atrial Rate : 060 BPM P-R Int : 158 ms QRS Dur : 084 ms QT Int : 424 ms P-R-T Axes : 042 051 038 degrees QTc Int : 424 ms Normal sinus rhythm Normal ECG No previous ECGs available Referred By: Bibi Almanzar Electronically Signed By:WILLIE KING
--- NOTE | 2023-10-25 08:39 | ED_ITS ---
HPI - General Adult General Chief complaint: General Medical Stated complaint: WOKE UP NOT FEELING WELL,BP 200/104,GB SURG 10/12 Time Seen by Provider: 10/25/23 08:13 Source: patient and old records reviewed Mode of arrival: ambulatory Limitations: no limitations History of Present Illness ED Provider: ALPA VERA narrative: 57 yo female with PMH of COPD with asthma, overactive bladder, hypothyroidism, GERD, asthma, s/p lap flora on 10/12 notes since then she has not felt great has had cough, dyspnea but no chest pain, then felt jittery and thought her oxycodone was interacting with her thyroid medications so she decreased her med from 150 to 125mcg over the weekend. She feels weak and dizzy all the time at rest and exertion worsened by movements. No GIB symptoms. She has not had fever. She is able to eat and drink. She states she is just not right since surgery. She checked her BP and it was 200 systolic does not have hx of HTN MD complaint: dyspnea, dizziness, fatigue Onset (ago): day(s) (4) Location: chest and abdomen Radiation: non-radiation Severity: mild Quality: other Relieving factors: none Exacerbating factors: movement Associated symptoms: other (dizziness, fatigue, cough, dyspnea) Treatments prior to arrival: none Related Data Home Medications ?Medication ?Instructions ?Recorded ?Confirmed budesonide-formoterol HFA 160 2 puff inhalation BID 07/01/23 10/23/23 mcg-4.5 mcg/actuation aerosol inhaler (Symbicort) Previous Rx's ?Medication ?Instructions ?Recorded estradiol 0.01% (0.1 mg/gram) See Rx Instructions .Route 3XW 30 03/20/23 vaginal cream days #42.5 grams calcium carbonate (Calcium 500) 500 mg PO DAILY 30 days #30 tabs 05/23/23 cholecalciferol (vitamin D3) 25 25 mcg PO DAILY #30 caps 05/23/23 mcg (1,000 unit) tablet docusate sodium 100 mg capsule 200 mg (2 x 100 mg) PO BEDTIME #60 06/13/23 caps dextromethorphan-guaifenesin 10 10 ml PO TID #237 mL 07/02/23 mg-100 mg/5 mL oral syrup nicotine 21 mg/24 hr daily 21 mg transdermal DAILY #28 ea 07/02/23 transdermal patch ipratropium 0.5 mg-albuterol 3 mg 3 ml inhalation Q6-8H PRN wheezing 07/24/23 (2.5 mg base)/3 mL nebulization 30 days #180 mL soln ascorbic acid (vitamin C) 500 mg 500 mg PO DAILY #90 tabs 07/26/23 tablet (Vitamin C) polyethylene glycol 3350 17 17 g PO DAILY #510 grams 07/30/23 gram/dose oral powder fluticasone propionate 50 1 spray intranasal BID 30 days 08/07/23 mcg/actuation nasal #9.9 mL spray,suspension (Flonase Allergy Relief) tamsulosin 0.4 mg capsule 0.4 mg PO BID 90 days #180 caps 08/13/23 albuterol sulfate 90 mcg/actuation 2 puff inhalation Q6H PRN 08/20/23 aerosol inhaler shortness of breath or wheezing 30 days #8.5 grams loperamide 2 mg capsule 2 mg PO Q8H PRN loose stool 30 09/04/23 days #90 caps phenazopyridine 200 mg tablet 200 mg PO Q8H PRN Urinary burning, 09/25/23 (Pyridium) pressure #30 tabs dicyclomine 20 mg tablet 20 mg PO TID 30 days #90 tabs 09/27/23 nitrofurantoin 100 mg PO BID 5 days #10 caps 09/28/23 monohydrate/macrocrystals 100 mg capsule (Macrobid) hydrocodone 5 mg-acetaminophen 325 1 tab PO Q4-6H PRN pain #30 tabs 10/12/23 mg tablet simvastatin 40 mg tablet 40 mg PO BEDTIME #90 caps 10/14/23 bisacodyl 5 mg tablet,delayed 5 mg PO BID PRN constipation #4 10/16/23 release (Dulcolax (bisacodyl)) tabs levothyroxine 125 mcg tablet 125 mcg PO DAILY 30 days #30 tabs 10/23/23 Allergies Allergy/AdvReac Type Severity Reaction Status Date / Time amoxicillin Allergy Intermediate Gastrointestinal Verified 10/25/23 08:29 Upset gentamicin [GENTAMICIN] Allergy Intermediate RASH Verified 10/25/23 08:29 ibuprofen [IBUPROFEN] Allergy Intermediate IRRITATION Verified 10/25/23 08:29 OF STOMACH Sulfa (Sulfonamide Allergy Intermediate hives Verified 10/25/23 08:29 Antibiotics) sulfamethoxazole Allergy Intermediate Rash Verified 10/25/23 08:29 [From Bactrim] trimethoprim [From Bactrim] Allergy Intermediate Rash Verified 10/25/23 08:29 sertraline [From Zoloft] AdvReac Mild Urinary Verified 10/25/23 08:29 frequency anxiety meds ending in pram Allergy Mild cystitis Uncoded 10/25/23 08:29 Review of Systems 2 Review of Systems: Constitutional : No Fever, No Chills, pos Fatigue ENT/Mouth : No sore throat, No Rhinorrhea Eyes: No Eye Pain, No Swelling, No Redness Cardiovascular : No Chest Pain, No SOB, pos Dyspnea on Exertion Respiratory : pos Cough, No Sputum Gastrointestinal : No Nausea, No Vomiting, No Diarrhea, No abdominal Pain Genitourinary : No Dysuria, No Urinary Frequency, No Hematuria, Musculoskeletal : No joint pain, No Myalgias, No Joint Swelling Skin : No Skin Lesions, No rash Neuro : No Weakness, No Numbness, pos Dizziness, no Headache Psych : pos Anxiety/Panic, No Depression Heme/Lymph: No Bruising, No Bleeding,No Lymphadenopathy Endocrine : No Polyuria, No Polydipsia All other systems reviewed and are negative PMFSH Past Medical History Attestation statement: The following information was validated with the patient. Source: old records reviewed Medical History COVID-19 Interstitial cystitis Arthritis Vitamin D deficiency Bipolar disorder Anxiety and depression GERD (gastroesophageal reflux disease) Asthma Dysplasia of cervix, low grade (KELLIE 1) Dysuria Urge incontinence High cholesterol Thyroid activity decreased Urinary retention Smoker Surgical History History of laparoscopic cholecystectomy (10/12/23) H/O LEEP History of cystoscopy History of neck surgery Family History Family History Father COPD (chronic obstructive pulmonary disease) Lung cancer Mother Breast cancer Cardiac pacemaker Son Hyperthyroidism Mental health disorder Maternal Grandmother Depression Mental health disorder Son Depression Social History Social History Household Members: Family, Children and Other Household Members Other:: son, mother Housing: Apartment Do you presently have visiting nurse or other home services: No Alcohol intake: former Patient Tobacco Use Status: Current everyday Tobacco user Tobacco use type: Cigarette Cigarette Packs Per Day: 0.5 Cigarettes Per Day: 10.0 Years Smoked: 40 e-Cigarette/Vaping Use: Never Used Second Hand Smoke Exposure: Yes Advance Directives: No Advance Directives Information Provided: Yes Current occupational status: disabled Cognitive needs: No Hearing needs: No Vision needs: No Physical Exam ED Vital Signs: Vital Signs - 24 hr 10/25/23 08:20 10/25/23 14:00 Temperature 97.9 F 98.4 F Pulse Rate 83 64 Respiratory Rate 16 18 Blood Pressure 142/86 H 133/68 Pulse Oximetry 94 97 Oxygen Delivery Method Room Air Room Air BMI result Body Mass Index 33.3 Appearance: Alert. Oriented X3. No acute distress. Eyes: Pupils equal, round and reactive to light. no nystagmus ENT: Pharynx normal. Neck: Normal inspection. Neck supple. CVS: Normal heart rate and rhythm. Pulses normal. Respiratory: No respiratory distress. Breath sounds normal. Abdomen: Soft and nontender. incisions c/d/i Skin: Skin warm and dry. Normal skin color. Normal skin turgor. Extremities: No lower extremity edema. No calf ttp Neuro: Oriented X 3. No motor deficit. No sensory deficit. no drift Course Course Course Narrative: BP normal while in ED up and walking no distress steady gait no ataxia if negative CTA can go home Medications Administered Discontinued Medications Generic Name Dose Route Start Last Admin Trade Name Orestesq PRN Reason Stop Dose Admin Lactated Ringer's 1,000 mls @ 999 mls/hr 10/25/23 08:38 10/25/23 10:30 Lr IV 10/25/23 09:38 Infused .Q1H1M ONE Infusion Iohexol 100 ml 10/25/23 14:00 10/25/23 14:00 Iohexol 350 Mg/Ml 100 Ml Infus..Btl IV 10/25/23 14:01 65 ml ONCE ONE Administration Medical Decision Making Medical Decision Making MDM Narrative: 57 yo female with PMH of COPD with asthma, overactive bladder, hypothyroidism, GERD, asthma, s/p lap flora on 10/12 here with c/o not feeling well, malaise, jittery reported HTN at home with no hx but here BP down to 118 on my exam, dyspnea, fatigue, cough, malaise at this time labs, CXR, EKG, IVF ordered, TSH levels. Differential Diagnosis Differential Diagnoses: The differential diagnosis associated with the presentation includes anemia, dehydration, anemia, lower suspicion of VTE, anxiety Admission/Observation Consideration of admission/observation: Escalation of care including admission/observation considered TSH low but T4 with normal range, H/H normal LFTs normal Lab Data MDM Lab Attestation statement: I reviewed the patient's lab results. 10/25/23 09:05 10/25/23 09:05 Labs: Lab Results 10/25/23 Range/Units 09:05 WBC 5.8 (4.8-10.8) X10*3/uL RBC 4.66 (4.20-5.50) X10*6/uL Hgb 15.0 (12.0-16.0) g/dl Hct 42.5 (37.0-47.0) % MCV 91.2 (80.0-98.0) fL MCH 32.2 (27.0-33.0) pg MCHC 35.3 H (31.0-35.0) g/dl RDW 12.5 (11.0-16.0) % Plt Count 174 (160-400) X10*3/uL MPV 10.8 (9.4-12.3) fL Immature Gran % (Auto) 0.3 (0.0-0.4) % Neut % (Auto) 41.0 L (45-73) % Lymph % (Auto) 50.2 H (20-40) % Robertson % (Auto) 6.0 (2-11) % Eos % (Auto) 2.2 (0-4) % Baso % (Auto) 0.3 (0-2) % Lymph # (Auto) 2.9 (1.2-4.9) X10*3/uL Robertson # (Auto) 0.4 (0.1-1.2) X10*3/uL Eos # (Auto) 0.1 (0.0-0.4) X10*3/uL Baso # (Auto) 0.0 (0.0-0.2) X10*3/uL Abs Immat Gran (auto) 0.02 (0.00-0.03) X10*3/uL Absolute Neuts (auto) 2.4 (2.0-8.3) x10*3/uL Absolute Nucleated RBC 0.000 (0.0-0.012) X10*3/uL Nucleated RBC % (auto) 0.0 (0.0-0.2) /100WBC PT 12.1 (11.1-13.3) SEC INR 1.0 (0.9-1.1) D-Dimer High Sensitivty 373 NG/ML Sodium 139 (135-145) mmol/L Potassium 3.6 (3.3-5.1) mmol/L Chloride 109 H (96-108) mmol/L Carbon Dioxide 21 L (22-29) mmol/L Anion Gap 13 (12-20) BUN 10 (9-16) mg/dL Creatinine 0.78 (0.5-1.4) mg/dL Estim Creat Clear Calc 80.2 Estimated GFR > 60 Random Glucose 135 H (60-115) mg/dL Calcium 9.1 D (8.4-10.2) mg/dL Magnesium 1.8 (1.6-2.6) mg/dL Total Bilirubin 0.4 (0.0-1.0) mg/dL Direct Bilirubin 0.2 (0.0-0.5) mg/dL AST 24 (5-31) U/L ALT 30 (0-31) U/L Alkaline Phosphatase 104 (39-117) U/L Troponin I High Sens < 2.7 D (<3.5-17.0) ng/L B-Natriuretic Peptide < 10 (<100) pg/mL Total Protein 6.9 (6.5-8.0) g/dL Albumin 4.0 (3.5-5.0) g/dL Lipase 21 (8-78) U/L TSH 0.01 L (0.32-4.0) uIU/mL Free T4 1.63 (0.71-1.85) ng/dL Influenza Type A (PCR) NEGATIVE (Negative) Influenza Type B (PCR) NEGATIVE (Negative) RSV RNA Qual (PCR) NEGATIVE (Negative) SARS-CoV-2 RNA (RT-PCR) NEGATIVE (Negative) Independent Interpretation I performed an independent interpretation of an: EKG, Plain X-Ray (normal ) and CT Scan (no PE seen) Interpretation: Rate: 60 Rhythm: NSR Hammett: normal Normal P waves. Normal JIM. Normal QRS complex. ST T wave : normal no JULI qTC: 424 prior studies: no acute ischemia The study has been interpreted contemporaneously by me. . Radiology Impression Discussion of test interpretation with radiology: I have reviewed the radiologist's reading. External Record Review External record reviewed: Inpatient record Discharge Plan Discharge Clinical Impression: Dizziness, Acute dyspnea Patient Disposition: Home, Self-Care Instructions: Dizziness (ED), Dyspnea (ED) Additional Instructions: blood counts stable, liver enzymes normal, normal EKG, chest xray and your T4 was normal I would repeat thyroid test next week with your doctor as there can be a delay given your recent med changes no blood clot in lungs stay hydrated eat well and rest return for any worsening symptoms or concerns no blood clot in lungs Prescriptions: No Action calcium carbonate [Calcium 500] 500 mg calcium (1,250 mg) tablet,chewable 500 mg PO DAILY 30 Days Qty: 30 6RF cholecalciferol (vitamin D3) 25 mcg (1,000 unit) tablet 25 mcg PO DAILY Qty: 30 6RF docusate sodium 100 mg capsule 200 mg PO BEDTIME Qty: 60 5RF ipratropium-albuterol 0.5 mg-3 mg(2.5 mg base)/3 mL solution for nebulization 3 ml inhalation Q6-8H PRN (Reason: wheezing) 30 Days Qty: 180 2RF ascorbic acid (vitamin C) [Vitamin C] 500 mg tablet 500 mg PO DAILY Qty: 90 0RF polyethylene glycol 3350 17 gram/dose powder 17 g PO DAILY Qty: 510 6RF fluticasone propionate [Flonase Allergy Relief] 50 mcg/actuation spray,suspension 1 spray intranasal BID 30 Days Qty: 9.9 5RF Rx Instructions: administer into each nostril tamsulosin 0.4 mg capsule 0.4 mg PO BID 90 Days Qty: 180 1RF albuterol sulfate 90 mcg/actuation HFA aerosol inhaler 2 puff inhalation Q6H PRN (Reason: shortness of breath or wheezing) 30 Days Qty: 8.5 6RF loperamide 2 mg capsule 2 mg PO Q8H PRN (Reason: loose stool) 30 Days Qty: 90 2RF dicyclomine 20 mg tablet 20 mg PO TID 30 Days Qty: 90 2RF nitrofurantoin monohyd/m-cryst [Macrobid] 100 mg capsule 100 mg PO BID 5 Days Qty: 10 0RF Rx Instructions: must administer with a meal/food simvastatin 40 mg tablet 40 mg PO BEDTIME Qty: 90 2RF bisacodyl [Dulcolax (bisacodyl)] 5 mg tablet,delayed release (DR/EC) 5 mg PO BID PRN (Reason: constipation) Qty: 4 0RF levothyroxine 125 mcg tablet 125 mcg PO DAILY 30 Days Qty: 30 2RF budesonide-formoterol [Symbicort] 160-4.5 mcg/actuation HFA aerosol inhaler 2 puff INHALATION BID nicotine 21 mg/24 hr Patch 24 Hour 21 mg transdermal DAILY Qty: 28 0RF dextromethorphan-guaifenesin 10-100 mg/5 mL Syrup 10 ml PO TID Qty: 237 0RF Rx Instructions: Use scheduled for 5 days and then as needed phenazopyridine [Pyridium] 200 mg tablet 200 mg PO Q8H PRN (Reason: Urinary burning, pressure) Qty: 30 0RF Rx Instructions: Take with food hydrocodone-acetaminophen 5-325 mg tablet 1 tab PO Q4-6H PRN (Reason: pain) Qty: 30 0RF Rx Instructions: Partial Fill upon patient request. estradiol 0.01 % (0.1 mg/gram) cream See Rx Instructions .Route 3XW 30 Days Qty: 42.5 2RF Rx Instructions: pea-sized to urethra 3 times a week Print Language: Malaysian
[2023-10-25] MEDS: Lactated Ringers 1,000 ML 999 ML IV (09:04)
[2023-10-25 09:12] LABS: Basophils Percent Auto 0.3 % (0-2); Eosinophils Absolute Auto 0.1 X10*3/uL (0.0-0.4); Eosinophils Percent Auto 2.2 % (0-4); Hematocrit 42.5 % (37.0-47.0); Imm Gran Abs Auto 0.02 X10*3/uL (0.00-0.03); Imm Gran Pct Auto 0.3 % (0.0-0.4); Lymphocytes Absolute Auto 2.9 X10*3/uL (1.2-4.9); Lymphocytes Percent Auto 50.2 % (20-40); MANUAL DIFF FLAG NO; Mean Corpuscular HGB Conc 35.3 g/dl (31.0-35.0); Mean Corpuscular Hemoglobin 32.2 pg (27.0-33.0); Mean Corpuscular Volume 91.2 fL (80.0-98.0); Mean Platelet Volume 10.8 fL (9.4-12.3); Monocytes Absolute Auto 0.4 X10*3/uL (0.1-1.2); Neutrophils Absolute Auto 2.4 x10*3/uL (2.0-8.3); Platelet Count 174 X10*3/uL (160-400); Red Blood Count 4.66 X10*6/uL (4.20-5.50); Red Cell Distribution Width 12.5 % (11.0-16.0); White Blood Count 5.8 X10*3/uL (4.8-10.8)
[2023-10-25 09:17] LABS: Prothrombin Time 12.1 SEC (11.1-13.3)
[2023-10-25 09:31] LABS: Alanine Aminotransferase 30 U/L (0-31); Alkaline Phosphatase 104 U/L (39-117); Anion Gap 13 (12-20); Aspartate Amino Transferase 24 U/L (5-31); Bilirubin Direct 0.2 mg/dL (0.0-0.5); Bilirubin Total 0.4 mg/dL (0.0-1.0); Blood Urea Nitrogen 10 mg/dL (9-16); Calcium 9.1 mg/dL (8.4-10.2); Carbon Dioxide 21 mmol/L (22-29); Chloride 109 mmol/L (96-108); Creatinine Clr Calc Pharmacy 80.2; Estimated Glomerular Filt Rate > 60; Glucose Random 135 mg/dL (60-115); Lipase 21 U/L (8-78); Magnesium 1.8 mg/dL (1.6-2.6); Potassium 3.6 mmol/L (3.3-5.1); Sodium 139 mmol/L (135-145); Total Protein 6.9 g/dL (6.5-8.0)
[2023-10-25 09:36] LABS: B Type Natriuretic Peptide < 10 pg/mL (<100)
[2023-10-25 09:39] LABS: Troponin-I High Sensitivity < 2.7 ng/L (<3.5-17.0)
[2023-10-25 09:49] LABS: Influenza A PCR NEGATIVE (Negative); Influenza B PCR NEGATIVE (Negative); Resp Syncy Virus RNA Qual PCR NEGATIVE (Negative); SARS COV2 PCR INHOUSE NEGATIVE (Negative)
[2023-10-25 09:52] LABS: TSH reflex Free T4 0.01 uIU/mL (0.32-4.0)
[2023-10-25 10:26] LABS: Free T4 (Free Thyroxine) 1.63 ng/dL (0.71-1.85)
[2023-10-25 11:21] LABS: D Dimer High Sensitivity 373 NG/ML
[2023-10-25 14:00] VITALS: BP 133/68; PULSE 64; RESP 18; TEMP 36.9; O2SAT 97
[2023-10-25] MEDS: iohexoL 350 MG/ML 100 ML INFUS..BTL IV (14:00)
[2023-10-25 17:02] VITALS: BP 130/55; PULSE 70; RESP 18; TEMP 36.7; O2SAT 95
[2023-10-25 17:07] VITALS: BP 130/53; PULSE 70; RESP 18; TEMP 36.7; O2SAT 95
== END 2023-10-25 17:09 | disposition home or self-care (01) ==
PROVIDERS: Emergency Medicine; Emergency Provider Emergency Medicine; PCP Physician Assistant
DX: R06.00 Dyspnea, unspecified (principal); R42 Dizziness and giddiness; J44.9 Chronic obstructive pulmonary disease, unspecified; Z90.49 Acquired absence of other specified parts of digestive tract
CPT/HCPCS: 0241U; 36415; 71045; 71275; 80048; 80076; 83690; 83735; 83880; 84439; 84443; 84484; 85025; 85379; 85610; 93005; 96360; 99284; J7120; Q9967

== ENCOUNTER → 2023-10-25 08:37 | Outpatient (BNV) | payer OTHER, SELFPAY | PROVIDERS: Emergency Provider Emergency Medicine; PCP Physician Assistant; Visit Provider Internal Medicine | DX: I10 Essential (primary) hypertension (principal) | CPT/HCPCS: 93010 ==

== ENCOUNTER 2023-11-20 08:24 | Outpatient (REF) | payer OTHER, SELFPAY | END 2023-11-20 08:25 | disposition home or self-care (01) | LOC: HO.10HDL 08:24 | PROVIDERS: Visit Provider Physician Assistant | DX: E03.9 Hypothyroidism, unspecified (principal) | CPT/HCPCS: 36415; 84439; 84443 ==

== ENCOUNTER 2023-12-18 09:32 | Outpatient (REF) | payer OTHER, SELFPAY ==
[2023-12-18 11:11] LABS: TSH reflex Free T4 0.59 uIU/mL (0.32-4.0)
[2023-12-18 11:18] LABS: TSH reflex Free T4 0.59 uIU/mL (0.32-4.0)
== END 2023-12-18 09:33 | disposition home or self-care (01) ==
LOC: HO.LAB 09:32
PROVIDERS: PCP Physician Assistant; Visit Provider Physician Assistant
DX: E03.9 Hypothyroidism, unspecified (principal)
CPT/HCPCS: 36415; 84443

== ENCOUNTER 2024-03-11 08:25 | Outpatient (REF) | payer OTHER, SELFPAY ==
[2024-03-11 11:39] LABS: TSH reflex Free T4 2.34 uIU/mL (0.32-4.0)
== END 2024-03-11 08:26 | disposition home or self-care (01) ==
LOC: HO.10HDL 08:25
PROVIDERS: Visit Provider Physician Assistant
DX: E03.9 Hypothyroidism, unspecified (principal); N32.81 Overactive bladder
CPT/HCPCS: 36415; 51798; 81003; 84443; 99212

== ENCOUNTER 2024-03-11 08:30 | Outpatient (AMB) | payer OTHER, SELFPAY ==
--- NOTE | 2024-03-11 08:34 | MHC.OFFVIS ---
Intake Visit Reasons: PVR Follow Up Intake Note: Patient is Present for PVR F/U Urology Med: Estradiol, Tamsulosin Antibiotic Allergy: Sulfa, Amoxicillin, Bactrim, Trimethroprim, GENTAMICIN Blood Thinner: none TODAY'S PVR: 0ML'S Advertising Teacher Required: No Allergies amoxicillin Allergy (Intermediate, Verified 03/11/24 08:37) Gastrointestinal Upset gentamicin [GENTAMICIN] Allergy (Intermediate, Verified 03/11/24 08:37) RASH ibuprofen [IBUPROFEN] Allergy (Intermediate, Verified 03/11/24 08:37) IRRITATION OF STOMACH Sulfa (Sulfonamide Antibiotics) Allergy (Intermediate, Verified 03/11/24 08:37) hives sulfamethoxazole [From Bactrim] Allergy (Intermediate, Verified 03/11/24 08:37) Rash trimethoprim [From Bactrim] Allergy (Intermediate, Verified 03/11/24 08:37) Rash sertraline [From Zoloft] Adverse Reaction (Mild, Verified 03/11/24 08:37) Urinary frequency anxiety meds ending in pram Allergy (Mild, Uncoded 03/11/24 08:37) cystitis HPI Comments Details: She will is a pleasant female. She is a patient of Dr. Miller. She is seen for the following urologic conditions - urinary urgency and frequency - possible interstitial cystitis Six-month follow-up PVR 0 Currently on tamsulosin Is having urgency Has tried to change her diet with recent gallbladder removal Is doing better with more vegetables Will trial H2 blockers Overactive bladder Previously managed with a number of medications Current medications Elmiron Failed Ditropan XL 15 mg b.i.d., Myrbetriq, tolterodine 4 mg Persistent urinary urgency with urge incontinence despite medications Prior hydrodistention for possible investigation of interstitial cystitis Exacerbating factors smoking Botox - 10/16, 06/19 Interstitial cystitis Multiple prior hydro distentions Had terminal hematuria with diffuse glomerulations volume 300 PFSH Medical History COVID-19 Interstitial cystitis Arthritis Vitamin D deficiency Bipolar disorder Anxiety and depression GERD (gastroesophageal reflux disease) Asthma Dysplasia of cervix, low grade (KELLIE 1) Dysuria Urge incontinence High cholesterol Thyroid activity decreased Urinary retention Smoker Surgical History History of laparoscopic cholecystectomy (10/12/23) H/O LEEP History of cystoscopy History of neck surgery Family History Father COPD (chronic obstructive pulmonary disease) Lung cancer Mother Breast cancer Cardiac pacemaker Son Hyperthyroidism Mental health disorder Maternal Grandmother Depression Mental health disorder Son Depression Social History Household Members: Family, Children and Other Household Members Other:: son, mother Housing: Apartment Do you presently have visiting nurse or other home services: No Alcohol intake: former Patient Tobacco Use Status: Current everyday Tobacco user Tobacco use type: Cigarette Cigarette Packs Per Day: 0.5 Cigarettes Per Day: 10.0 Years Smoked: 40 e-Cigarette/Vaping Use: Never Used Second Hand Smoke Exposure: Yes Current occupational status: disabled Cognitive needs: No Hearing needs: No Vision needs: No Review of Systems Const Denies chills and Denies fever(s) Card Reports no additional complaints and Denies syncope Resp Denies cough GI Denies abdominal pain and Denies heartburn Reports as per HPI and Denies change in libido Neuro Denies syncope Psych Denies change in libido Endo Denies change in libido Physical Exam Const General: cooperative, healthy appearing, comfortable and no acute distress Orientation/consciousness: patient oriented x3 HEENT Face and sinus: Yes normal facial exam Mouth: moist mucous membranes Neck Neck: Yes normal visual inspection, Yes full ROM and Yes trachea midline Chest Chest palpation & inspection: normal inspection of the chest Resp Effort & Inspection: normal respiratory effort, able to speak in complete sentences and no respiratory distress GI Inspection: Yes normal to inspection Back/Spine/Pelvis Cervical Spine: normal cervical lordosis Thoracic/Lumbar Spine: thoracic and lumbar spine normal to inspection Skin General skin exam: no rashes or lesions noted Neuro General: patient oriented x3, gait normal, tone normal and moves all extremities Extrem General: Yes normal to inspection and Yes capillary refill normal Office Procedures Post Void Residual Post Residual Void Post Void Residual (PVR): 0 [id number] Void Residual by ultrasound Results AMB Urinalysis, Automated UA Leukoctes 15 Ricardo/uL Last Edit by ANUJ Thomas on 03/11/24 08:48 UA Nitrite Negative Last Edit by ANUJ Thomas on 03/11/24 08:48 UA Urobilinogen 0.2 mg/dL Last Edit by ANUJ Thomas on 03/11/24 08:48 UA Protein 15 mg/dL Last Edit by ANUJ Thomas on 03/11/24 08:48 UA pH 6.0 Last Edit by ANUJ Thomas on 03/11/24 08:48 UA Blood 0 Guru/uL Last Edit by ANUJ Thomas on 03/11/24 08:48 UA Specific [place] 1.025 Last Edit by ANUJ Thomas on 03/11/24 08:48 UA Ketone Positive Last Edit by ANUJ Thomas on 03/11/24 08:48 UA Bilirubin 1 mg/dL Last Edit by ANUJ Thomas on 03/11/24 08:48 UA Glucose 0 mg/dL Last Edit by ANUJ Thomas on 03/11/24 08:48 Results Reviewed Results Reviewed: Laboratory Last Values Urine pH (Auto) 6.0 03/11/24 08:47 Specific [place] (Auto) 1.025 03/11/24 08:47 Urine Protein (Auto) 15 mg/dL 03/11/24 08:47 Glucose (UA)(Auto) 0 mg/dL 03/11/24 08:47 Urine Ketones (Auto) Positive 03/11/24 08:47 Urine Blood (Auto) 0 Guru/uL 03/11/24 08:47 Urine Nitrite (Auto) Negative 03/11/24 08:47 Urine Bilirubin (Auto) 1 mg/dL 03/11/24 08:47 Urine Urobilinogen (Auto) 0.2 mg/dL 03/11/24 08:47 Leukocyte Esterase (Auto) 15 Ricardo/uL 03/11/24 08:47 Assessment & Plan Assessment & Plan (1) Overactive bladder: Code(s): N32.81 - Overactive bladder Category: Medical Plan Trial H 2 marva Orders: Orders AMB Urinalysis Automated Today Z13.9 - Encounter for screening, unspecified Medications: New famotidine 20 mg PO BID 90 days 180 tabs 1RF N32.81 - Overactive bladder Patient Instructions: Imaging studies, laboratory and physical exam results were discussed and reviewed in detail. No major barriers to patient understanding were identified. An opportunity to ask questions regarding the treatment plan was provided. All questions were answered. The patient expressed understanding and agreement with the above treatment plan. The patient is aware they should contact our office by phone for worsening of their current condition or the appearance of new urologic symptoms. Compliance is encouraged with any medications and followup testing that is ordered. It is a privilege to participate in the urologic care of your patient. If you have any questions or concerns regarding treatment for the above conditions, or other urologic issues, please do not hesitate to contact me. The office telephone contact is [phone]. This note is constructed using voice recognition software. While every effort has been made to ensure accuracy operations supervisor chemical cleaning errors may have been included. Yours sincerely, Dr Rock Linton MD, [facility] - Urology Providers of Expert, Compassionate Care for the Genitourinary System Coding Level of Care Code Est Pt Level 4 (86762) Diagnoses Overactive bladder N32.81 CPT Codes Post Residual Void - PVR CPT Code: 99821-Fbqf Void Residual by ultrasound ([id number])
== END 2024-03-11 09:11 | disposition home or self-care (01) ==
PROVIDERS: PCP Physician Assistant; Visit Provider Urology
DX: N32.81 Overactive bladder (principal); Z13.9 Encounter for screening, unspecified
CPT/HCPCS: 99214

== ENCOUNTER 2024-03-14 22:26 | Emergency (ER) | payer OTHER, SELFPAY ==
--- NOTE | ~2024-03-14 | CT_ITS ---
EXAMINATION: CT ABDOMEN AND PELVIS WITHOUT CONTRAST CLINICAL INFORMATION: Right flank pain. COMPARISON: 08/30/2023 TECHNIQUE: Multidetector volumetric imaging was performed from the superior aspect of the liver through the pubic symphysis. Sagittal and coronal reformatted images were obtained on the technologist's workstation. This CT examination was performed using dose optimization techniques as appropriate, variously including the following: *Automated exposure control *Adjustment of mA and/or kV according to patient size (this includes techniques or standardized protocols for targeted exams where dose is matched to indication/reason for exam; i.e. extremities or head) *Use of iterative reconstruction technique DLP: 607 mGy-cm FINDINGS: LUNG BASES: The visualized lung bases are unremarkable. LIVER, GALLBLADDER, AND BILIARY TREE: There is subtle nodularity to the hepatic contour without appreciable focal lesions on this unenhanced study. Gallbladder is surgically absent. PANCREAS: Unremarkable. SPLEEN: Unremarkable. ADRENAL GLANDS: Unremarkable. KIDNEYS AND URETERS: The kidneys are normal in size, shape, and attenuation. No hydronephrosis, hydroureter, or calculi seen. No perinephric stranding. BLADDER: Unremarkable. GASTROINTESTINAL TRACT: Stomach, small bowel, and colon are normal in caliber. No bowel wall thickening or surrounding inflammatory changes. Appendix is normal. No intraperitoneal free fluid or free air. Moderate volume stool in the colon. ABDOMINAL WALL: No significant hernia is appreciated. LYMPH NODES: Normal. VASCULAR: Unremarkable. PELVIC VISCERA: Unremarkable. OSSEOUS STRUCTURES: Mild degenerative disease in the thoracic lumbar spine. There is mild facet arthropathy in the lumbar spine. Mild osteoarthritis in the hips. No acute osseous findings. CT/CT abdomen pelvis wo IV con IMPRESSION: 1. No acute intra-abdominal or intrapelvic abnormalities. No nephrolithiasis or hydronephrosis. 2. Subtle nodularity to the hepatic contour, raising the possibility of cirrhosis. Fleischner guidelines were followed. Electronically signed by: Terell Zamora MD 03/15/2024 12:45 AM EDT
[2024-03-14 22:35] VITALS: BP 180/92; PULSE 84; O2SAT 93
[2024-03-14 22:37] VITALS: BP 139/61; PULSE 74; RESP 18; TEMP 36.9; O2SAT 98; BMI 35.2
[2024-03-14] MEDS: Ketorolac Tromethamine 30 MG/ML VIAL IVPUSH (23:16)
[2024-03-14 23:22] LABS: MANUAL DIFF FLAG NO
[2024-03-14 23:29] LABS: Basophils Percent Auto 0.2 % (0-2); Eosinophils Absolute Auto 0.1 X10*3/uL (0.0-0.4); Eosinophils Percent Auto 0.9 % (0-4); Hematocrit 38.6 % (37.0-47.0); Hemoglobin 13.7 g/dl (12.0-16.0); Imm Gran Abs Auto 0.01 X10*3/uL (0.00-0.03); Imm Gran Pct Auto 0.2 % (0.0-0.4); Lymphocytes Percent Auto 44.5 % (20-40); Mean Corpuscular HGB Conc 35.5 g/dl (31.0-35.0); Mean Corpuscular Hemoglobin 32.9 pg (27.0-33.0); Mean Corpuscular Volume 92.6 fL (80.0-98.0); Mean Platelet Volume 12.7 fL (9.4-12.3); Monocytes Absolute Auto 0.4 X10*3/uL (0.1-1.2); Monocytes Percent Auto 5.6 % (2-11); Neutrophils Absolute Auto 3.2 x10*3/uL (2.0-8.3); Neutrophils Percent Auto 48.6 % (45-73); Platelet Count 146 X10*3/uL (160-400); Red Blood Count 4.17 X10*6/uL (4.20-5.50); Red Cell Distribution Width 12.4 % (11.0-16.0); White Blood Count 6.7 X10*3/uL (4.8-10.8)
[2024-03-14 23:38] LABS: Alanine Aminotransferase 25 U/L (0-31); Anion Gap 14 (12-20); Bilirubin Total 0.5 mg/dL (0.0-1.0); Blood Urea Nitrogen 16 mg/dL (9-16); Calcium 9.2 mg/dL (8.4-10.2); Carbon Dioxide 23 mmol/L (22-29); Chloride 108 mmol/L (96-108); Creatinine Clr Calc Pharmacy 67.7; Estimated Glomerular Filt Rate > 60; Glucose Random 126 mg/dL (60-115); Lipase 22 U/L (8-78); Potassium 3.9 mmol/L (3.3-5.1); Sodium 141 mmol/L (135-145); Total Protein 6.6 g/dL (6.5-8.0)
[2024-03-14 23:39] VITALS: BP 132/53; PULSE 64; RESP 16; TEMP 36.9; O2SAT 96
--- NOTE | 2024-03-14 23:42 | ED.GENADULT ---
HPI - General Adult General Chief complaint: Abdominal Pain Stated complaint: R flank pain Time Seen by Provider: 03/14/24 22:39 Source: patient, RN notes reviewed and old records reviewed Mode of arrival: EMS Limitations: no limitations History of Present Illness ED Provider: Agatha HPI narrative: 58-year-old female presents for evaluation of right flank pain. Patient reports 3 days of worsening pain. She states the pain radiates around to her right lower abdomen as well as to her lower back Her pain is worse with movement At worst her pain is 10/10. She denies any specific injuries, falls Denies any fevers, chills. She reports increased urination She reports that her urine is sometimes foul-smelling but denies any blood in the urine She denies any known history of kidney stones. She reports that she is status post cholecystectomy Related Data Previous Rx's ?Medication ?Instructions ?Recorded calcium carbonate (Calcium 500) 500 mg PO DAILY 30 days #30 tabs 05/23/23 cholecalciferol (vitamin D3) 25 25 mcg PO DAILY #30 caps 05/23/23 mcg (1,000 unit) tablet dextromethorphan-guaifenesin 10 10 ml PO TID #237 mL 07/02/23 mg-100 mg/5 mL oral syrup nicotine 21 mg/24 hr daily 21 mg transdermal DAILY #28 ea 07/02/23 transdermal patch albuterol sulfate 90 mcg/actuation 2 puff inhalation Q6H PRN 08/20/23 aerosol inhaler shortness of breath or wheezing 30 days #8.5 grams phenazopyridine 200 mg tablet 200 mg PO Q8H PRN Urinary burning, 09/25/23 (Pyridium) pressure #30 tabs nitrofurantoin 100 mg PO BID 5 days #10 caps 09/28/23 monohydrate/macrocrystals 100 mg capsule (Macrobid) hydrocodone 5 mg-acetaminophen 325 1 tab PO Q4-6H PRN pain #30 tabs 10/12/23 mg tablet simvastatin 40 mg tablet 40 mg PO BEDTIME #90 caps 10/14/23 bisacodyl 5 mg tablet,delayed 5 mg PO BID PRN constipation #4 10/16/23 release (Dulcolax (bisacodyl)) tabs docusate sodium 100 mg capsule 200 mg (2 x 100 mg) PO BEDTIME #60 10/30/23 caps dicyclomine 20 mg tablet 20 mg PO TID 30 days #90 tabs 12/26/23 loperamide 2 mg capsule 2 mg PO Q8H PRN loose stool 30 12/26/23 days #90 caps tamsulosin 0.4 mg capsule 0.4 mg PO BID 90 days #180 caps 01/30/24 ciprofloxacin HCl 500 mg tablet 500 mg PO BID #14 tabs 02/02/24 (Cipro) fluticasone propionate 50 1 spray intranasal BID 30 days 02/04/24 mcg/actuation nasal #9.9 mL spray,suspension (Flonase Allergy Relief) levothyroxine 100 mcg tablet 100 mcg PO DAILY 30 days #30 tabs 02/05/24 ascorbic acid (vitamin C) 500 mg 500 mg PO DAILY #90 tabs 02/12/24 tablet (Vitamin C) budesonide-formoterol HFA 160 2 puff inhalation BID #30.6 grams 02/21/24 mcg-4.5 mcg/actuation aerosol inhaler (Symbicort) ipratropium 0.5 mg-albuterol 3 mg 3 ml inhalation Q6-8H PRN wheezing 02/21/24 (2.5 mg base)/3 mL nebulization 30 days #180 mL soln polyethylene glycol 3350 17 17 g PO DAILY #510 grams 02/25/24 gram/dose oral powder famotidine 20 mg tablet 20 mg PO BID 90 days #180 tabs 03/11/24 cyclobenzaprine 10 mg tablet 10 mg PO TID PRN muscle spasm #20 03/15/24 tabs Allergies Allergy/AdvReac Type Severity Reaction Status Date / Time amoxicillin Allergy Intermediate Gastrointestinal Verified 03/14/24 22:39 Upset gentamicin [GENTAMICIN] Allergy Intermediate RASH Verified 03/14/24 22:39 ibuprofen [IBUPROFEN] Allergy Intermediate IRRITATION Verified 03/14/24 22:39 OF STOMACH Sulfa (Sulfonamide Allergy Intermediate hives Verified 03/14/24 22:39 Antibiotics) sulfamethoxazole Allergy Intermediate Rash Verified 03/14/24 22:39 [From Bactrim] trimethoprim [From Bactrim] Allergy Intermediate Rash Verified 03/14/24 22:39 sertraline [From Zoloft] AdvReac Mild Urinary Verified 03/14/24 22:39 frequency anxiety meds ending in pram Allergy Mild cystitis Uncoded 03/11/24 08:37 Review of Systems Constitutional: Constitutional: Denies body ache(s), Denies chills and Denies fever(s) Eyes: Eyes: Denies blurry vision Cardiovascular: Cardiovascular: Denies chest pain and Denies dyspnea Respiratory: Respiratory: Denies cough and Denies dyspnea Gastrointestinal: Gastrointestinal: Reports abdominal pain, Denies nausea and Denies vomiting Genitourinary: Genitourinary: Denies dysuria and Reports flank pain Musculoskeletal: Musculoskeletal: Reports back pain Integumentary/Breasts: Skin/Breast: Denies rash Psychiatric: Psychiatric: Denies anxiety [facility] Past Medical History Medical History COVID-19 Interstitial cystitis Arthritis Vitamin D deficiency Bipolar disorder Anxiety and depression GERD (gastroesophageal reflux disease) Asthma Dysplasia of cervix, low grade (KELLIE 1) Dysuria Urge incontinence High cholesterol Thyroid activity decreased Urinary retention Smoker Surgical History History of laparoscopic cholecystectomy (10/12/23) H/O LEEP History of cystoscopy History of neck surgery Family History Family History Father COPD (chronic obstructive pulmonary disease) Lung cancer Mother Breast cancer Cardiac pacemaker Son Hyperthyroidism Mental health disorder Maternal Grandmother Depression Mental health disorder Son Depression Social History Social History Household Members: Family, Children and Other Household Members Other:: son, mother Housing: Apartment Do you presently have visiting nurse or other home services: No Alcohol intake: former Patient Tobacco Use Status: Current everyday Tobacco user Tobacco use type: Cigarette Cigarette Packs Per Day: 0.5 Cigarettes Per Day: 10.0 Years Smoked: 40 Smoked in Last 30 Days: Yes e-Cigarette/Vaping Use: Never Used Second Hand Smoke Exposure: Yes Use of substances other than those prescribed or required for medical reasons: No Advance Directives: No Advance Directives Information Provided: Yes Do you have a plan to hurt others: No Plan Patient : No Current occupational status: disabled Cognitive needs: No Hearing needs: No Vision needs: No Physical Exam ED Vital Signs: Vital Signs - 24 hr 03/14/24 22:37 03/14/24 23:39 Temperature 98.5 F 98.4 F Pulse Rate 74 64 Respiratory Rate 18 16 Blood Pressure 139/61 132/53 L Pulse Oximetry 98 96 Oxygen Delivery Method Room Air Room Air BMI result Body Mass Index 35.2 Const General: healthy appearing, comfortable, no acute distress, alert and awake Nutritional Appearance: well nourished Orientation/consciousness: patient oriented x3 HENMT Head: Yes normocephalic and Yes atraumatic Eyes Eyelids: Yes eyelids normal Conjunctivae: conjunctivae normal Sclerae: sclerae normal Corneas: corneas normal Pupils: Equal, round and reactive pupils present EOM: EOMs intact bilaterally Neck Neck: Yes full ROM Resp Effort & Inspection: normal respiratory effort, able to speak in complete sentences and not labored Cardio Rate: regular rate Rhythm: regular rhythm GI Inspection: No distended Palpation (GI): Soft to palpation, not firm, Tenderness to palpation present (GI) in the RLQ, no guarding and not rigid Back/Spine/Pelvis Other: Tenderness to the right lumbar paraspinous region.. Straight leg raise positive on right Skin General skin exam: elasticity normal Neuro General: patient oriented x3 Cranial nerves: Yes Equal, round and reactive pupils present and Yes Bilaterally intact EOM present Cognition (Neuro): normal cognition Extrem Other: Moving all extremities well without any obvious deformities Medications Administered Discontinued Medications Generic Name Dose Route Start Last Admin Trade Name Freq PRN Reason Stop Dose Admin Ketorolac Tromethamine 30 mg 03/14/24 23:00 03/14/24 23:16 Ketorolac Tromethamine 30 Mg/Ml Vial IVPUSH 03/14/24 23:01 30 mg ONCE ONE Administration Medical Decision Making Medical Decision Making [facility] Narrative: 58-year-old female presents for evaluation of worsening right flank pain. Her pain radiates down to her right lower back as well as her right lower abdomen. Her pain is reproducible on exam, this raises suspicion for musculoskeletal origin of her pain. She states this feels unlike any pain she has felt in the past despite having a history of muscle spasms. She also endorses urinary frequency. We will get labs, urinalysis, dry CT scan of the abdomen pelvis to evaluate for obstructive uropathy. In the meantime we will treat the patient's pain with Toradol Differential Diagnosis Differential Diagnoses: The differential diagnosis associated with the presentation includes Muscle strain Sciatica Disc herniation Obstructive uropathy Pyelonephritis UTI Lab Data [facility] Lab Attestation statement: I reviewed the patient's lab results. No leukocytosis or anemia. The patient's platelet count has [id number]. No evidence of bleeding. Electrolytes are within normal limits. Renal function within normal limits. Random glucose elevated to 126 03/14/24 23:15 03/14/24 23:15 Labs: Lab Results 03/14/24 03/14/24 Range/Units 23:15 23:41 WBC 6.7 (4.8-10.8) X10*3/uL RBC 4.17 L (4.20-5.50) X10*6/uL Hgb 13.7 (12.0-16.0) g/dl Hct 38.6 (37.0-47.0) % MCV 92.6 (80.0-98.0) fL MCH 32.9 (27.0-33.0) pg MCHC 35.5 H (31.0-35.0) g/dl RDW 12.4 (11.0-16.0) % Plt Count 146 L (160-400) X10*3/uL MPV 12.7 H (9.4-12.3) fL Immature Gran % (Auto) 0.2 (0.0-0.4) % Neut % (Auto) 48.6 (45-73) % Lymph % (Auto) 44.5 H (20-40) % [place] % (Auto) 5.6 (2-11) % Eos % (Auto) 0.9 (0-4) % Baso % (Auto) 0.2 (0-2) % Lymph # (Auto) 3.0 (1.2-4.9) X10*3/uL [place] # (Auto) 0.4 (0.1-1.2) X10*3/uL Eos # (Auto) 0.1 (0.0-0.4) X10*3/uL Baso # (Auto) 0.0 (0.0-0.2) X10*3/uL Abs Immat Gran (auto) 0.01 (0.00-0.03) X10*3/uL Absolute Neuts (auto) 3.2 (2.0-8.3) x10*3/uL Absolute Nucleated RBC 0.000 (0.0-0.012) X10*3/uL Nucleated RBC % (auto) 0.0 (0.0-0.2) /100WBC Sodium 141 (135-145) mmol/L Potassium 3.9 (3.3-5.1) mmol/L Chloride 108 (96-108) mmol/L Carbon Dioxide 23 (22-29) mmol/L Anion Gap 14 (12-20) BUN 16 (9-16) mg/dL Creatinine 0.94 (0.5-1.4) mg/dL Estim Creat Clear Calc 67.7 Estimated GFR > 60 Random Glucose 126 H (60-115) mg/dL Calcium 9.2 (8.4-10.2) mg/dL Total Bilirubin 0.5 (0.0-1.0) mg/dL AST 24 (5-31) U/L ALT 25 (0-31) U/L Alkaline Phosphatase 84 (39-117) U/L Total Protein 6.6 (6.5-8.0) g/dL Albumin 4.0 (3.5-5.0) g/dL Lipase 22 (8-78) U/L Urine Color Dark Yellow Urine Appearance Clear Urine pH 7.0 (5.0-9.0) Ur Specific [place] 1.015 (1.005-1.025) Urine Protein Negative (Neg-Trace) mg/dL Urine Glucose (UA) Negative (Negative) mg/dL Urine Ketones Negative (Negative) mg/dL Urine Blood Negative (Negative) Urine Nitrite Positive H (Negative) Ur Leukocyte Esterase Trace H (Negative) Urine RBC 0-2 (0-2) /HPF Urine WBC 0-5 (0-5) /HPF Ur Squamous Epith Cells 3-5 (0-2) /HPF Urine Bacteria None Seen (None Seen) Hyaline Casts 0-2 (0-2) /LPF Independent Interpretation I performed an independent interpretation of an: CT Scan Interpretation: Agree with Radiology interpretation Radiology Impression Discussion of test interpretation with radiology: I have reviewed the radiologist's reading. Radiologist Impression: FINDINGS: LUNG BASES: The visualized lung bases are unremarkable. LIVER, GALLBLADDER, AND BILIARY TREE: There is subtle nodularity to the hepatic contour without appreciable focal lesions on this unenhanced study. Gallbladder is surgically absent. PANCREAS: Unremarkable. SPLEEN: Unremarkable. ADRENAL GLANDS: Unremarkable. KIDNEYS AND URETERS: The kidneys are normal in size, shape, and attenuation. No hydronephrosis, hydroureter, or calculi seen. No perinephric stranding. BLADDER: Unremarkable. GASTROINTESTINAL TRACT: Stomach, small bowel, and colon are normal in caliber. No bowel wall thickening or surrounding inflammatory changes. Appendix is normal. No intraperitoneal free fluid or free air. Moderate volume stool in the colon. ABDOMINAL WALL: No significant hernia is appreciated. LYMPH NODES: Normal. VASCULAR: Unremarkable. PELVIC VISCERA: Unremarkable. OSSEOUS STRUCTURES: Mild degenerative disease in the thoracic lumbar spine. There is mild facet arthropathy in the lumbar spine. Mild osteoarthritis in the hips. No acute osseous findings. CT/CT abdomen pelvis wo IV con IMPRESSION: 1. No acute intra-abdominal or intrapelvic abnormalities. No nephrolithiasis or hydronephrosis. 2. Subtle nodularity to the hepatic contour, raising the possibility of cirrhosis. Fleischner guidelines were followed. Discharge Plan Discharge Clinical Impression: Acute right-sided back pain Patient Disposition: Home, Self-Care Instructions: Acute Low Back Pain (ED) Additional Instructions: Your workup in the ER today was reassuring. This includes your blood work, urinalysis and your CT scan of the abdomen pelvis. There is no evidence to suggest that you may have a kidney stone Your pain is most likely musculoskeletal. You may use Tylenol as needed for pain. You may use cyclobenzaprine as needed for muscle spasms. This may make you drowsy, do not drink alcohol or drive after taking it Prescriptions: New cyclobenzaprine 10 mg tablet 10 mg PO TID PRN (Reason: muscle spasm) Qty: 20 0RF No Action calcium carbonate [Calcium 500] 500 mg calcium (1,250 mg) tablet,chewable 500 mg PO DAILY 30 Days Qty: 30 6RF cholecalciferol (vitamin D3) 25 mcg (1,000 unit) tablet 25 mcg PO DAILY Qty: 30 6RF albuterol sulfate 90 mcg/actuation HFA aerosol inhaler 2 puff inhalation Q6H PRN (Reason: shortness of breath or wheezing) 30 Days Qty: 8.5 6RF nitrofurantoin monohyd/m-cryst [Macrobid] 100 mg capsule 100 mg PO BID 5 Days Qty: 10 0RF Rx Instructions: must administer with a meal/food simvastatin 40 mg tablet 40 mg PO BEDTIME Qty: 90 2RF bisacodyl [Dulcolax (bisacodyl)] 5 mg tablet,delayed release (DR/EC) 5 mg PO BID PRN (Reason: constipation) Qty: 4 0RF docusate sodium 100 mg capsule 200 mg PO BEDTIME Qty: 60 5RF dicyclomine 20 mg tablet 20 mg PO TID 30 Days Qty: 90 2RF loperamide 2 mg capsule 2 mg PO Q8H PRN (Reason: loose stool) 30 Days Qty: 90 2RF tamsulosin 0.4 mg capsule 0.4 mg PO BID 90 Days Qty: 180 1RF ciprofloxacin HCl [Cipro] 500 mg tablet 500 mg PO BID Qty: 14 0RF fluticasone propionate [Flonase Allergy Relief] 50 mcg/actuation spray,suspension 1 spray intranasal BID 30 Days Qty: 9.9 5RF Rx Instructions: administer into each nostril levothyroxine 100 mcg tablet 100 mcg PO DAILY 30 Days Qty: 30 2RF ascorbic acid (vitamin C) [Vitamin C] 500 mg tablet 500 mg PO DAILY Qty: 90 0RF ipratropium-albuterol 0.5 mg-3 mg(2.5 mg base)/3 mL solution for nebulization 3 ml inhalation Q6-8H PRN (Reason: wheezing) 30 Days Qty: 180 2RF budesonide-formoterol [Symbicort] 160-4.5 mcg/actuation HFA aerosol inhaler 2 puff INHALATION BID Qty: 30.6 3RF polyethylene glycol 3350 17 gram/dose powder 17 g PO DAILY Qty: 510 6RF nicotine 21 mg/24 hr Patch 24 Hour 21 mg transdermal DAILY Qty: 28 0RF dextromethorphan-guaifenesin 10-100 mg/5 mL Syrup 10 ml PO TID Qty: 237 0RF Rx Instructions: Use scheduled for 5 days and then as needed phenazopyridine [Pyridium] 200 mg tablet 200 mg PO Q8H PRN (Reason: Urinary burning, pressure) Qty: 30 0RF Rx Instructions: Take with food hydrocodone-acetaminophen 5-325 mg tablet 1 tab PO Q4-6H PRN (Reason: pain) Qty: 30 0RF Rx Instructions: Partial Fill upon patient request. famotidine 20 mg tablet 20 mg PO BID 90 Days Qty: 180 1RF Print Language: Japanese
[2024-03-14 23:47] LABS: Appearance Urine Clear; Color Urine Dark Yellow; Glucose Urine UA Negative (Negative); Leukocyte Esterase Urine Trace (Negative); Nitrite Urine Positive (Negative); Specific Gravity - Urine 1.015 (1.005-1.025); UMIC TRIGGER UACC YES; Urine Blood Negative (Negative); Urine Ketones Negative (Negative); Urine Protein Negative (Neg-Trace)
[2024-03-14 23:55] LABS: Bacteria Urine None Seen (None Seen); Hyaline Casts Urine 0-2 /LPF (0-2); RBC Urine 0-2 /HPF (0-2); UACC Culture Trigger YES; WBC Urine 0-5 /HPF (0-5)
[2024-03-15 00:54] LABS: Alkaline Phosphatase 84 U/L (39-117); Aspartate Amino Transferase 24 U/L (5-31)
[2024-03-15 01:46] VITALS: BP 130/62; PULSE 55; RESP 20; TEMP 36.7; O2SAT 96
== END 2024-03-15 01:25 | disposition home or self-care (01) ==
PROVIDERS: Physician Assistant; Emergency Provider Emergency Medicine; PCP Physician Assistant
DX: N39.0 Urinary tract infection, site not specified (principal); M54.9 Dorsalgia, unspecified; R10.9 Unspecified abdominal pain; R30.0 Dysuria; R35.0 Frequency of micturition
CPT/HCPCS: 36415; 74176; 80053; 81001; 83690; 85025; 87086; 96374; 99284; J1885

== ENCOUNTER 2024-05-07 08:28 | Outpatient (AMB) | payer OTHER, SELFPAY ==
--- NOTE | 2024-05-07 08:50 | A.OFFVIS_ITS ---
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 Was treated last month for a UTI but thinks it did not clear up completely. Glassware Maker: Glassware Maker Present (Latrice) Accompanied by: Self / Same As Patient Allergies amoxicillin Allergy (Intermediate, Verified 05/07/24 08:57) Gastrointestinal Upset gentamicin [GENTAMICIN] Allergy (Intermediate, Verified 05/07/24 08:57) RASH ibuprofen [IBUPROFEN] Allergy (Intermediate, Verified 05/07/24 08:57) IRRITATION OF STOMACH Sulfa (Sulfonamide Antibiotics) Allergy (Intermediate, Verified 05/07/24 08:57) hives sulfamethoxazole [From Bactrim] Allergy (Intermediate, Verified 05/07/24 08:57) Rash trimethoprim [From Bactrim] Allergy (Intermediate, Verified 05/07/24 08:57) Rash sertraline [From Zoloft] Adverse Reaction (Mild, Verified 05/07/24 08:57) Urinary frequency anxiety meds ending in pram Allergy (Mild, Uncoded 03/11/24 08:37) cystitis HPI Comments Details: Presenting for annual exam. Complaining of burning urination frequency the patient has interstitial cystitis being followed up by Urology Last Pap/HPV was in 09/16 was negative Last Mammogram was many years ago No previous screening Colonoscopy PFSH Medical History KELLIE II (cervical intraepithelial neoplasia II) COVID-19 Interstitial cystitis Arthritis Vitamin D deficiency Bipolar disorder Anxiety and depression GERD (gastroesophageal reflux disease) Asthma Dysplasia of cervix, low grade (KELLIE 1) Dysuria Urge incontinence High cholesterol Thyroid activity decreased Urinary retention Smoker Surgical History History of laparoscopic cholecystectomy (10/12/23) H/O LEEP History of cystoscopy History of neck surgery Family History Father COPD (chronic obstructive pulmonary disease) Lung cancer Mother Breast cancer Cardiac pacemaker Son Hyperthyroidism Mental health disorder Maternal Grandmother Depression Mental health disorder Son Depression Social History Household Members: Family, Children and Other Household Members Other:: son, mother Housing: Apartment Do you presently have visiting nurse or other home services: No Alcohol intake: former Patient Tobacco Use Status: Current everyday Tobacco user Tobacco use type: Cigarette Cigarette Packs Per Day: 0.5 Cigarettes Per Day: 10.0 Years Smoked: 40 e-Cigarette/Vaping Use: Never Used Second Hand Smoke Exposure: Yes Current occupational status: disabled Cognitive needs: No Hearing needs: No Vision needs: No Female Reproductive History Menstrual Total pregnancies: 7 Full term: 4 Date of last pap smear: 09/20/21 (negative pap smear, negative hpv) Review of Systems Const All systems reviewed & are unremarkable except as noted in HPI and below Card Reports as per HPI Resp Reports as per HPI GI Reports as per HPI and Reports no additional complaints Reports as per HPI Physical Exam Const General: cooperative, healthy appearing and comfortable Chest Chest palpation & inspection: normal inspection of the chest and normal palpation of entire chest wall Breast/axilla inspection: normal inspection of the breasts and normal inspection of the axillae Breast/axilla palpation: normal palpation of the breasts, normal palpation of the axillae and no axillary lymphadenopathy Resp Effort & Inspection: normal respiratory effort Auscultation: clear to auscultation bilaterally Percussion: percussion normal Cardio Palpation: normal PMI Rate: regular rate Rhythm: regular rhythm Heart sounds: no murmurs and no rubs Peripheral pulses: Peripheral pulses 2+ throughout GI Inspection: Yes normal to inspection Palpation (GI): Soft to palpation, nontender, no guarding, not rigid and No hepatosplenomegaly present Percussion: Yes normal to percussion Auscultation: normal bowel sounds Rectal Exam - Female: deferred General: Yes bladder normal to palpation External Female Exam: No lesion Speculum Exam - Vagina: normal appearance of the vagina, normal palpation, normal vaginal discharge and not erythematous Speculum Exam - Cervix: normal appearance of the cervix and normal palpation Bimanual exam- vagina & uterus: normal bimanual exam, normal palpation, uterine size normal, bladder normal to palpation, consistency normal and normal palpation Bimanual Exam- Adnexa, other: normal adnexae, no masses and no tenderness Assessment & Plan Assessment & Plan (1) Well woman exam: Comment: History of KELLIE 2 in 2012 status post LEEP Code(s): Z01.419 - Encounter for gynecological examination (general) (routine) without abnormal findings Category: Medical Plan: Co testing not indicated this year. Counseled the patient about the recommended dietary allowance of 1200 mg of Calcium & 600 IU of vitamin D. Mammogram ordered. The patient was referred to GI for screening colonoscopy . The patient was instructed to perform monthly self-breast exams and schedule annual exam in a year. All questions answered and the patient verbalized understanding. (2) Urgency of urination: Code(s): R39.15 - Urgency of urination Category: Medical Plan: Urine dip was negative, will send urine for culture, the patient was instructed contact urology office for further management Orders: Orders MM tomosynthesis screening BI Today Z12.31 - Encounter for screening mammogram for malignant neoplasm of breast Referrals Gastroenterology Referral Z12.11 - Encounter for screening for malignant neoplasm of colon Coding Level of Care Code Est Pt Prev Care 40-64y(04438) Diagnoses Well woman exam Z01.419 Urgency of urination R39.15
[2024-05-07 09:00] VITALS: BP 128/74; BMI 33.1
== END 2024-05-07 09:16 | disposition home or self-care (01) ==
PROVIDERS: PCP Physician Assistant; Visit Provider Obstetrics & Gynecology
DX: Z01.419 Encounter for gynecological examination (general) (routine) without abnormal findings (principal); R39.15 Urgency of urination
CPT/HCPCS: 99396

== ENCOUNTER → 2024-05-07 08:28 | Outpatient (BNVA) | payer OTHER, SELFPAY | PROVIDERS: PCP Physician Assistant; Visit Provider Obstetrics & Gynecology | DX: Z01.419 Encounter for gynecological examination (general) (routine) without abnormal findings (principal); R39.15 Urgency of urination | CPT/HCPCS: 99396 ==

== ENCOUNTER 2024-05-14 08:25 | Outpatient (REF) | payer OTHER, SELFPAY | END 2024-05-14 08:26 | disposition home or self-care (01) | LOC: HO.10HDLNP 08:25 | PROVIDERS: Visit Provider Obstetrics & Gynecology | DX: R32 Unspecified urinary incontinence (principal) | CPT/HCPCS: 87086; 87147 ==

== ENCOUNTER 2024-07-22 08:28 | Outpatient (REF) | payer OTHER, SELFPAY ==
[2024-07-22 10:42] LABS: Appearance Urine Clear; Color Urine Yellow; Glucose Urine UA Negative (Negative); Leukocyte Esterase Urine Small (1+) (Negative); Nitrite Urine Negative (Negative); Specific Gravity - Urine 1.015 (1.005-1.025); UMIC TRIGGER UA YES; Urine Blood Negative (Negative); Urine Ketones Negative (Negative); Urine Protein Negative (Neg-Trace)
[2024-07-22 10:58] LABS: Bacteria Urine 1+ (None Seen); Hyaline Casts Urine 0-2 /LPF (0-2); RBC Urine 0-2 /HPF (0-2); WBC Urine 0-5 /HPF (0-5)
== END 2024-07-22 08:29 | disposition home or self-care (01) ==
LOC: HO.10HDLNP 08:28
PROVIDERS: Visit Provider Urology
DX: N39.0 Urinary tract infection, site not specified (principal); B95.1 Streptococcus, group B, as the cause of diseases classified elsewhere; N32.81 Overactive bladder
CPT/HCPCS: 81001; 87086; 87147

== ENCOUNTER 2024-08-20 20:12 | Emergency (ER) | payer OTHER, SELFPAY ==
--- NOTE | ~2024-08-20 | XR_ITS ---
CLINICAL HISTORY: pain 1 view abdomen Comparison: None Findings: No pneumoperitoneum or pneumatosis. No dilated loops of bowel or evidence for bowel obstruction. Minimal gas identified over the expected location of the rectum. Surgical clips are visualized over the right upper abdominal quadrant, possibly consistent with prior cholecystectomy. No acute fractures. IMPRESSION: 1. Nonobstructed bowel-gas pattern. This document has been electronically signed by: William Dominguez MD on 08/21/2024 00:12:50
[2024-08-20 20:33] VITALS: BP 117/41; BP 240/102; PULSE 100; PULSE 78; RESP 16; TEMP 36.8; O2SAT 96; O2SAT 99; BMI 33.8
[2024-08-20 22:00] VITALS: BP 100/51; PULSE 63; RESP 18; O2SAT 95
[2024-08-20 22:07] LABS: MANUAL DIFF FLAG NO
[2024-08-20 22:10] LABS: Basophils Percent Auto 0.3 % (0-2); Eosinophils Percent Auto 0.4 % (0-4); Hematocrit 41.9 % (37.0-47.0); Hemoglobin 14.7 g/dl (12.0-16.0); Imm Gran Abs Auto 0.03 X10*3/uL (0.00-0.03); Imm Gran Pct Auto 0.4 % (0.0-0.4); Lymphocytes Absolute Auto 3.4 X10*3/uL (1.2-4.9); Lymphocytes Percent Auto 47.8 % (20-40); Mean Corpuscular HGB Conc 35.1 g/dl (31.0-35.0); Mean Corpuscular Hemoglobin 31.7 pg (27.0-33.0); Mean Corpuscular Volume 90.5 fL (80.0-98.0); Mean Platelet Volume 11.8 fL (9.4-12.3); Monocytes Absolute Auto 0.5 X10*3/uL (0.1-1.2); Monocytes Percent Auto 6.5 % (2-11); Neutrophils Absolute Auto 3.2 x10*3/uL (2.0-8.3); Neutrophils Percent Auto 44.6 % (45-73); Platelet Count 132 X10*3/uL (160-400); Red Blood Count 4.63 X10*6/uL (4.20-5.50); White Blood Count 7.1 X10*3/uL (4.8-10.8)
[2024-08-20 22:23] LABS: Alanine Aminotransferase 21 U/L (0-31); Albumin Level 3.9 g/dL (3.5-5.0); Alkaline Phosphatase 79 U/L (39-117); Anion Gap 10 (12-20); Aspartate Amino Transferase 22 U/L (5-31); Bilirubin Total 0.4 mg/dL (0.0-1.0); Blood Urea Nitrogen 16 mg/dL (9-16); Calcium 9.2 mg/dL (8.4-10.2); Carbon Dioxide 26 mmol/L (22-29); Chloride 109 mmol/L (96-108); Estimated Glomerular Filt Rate > 60; Glucose Random 101 mg/dL (60-115); Magnesium 1.9 mg/dL (1.6-2.6); Sodium 141 mmol/L (135-145); Total Protein 6.5 g/dL (6.5-8.0)
[2024-08-20 22:47] LABS: Appearance Urine Cloudy; Color Urine Dark Yellow; Glucose Urine UA Negative (Negative); Leukocyte Esterase Urine Moderate (2+) (Negative); Nitrite Urine Positive (Negative); PH 6.5 (5.0-9.0); Specific Gravity - Urine 1.025 (1.005-1.025); UMIC TRIGGER UACC YES; Urine Blood Negative (Negative); Urine Ketones Trace mg/dL (Negative); Urine Protein Trace mg/dL (Neg-Trace)
[2024-08-20 22:58] LABS: Bacteria Urine None Seen (None Seen); Hyaline Casts Urine 0-2 /LPF (0-2); RBC Urine 0-2 /HPF (0-2); UACC Culture Trigger YES
--- NOTE | 2024-08-20 23:09 | ED_ITS ---
HPI - General Adult General Chief complaint: Abdominal Pain Stated complaint: abd pain hx uti Time Seen by Provider: 08/20/24 21:22 Source: patient Limitations: no limitations History of Present Illness ED Provider: Bailey Barkley PA-C HPI narrative: 58-year-old female with a history of morbid obesity, recurrent UTIs, interstitial cystitis, COPD, asthma, hypothyroidism, constipation,anxiety and depression presents with dysuria. Patient states she just finished a course of antibiotics for UTI. When she completes the antibiotics her symptoms returned. Denies nausea, vomiting, fever or back pain. Patient also complains of mid right-sided abdominal cramping that is intermittent. This discomfort has been present for weeks. Patient denies constipation. Denies injury to abdominal wall. Related Data Previous Rx's ?Medication ?Instructions ?Recorded phenazopyridine 200 mg tablet 200 mg PO Q8H PRN Urinary burning, 09/25/23 (Pyridium) pressure #30 tabs bisacodyl 5 mg tablet,delayed 5 mg PO BID PRN constipation #4 10/16/23 release (Dulcolax (bisacodyl)) tabs budesonide-formoterol HFA 160 2 puff inhalation BID #30.6 grams 02/21/24 mcg-4.5 mcg/actuation aerosol inhaler (Symbicort) polyethylene glycol 3350 17 17 g PO DAILY #510 grams 02/25/24 gram/dose oral powder cyclobenzaprine 10 mg tablet 10 mg PO TID PRN muscle spasm #20 03/15/24 tabs fexofenadine 180 mg tablet 180 mg PO DAILY PRN allergy 03/24/24 (Yesenia Allergy) symptoms 30 days #30 tabs famotidine 20 mg tablet 20 mg PO BID 90 days #180 tabs 04/21/24 cholecalciferol (vitamin D3) 25 25 mcg PO DAILY #90 caps 05/02/24 mcg (1,000 unit) tablet docusate sodium 100 mg capsule 200 mg (2 x 100 mg) PO BEDTIME #60 05/08/24 caps ascorbic acid (vitamin C) 500 mg 500 mg PO DAILY 90 days #90 tabs 05/13/24 tablet (Vitamin C) calcium carbonate (Calcium 500) 500 mg PO DAILY 30 days #30 tabs 05/13/24 nitrofurantoin 100 mg PO BID 5 days #10 caps 05/15/24 monohydrate/macrocrystals 100 mg capsule (Macrobid) albuterol sulfate 90 mcg/actuation 2 puff inhalation Q6H PRN 05/20/24 aerosol inhaler shortness of breath or wheezing 30 days #8.5 grams phenazopyridine 100 mg tablet 100 mg PO Q8H 14 doses #14 tabs 05/21/24 dicyclomine 20 mg tablet 20 mg PO TID 30 days #90 tabs 07/05/24 levothyroxine 100 mcg tablet 100 mcg PO DAILY 90 days #90 tabs 07/05/24 simvastatin 40 mg tablet 40 mg PO BEDTIME #90 caps 07/14/24 fluticasone propionate 50 1 spray intranasal BID 30 days 07/26/24 mcg/actuation nasal #9.9 mL spray,suspension (Flonase Allergy Relief) loperamide 2 mg capsule 2 mg PO Q8H PRN loose stool 30 07/26/24 days #90 caps doxycycline hyclate 100 mg tablet 100 mg PO BID 14 days #28 tabs 07/30/24 nebulizers (Aeroneb Go Nebulizer) #1 ea 07/31/24 tamsulosin 0.4 mg capsule 0.4 mg PO BID 90 days #180 caps 08/07/24 ipratropium 0.5 mg-albuterol 3 mg 3 ml inhalation Q6-8H PRN wheezing 08/12/24 (2.5 mg base)/3 mL nebulization 30 days #180 mL soln doxycycline hyclate 100 mg tablet 100 mg PO BID #27 tabs 08/21/24 metronidazole 500 mg tablet 500 mg PO BID #27 tabs 08/21/24 Allergies Allergy/AdvReac Type Severity Reaction Status Date / Time amoxicillin Allergy Intermediate Gastrointestinal Verified 08/20/24 20:36 Upset gentamicin [GENTAMICIN] Allergy Intermediate RASH Verified 08/20/24 20:36 ibuprofen [IBUPROFEN] Allergy Intermediate IRRITATION Verified 08/20/24 20:36 OF STOMACH Sulfa (Sulfonamide Allergy Intermediate hives Verified 08/20/24 20:36 Antibiotics) sulfamethoxazole Allergy Intermediate Rash Verified 08/20/24 20:36 [From Bactrim] trimethoprim [From Bactrim] Allergy Intermediate Rash Verified 08/20/24 20:36 sertraline [From Zoloft] AdvReac Mild Urinary Verified 08/20/24 20:36 frequency anxiety meds ending in pram Allergy Mild cystitis Uncoded 03/11/24 08:37 Review of Systems 2 Review of Systems: Yes all other systems are reviewed and are negative Constitutional: Constitutional: Denies fatigue and Denies fever(s) Cardiovascular: Cardiovascular: Denies chest pain and Denies dyspnea Respiratory: Respiratory: Denies dyspnea Gastrointestinal: Gastrointestinal: Reports abdominal pain, Denies constipation, Denies diarrhea, Denies nausea and Denies vomiting Genitourinary: Genitourinary: Reports dysuria and Denies flank pain Endocrine: Endocrine: Denies fatigue PMFSH Past Medical History Attestation statement: The following information was validated with the patient. Medical History KELLIE II (cervical intraepithelial neoplasia II) COVID-19 Interstitial cystitis Arthritis Vitamin D deficiency Bipolar disorder Anxiety and depression GERD (gastroesophageal reflux disease) Asthma Dysplasia of cervix, low grade (KELLIE 1) Dysuria Urge incontinence High cholesterol Thyroid activity decreased Urinary retention Smoker Surgical History History of laparoscopic cholecystectomy (10/12/23) H/O LEEP History of cystoscopy History of neck surgery Family History Family History Father COPD (chronic obstructive pulmonary disease) Lung cancer Mother Breast cancer Cardiac pacemaker Son Hyperthyroidism Mental health disorder Maternal Grandmother Depression Mental health disorder Son Depression Social History Social History Household Members: Family, Children and Other Household Members Other:: son, mother Housing: Apartment Do you presently have visiting nurse or other home services: No Alcohol intake: former Patient Tobacco Use Status: Current everyday Tobacco user Tobacco use type: Cigarette Cigarette Packs Per Day: 0.5 Cigarettes Per Day: 10.0 Years Smoked: 40 Smoked in Last 30 Days: Yes e-Cigarette/Vaping Use: Never Used Second Hand Smoke Exposure: Yes Advance Directives: No Advance Directives Information Provided: Yes Do you have a plan to hurt others: No Plan Current occupational status: disabled Cognitive needs: No Hearing needs: No Vision needs: No Physical Exam ED Vital Signs: Vital Signs - 24 hr 08/20/24 20:33 08/20/24 22:00 Temperature 98.3 F Pulse Rate 78 63 Respiratory Rate 16 18 Blood Pressure 117/41 L 100/51 L Pulse Oximetry 96 95 Oxygen Delivery Method Room Air Room Air BMI result Body Mass Index 33.8 Const Other: Alert, appears older than stated age Orientation/consciousness: patient oriented x3 Resp Effort & Inspection: normal respiratory effort Cardio Other: normal peripheral perfusion GI Other: abdomen is soft, nondistended, obese, nontender no guarding Skin Other: warm dry no rash Neuro General: patient oriented x3, gait normal, no focal motor deficits and CN's II- XI intact bilaterally Psych Other: calm cooperative Medications Administered Discontinued Medications Generic Name Dose Route Start Last Admin Trade Name Orestesq PRN Reason Stop Dose Admin Doxycycline Monohydrate 100 mg 08/21/24 01:25 08/21/24 01:40 Doxycycline Monohydrate 100 Mg Capsule PO 08/21/24 01:26 100 mg ONCE ONE Administration Metronidazole 500 mg 08/21/24 01:25 08/21/24 01:41 Metronidazole 500 Mg Tablet PO 08/21/24 01:26 500 mg ONCE ONE Administration Medical Decision Making Medical Decision Making [facility] Narrative: 58-year-old female with a history of morbid obesity, recurrent UTIs, interstitial cystitis, COPD, asthma, hypothyroidism, constipation,anxiety and depression presents with dysuria. Patient states she just finished a course of antibiotics for UTI. When she completes the antibiotics her symptoms returned. Denies nausea, vomiting, fever or back pain. Patient also complains of mid right-sided abdominal cramping that is intermittent. This discomfort has been present for weeks. Patient denies constipation. Denies injury to abdominal wall. problem: Recurrent UTIs History: Per patient I have considered the following differential diagnoses: UTI, pyelonephritis, renal colic Plan: We will be obtaining screening labs and a urinalysis. Patient's exam was unremarkable, including her abdominal exam. We will add a KUB, she is likely constipated Given she has no active GI symptoms. Do not think this is pyelonephritis, she has no back pain no active vomiting in his afebrile. Also do not think this is renal colic, there was no associated flank pain. I have independently reviewed the following tests: Labs: No leukocytosis, not anemic, no electrolyte abnormality, urine is infected, and review of her prior cultures, she screens positive for group B strep KUB:indings: No pneumoperitoneum or pneumatosis. No dilated loops of bowel or evidence for bowel obstruction. Minimal gas identified over the expected location of the rectum. Surgical clips are visualized over the right upper abdominal quadrant, possibly consistent with prior cholecystectomy. No acute fractures. IMPRESSION: 1. Nonobstructed bowel-gas pattern. Lab Data 08/20/24 21:58 08/20/24 21:58 Labs: Lab Results 08/20/24 08/20/24 Range/Units 21:58 22:42 WBC 7.1 (4.8-10.8) X10*3/uL RBC 4.63 (4.20-5.50) X10*6/uL Hgb 14.7 (12.0-16.0) g/dl Hct 41.9 (37.0-47.0) % MCV 90.5 (80.0-98.0) fL MCH 31.7 (27.0-33.0) pg MCHC 35.1 H (31.0-35.0) g/dl RDW 12.0 (11.0-16.0) % Plt Count 132 L (160-400) X10*3/uL MPV 11.8 (9.4-12.3) fL Immature Gran % (Auto) 0.4 (0.0-0.4) % Neut % (Auto) 44.6 L (45-73) % Lymph % (Auto) 47.8 H (20-40) % [place] % (Auto) 6.5 (2-11) % Eos % (Auto) 0.4 (0-4) % Baso % (Auto) 0.3 (0-2) % Lymph # (Auto) 3.4 (1.2-4.9) X10*3/uL [place] # (Auto) 0.5 (0.1-1.2) X10*3/uL Eos # (Auto) 0.0 (0.0-0.4) X10*3/uL Baso # (Auto) 0.0 (0.0-0.2) X10*3/uL Abs Immat Gran (auto) 0.03 (0.00-0.03) X10*3/uL Absolute Neuts (auto) 3.2 (2.0-8.3) x10*3/uL Absolute Nucleated RBC 0.000 (0.0-0.012) X10*3/uL Nucleated RBC % (auto) 0.0 (0.0-0.2) /100WBC Sodium 141 (135-145) mmol/L Potassium 4.0 (3.3-5.1) mmol/L Chloride 109 H (96-108) mmol/L Carbon Dioxide 26 (22-29) mmol/L Anion Gap 10 L (12-20) BUN 16 (9-16) mg/dL Creatinine 0.82 (0.5-1.4) mg/dL Estim Creat Clear Calc 76.0 Estimated GFR > 60 Random Glucose 101 (60-115) mg/dL Calcium 9.2 (8.4-10.2) mg/dL Magnesium 1.9 (1.6-2.6) mg/dL Total Bilirubin 0.4 (0.0-1.0) mg/dL AST 22 (5-31) U/L ALT 21 (0-31) U/L Alkaline Phosphatase 79 (39-117) U/L Total Protein 6.5 (6.5-8.0) g/dL Albumin 3.9 (3.5-5.0) g/dL Urine Color Dark Yellow Urine Appearance Cloudy Urine pH 6.5 (5.0-9.0) Ur Specific [place] 1.025 (1.005-1.025) Urine Protein Trace (Neg-Trace) mg/dL Urine Glucose (UA) Negative (Negative) mg/dL Urine Ketones Trace (Negative) mg/dL Urine Blood Negative (Negative) Urine Nitrite Positive H (Negative) Ur Leukocyte Esterase Moderate (2+) H (Negative) Urine RBC 0-2 (0-2) /HPF Urine WBC 6-10 H (0-5) /HPF Ur Squamous Epith Cells 11-20 (0-2) /HPF Urine Bacteria None Seen (None Seen) Hyaline Casts 0-2 (0-2) /LPF Discharge Plan Discharge Clinical Impression: Urinary tract infection Patient Disposition: Home, Self-Care Instructions: Urinary Tract Infection in Women (ED) Additional Instructions: you were found to have a urinary tract infection. See home care instructions. Take the doxycycline and the metronidazole as directed. Complete the course of each antibiotic. The screening x-ray revealed some degree of retained stool, but you are not overtly constipated. Making sure that you keep your bowel movements regular, we will help to prevent urinary tract infections. You may want to try a probiotic that is specific for female urinary and genital health, to help prevent the incidence of urinary tract infections. Follow up with your urologist as needed. Prescriptions: New doxycycline hyclate 100 mg tablet 100 mg PO BID Qty: 27 0RF metronidazole 500 mg tablet 500 mg PO BID Qty: 27 0RF No Action bisacodyl [Dulcolax (bisacodyl)] 5 mg tablet,delayed release (DR/EC) 5 mg PO BID PRN (Reason: constipation) Qty: 4 0RF budesonide-formoterol [Symbicort] 160-4.5 mcg/actuation HFA aerosol inhaler 2 puff INHALATION BID Qty: 30.6 3RF polyethylene glycol 3350 17 gram/dose powder 17 g PO DAILY Qty: 510 6RF fexofenadine [Yesenia Allergy] 180 mg tablet 180 mg PO DAILY PRN (Reason: allergy symptoms) 30 Days Qty: 30 3RF famotidine 20 mg tablet 20 mg PO BID 90 Days Qty: 180 1RF cholecalciferol (vitamin D3) 25 mcg (1,000 unit) tablet 25 mcg PO DAILY Qty: 90 2RF docusate sodium 100 mg capsule 200 mg PO BEDTIME Qty: 60 5RF ascorbic acid (vitamin C) [Vitamin C] 500 mg tablet 500 mg PO DAILY 90 Days Qty: 90 3RF calcium carbonate [Calcium 500] 500 mg calcium (1,250 mg) tablet,chewable 500 mg PO DAILY 30 Days Qty: 30 6RF nitrofurantoin monohyd/m-cryst [Macrobid] 100 mg capsule 100 mg PO BID 5 Days Qty: 10 0RF Rx Instructions: must administer with a meal/food albuterol sulfate 90 mcg/actuation HFA aerosol inhaler 2 puff inhalation Q6H PRN (Reason: shortness of breath or wheezing) 30 Days Qty: 8.5 6RF phenazopyridine 100 mg tablet 100 mg PO Q8H Qty: 14 0RF dicyclomine 20 mg tablet 20 mg PO TID 30 Days Qty: 90 2RF levothyroxine 100 mcg tablet 100 mcg PO DAILY 90 Days Qty: 90 0RF simvastatin 40 mg tablet 40 mg PO BEDTIME Qty: 90 2RF fluticasone propionate [Flonase Allergy Relief] 50 mcg/actuation spray,suspension 1 spray intranasal BID 30 Days Qty: 9.9 5RF Rx Instructions: administer into each nostril loperamide 2 mg capsule 2 mg PO Q8H PRN (Reason: loose stool) 30 Days Qty: 90 0RF doxycycline hyclate 100 mg tablet 100 mg PO BID 14 Days Qty: 28 0RF (DME) nebulizers [Aeroneb Go Nebulizer] Misc See Rx Instructions .Route Qty: 1 0RF Rx Instructions: As directed with tubing tamsulosin 0.4 mg capsule 0.4 mg PO BID 90 Days Qty: 180 1RF ipratropium-albuterol 0.5 mg-3 mg(2.5 mg base)/3 mL solution for nebulization 3 ml inhalation Q6-8H PRN (Reason: wheezing) 30 Days Qty: 180 2RF phenazopyridine [Pyridium] 200 mg tablet 200 mg PO Q8H PRN (Reason: Urinary burning, pressure) Qty: 30 0RF Rx Instructions: Take with food cyclobenzaprine 10 mg tablet 10 mg PO TID PRN (Reason: muscle spasm) Qty: 20 0RF Print Language: Ukrainian
[2024-08-21] MEDS: Doxycycline Monohydrate 100 MG CAPSULE PO (01:40)
[2024-08-21] MEDS: metroNIDAZOLE 500 MG TABLET PO (01:41)
[2024-08-21 02:24] VITALS: BP 100/51; PULSE 63; RESP 18; TEMP 37; O2SAT 95
== END 2024-08-21 02:24 | disposition home or self-care (01) ==
PROVIDERS: Physician Assistant Medical; Emergency Provider Emergency Medicine; PCP Physician Assistant
DX: N39.0 Urinary tract infection, site not specified (principal); B95.1 Streptococcus, group B, as the cause of diseases classified elsewhere; R10.9 Unspecified abdominal pain; F17.210 Nicotine dependence, cigarettes, uncomplicated; Z87.440 Personal history of urinary (tract) infections
CPT/HCPCS: 36415; 74018; 80053; 81001; 83735; 85025; 87086; 87147; 99283; 99284

== ENCOUNTER → 2024-08-20 23:09 | Outpatient (BNV) | payer OTHER, SELFPAY | PROVIDERS: PCP Physician Assistant; Visit Provider Radiology Diagnostic Radiology | DX: R14.0 Abdominal distension (gaseous) (principal) | CPT/HCPCS: 74018 ==

== ENCOUNTER 2024-11-05 08:34 | Outpatient (REF) | payer OTHER, SELFPAY ==
[2024-11-05 10:50] LABS: Appearance Urine Cloudy; Color Urine Dark Yellow; Glucose Urine UA Negative (Negative); Leukocyte Esterase Urine Small (1+) (Negative); Nitrite Urine Negative (Negative); PH 5.5 (5.0-9.0); Specific Gravity - Urine >= 1.030 (1.005-1.025); UMIC TRIGGER UA YES; Urine Blood Negative (Negative); Urine Ketones Trace mg/dL (Negative); Urine Protein Negative (Neg-Trace)
[2024-11-05 11:14] LABS: Bacteria Urine 1+ (None Seen); Calcium Oxalate Crystals Urine Present; Hyaline Casts Urine 0-2 /LPF (0-2); RBC Urine 0-2 /HPF (0-2); Squamous Epithelial Cell Urine >20 /HPF (0-2); WBC Urine 0-5 /HPF (0-5)
== END 2024-11-05 08:35 | disposition home or self-care (01) ==
LOC: HO.10HDLNP 08:34
PROVIDERS: Visit Provider Urology
DX: R39.15 Urgency of urination (principal)
CPT/HCPCS: 81001; 87086; 87147

== ENCOUNTER 2024-11-11 08:29 | Outpatient (REF) | payer OTHER, SELFPAY ==
[2024-11-11 11:28] LABS: Free T4 (Free Thyroxine) 1.02 ng/dL (0.71-1.85)
== END 2024-11-11 08:30 | disposition home or self-care (01) ==
LOC: HO.10HDL 08:29
PROVIDERS: Visit Provider Physician Assistant
DX: E03.9 Hypothyroidism, unspecified (principal)
CPT/HCPCS: 36415; 84439; 84443

== ENCOUNTER 2024-11-14 03:33 | Emergency (ER) | payer OTHER, SELFPAY ==
[2024-11-14 03:37] VITALS: BP 188/122; PULSE 79; O2SAT 97
[2024-11-14 03:39] VITALS: BP 131/67; PULSE 64; RESP 18; TEMP 36.7; O2SAT 94; BMI 35.2
[2024-11-14 04:24] LABS: MANUAL DIFF FLAG NO
[2024-11-14 04:25] LABS: Basophils Percent Auto 0.2 % (0-2); Eosinophils Absolute Auto 0.1 X10*3/uL (0.0-0.4); Eosinophils Percent Auto 0.9 % (0-4); Hematocrit 40.5 % (37.0-47.0); Hemoglobin 14.3 g/dl (12.0-16.0); Imm Gran Abs Auto 0.01 X10*3/uL (0.00-0.03); Imm Gran Pct Auto 0.2 % (0.0-0.4); Lymphocytes Absolute Auto 3.6 X10*3/uL (1.2-4.9); Lymphocytes Percent Auto 56.8 % (20-40); Mean Corpuscular HGB Conc 35.3 g/dl (31.0-35.0); Mean Corpuscular Hemoglobin 32.1 pg (27.0-33.0); Mean Platelet Volume 10.9 fL (9.4-12.3); Monocytes Absolute Auto 0.4 X10*3/uL (0.1-1.2); Monocytes Percent Auto 6.3 % (2-11); Neutrophils Absolute Auto 2.3 x10*3/uL (2.0-8.3); Neutrophils Percent Auto 35.6 % (45-73); Platelet Count 143 X10*3/uL (160-400); Red Blood Count 4.45 X10*6/uL (4.20-5.50); Red Cell Distribution Width 12.4 % (11.0-16.0); White Blood Count 6.4 X10*3/uL (4.8-10.8)
[2024-11-14 04:26] LABS: Appearance Urine Cloudy; Color Urine Yellow; Glucose Urine UA Negative (Negative); Leukocyte Esterase Urine Moderate (2+) (Negative); Nitrite Urine Negative (Negative); Specific Gravity - Urine 1.025 (1.005-1.025); UMIC TRIGGER UACC YES; Urine Blood Negative (Negative); Urine Ketones Trace mg/dL (Negative); Urine Protein Negative (Neg-Trace)
[2024-11-14 04:39] LABS: Alanine Aminotransferase 18 U/L (0-31); Albumin Level 4.1 g/dL (3.5-5.0); Alkaline Phosphatase 75 U/L (39-117); Anion Gap 11 (12-20); Aspartate Amino Transferase 23 U/L (5-31); Bilirubin Total 0.4 mg/dL (0.0-1.0); Blood Urea Nitrogen 15 mg/dL (9-16); Calcium 9.3 mg/dL (8.4-10.2); Carbon Dioxide 25 mmol/L (22-29); Chloride 107 mmol/L (96-108); Creatinine Clr Calc Pharmacy 64.9; Estimated Glomerular Filt Rate 58; Glucose Random 94 mg/dL (60-115); Potassium 3.9 mmol/L (3.3-5.1); Sodium 139 mmol/L (135-145); Total Protein 6.6 g/dL (6.5-8.0)
[2024-11-14 04:46] LABS: Bacteria Urine Trace (None Seen); Hyaline Casts Urine 0-2 /LPF (0-2); RBC Urine 0-2 /HPF (0-2); UACC Culture Trigger YES; WBC Urine 0-5 /HPF (0-5)
[2024-11-14 05:01] LABS: Influenza A PCR NEGATIVE (Negative); Influenza B PCR NEGATIVE (Negative); Resp Syncy Virus RNA Qual PCR NEGATIVE (Negative); SARS COV2 PCR INHOUSE NEGATIVE (Negative)
--- NOTE | 2024-11-14 05:47 | ED.FEMALEGU ---
HPI - Female Genitourinary General Chief complaint: Urogenital-Female Stated complaint: UTI has RX, CC weakness, brain fog and dizzy Time Seen by Provider: 11/14/24 05:34 Source: patient Mode of arrival: ambulatory Limitations: no limitations History of Present Illness ED Provider: Dr. Ester Almendarez HPI Narrative: Patient comes to the emergency room complaining of fatigue, generalized malaise. Patient states that she recently recovered from a UTI and yesterday she took her 1st tablet of a new dose of levothyroxine. She denies chest pain or shortness of breath. Denies hematuria or dysuria. Initially when patient came in, she said that she has flank pain. When I spoke with the patient, patient states that she has no pain. Related Data Previous Rx's ?Medication ?Instructions ?Recorded phenazopyridine 200 mg tablet 200 mg PO Q8H PRN Urinary burning, 09/25/23 (Pyridium) pressure #30 tabs bisacodyl 5 mg tablet,delayed 5 mg PO BID PRN constipation #4 10/16/23 release (Dulcolax (bisacodyl)) tabs budesonide-formoterol HFA 160 2 puff inhalation BID #30.6 grams 02/21/24 mcg-4.5 mcg/actuation aerosol inhaler (Symbicort) polyethylene glycol 3350 17 17 g PO DAILY #510 grams 02/25/24 gram/dose oral powder cyclobenzaprine 10 mg tablet 10 mg PO TID PRN muscle spasm #20 03/15/24 tabs famotidine 20 mg tablet 20 mg PO BID 90 days #180 tabs 04/21/24 cholecalciferol (vitamin D3) 25 25 mcg PO DAILY #90 caps 05/02/24 mcg (1,000 unit) tablet docusate sodium 100 mg capsule 200 mg (2 x 100 mg) PO BEDTIME #60 05/08/24 caps ascorbic acid (vitamin C) 500 mg 500 mg PO DAILY 90 days #90 tabs 05/13/24 tablet (Vitamin C) calcium carbonate (Calcium 500) 500 mg PO DAILY 30 days #30 tabs 05/13/24 phenazopyridine 100 mg tablet 100 mg PO Q8H 14 doses #14 tabs 05/21/24 simvastatin 40 mg tablet 40 mg PO BEDTIME #90 caps 07/14/24 fluticasone propionate 50 1 spray intranasal BID 30 days 07/26/24 mcg/actuation nasal #9.9 mL spray,suspension (Flonase Allergy Relief) tamsulosin 0.4 mg capsule 0.4 mg PO BID 90 days #180 caps 08/07/24 dicyclomine 20 mg tablet 20 mg PO TID 30 days #90 tabs 09/25/24 fexofenadine 180 mg tablet 180 mg PO DAILY PRN allergy 09/25/24 (Yesenia Allergy) symptoms 30 days #30 tabs loperamide 2 mg capsule 2 mg PO Q8H PRN loose stool 30 09/25/24 days #90 caps nebulizers (Aeroneb Go Nebulizer) #1 ea 10/03/24 ipratropium 0.5 mg-albuterol 3 mg 3 ml inhalation Q6-8H PRN wheezing 10/11/24 (2.5 mg base)/3 mL nebulization 30 days #180 mL soln doxycycline hyclate 100 mg tablet 100 mg PO BID #27 tabs 11/06/24 levothyroxine 100 mcg tablet 100 mcg PO DAILY 90 days #90 tabs 11/06/24 Held on 11/12/24. Instructions: Doctor's Order metronidazole 500 mg tablet 500 mg PO BID #27 tabs 11/06/24 albuterol sulfate 90 mcg/actuation 2 puff inhalation Q6H PRN 11/09/24 aerosol inhaler shortness of breath or wheezing 30 days #8.5 grams levothyroxine 125 mcg tablet 125 mcg PO DAILY #90 tabs 11/13/24 (Levoxyl) Allergies Allergy/AdvReac Type Severity Reaction Status Date / Time amoxicillin Allergy Intermediate Gastrointestinal Verified 11/14/24 03:45 Upset gentamicin (GENTAMICIN) Allergy Intermediate RASH Verified 11/14/24 03:45 ibuprofen (IBUPROFEN) Allergy Intermediate IRRITATION Verified 11/14/24 03:45 OF STOMACH Sulfa (Sulfonamide Allergy Intermediate hives Verified 11/14/24 03:45 Antibiotics) sulfamethoxazole (From Allergy Intermediate Rash Verified 11/14/24 03:45 Bactrim) trimethoprim (From Bactrim) Allergy Intermediate Rash Verified 11/14/24 03:45 sertraline (From Zoloft) AdvReac Mild Urinary Verified 11/14/24 03:45 frequency anxiety meds ending in pram Allergy Mild cystitis Uncoded 11/14/24 03:45 Review of Systems Review of Systems: Constitutional : No Weight loss, No Fever, No Chills, No Night Sweats, complaining of fatigue and generalized malaise ENT/Mouth : No Hearing loss, No Ear Pain, No Nasal Congestion, No Sinus Pain, No Hoarseness, No sore throat, No Rhinorrhea, No Swallowing Difficulty Eyes: No Eye Pain, No Swelling, No Redness, No Foreign Body, No Discharge, No Vision Changes Cardiovascular : No Chest Pain, No SOB, No Dyspnea on Exertion, No Orthopnea, No Edema, No Palpitations Respiratory : No Cough, No Sputum, No Wheezing, No Smoke Exposure, No Dyspnea Gastrointestinal : No Nausea, No Vomiting, No Diarrhea, No Constipation, No abdominal Pain, No Hematochezia, No Melena Genitourinary : no irregular bleeding, No Dysuria, No Urinary Frequency, No Hematuria, No Urinary Incontinence, No Urgency, No Flank Pain, No Urinary Flow Changes, No Hesitancy Musculoskeletal : No joint pain, No Myalgias, No Joint Swelling Skin : No Skin Lesions, No rash Neuro : No Weakness, No Numbness, No Paresthesias, No Loss of Consciousness, No Dizziness, No Headache Psych : No Anxiety/Panic, No Depression, No SI/HI/AH/VH, No Social Issues, Heme/Lymph: No Bruising, No Bleeding,No Lymphadenopathy Endocrine : No Polyuria, No Polydipsia, No Temperature Intolerance [facility] Past Medical History Medical History KELLIE II (cervical intraepithelial neoplasia II) COVID-19 Interstitial cystitis Arthritis Vitamin D deficiency Bipolar disorder Anxiety and depression GERD (gastroesophageal reflux disease) Asthma Dysplasia of cervix, low grade (KELLIE 1) Dysuria Urge incontinence High cholesterol Thyroid activity decreased Urinary retention Smoker Surgical History History of laparoscopic cholecystectomy (10/12/23) H/O LEEP History of cystoscopy History of neck surgery Family History Family History Father COPD (chronic obstructive pulmonary disease) Lung cancer Mother Breast cancer Cardiac pacemaker Son Hyperthyroidism Mental health disorder Maternal Grandmother Depression Mental health disorder Son Depression Social History Social History Household Members: Family, Children and Other Household Members Other:: son, mother Housing: Apartment Do you presently have visiting nurse or other home services: No Alcohol intake: former Patient Tobacco Use Status: Current everyday Tobacco user Tobacco use type: Cigarette Cigarette Packs Per Day: 0.5 Cigarettes Per Day: 10.0 Years Smoked: 40 Smoked in Last 30 Days: No e-Cigarette/Vaping Use: Never Used Second Hand Smoke Exposure: Yes Use of substances other than those prescribed or required for medical reasons: No Advance Directives: No Advance Directives Information Provided: Yes Patient : No Current occupational status: disabled Cognitive needs: No Hearing needs: No Vision needs: No Physical Exam Vital Signs: Vital Signs: Last Vital Signs Temp 98.1 F 11/14/24 03:39 Pulse 64 11/14/24 03:39 Resp 18 11/14/24 03:39 BP 131/67 11/14/24 03:39 Pulse Ox 94 11/14/24 03:39 O2 Del Method Room Air 11/14/24 03:39 BMI result Body Mass Index 35.2 Const: Other: Appearance: Alert. Oriented X3. No acute distress. Eyes: Pupils equal, round and reactive to light. ENT: Pharynx normal. Neck: Normal inspection. Neck supple. No lymph nodes noted. No crepitus CVS: Normal heart rate and rhythm. Pulses normal. Normal S1 and S2 Respiratory: No respiratory distress. Breath sounds normal. No Wheezing. No rales Abdomen: Soft and nontender. No rigidity. No distention. no cva Skin: Skin warm and dry. Normal skin color. Normal skin turgor. Extremities: No lower extremity edema. No Lacerations. No Rash Neuro: Oriented X 3. No motor deficit. No sensory deficit. Moving all extremities. No slurred speech. CN 2 through 12 grossly intact Psych: calm, cooperative, normal affect Course Course Course Narrative: Patient comes in the emergency room complaining of generalized malaise Medical Decision Making Medical Decision Making MDM Narrative: My interpretation of labs: No significant abnormality in patient's hematology and chemistry. Urinalysis shows a large amount of squamous epithelial cells, no nitrites, no white blood cells. Patient has been evaluated multiple times in the past for similar symptoms, diagnosed with cystitis. I reviewed patient's microbiology report. Patient's urine grew strep agalactiae, group B strep. Patient's was also complaining that recently she was told that her TSH is elevated. However, I reviewed her labs, TSH is 8. Free T4 is normal. It is unlikely that this is the cause of patient's symptoms. Overall, I think patient has significant anxiety. Possible depression. I discussed the above-mentioned with the patient, patient states that she will follow-up with the primary care physician. possible viral syndrome Differential Diagnosis Differential Diagnoses: The differential diagnosis associated with the presentation includes (As above) Lab Data MDM Lab Attestation statement: I reviewed the patient's lab results. 11/14/24 04:15 11/14/24 04:15 Labs: Lab Results 11/14/24 Range/Units 04:15 WBC 6.4 (4.8-10.8) X10*3/uL RBC 4.45 (4.20-5.50) X10*6/uL Hgb 14.3 (12.0-16.0) g/dl Hct 40.5 (37.0-47.0) % MCV 91.0 (80.0-98.0) fL MCH 32.1 (27.0-33.0) pg MCHC 35.3 H (31.0-35.0) g/dl RDW 12.4 (11.0-16.0) % Plt Count 143 L (160-400) X10*3/uL MPV 10.9 (9.4-12.3) fL Immature Gran % (Auto) 0.2 (0.0-0.4) % Neut % (Auto) 35.6 L (45-73) % Lymph % (Auto) 56.8 H (20-40) % [place]pie % (Auto) 6.3 (2-11) % Eos % (Auto) 0.9 (0-4) % Baso % (Auto) 0.2 (0-2) % Lymph # (Auto) 3.6 (1.2-4.9) X10*3/uL [place] # (Auto) 0.4 (0.1-1.2) X10*3/uL Eos # (Auto) 0.1 (0.0-0.4) X10*3/uL Baso # (Auto) 0.0 (0.0-0.2) X10*3/uL Abs Immat Gran (auto) 0.01 (0.00-0.03) X10*3/uL Absolute Neuts (auto) 2.3 (2.0-8.3) x10*3/uL Absolute Nucleated RBC 0.000 (0.0-0.012) X10*3/uL Nucleated RBC % (auto) 0.0 (0.0-0.2) /100WBC Sodium 139 (135-145) mmol/L Potassium 3.9 (3.3-5.1) mmol/L Chloride 107 (96-108) mmol/L Carbon Dioxide 25 (22-29) mmol/L Anion Gap 11 L (12-20) BUN 15 (9-16) mg/dL Creatinine 0.98 (0.5-1.4) mg/dL Estim Creat Clear Calc 64.9 Estimated GFR 58 Random Glucose 94 (60-115) mg/dL Calcium 9.3 (8.4-10.2) mg/dL Total Bilirubin 0.4 (0.0-1.0) mg/dL AST 23 (5-31) U/L ALT 18 (0-31) U/L Alkaline Phosphatase 75 (39-117) U/L Total Protein 6.6 (6.5-8.0) g/dL Albumin 4.1 (3.5-5.0) g/dL Urine Color Yellow Urine Appearance Cloudy Urine pH 6.0 (5.0-9.0) Ur Specific [place] 1.025 (1.005-1.025) Urine Protein Negative (Neg-Trace) mg/dL Urine Glucose (UA) Negative (Negative) mg/dL Urine Ketones Trace (Negative) mg/dL Urine Blood Negative (Negative) Urine Nitrite Negative (Negative) Ur Leukocyte Esterase Moderate (2+) H (Negative) Urine RBC 0-2 (0-2) /HPF Urine WBC 0-5 (0-5) /HPF Ur Squamous Epith Cells 11-20 (0-2) /HPF Urine Bacteria Trace (None Seen) Hyaline Casts 0-2 (0-2) /LPF Influenza Type A (PCR) NEGATIVE (Negative) Influenza Type B (PCR) NEGATIVE (Negative) RSV RNA Qual (PCR) NEGATIVE (Negative) SARS-CoV-2 RNA (RT-PCR) NEGATIVE (Negative) Discharge Plan Discharge Prescriptions: No Action bisacodyl [Dulcolax (bisacodyl)] 5 mg tablet,delayed release (DR/EC) 5 mg PO BID PRN (Reason: constipation) Qty: 4 0RF budesonide-formoterol [Symbicort] 160-4.5 mcg/actuation HFA aerosol inhaler 2 puff INHALATION BID Qty: 30.6 3RF polyethylene glycol 3350 17 gram/dose powder 17 g PO DAILY Qty: 510 6RF famotidine 20 mg tablet 20 mg PO BID 90 Days Qty: 180 1RF cholecalciferol (vitamin D3) 25 mcg (1,000 unit) tablet 25 mcg PO DAILY Qty: 90 2RF docusate sodium 100 mg capsule 200 mg PO BEDTIME Qty: 60 5RF ascorbic acid (vitamin C) [Vitamin C] 500 mg tablet 500 mg PO DAILY 90 Days Qty: 90 3RF calcium carbonate [Calcium 500] 500 mg calcium (1,250 mg) tablet,chewable 500 mg PO DAILY 30 Days Qty: 30 6RF phenazopyridine 100 mg tablet 100 mg PO Q8H Qty: 14 0RF simvastatin 40 mg tablet 40 mg PO BEDTIME Qty: 90 2RF fluticasone propionate [Flonase Allergy Relief] 50 mcg/actuation spray,suspension 1 spray intranasal BID 30 Days Qty: 9.9 5RF Rx Instructions: administer into each nostril tamsulosin 0.4 mg capsule 0.4 mg PO BID 90 Days Qty: 180 1RF fexofenadine [Yesenia Allergy] 180 mg tablet 180 mg PO DAILY PRN (Reason: allergy symptoms) 30 Days Qty: 30 3RF dicyclomine 20 mg tablet 20 mg PO TID 30 Days Qty: 90 2RF loperamide 2 mg capsule 2 mg PO Q8H PRN (Reason: loose stool) 30 Days Qty: 90 1RF (DME) nebulizers [Aeroneb Go Nebulizer] Misc See Rx Instructions .Route Qty: 1 0RF Rx Instructions: As directed with tubing ipratropium-albuterol 0.5 mg-3 mg(2.5 mg base)/3 mL solution for nebulization 3 ml inhalation Q6-8H PRN (Reason: wheezing) 30 Days Qty: 180 2RF levothyroxine 100 mcg tablet 100 mcg PO DAILY 90 Days Qty: 90 0RF doxycycline hyclate 100 mg tablet 100 mg PO BID Qty: 27 0RF metronidazole 500 mg tablet 500 mg PO BID Qty: 27 0RF albuterol sulfate 90 mcg/actuation HFA aerosol inhaler 2 puff inhalation Q6H PRN (Reason: shortness of breath or wheezing) 30 Days Qty: 8.5 6RF levothyroxine [Levoxyl] 125 mcg tablet 125 mcg PO DAILY Qty: 90 1RF phenazopyridine [Pyridium] 200 mg tablet 200 mg PO Q8H PRN (Reason: Urinary burning, pressure) Qty: 30 0RF Rx Instructions: Take with food cyclobenzaprine 10 mg tablet 10 mg PO TID PRN (Reason: muscle spasm) Qty: 20 0RF Print Language: Syriac
[2024-11-14 06:02] VITALS: BP 130/72; PULSE 80; RESP 16; TEMP 36.6; O2SAT 97
--- NOTE | 2024-11-14 06:14 | PC.NURSE ---
ambulates steadily out of dept. accepted papers, states understanding
== END 2024-11-14 06:15 | disposition home or self-care (01) ==
PROVIDERS: Emergency Provider Emergency Medicine; PCP Physician Assistant
DX: N39.0 Urinary tract infection, site not specified (principal); R42 Dizziness and giddiness; R53.83 Other fatigue; F17.210 Nicotine dependence, cigarettes, uncomplicated; Z79.899 Other long term (current) drug therapy; Z03.818 Encounter for observation for suspected exposure to other biological agents ruled out
CPT/HCPCS: 0241U; 36415; 80053; 81001; 85025; 87086; 87147; 99283; 99284

== ENCOUNTER 2024-11-24 09:30 | Outpatient (AMB) | payer OTHER, SELFPAY ==
--- NOTE | 2024-11-24 09:36 | MHC.OFFVIS ---
Vital Signs 11/24/24 09:37 Height 5 ft 2 in Weight 183 lb 6.793 oz BMI 33.5 BP 161/79 H Blood Pressure Location Lt brachial Position Sitting Pulse 83 Pulse Source Pulse Oximeter Temp 97.4 F Temp Source Temporal Artery Scan Pulse Oximetry (%) 97 Oxygen Delivery Method Room Air Intake Visit Reasons: swelling in gallbladder surgery Intake Note: Pt presents to the office today for swelling. Pt states she had surgery in 2023 and recently started experiencing pain and discomfort in her abdomen. Allergies amoxicillin Allergy (Intermediate, Verified 11/24/24 09:40) Gastrointestinal Upset gentamicin (GENTAMICIN) Allergy (Intermediate, Verified 11/24/24 09:40) RASH ibuprofen (IBUPROFEN) Allergy (Intermediate, Verified 11/24/24 09:40) IRRITATION OF STOMACH Sulfa (Sulfonamide Antibiotics) Allergy (Intermediate, Verified 11/24/24 09:40) hives sulfamethoxazole (From Bactrim) Allergy (Intermediate, Verified 11/24/24 09:40) Rash trimethoprim (From Bactrim) Allergy (Intermediate, Verified 11/24/24 09:40) Rash sertraline (From Zoloft) Adverse Reaction (Mild, Verified 11/24/24 09:40) Urinary frequency anxiety meds ending in pram Allergy (Mild, Uncoded 11/24/24 09:40) cystitis HPI HPI swelling in gallbladder surgery: Details: Taylor Robins is a 58 year old female who underwent laparoscopic cholecystectomy in 10/18 for symptomatic gallbladder. She tolerated the procedure and did well post operatively. She presents today with complaints of swelling and pain of her right upper abdomen which was around her incision sites from the procedure and she got concerned. She reports this began a few weeks ago. The pain is a mild, dull pulling and worsens with movement. She denies radiation of the pain. The pain does not worsen with eating. She reports an occasional bulge or swelling however today it is not present. She reports lifting over 25lbs of cat litter daily. She reports occasional diarrhea. She denies fever, chills, changes in skin or urine color, dysuria. PFSH Medical History KELLIE II (cervical intraepithelial neoplasia II) COVID-19 Interstitial cystitis Arthritis Vitamin D deficiency Bipolar disorder Anxiety and depression GERD (gastroesophageal reflux disease) Asthma Dysplasia of cervix, low grade (KELLIE 1) Dysuria Urge incontinence High cholesterol Thyroid activity decreased Urinary retention Smoker Surgical History History of laparoscopic cholecystectomy (10/12/23) H/O LEEP History of cystoscopy History of neck surgery Family History Father COPD (chronic obstructive pulmonary disease) Lung cancer Mother Breast cancer Cardiac pacemaker Son Hyperthyroidism Mental health disorder Maternal Grandmother Depression Mental health disorder Son Depression Social History Household Members: Family, Children and Other Household Members Other:: son, mother Housing: Apartment Do you presently have visiting nurse or other home services: No Alcohol intake: former Patient Tobacco Use Status: Current everyday Tobacco user Tobacco use type: Cigarette Cigarette Packs Per Day: 0.5 Cigarettes Per Day: 10.0 Years Smoked: 40 e-Cigarette/Vaping Use: Never Used Second Hand Smoke Exposure: Yes Current occupational status: disabled Cognitive needs: No Hearing needs: No Vision needs: No Review of Systems Const All systems reviewed & are unremarkable except as noted in HPI and below Physical Exam Vital Signs: Last Vital Signs Temp 97.4 F 11/24/24 09:37 Pulse 83 11/24/24 09:37 BP 161/79 H 11/24/24 09:37 Pulse Ox 97 11/24/24 09:37 Oxygen Delivery Method Room Air 11/24/24 09:37 BMI result Body Mass Index 33.5 Const General: comfortable, no acute distress and alert Orientation/consciousness: patient oriented x3 Resp Effort & Inspection: normal respiratory effort, able to speak in complete sentences and not tachypneic GI Inspection: No distended, Yes scar (well healed incisions ) and No visible herniation Palpation (GI): Soft to palpation, Tenderness to palpation present (GI) (right side of abdomen mildly tender ) with no rebound tenderness, no guarding, not rigid and no hernias (no palpable hernias with valsalva) Percussion: Yes normal to percussion Skin General skin exam: no rashes or lesions noted and no jaundice Neuro General: patient oriented x3 and moves all extremities Assessment & Plan Assessment & Plan (1) Abdominal pain: Code(s): R10.9 - Unspecified abdominal pain Category: Medical Plan 58 year old female who presents with c/o right sided abdominal pain and swelling. She has a history of laparoscopic cholecystectomy a year ago. Her abdomen is very benign and she is mildly tender on the right side without any peritoneal signs, no evidence of any hernia, distention, edema or infection. Discussed that this may be musculoskeletal in nature. She does not have any concerning symptoms and her exam is very benign. She was reassured this is likely not related to her surgical procedure. She was encouraged to rest and ice the area as needed. She should follow up with her PCP if the pain does not resolve. She is comfortable with the plan. Coding Level of Care Code Est Pt Level 3 (29203) Diagnoses Abdominal pain R10.9 Time Spent (min) 30
[2024-11-24 09:37] VITALS: BP 161/79; PULSE 83; TEMP 36.3; O2SAT 97; BMI 33.5
== END 2024-11-24 10:42 | disposition home or self-care (01) ==
LOC: HO.HGS 09:31
PROVIDERS: PCP Physician Assistant; Visit Provider Physician Assistant Surgical
DX: R10.9 Unspecified abdominal pain (principal)
CPT/HCPCS: 99213

== ENCOUNTER → 2024-11-24 09:30 | Outpatient (BNVA) | payer OTHER, SELFPAY | PROVIDERS: PCP Physician Assistant; Visit Provider Physician Assistant Surgical | DX: R10.11 Right upper quadrant pain (principal) | CPT/HCPCS: 99212 ==

== ENCOUNTER 2024-12-12 08:27 | Outpatient (REF) | payer OTHER, SELFPAY | END 2024-12-12 08:28 | disposition home or self-care (01) | LOC: HO.LAB 08:27 | PROVIDERS: PCP Physician Assistant; Visit Provider Physician Assistant | DX: E03.9 Hypothyroidism, unspecified (principal) | CPT/HCPCS: 36415; 84443 ==

== ENCOUNTER 2024-12-18 08:28 | Outpatient (REF) | payer OTHER, SELFPAY ==
[2024-12-18 10:16] LABS: Appearance Urine Clear; Glucose Urine UA Negative (Negative); PH 5.5 (5.0-9.0); Specific Gravity - Urine 1.025 (1.005-1.025); UMIC TRIGGER UA YES
== END 2024-12-18 08:29 | disposition home or self-care (01) ==
LOC: HO.LNP 08:28
PROVIDERS: Visit Provider Urology
DX: N39.0 Urinary tract infection, site not specified (principal); A49.9 Bacterial infection, unspecified
CPT/HCPCS: 81001; 87086; 87147

== ENCOUNTER 2025-01-12 09:42 | Outpatient (AMB) | payer OTHER, SELFPAY ==
--- NOTE | 2025-01-12 10:35 | A.OFFPC_ITS ---
Vital Signs 01/12/25 10:37 Height 5 ft 0.24 in Weight 185 lb 8 oz BMI 35.9 BP 130/80 Blood Pressure Location Lt brachial Position Sitting Pulse 65 Pulse Source Pulse Oximeter Temp 97.1 F Temp Source Temporal Artery Scan Pulse Oximetry (%) 97 Oxygen Delivery Method Room Air Intake Visit Reasons: PE R/S from 01/01 Intake Note: Patient is here today for a physical. 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 Cutter: Not Required per policy Accompanied by: Self / Same As Patient Allergies amoxicillin Allergy (Intermediate, Verified 01/12/25 10:56) Gastrointestinal Upset gentamicin (GENTAMICIN) Allergy (Intermediate, Verified 01/12/25 10:56) RASH ibuprofen (IBUPROFEN) Allergy (Intermediate, Verified 01/12/25 10:56) IRRITATION OF STOMACH Sulfa (Sulfonamide Antibiotics) Allergy (Intermediate, Verified 01/12/25 10:56) hives sulfamethoxazole (From Bactrim) Allergy (Intermediate, Verified 01/12/25 10:56) Rash trimethoprim (From Bactrim) Allergy (Intermediate, Verified 01/12/25 10:56) Rash sertraline (From Zoloft) Adverse Reaction (Mild, Verified 01/12/25 10:56) Urinary frequency anxiety meds ending in pram Allergy (Mild, Uncoded 01/12/25 10:56) cystitis Medication List - Last Reconciled 01/12/25 by Flavio Miller PA-C albuterol sulfate 90 mcg/actuation 2 puffs inhalation Q6H PRN 30 days ascorbic acid (vitamin C) (Vitamin C) 500 mg PO DAILY 90 days bisacodyl (Dulcolax (bisacodyl)) 5 mg PO BID PRN budesonide-formoterol 160-4.5 mcg/actuation (Symbicort) 2 puffs inhalation BID calcium carbonate (Calcium 500) 500 mg PO DAILY 30 days cholecalciferol (vitamin D3) 25 mcg PO DAILY cyclobenzaprine 10 mg PO TID PRN docusate sodium 200 mg (2 x 100 mg) PO BEDTIME famotidine 20 mg PO BID 90 days fexofenadine (Yesenia Allergy) 180 mg PO DAILY PRN 30 days fluticasone propionate 50 mcg/actuation (Flonase Allergy Relief) 1 spray intranasal BID 30 days fosfomycin tromethamine 3 grams PO Q3D 3 doses ipratropium-albuterol 0.5 mg-3 mg(2.5 mg base)/3 mL 3 mL inhalation Q6-8H PRN 30 days levothyroxine 100 mcg PO DAILY 90 days Held on 11/12/24. Instructions: Doctor's Order levothyroxine (Levoxyl) 125 mcg PO DAILY loperamide 2 mg PO Q8H PRN 30 days nebulizers (Aeroneb Go Nebulizer) As directed with tubing polyethylene glycol 3350 17 grams PO DAILY simvastatin 40 mg PO BEDTIME tamsulosin 0.4 mg PO BID 90 days Tobacco use date assessed: 01/12/25 Dental Screening Dental Screen Date: 01/12/25 Did you have a dental visit in the last 12 months?: No Did you have a dental problem in the last 6 months where you did not have access to dental care?: No Was dental information given to patient?: Patient has dentist HPI PE R/S from 01/01 HPI Details Patient is a 59-year-old female here today for a routine annual physical Patient has a past medical history significant for generalized anxiety disorder, depression, interstitial cystitis, allergic rhinitis, asthma. Concerns--> ? Recurrent staph UTIs : She reports experiencing urinary tract infections every two to three months, which have been persistent and unresolved despite medical interventions. The infections are associated with disrupted sleep patterns, particularly during active infections, leading to daytime fatigue. .. Allergic rhinitis/ conjunctivitis: Reports she has been having bad allergies as of late. Continues to take Yesenia and nasal spray once a day with some relief. She is asking for an eyedrops to help her with her allergic conjunctivitis. Advised Visine with antihistamine. .. Hypothyroidism: Continues on levothyroxine 175 mcg. Will continue to follow TSH .. COPD/ Smoker: She reports she has been trying to wean down her smoking. Unfortunately she does have a son who smokes at home which makes it difficult for her to quit. Patient is in need of a new nebulizer machine to help help her breathing status for acute wheezing and cough. Vaccines: Up-to-date with tetanus, shingles, COVID vaccine, up-to-date with pneumonia vaccine Colorectal cancer screening: has not been able to get colonoscopy Mammogram: Interested in mammogram in the future. Laboratory Tests 06/10/24 11/11/24 11/14/24 08:30 08:30 04:15 RBC 4.45 TSH 2.67 8.40 H 12/12/24 08:45 RBC TSH 0.66 PFSH Medical History KELLIE II (cervical intraepithelial neoplasia II) COVID-19 Interstitial cystitis Arthritis Vitamin D deficiency Bipolar disorder Anxiety and depression GERD (gastroesophageal reflux disease) Asthma Dysplasia of cervix, low grade (KELLIE 1) Dysuria Urge incontinence High cholesterol Thyroid activity decreased Urinary retention Smoker Surgical History History of laparoscopic cholecystectomy (10/12/23) H/O LEEP History of cystoscopy History of neck surgery Family History Father COPD (chronic obstructive pulmonary disease) Lung cancer Mother Breast cancer Cardiac pacemaker Son Hyperthyroidism Mental health disorder Maternal Grandmother Depression Mental health disorder Son Depression Social History Household Members: Family, Children and Other Household Members Other:: son, mother Housing: Apartment Do you presently have visiting nurse or other home services: No Alcohol intake: former Patient Tobacco Use Status: Current everyday Tobacco user Tobacco use type: Cigarette Cigarette Packs Per Day: 0.5 Cigarettes Per Day: 10.0 Years Smoked: 40 e-Cigarette/Vaping Use: Never Used Second Hand Smoke Exposure: Yes service: No Current occupational status: disabled Cognitive needs: No Hearing needs: No Vision needs: Yes (Glasses) Questionnaire PHQ-9 Over the last 2 weeks, how often have you been bothered by any of the following problems? 1. Little interest or pleasure in doing things: not at all 2. Feeling down, depressed, or hopeless: not at all 3. Trouble falling or staying asleep, or sleeping too much: not at all 4. Feeling tired or having little energy: not at all 5. Poor appetite or overeating: not at all 6. Feeling bad about yourself - or that you are a failure or have let yourself or your family down: not at all 7. Trouble concentrating on things, such as reading the newspaper or watching television: not at all 8. Moving or speaking so slowly that other people could have noticed. Or the opposite - being so fidgety or restless that you have been moving around a lot more than usual: not at all 9. Thoughts that you would be better off or of hurting yourself in some way: not at all Total score: 0 Depression Screening Interpretation: Negative Depression Screening Done: Yes Source: Developed by Drs. Mina Haas, Maria Luisa Felix, Paco Vasques and colleagues, with an educational erin from [employer]. Thrive Questionnaire Date Thrive assessed: 01/05/25 I am a: Patient What is your living situation today?: I have a steady place to live Within the past 12 months, did the food you bought not last and you didn't have the money to get more?: Never true Within the past 12 months, did you worry whether your food would run out before you got money to buy more?: Never true Do you have trouble paying for medicines?: No Do you have trouble getting transportation to medical appointments?: No Do you have trouble paying your heating and electricity bill?: No Do you have trouble taking care of your child, family member or friend?: No Do you have trouble with day-to-day activities such as bathing, preparing meals, shopping, managing finances, etc.?: No Are you currently unemployed and looking for a job?: I choose not to answer this question Are you interested in more education?: No Please select the resources that you would like help with: None Currently or been in a relationship where the following occur: No concerns reported THRIVE Score: 0 AUDIT C Alcohol Use Questionnaire (AUDIT-C) 1. How often do you have a drink containing alcohol?: Never Total Score: 0 ADORE-7 AMB Questionnaire ADORE-7 Date ADORE - 7 assessed: 01/12/25 Feeling nervous, anxious, or on edge: 0 = Not at all Not being able to stop or control worryin = Not at all Worrying too much about different things: 0 = Not at all Trouble relaxin = Not at all Being so restless that it is hard to sit still: 0 = Not at all Becoming easily annoyed or irritable: 0 = Not at all Feeling afraid as if something awful might happen: 0 = Not at all Total ADORE-7 score (0-4 normal; 5-9 mild; 10-14 moderate; 15-21 severe): 0 Source: Developed by Drs. Mina Haas, Maria Luisa Felix, Paco Vasques and colleagues, with an educational erin from [employer]. Review of Systems Const Denies body aches, Denies chills, Denies excessive sweating, Denies fatigue, Denies fever(s) and Denies headache(s) Eyes Denies blurry vision ENT Denies dysphagia, Denies vertigo, Denies dizziness, Denies headache(s), Denies hearing loss and Denies tinnitus Card Denies chest pain, Denies chest pain with activity, Denies syncope, Denies irregular heart rhythm and Denies dyspnea Resp Denies chest congestion, Denies cough, Denies hemoptysis, Denies dyspnea and Denies wheezing GI Denies abdominal pain, Denies melena, Denies hematochezia, Denies coffee ground emesis, Denies dysphagia, Denies diarrhea, Denies nausea and Denies vomiting Denies urinary frequency, Denies dysuria, Denies urinary hesitancy and Denies urinary urgency Musc Denies arthralgias, Denies limited range of motion, Denies muscle cramps and Denies muscle weakness Skin/Breast Denies rash and Denies skin ulcer Neuro Denies Abnormal speech present, Denies confusion, Denies vertigo, Denies dizziness, Denies syncope, Denies headache(s), Denies memory loss and Denies seizure-like activity Psych Denies anxiety, Denies confusion, Denies depression, Denies memory loss, Denies panic attacks and Denies paranoia Endo Denies excessive sweating, Denies fatigue, Denies flushing, Denies polydipsia and Denies polyuria Aller/Immun Denies wheezing Physical exam (Primary Care) Vital Signs: Last Vital Signs Temp 97.1 F 01/12/25 10:37 Pulse 65 01/12/25 10:37 BP 130/80 01/12/25 10:37 Pulse Ox 97 01/12/25 10:37 Oxygen Delivery Method Room Air 01/12/25 10:37 BMI result Body Mass Index 35.9 BMI Assessment/Plan discussion: High BMI High, discussed plan: lifestyle, weight reduction, dietary and physical activity Tobacco/Smoking Status: Tobacco use Status Tobacco use date assessed 01/12/25 01/12/25 10:46 Patient Tobacco Use Status Current everyday Tobacco 01/12/25 10:46 Tobacco use type Cigarette 01/12/25 10:46 e-Cigarette/Vaping Use Never Used 01/12/25 10:46 Are you ready to quit: No Tobacco cessation counseling provided: Yes Items discussed: Nicotine replacement Relapse Prevention: discussed the importance of a supportive environment, discussed negative mood or depression after quitting, weight gain after smoking is common and discussed dietary, exercise and/or lifestyle changes Number of minutes spent counselin CPT code: 78366 - 4-10 Minutes PHQ-9: PHQ-9 Score PHQ-9: Total score 0 01/12/25 10:59 Depression Screening Interpretation: Negative Thrive Assessment: Date of Thrive Assessment Date Thrive assessed 01/05/25 01/12/25 10:46 Currently or been in a relationship where the following occur: No concerns reported Const General: cooperative, comfortable, no acute distress, alert and awake; No confusion Orientation/consciousness: oriented to person, oriented to place, patient oriented x3 and No confusion HENMT Head: Yes normocephalic Ears: external ears normal and TM's normal bilaterally Face and sinus: No sinus tenderness Mouth: Normal oral and palatal mucosa present and tongue normal Teeth and gingiva: dentition normal and gingiva normal Throat: Yes posterior oropharynx normal, Yes tonsils normal and Yes uvula midline Eyes Conjunctivae: conjunctivae normal Sclerae: sclerae normal Pupils: Equal, round and reactive pupils present EOM: EOMs intact bilaterally Direct Ophthalmoscopy: No no photophobia Neck Neck: Yes no lymphadenopathy, No tender and Yes no JVD Thyroid: Thyroid normal Carotids: no bruits Chest Chest palpation & inspection: no tenderness Resp Effort & Inspection: normal respiratory effort, no audible wheezes, not labored and no stridor Auscultation: no crackles, no rales, no rhonchi and no wheezes Cardio Jugular venous distension: no JVD Rate: regular rate, not bradycardic and not tachycardic Rhythm: regular rhythm Bruits: no carotid bruits Peripheral pulses: Peripheral pulses 2+ throughout GI Inspection: Yes normal to inspection, No abdominal wall ecchymosis and No visible herniation Palpation (GI): Soft to palpation, nontender, no guarding, not rigid and No hepatosplenomegaly present Auscultation: normoactive bowel sounds General: Yes no CVA tenderness Back/Spine/Pelvis Back: no CVA tenderness and No back tenderness Cervical Spine: cervical ROM normal Thoracic/Lumbar Spine: thoracic and lumbar spine normal to inspection, straight leg raise negative bilaterally, No thoraco-lumbar ROM limited and No lumbar spinal tenderness Skin Lesions: no lesions Rashes: no rashes Wounds: no wounds Neuro General: oriented to person, oriented to place, patient oriented x3, CN's II-XI intact bilaterally and No confusion Cranial nerves: Yes Equal, round and reactive pupils present and Yes Normal accommodation reflex present Cognition (Neuro): normal cognition Speech: No Abnormal speech present Gait exam (Neuro): Normal gait present Motor exam (neuro): 5/5 motor strength present throughout Extrem Right upper extremity: full ROM; no cyanosis Left upper extremity: full ROM; no cyanosis Right lower extremity: no edema Left lower extremity: no edema Psych Appearance: grossly normal Mental Status: mental status grossly normal Affect: normal affect Attitude: cooperative Thought process: Normal thought process present Coding Level of Care Code Est Pt Prev Care 40-64y(33140) Diagnoses Annual physical exam Z00.00 Bilateral leg paresthesia R20.2 Hypothyroidism, unspecified type E03.9 Hypothyroidism type: unspecified Smoker F17.200 Chronic obstructive pulmonary disease, unspecified COPD type J44.9 COPD type: unspecified COPD KIRSTEN (obstructive sleep apnea) G47.33 Class 2 obesity E66.812 Additional Codes Vital Signs *Quality* - CPT code: 42640 - 4-10 Minutes ([id number]) Assessment & Plan Assessment & Plan (1) Annual physical exam: Code(s): Z00.00 - Encounter for general adult medical examination without abnormal findings Category: Medical Plan: As per HPI (2) Bilateral leg paresthesia: Code(s): R20.2 - Paresthesia of skin Category: Medical Plan: Patient reporting bilateral hand paresthesias. A nerve conduction study will be arranged to differentiate between carpal tunnel syndrome and cubital tunnel syndrome. (3) Hypothyroid: Code(s): E03.9 - Hypothyroidism, unspecified Category: Medical Qualifiers: Hypothyroidism type: unspecified Qualified Code(s): E03.9 - Hypothyroidism, unspecified Plan: Patient continues on 137 mcg of levothyroxine. Due to being on multiple rounds of antibiotics her thyroid stimulating hormone has not been consistent. (4) Smoker: Code(s): F17.200 - Nicotine dependence, unspecified, uncomplicated Category: Social Hx Plan: Patient does understand she needs to quit smoking though has found it very difficult to do so. Offered nicotine patches and replacement though she declines. Has tried Wellbutrin in the past though has not been particularly effective. (5) COPD (chronic obstructive pulmonary disease): Code(s): J44.9 - Chronic obstructive pulmonary disease, unspecified Category: Medical Qualifiers: COPD type: unspecified COPD Qualified Code(s): J44.9 - Chronic obstructive pulmonary disease, unspecified Plan: Patient has a history of COPD. She has an old nebulizer machine that isn't working well and needs a new machine. Will send office visit note to DME supplier for new nebulizer machine so that she can use updraft treatments for shortness of breath and wheeze events. (6) KIRSTEN (obstructive sleep apnea): Code(s): G47.33 - Obstructive sleep apnea (adult) (pediatric) Category: Medical Plan: Patient has a high-risk for obstructive sleep apnea, has been told she has apneic episodes at night. Also has daytime somnolence which may be multifactorial. She is open to the idea of doing a home sleep study. (7) Class 2 obesity: Code(s): E66.812 - Obesity, class 2 Category: Medical Plan: Patient does understand her BMI is over 35 and will work on being more physically active and adapting to better eating habits to reduce her weight Orders: Orders MM screening mammo BI 01/12/25 Z12.31 - Encounter for screening mammogram for malignant neoplasm of breast TSH reflex Free T4 Today E03.9 - Hypothyroidism, unspecified NE electromyogram (EMG) 01/12/25 R20.2 - Paresthesia of skin RT home sleep study 01/12/25 G47.33 - Obstructive sleep apnea (adult) (pediatric) Urine Cytology Today A49.9 - Bacterial infection, unspecified, N39.0 - Urinary tract infection, site not specified Vitamin D 25-OH Total Today E56.9 - Vitamin deficiency, unspecified NE nerve conduction velocity 01/12/25 R20.2 - Paresthesia of skin UA CC w/rflx Micro + Cult Today A49.9 - Bacterial infection, unspecified, N39.0 - Urinary tract infection, site not specified, R30.0 - Dysuria Medications: New nitrofurantoin monohyd/m-cryst 100 mg (Macrobid) must administer with a meal/food 100 mg PO DAILY 28 caps 0RF 28 days A49.9 - Bacterial infection, unspecified, N39.0 - Urinary tract infection, site not specified Refilled nebulizers (Aeroneb Go Nebulizer) As directed with tubing 1 ea 0RF J44.89 - Other specified chronic obstructive pulmonary disease cyclobenzaprine 10 mg PO TID PRN 20 tabs 0RF muscle spasm R20.2 - Paresthesia of skin Discontinued fosfomycin tromethamine take 1 packet every 3rd day for 3 doses total Discontinued Reason: Duplicate 3 grams PO Q3D 3 ea 0RF
[2025-01-12 10:37] VITALS: BP 130/80; PULSE 65; TEMP 36.2; O2SAT 97; BMI 35.9
== END 2025-01-12 11:28 | disposition home or self-care (01) ==
LOC: HO.HMCH 09:43
PROVIDERS: PCP Physician Assistant; Visit Provider Physician Assistant
DX: Z00.00 Encounter for general adult medical examination without abnormal findings (principal); J44.9 Chronic obstructive pulmonary disease, unspecified; E66.812 Obesity, class 2; Z68.35 Body mass index [BMI] 35.0-35.9, adult; R20.2 Paresthesia of skin; E03.9 Hypothyroidism, unspecified; F17.200 Nicotine dependence, unspecified, uncomplicated; G47.33 Obstructive sleep apnea (adult) (pediatric)

== ENCOUNTER → 2025-01-12 09:42 | Outpatient (BNVA) | payer OTHER, SELFPAY | PROVIDERS: PCP Physician Assistant; Visit Provider Physician Assistant | DX: Z00.00 Encounter for general adult medical examination without abnormal findings (principal); F41.1 Generalized anxiety disorder; E03.9 Hypothyroidism, unspecified; J44.9 Chronic obstructive pulmonary disease, unspecified; R20.2 Paresthesia of skin; G47.33 Obstructive sleep apnea (adult) (pediatric); E66.812 Obesity, class 2; A49.9 Bacterial infection, unspecified; N39.0 Urinary tract infection, site not specified; E56.9 Vitamin deficiency, unspecified; F17.210 Nicotine dependence, cigarettes, uncomplicated; Z68.35 Body mass index [BMI] 35.0-35.9, adult | CPT/HCPCS: 99396 ==

== ENCOUNTER 2025-01-13 08:28 | Outpatient (REF) | payer OTHER, SELFPAY ==
[2025-01-13 11:20] LABS: Appearance Urine Clear; Glucose Urine UA Negative (Negative); PH 6.0 (5.0-9.0); Specific Gravity - Urine >= 1.030 (1.005-1.025); UMIC TRIGGER UACC YES
[2025-01-13 11:33] LABS: UACC Culture Trigger YES
== END 2025-01-13 08:29 | disposition home or self-care (01) ==
LOC: HO.10HDL 08:28
PROVIDERS: Visit Provider Physician Assistant
DX: E56.9 Vitamin deficiency, unspecified (principal); N39.0 Urinary tract infection, site not specified; A49.9 Bacterial infection, unspecified; E03.9 Hypothyroidism, unspecified
CPT/HCPCS: 36415; 81001; 81003; 82306; 84443; 87086; 87147; 88112

== ENCOUNTER 2025-01-27 08:29 | Outpatient (AMB) | payer OTHER, SELFPAY ==
--- NOTE | 2025-01-27 08:58 | A.OFFVIS_ITS ---
Intake Visit Reasons: f/u recurrent UTIs Intake Note: Patient is Present for: FOLLOW UP Urology Med: Tamsulosin, VIT-C, FAMOTIDINE Blood Thinner: none TODAY'S PVR: 0ML'S License Distributor Required: No Accompanied by: Self / Same As Patient Allergies amoxicillin Allergy (Intermediate, Verified 01/27/25 08:59) Gastrointestinal Upset gentamicin (GENTAMICIN) Allergy (Intermediate, Verified 01/27/25 08:59) RASH ibuprofen (IBUPROFEN) Allergy (Intermediate, Verified 01/27/25 08:59) IRRITATION OF STOMACH Sulfa (Sulfonamide Antibiotics) Allergy (Intermediate, Verified 01/27/25 08:59) hives sulfamethoxazole (From Bactrim) Allergy (Intermediate, Verified 01/27/25 08:59) Rash trimethoprim (From Bactrim) Allergy (Intermediate, Verified 01/27/25 08:59) Rash sertraline (From Zoloft) Adverse Reaction (Mild, Verified 01/27/25 08:59) Urinary frequency anxiety meds ending in pram Allergy (Mild, Uncoded 01/27/25 08:59) cystitis HPI Comments Details: She will is a pleasant female. She is a patient of Dr. Miller. She is seen for the following urologic conditions - urinary urgency and frequency - possible interstitial cystitis Yearly follow-up PVR 0 UA 1+ leuks Feels she is flaring with IC Waking every hour Salvage medications provided She will call if not successful and needs bladder instillation Currently on tamsulosin, vitamin-C Has H2 blockers for interstitial cystitis exacerbation Overactive bladder Previously managed with a number of medications Prior medications Elmiron Failed Ditropan XL 15 mg b.i.d., Myrbetriq, tolterodine 4 mg Persistent urinary urgency with urge incontinence despite medications Prior hydrodistention for possible investigation of interstitial cystitis Exacerbating factors smoking Botox - 10/16, 06/19 Interstitial cystitis Multiple prior hydro distentions Had terminal hematuria with diffuse glomerulations volume 300 PFSH Medical History KELLIE II (cervical intraepithelial neoplasia II) COVID-19 Interstitial cystitis Arthritis Vitamin D deficiency Bipolar disorder Anxiety and depression GERD (gastroesophageal reflux disease) Asthma Dysplasia of cervix, low grade (KELLIE 1) Dysuria Urge incontinence High cholesterol Thyroid activity decreased Urinary retention Smoker Surgical History History of laparoscopic cholecystectomy (10/12/23) H/O LEEP History of cystoscopy History of neck surgery Family History Father COPD (chronic obstructive pulmonary disease) Lung cancer Mother Breast cancer Cardiac pacemaker Son Hyperthyroidism Mental health disorder Maternal Grandmother Depression Mental health disorder Son Depression Social History Household Members: Family, Children and Other Household Members Other:: son, mother Housing: Apartment Do you presently have visiting nurse or other home services: No Alcohol intake: former Patient Tobacco Use Status: Current everyday Tobacco user Tobacco use type: Cigarette Cigarette Packs Per Day: 0.5 Cigarettes Per Day: 10.0 Years Smoked: 40 e-Cigarette/Vaping Use: Never Used Second Hand Smoke Exposure: Yes service: No Current occupational status: disabled Cognitive needs: No Hearing needs: No Vision needs: Yes (Glasses) Review of Systems Const Denies chills and Denies fever(s) Card Reports no additional complaints and Denies syncope Resp Denies cough GI Denies abdominal pain and Denies heartburn Reports as per HPI and Denies change in libido Neuro Denies syncope Psych Denies change in libido Endo Denies change in libido Physical Exam Const General: cooperative, healthy appearing, comfortable and no acute distress Orientation/consciousness: patient oriented x3 HEENT Face and sinus: Yes normal facial exam Mouth: moist mucous membranes Neck Neck: Yes normal visual inspection, Yes full ROM and Yes trachea midline Chest Chest palpation & inspection: normal inspection of the chest Resp Effort & Inspection: normal respiratory effort, able to speak in complete sentences and no respiratory distress GI Inspection: Yes normal to inspection Back/Spine/Pelvis Cervical Spine: normal cervical lordosis Thoracic/Lumbar Spine: thoracic and lumbar spine normal to inspection Skin General skin exam: no rashes or lesions noted Neuro General: patient oriented x3, gait normal, tone normal and moves all extremities Extrem General: Yes normal to inspection and Yes capillary refill normal Office Procedures Post Void Residual Post Residual Void Post Void Residual (PVR): 0 97918-[id number] Void Residual by ultrasound Results AMB Urinalysis, Automated UA Leukoctes 70 Ricardo/uL Last Edit by ANUJ Estrada on 01/27/25 09:09 UA Nitrite Negative Last Edit by ANUJ Estrada on 01/27/25 09:09 UA Urobilinogen 0.2 mg/dL Last Edit by ANUJ Estrada on 01/27/25 09:0 9 UA Protein 0 mg/dL Last Edit by ANUJ Estrada on 01/27/25 09:09 UA pH 6.0 Last Edit by ANUJ Estrada on 01/27/25 09:09 UA Blood 0 Guru/uL Last Edit by ANUJ Estrada on 01/27/25 09:09 UA Specific Constantia 1.005 Last Edit by ANUJ Estrada on 01/27/25 09: 09 UA Ketone Negative Last Edit by ANUJ Estrada on 01/27/25 09:09 UA Bilirubin 0 mg/dL Last Edit by ANUJ Estrada on 01/27/25 09:09 UA Glucose 0 mg/dL Last Edit by ANUJ Estrada on 01/27/25 09:09 Results Reviewed Results Reviewed: Laboratory Last Values Urine pH (Auto) 6.0 01/27/25 09:09 Specific Constantia (Auto) 1.005 01/27/25 09:09 Urine Protein (Auto) 0 mg/dL 01/27/25 09:09 Glucose (UA)(Auto) 0 mg/dL 01/27/25 09:09 Urine Ketones (Auto) Negative 01/27/25 09:09 Urine Blood (Auto) 0 Guru/uL 01/27/25 09:09 Urine Nitrite (Auto) Negative 01/27/25 09:09 Urine Bilirubin (Auto) 0 mg/dL 01/27/25 09:09 Urine Urobilinogen (Auto) 0.2 mg/dL 01/27/25 09:09 Leukocyte Esterase (Auto) 70 Ricardo/uL 01/27/25 09:09 Assessment & Plan Assessment & Plan (1) Interstitial cystitis: Comment: Persistent urge frequency with strength urea following hydrodistention Code(s): N30.10 - Interstitial cystitis (chronic) without hematuria Category: Medical Plan Twelve month follow-up Orders: Orders AMB Post Void Residual by ultrasound Today N39.41 - Urge incontinence AMB Urinalysis Automated Today Z13.9 - Encounter for screening, unspecified Medications: New naproxen (Naprosyn) 500 mg PO Q12H PRN 30 tabs 0RF pain N20.0 - Calculus of kidney, N30.10 - Interstitial cystitis (chronic) without hematuria Refilled gabapentin 300 mg PO BEDTIME 30 caps 0RF 30 days N30.10 - Interstitial cystitis (chronic) without hematuria, R23.2 - Flushing, T50.905A - Adverse effect of unspecified drugs, medicaments and biological substances, initial encounter amitriptyline 50 mg PO BEDTIME 30 tabs 0RF 30 days N30.10 - Interstitial cystitis (chronic) without hematuria Patient Instructions: This note is constructed using voice recognition software. While every effort has been made to ensure accuracy unit receptionist errors may have been included. Imaging studies, laboratory and physical exam results were discussed and reviewed in detail. No major barriers to patient understanding were identified. An opportunity to ask questions regarding the treatment plan was provided. All questions were answered. The patient expressed understanding and agreement with the above treatment plan. The patient is aware they should contact our office by phone for worsening of their current condition or the appearance of new urologic symptoms. Compliance is encouraged with any medications and followup testing that is ordered. It is a privilege to participate in the urologic care of your patient. If you have any questions or concerns regarding treatment for the above conditions, or other urologic issues, please do not hesitate to contact me. The office telephone contact is [phone]. Sincerely, Dr Rock Linton MD, [facility] - Urology Compassionate Specialist Care for the Genitourinary System Coding Level of Care Code Est Pt Level 4 (56074) Diagnoses Interstitial cystitis N30.10 CPT Codes Post Residual Void - PVR CPT Code: 41539-Ncab Void Residual by ultrasound ([id number])
== END 2025-01-27 10:09 | disposition home or self-care (01) ==
LOC: HO.HUSH 08:29
PROVIDERS: PCP Physician Assistant; Visit Provider Urology
DX: Z13.9 Encounter for screening, unspecified (principal); N30.10 Interstitial cystitis (chronic) without hematuria
CPT/HCPCS: 99214

== ENCOUNTER → 2025-01-27 08:29 | Outpatient (BNVA) | payer OTHER, SELFPAY | PROVIDERS: PCP Physician Assistant; Visit Provider Urology | DX: N39.41 Urge incontinence (principal); N30.10 Interstitial cystitis (chronic) without hematuria | CPT/HCPCS: 51798; 81003; 99212 ==

== ENCOUNTER 2025-02-15 14:32 | Emergency (ER) | payer OTHER, SELFPAY ==
[2025-02-15] VITALS (7 sets, daily range): BP systolic 104–190; BP diastolic 58–110; PULSE 65–83; RESP 12–22; TEMP 36.3–36.6; O2SAT 98–100; BMI 37.7
--- NOTE | ~2025-02-15 | XR_ITS ---
CLINICAL HISTORY: cough 2 view chest x-ray Comparison: CR/SR - XR CHEST 2 VIEWS - 10/25/23 09:06 EDT Findings: The lungs are clear. Heart size is normal. No acute fracture. IMPRESSION: 1. No acute findings. This document has been electronically signed by: Jacinta Sparks MD on 02/15/2025 15:54:56
--- NOTE | 2025-02-15 14:44 | ED_ITS ---
HPI - General Adult General Chief complaint: Dyspnea Stated complaint: SOB,RESP INF X4W, BP 190/110,H/O COPD Time Seen by Provider: 02/15/25 14:37 Source: patient Mode of arrival: ambulatory Limitations: no limitations History of Present Illness ED Provider: Dr. Madrigal HPI narrative: 59-year-old female history of COPD, tobacco use, obesity, hyperlipidemia, GERD presented hospital today for shortness of breath. Patient stated she has been having shortness of breath and coughing for the past 4 weeks. Stated that her son has been sick at home. She is complaining of some nasal congestion with this. Patient stated that she has been having some productive coughing as well with this. Denies any fever. She attempted to contact her primary care doctor for medications however unable to get in with them. However her symptoms has been worsening therefore she presents to the ER for evaluation today. She is complaining of left posterior rib pain when she moves around. Related Data Previous Rx's ?Medication ?Instructions ?Recorded bisacodyl 5 mg tablet,delayed 5 mg PO BID PRN constipa tion #4 10/16/23 release (Dulcolax (bisacodyl)) tabs polyethylene glycol 3350 17 17 g PO DAILY #510 grams 0 02/25/24 gram/dose oral powder ascorbic acid (vitamin C) 500 mg 500 mg PO DAILY 90 da ys #90 tabs 05/13/24 tablet (Vitamin C) calcium carbonate (Calcium 500) 500 mg PO DAILY 30 day s #30 tabs 05/13/24 simvastatin 40 mg tablet 40 mg PO BEDTIME #90 caps levothyroxine 100 mcg tablet 100 mcg PO DAILY 90 days #90 tabs 11/06/24 Held on 11/12/24. Instructions: Doctor's Order albuterol sulfate 90 mcg/actuation 2 puff inhalation Q 6H PRN 11/09/24 aerosol inhaler shortness of breath or wheez ing 30 days #8.5 grams levothyroxine 125 mcg tablet 125 mcg PO DAILY #90 tabs 11/13/24 (Levoxyl) docusate sodium 100 mg capsule 200 mg (2 x 100 mg) PO BEDTIME #60 11/27/24 caps famotidine 20 mg tablet 20 mg PO BID 90 days #180 ta bs 12/24/24 fexofenadine 180 mg tablet 180 mg PO DAILY PRN allergy 12/24/24 (Yesenia Allergy) symptoms 30 days #30 tabs cyclobenzaprine 10 mg tablet 10 mg PO TID PRN muscle s pasm #20 01/12/25 tabs nebulizers (Aeroneb Go Nebulizer) #1 ea 01/12/25 nitrofurantoin 100 mg PO DAILY 28 days #28 caps 01/12/25 monohydrate/macrocrystals 100 mg capsule (Macrobid) Nebulizer machine with tubing mask #1 ea 01/14/25 doxycycline hyclate 100 mg capsule 100 mg PO BID 5 day s #10 caps 01/18/25 cholecalciferol (vitamin D3) 25 25 mcg PO DAILY #90 ca ps 01/19/25 mcg (1,000 unit) tablet fluticasone propionate 50 1 spray intranasal BID 30 da ys 01/19/25 mcg/actuation nasal #9.9 mL spray,suspension (Flonase Allergy Relief) loperamide 2 mg capsule 2 mg PO Q8H PRN loose stool 30 01/19/25 days #90 caps amitriptyline 50 mg tablet 50 mg PO BEDTIME 30 days #3 0 tabs 01/27/25 gabapentin 300 mg capsule 300 mg PO BEDTIME 30 days #3 0 caps 01/27/25 naproxen 500 mg tablet (Naprosyn) 500 mg PO Q12H PRN p ain #30 tabs 01/27/25 tamsulosin 0.4 mg capsule 0.4 mg PO BID 90 days #180 c aps 02/03/25 dextromethorphan polistirex 30 10 ml PO Q12H PRN cough 30 days 02/04/25 mg/5 mL oral susp ext.release 12hr #600 mL (Delsym 12 hour) ipratropium 0.5 mg-albuterol 3 mg 3 ml inhalation Q6-8 H PRN wheezing 02/07/25 (2.5 mg base)/3 mL nebulization 30 days #180 mL soln budesonide-formoterol HFA 160 2 puff inhalation BID #3 0.6 grams 02/11/25 mcg-4.5 mcg/actuation aerosol inhaler (Symbicort) albuterol sulfate 90 mcg/actuation 2 puff inhalation Q 6H PRN 02/15/25 aerosol inhaler (Ventolin HFA) shortness of breath or wheezing #6.7 grams azithromycin 250 mg tablet See Rx Instructions PO .COM PLEX #6 02/15/25 tabs prednisone 50 mg tablet 50 mg PO DAILY #5 tabs 02/15 Allergies Allergy/AdvReac Type Severity Reaction Status Date / Time amoxicillin Allergy Intermediate Gastrointestinal Verified 02/15/25 15:05 Upset gentamicin (GENTAMICIN) Allergy Intermediate RASH Verified 02/15/25 15:05 ibuprofen (IBUPROFEN) Allergy Intermediate IRRITATION Verified 02/15/25 15:05 OF STOMACH Sulfa (Sulfonamide Allergy Intermediate hives Verified 02/15/25 15:05 Antibiotics) sulfamethoxazole (From Allergy Intermediate Rash Verified 02/15/25 15:05 Bactrim) trimethoprim (From Bactrim) Allergy Intermediate Rash Verified 02/15/25 15:05 sertraline (From Zoloft) AdvReac Mild Urinary Verified 02/15/25 15:05 frequency anxiety meds ending in pram Allergy Mild cystitis Uncoded 01/27/25 08:59 Review of Systems Review of Systems: Pertinent review of systems as mentioned in HPI. All other system otherwise negative. [facility] Past Medical History [facility] Narrative: Medical history as mentioned in HPI Medical History KELLIE II (cervical intraepithelial neoplasia II) COVID-19 Interstitial cystitis Arthritis Vitamin D deficiency Bipolar disorder Anxiety and depression GERD (gastroesophageal reflux disease) Asthma Dysplasia of cervix, low grade (KELLIE 1) Dysuria Urge incontinence High cholesterol Thyroid activity decreased Urinary retention Smoker Surgical History History of laparoscopic cholecystectomy (10/12/23) H/O LEEP History of cystoscopy History of neck surgery Family History Family History Father COPD (chronic obstructive pulmonary disease) Lung cancer Mother Breast cancer Cardiac pacemaker Son Hyperthyroidism Mental health disorder Maternal Grandmother Depression Mental health disorder Son Depression Social History Social History Household Members: Family, Children and Other Household Members Other:: son, mother Housing: Apartment Do you presently have visiting nurse or other home services: No Alcohol intake: former Patient Tobacco Use Status: Current everyday Tobacco user Tobacco use type: Cigarette Cigarette Packs Per Day: 0.5 Cigarettes Per Day: 10.0 Years Smoked: 40 Smoked in Last 30 Days: No e-Cigarette/Vaping Use: Never Used Second Hand Smoke Exposure: Yes Use of substances other than those prescribed or required for medical reasons: No Advance Directives: No Advance Directives Information Provided: No Do you have a plan to hurt others: No Plan Patient : No service: No Current occupational status: disabled Cognitive needs: No Hearing needs: No Vision needs: Yes (Glasses) Physical Exam ED Exam Exam: General: Pleasant, no distress, interacting appropriately, does not appear to be in respiratory distress Head: Normacephalic, atraumatic ENT: oral mucosa moist, neck supple, no tracheal deviation Cardiovascular: regular rate, regular rhythm, no murmurs, rubbing, gallops, left posterior rib pain worsened on movement Respiratory: Bilateral rhonchi on exam Extremities: No limb pain or swelling, no calf tenderness Neurological: Awake and alert, no facial droop noted Skin: Warm and dry Psychiatric: Appropriate mood and thoughts Vital Signs: Vital Signs - 24 hr 02/15/25 14:51 02/15/25 15:01 02/15/25 15:18 Temperature 97.4 F 97.7 F Pulse Rate 76 65 77 Respiratory Rate 16 20 22 H Blood Pressure 121/68 147/70 H Pulse Oximetry 98 Oxygen Delivery Method Room Air Room Air 02/15/25 15:55 Temperature Pulse Rate 83 Respiratory Rate 12 Blood Pressure 144/61 H Pulse Oximetry 98 Oxygen Delivery Method Room Air BMI result Body Mass Index 37.7 Medications Administered Discontinued Medications Generic Name Dose Route Start Last Admin Trade Name Freq PRN Reason Stop Dose Admin Acetaminophen 975 mg 02/15/25 15:00 02/15/25 15:56 Acetaminophen 325 Mg Tablet PO 02/15/25 15:01 975 mg ONCE ONE Administration Azithromycin 500 mg 02/15/25 14:56 02/15/25 15:56 Azithromycin 500 Mg Tablet PO 02/15/25 14:57 500 mg ONCE ONE Administration Albuterol Sulfate 5 mg/ 0 mg 02/15/25 15:14 02/15/25 15:16 Albuterol/Ipratropium 3 ml INHALE 02/15/25 15:15 1 each ONCE ONE Administration Lidocaine 1 patch 02/15/25 15:00 02/15/25 15:56 Lidocaine 4 % Patch Adh..Patch TRANSDERMA 02/15/25 15:01 1 patch ONCE ONE Administration Protocol Prednisone 50 mg 02/15/25 14:55 02/15/25 15:56 Prednisone 10 Mg Tablet PO 02/15/25 14:56 50 mg ONCE ONE Administration Medical Decision Making Medical Decision Making [facility] Narrative: 59-year-old female history of COPD, GERD, hyperlipidemia, obesity presented hospital today for evaluation of shortness of breath. We will plan to obtain a chest x-ray rule out pneumonia. We will give patient a breathing treatment here. Give patient a dose of azithromycin, prednisone will be given patient's here as well. We will plan to give patient a dose of Tylenol here, lidocaine patch for her posterior rib pain. No pneumonia on chest x-ray, patient does feel better after breathing treatment. We will plan to discharge patient with albuterol inhaler, azithromycin course, and a 1st course of prednisone. Patient will be discharged at this time instruct her to follow up with her primary care doctor. Patient agrees and understands this plan. Differential Diagnosis Differential Diagnoses: The differential diagnosis associated with the presentation includes COPD, upper respiratory infection, viral pneumonia Independent Interpretation I performed an independent interpretation of an: Plain X-Ray Radiology Impression Discussion of test interpretation with radiology: I have reviewed the radiologist's reading. Chronic Conditions COPD, tobacco use Discharge Plan Discharge Clinical Impression: Bronchitis Patient Disposition: Home, Self-Care Instructions: Acute Bronchitis (ED) Prescriptions: New azithromycin 250 mg tablet See Rx Instructions .ROUTE .COMPLEX Qty: 6 0RF Rx Instructions: For 250 mg dose pack: take 500 mg today (day 1), then 250 mg for 4 days (days 2-5) prednisone 50 mg tablet 50 mg PO DAILY Qty: 5 0RF albuterol sulfate [Ventolin HFA] 90 mcg/actuation HFA aerosol inhaler 2 puff inhalation Q6H PRN (Reason: shortness of breath or wheezing) Qty: 6.7 0RF No Action bisacodyl [Dulcolax (bisacodyl)] 5 mg tablet,delayed release (DR/EC) 5 mg PO BID PRN (Reason: constipation) Qty: 4 0RF polyethylene glycol 3350 17 gram/dose powder 17 g PO DAILY Qty: 510 6RF ascorbic acid (vitamin C) [Vitamin C] 500 mg tablet 500 mg PO DAILY 90 Days Qty: 90 3RF calcium carbonate [Calcium 500] 500 mg calcium (1,250 mg) tablet,chewable 500 mg PO DAILY 30 Days Qty: 30 6RF simvastatin 40 mg tablet 40 mg PO BEDTIME Qty: 90 2RF levothyroxine 100 mcg tablet 100 mcg PO DAILY 90 Days Qty: 90 0RF albuterol sulfate 90 mcg/actuation HFA aerosol inhaler 2 puff inhalation Q6H PRN (Reason: shortness of breath or wheezing) 30 Days Qty: 8.5 6RF levothyroxine [Levoxyl] 125 mcg tablet 125 mcg PO DAILY Qty: 90 1RF docusate sodium 100 mg capsule 200 mg PO BEDTIME Qty: 60 5RF fexofenadine [Yesenia Allergy] 180 mg tablet 180 mg PO DAILY PRN (Reason: allergy symptoms) 30 Days Qty: 30 3RF famotidine 20 mg tablet 20 mg PO BID 90 Days Qty: 180 1RF (DME) Nebulizer machine with tubing mask See Rx Instructions .Route .MEDSUPPLY Qty: 1 0RF Rx Instructions: As directed doxycycline hyclate 100 mg capsule 100 mg PO BID 5 Days Qty: 10 0RF fluticasone propionate [Flonase Allergy Relief] 50 mcg/actuation spray,suspension 1 spray intranasal BID 30 Days Qty: 9.9 5RF Rx Instructions: administer into each nostril cholecalciferol (vitamin D3) 25 mcg (1,000 unit) tablet 25 mcg PO DAILY Qty: 90 2RF loperamide 2 mg capsule 2 mg PO Q8H PRN (Reason: loose stool) 30 Days Qty: 90 1RF tamsulosin 0.4 mg capsule 0.4 mg PO BID 90 Days Qty: 180 1RF dextromethorphan polistirex [Delsym 12 hour] 30 mg/5 mL suspension,extended rel 12 hr 10 ml PO Q12H PRN (Reason: cough) 30 Days Qty: 600 0RF ipratropium-albuterol 0.5 mg-3 mg(2.5 mg base)/3 mL solution for nebulization 3 ml inhalation Q6-8H PRN (Reason: wheezing) 30 Days Qty: 180 2RF budesonide-formoterol [Symbicort] 160-4.5 mcg/actuation HFA aerosol inhaler 2 puff INHALATION BID Qty: 30.6 3RF nitrofurantoin monohyd/m-cryst [Macrobid] 100 mg capsule 100 mg PO DAILY 28 Days Qty: 28 0RF Rx Instructions: must administer with a meal/food cyclobenzaprine 10 mg tablet 10 mg PO TID PRN (Reason: muscle spasm) Qty: 20 0RF (DME) nebulizers [Aeroneb Go Nebulizer] Misc See Rx Instructions .Route Qty: 1 0RF Rx Instructions: As directed with tubing amitriptyline 50 mg tablet 50 mg PO BEDTIME 30 Days Qty: 30 0RF gabapentin 300 mg capsule 300 mg PO BEDTIME 30 Days Qty: 30 0RF naproxen [Naprosyn] 500 mg tablet 500 mg PO Q12H PRN (Reason: pain) Qty: 30 0RF Print Language: Kyrgyz
[2025-02-15] MEDS: Albuterol Sulfate 5 MG, Albuterol/Iprat 2.5/0.5MG 3 ML 3 ML INHALE (15:16)
[2025-02-15] MEDS: Lidocaine 4 % Patch ADH..PATCH 1 PATCH TRANSDERMA (15:56)
--- NOTE | 2025-02-15 15:59 | PC.NURSE ---
59 F presents to ED With SOB and cough x 4days. SOB has improved but still hard to take a deep breath, hx COPD and asthma, sts feels congested. A+Ox4, calm, cooperative. RR even and unlabored, Pt sounds congested but otherwise lungs sound clear. Pt speaking in complete sentences. Pt ambulates independently.
== END 2025-02-15 16:40 | disposition home or self-care (01) ==
PROVIDERS: Emergency Provider Student in an Organized Health Care Education/Training Program; PCP Physician Assistant
DX: J40 Bronchitis, not specified as acute or chronic (principal); R06.02 Shortness of breath; R05.9 Cough, unspecified; R07.81 Pleurodynia
CPT/HCPCS: 71046; 94640; 99284; 99285

== ENCOUNTER → 2025-02-15 14:55 | Outpatient (BNV) | payer OTHER, SELFPAY | PROVIDERS: Emergency Provider Student in an Organized Health Care Education/Training Program; PCP Physician Assistant; Visit Provider Radiology Diagnostic Radiology | DX: R05.9 Cough, unspecified (principal) | CPT/HCPCS: 71046 ==

== ENCOUNTER 2025-02-24 08:47 | Outpatient (REF) | payer OTHER, SELFPAY ==
--- NOTE | 2025-02-24 08:49 | EMG_ITS ---
Chief complaint: Bilateral hand numbness and tingling Reason for referral: Evaluate for Carpal Tunnel Syndrome Referred by: MAL Hector Procedure done: Bilateral upper extremity NCS / EMG Bilateral median and ulnar motor and sensory studies were performed bilateral radial sensory studies were performed an EMG needle condition was performed. There was mild slowing of ulnar motor responses across elbow and mildly delayed left median mixed distal latencies. Impression: 1. Mild bilateral ulnar neuropathy across cubital tunnel 2. Mild left median neuropathy across carpal tunnel MTDD
== END 2025-02-24 08:48 | disposition home or self-care (01) ==
LOC: HO.NEURO 08:47
PROVIDERS: PCP Physician Assistant; Visit Provider Physician Assistant
DX: R20.2 Paresthesia of skin (principal); G56.12 Other lesions of median nerve, left upper limb; G56.23 Lesion of ulnar nerve, bilateral upper limbs
CPT/HCPCS: 95886; 95911

== ENCOUNTER → 2025-02-24 08:49 | Outpatient (BNV) | payer OTHER, SELFPAY | PROVIDERS: PCP Physician Assistant; Visit Provider Psychiatry & Neurology Neurology | DX: G56.02 Carpal tunnel syndrome, left upper limb (principal); G56.23 Lesion of ulnar nerve, bilateral upper limbs | CPT/HCPCS: 95886; 95911 ==

== ENCOUNTER 2025-03-05 08:28 | Outpatient (REF) | payer OTHER, SELFPAY ==
[2025-03-05 10:47] LABS: Appearance Urine Clear; Glucose Urine UA Negative (Negative); PH 5.5 (5.0-9.0); Specific Gravity - Urine 1.025 (1.005-1.025); UMIC TRIGGER UA YES
== END 2025-03-05 08:29 | disposition home or self-care (01) ==
LOC: HO.10HDLNP 08:28
PROVIDERS: Visit Provider Nurse Practitioner Family
DX: R39.15 Urgency of urination (principal); N32.81 Overactive bladder
CPT/HCPCS: 81001; 87086; 87147

== ENCOUNTER 2025-03-23 08:33 | Outpatient (REF) | payer OTHER, SELFPAY ==
[2025-03-23 12:01] LABS: Free T4 (Free Thyroxine) 1.61 ng/dL (0.71-1.85)
== END 2025-03-23 08:34 | disposition home or self-care (01) ==
LOC: HO.10HDL 08:33
PROVIDERS: Visit Provider Physician Assistant
DX: E03.9 Hypothyroidism, unspecified (principal)
CPT/HCPCS: 36415; 84439; 84443

== ENCOUNTER 2025-05-13 08:33 | Outpatient (REF) | payer OTHER, SELFPAY ==
[2025-05-13 10:30] LABS: Appearance Urine Cloudy; Glucose Urine UA Negative (Negative); PH 5.5 (5.0-9.0); Specific Gravity - Urine 1.025 (1.005-1.025); UMIC TRIGGER UACC YES
[2025-05-13 11:02] LABS: UACC Culture Trigger YES
[2025-05-13 12:26] LABS: Free T4 (Free Thyroxine) 1.22 ng/dL (0.71-1.85)
== END 2025-05-13 08:34 | disposition home or self-care (01) ==
LOC: HO.10HDL 08:33
PROVIDERS: Visit Provider Physician Assistant
DX: N39.0 Urinary tract infection, site not specified (principal); R30.0 Dysuria; E03.9 Hypothyroidism, unspecified; A49.9 Bacterial infection, unspecified
CPT/HCPCS: 36415; 81001; 84439; 84443; 87086; 87147